=== PATIENT | male | born 1965 | race Hispanic/Latino ===

== ENCOUNTER 2023-02-04 21:40 | Inpatient (IN) | payer SELFPAY ==
--- OUTSIDE RECORDS SUMMARY | 2023-02-04 21:49 | XMS REPORT | Continuity of Care Document ---
:1965 Author Organization [facility] t Address [address] [place] [address] [place] [address] Care Team Providers Name Role Phone [phone] Attending Clinician Unavailable ADEN_Oxana Attending Clinician Unavailable Nilo COLLINS, Sudha Attending Clinician SUDHA DALEY Attending Clinician Unavailable Magnolia ROLLE, Tammy Attending Clinician Unavailable Jaden PEDRO, Abhay Loyola Attending Clinician [phone] Myla Rosas MD, Jose Pathak Attending Clinician [phone] Elton PEDRO, Polo Johnson Attending Clinician [phone] Luis Bright MD, [place] Asif Attending Clinici an Larry PEDRO, Nitesh Attending Clinician Neto PEDRO, Flaca Mijares Attending Clinician Edie Ortiz MD Attending Clinician Little Schulz MD Attending Clinician Nirali Ray MD Attending Clinician [id number] Admitting Clinician Unavailable GEORGE Admitting Clinician Unavailable NIRALI RAY Admitting Clinician Unavailable Payers Payer Name Policy Type Policy Number Effective Date Expiration Date S ource Problems Condition Condition Condition Status Onset Resolution Last Treating Co mments Source Name Details Category Date Date Treatment Clinician Date Type 2 Type [address] [facility] diabetes diabetes nce 3-18 [facility] mellitus, mellitus, 00:00: Medi karishma without without 00 Center long-term long-term current current use of use of insulin insulin Essential Essential Disease Recurre [facility] hypertensi hypertensi nce 3-18 Renetta kes on on 00:00: Medical 00 Center Diastolic Diastolic Problem Active [facility] Heart 3-11 [facility] failure Failure 00:00: Clinic stage A Stage a 00 Diabetes Diabetes Problem Active [facility] mellitus Mellitus 2-09 [facility] 00:00: Clinic 00 Essential Essential Problem Active [facility] hypertensi Hypertensi 2-09 Eleonora se on on 00:00: Clinic 00 Class 3 Class [address] [facility] severe severe nce 2-05 [facility] obesity obesity 00:00: Medical due to due to 00 Center excess excess calories calories with with serious serious comorbidit comorbidit y and body y and body mass index mass index (BMI) of (BMI) of 40.0 to 40.0 to 44.9 in 44.9 in adult adult Pneumonia Pneumonia Problem Active [facility] caused by Caused by 204 [facility] SARS-CoV-2 SARS-CoV-2 00:00: Cl inic 00 Acute Acute Disease Resolve 2020-06-14 2020-06-[address] [facility] [address] respirator respirator d 2-05 00:00:00 12:41:48 [facility] y distress y distress 00:00: Me dical syndrome syndrome 00 Center (ARDS) due (ARDS) due to severe to severe acute acute respirator respirator y syndrome y syndrome coronaviru coronaviru s 2 s 2 (SARS-CoV- (SARS-CoV- 2) 2) Acute Acute Disease Resolve 2020-06-14 2020-06-[address] [facility] hypoxemic hypoxemic d 2-05 00:00:00 12:41:49 [facility] respirator respirator 00:00: Me dical y failure y failure 00 Cent er due to due to COVID-19 COVID-19 JARRETT (acute JARRETT (acute Disease Resolve 2020-06-14 2020-06-[address] [facility] kidney kidney d 2-05 00:00:00 12:41:52 [facility] injury) injury) 00:00: Medical 00 [place] Respirator Respirator Disease Resolve 2020-06-14 2020-06-[address] [facility] y failure y failure d 2-04 00:00:00 12:41:45 [facility] Center Allergies, Adverse Reactions, Alerts Allergy Allergy Status Severity Reaction(s) Onset Inactive Treating Comm ents Source Name Type Date Date Clinician NO KNOWN Allergy Active [facility] Social History Social Habit Start Date Stop Date Quantity Comments Source History of tobacco Passive smoker [facility] use [facility] Tobacco use and 2020-05-08 2020-05-08 Never used [facility] exposure 00:00:00 00:00:00 [facility] Sex Ass[birth year] At [birth year] [facility] 00:00:00 00:00:00 [facility] Smoking Status Start Date Stop Date Source Never smoked tobacco [facility] Medications Ordered Filled Start Stop Current Ordering Indication Dosage Frequency Signature Comments Components Source Medication Medication Date Date Medication? Clinician (SIG) Name Name insulin Yes 6U Inject [address] [facility] regular 3-18 Units [facility] (HumuLIN 12:13: subcutaneo Med ical R,NovoLIN 42 usly 3 Center R) 100 (three) unit/mL times injection daily before meals Use as directed . insulin NPH Yes 10U [id number] Inject [address] [facility] [address] (HumuLIN N) 3-18 [id number] Units L ukes 100 unit/mL 12:13: 3D subcutaneo Medical injection 42 usly 3 Center (three) times daily Use as directed . insulin Yes 6U Inject [address] [facility] regular 3-18 Units [facility] (HumuLIN 12:13: subcutaneo Med ical R,NovoLIN 42 usly 3 Center R) 100 (three) unit/mL times injection daily before meals Use as directed . insulin NPH Yes 10U [id number] Inject [address] (HumuLIN N) 3-18 [id number] Units L ukes 100 unit/mL 12:13: 3D subcutaneo Medical injection 42 usly 3 Center (three) times daily Use as directed . insulin Yes 6U Inject [address] [facility] regular 3-18 Units [facility] (HumuLIN 12:13: subcutaneo Med ical R,NovoLIN 42 usly 3 Center R) 100 (three) unit/mL times injection daily before meals Use as directed . insulin NPH Yes 10U [id number] Inject [address] [address] (HumuLIN N) 18 [id number] Units L ukes 100 unit/mL 12:13: 3D subcutaneo Medical injection 42 usly 3 Center (three) times daily Use as directed . amLODIPine 2021- No 5mg QD Take [address] [facility] (NORVASC) 5 06-05-09 tablet (5 Renetta kes MG tablet 00:00: 23:59 mg total) Me dical 00 :00 by mouth Center daily. amLODIPine 2021- No 5mg QD Take [address] [facility] (NORVASC) 5 06-05-09 tablet (5 Renetta kes MG tablet 00:00: 23:59 mg total) Me dical 00 :00 by mouth Center daily. furosemide 2020- No 40mg QD Take [address] [facility] (LASIX) 40 06-05-08 tablet (40 Renetta kes MG tablet 00:00: 23:59 mg total) Me dical 00 :00 by mouth Center daily for 30 days. furosemide 2020- No 40mg QD Take [address] [facility] (LASIX) 40 06-05- tablet (40 Renetta kes MG tablet 00:00: 23:59 mg total) Me dical 00 :00 by mouth Center daily for 30 days. predniSONE Yes 30mg for [address] (DELTASONE) 3-08 days and Luke s 10 MG 00:00: then 20mg Medical tablet 00 for 7 days Center and then 10mg for 7 days and then stop in total 19 days total. miscellaneo Yes Glucometer [facility] medical 06-04 #1Glucomet Jesus es supply Misc 00:00: er test Med ical 00 strip, Center chect QAC and QHS #100Lancet s #100Insuli n syringes 1ml each #100. predniSONE Yes 30mg for [address] (DELTASONE) 3-08 days and Luke s 10 MG 00:00: then 20mg Medical tablet 00 for 7 days Center and then 10mg for 7 days and then stop in total 19 days total. miscellaneo Yes Glucometer [facility] 3- #1Glucomet Jesus es supply Misc 00:00: er test Med ical 00 strip, Center chect QAC and QHS #100Lancet s #100Insuli n syringes 1ml each #100. predniSONE Yes 30mg for [address] (DELTASONE) 3-08 days and Luke s 10 MG 00:00: then 20mg Medical tablet 00 for 7 days Center and then 10mg for 7 days and then stop in total 19 days total. miscellaneo Yes Glucometer [facility] 06-04 #1Glucomet Jesus es supply Misc 00:00: er test Med ical 00 strip, Center chect QAC and QHS #100Lancet s #100Insuli n syringes 1ml each #100. apixaban 2020- No 5mg Q.5D Take [address] [facility] (ELIQUIS) 5 06-04 tablet (5 Renetta kes mg Tab 00:00: 23:59 mg total) Medic al tablet 00 :00 by mouth 2 Center (two) times daily for 30 days. apixaban 2020- No 5mg Q.5D Take [address] [facility] (ELIQUIS) 5 06-04 tablet (5 Renetta kes mg Tab 00:00: 23:59 mg total) Medic al tablet 00 :00 by mouth 2 Center (two) times daily for 30 days. insulin NPH 2020- No Use as [facility] (HumuLIN N) 06-04 directed, Renetta kes 100 unit/mL 00:00: 00:00 10 units M edical injection 00 :00 twice Center daily. insulin 2020- No [address] [facility] regular 06-04 with each [facility] (HumuLIN 00:00: 00:00 meal. Do Medi karishma R,NovoLIN 00 :00 not take Center R) 100 if unit/mL pre-meal injection blood sugar below 100 or not taking that meal. insulin NPH 2020- No Use as [facility] (HumuLIN N) 06-04 directed, Renetta kes 100 unit/mL 00:00: 00:00 10 units M edical injection 00 :00 twice Center daily. insulin 2020- No [address] [facility] regular 3-08 18 with each [facility] (HumuLIN 00:00: 00:00 meal. Do Medi karishma R,NovoLIN 00 :00 not take Center R) 100 if unit/mL pre-meal injection blood sugar below 100 or not taking that meal. amlodipine amlodipine No .5 Q1D amlodipine [facility] 10 mg 10 mg 10 mg Jed tablet Take tablet Take tablet Clinic 0.5 tablets 0.5 tablets Take 0.5 every day every day tablets by oral by oral every day route. route. by oral route. Eliquis 5 Eliquis 5 No 1 BID Eliquis 5 [facility] mg tablet mg tablet mg tablet Jed Take 1 Take 1 Take 1 Clinic tablet tablet tablet twice a day twice a day twice a by oral by oral day by route. route. oral route. furosemide furosemide No 1 Q1D furosemide [facility] 40 mg 40 mg 40 mg Jed tablet Take tablet Take tablet Clinic 1 tablet 1 tablet Take 1 every day every day tablet by oral by oral every day route. route. by oral route. Humulin N Humulin N No 15unit( BID Humulin N Carter NPH U-100 NPH U-100 s) NPH U-100 [facility] Insulin Insulin Insulin Clinic (isophane (isophane (isophane susp) 100 susp) 100 susp) 100 unit/mL unit/mL unit/mL subcutaneou subcutaneou subcutaneo s Inject 15 s Inject 15 us Inject units twice units twice 15 units a day by a day by twice a subcutaneou subcutaneou day by s route s route subcutaneo before before us route meals. meals. before meals. Humulin R Humulin R No 6unit(s BID Humulin R [facility] Regular Regular ) Regular Jed U-100 U-100 U-100 [facility] Insulin 100 Insulin 100 Insulin unit/mL unit/mL 100 injection injection unit/mL solution solution injection Take 6 Take 6 solution units twice units twice Take 6 a day by a day by units injection injection twice a route route day by before before injection meals. meals. route before meals. prednisone prednisone No 1 Q1D prednisone [facility] 10 mg 10 mg 10 mg Jed tablet Take tablet Take tablet Clinic 1 tablet 1 tablet Take 1 every day every day tablet by oral by oral every day route. route. by oral route. Vital Signs Vital Name Observation Time Observation Value Comments Source Body Weight 2020-06-22 00:00:00 215 [lb_av] [facility] HEIGHT 2020-06-14 12:00:00 162.6 cm WEIGHT 2020-06-14 12:00:00 97.523 kg HEIGHT 2020-06-14 12:00:00 162.6 cm WEIGHT 2020-06-14 12:00:00 97.523 kg WEIGHT 2020-06-07 06:00:00 97.523 kg WEIGHT 2020-06-04 06:00:00 97.523 kg WEIGHT 2020-06-03 06:58:00 97.569 kg WEIGHT 2020-06-02 05:40:00 97.07 kg WEIGHT 2020-06-01 06:00:00 97.16 kg WEIGHT 2020-05-31 06:00:00 94.303 kg WEIGHT 2020-05-30 06:00:00 96.072 kg HEIGHT 2020-05-29 12:42:00 162.6 cm WEIGHT 2020-05-29 12:42:00 97.16 kg WEIGHT 2020-05-28 06:00:00 105.1 kg WEIGHT 2020-05-26 06:00:00 104.6 kg WEIGHT 2020-05-24 06:29:00 102.4 kg WEIGHT 2020-05-23 04:00:00 101.5 kg WEIGHT 2020-05-22 05:00:00 99.7 kg WEIGHT 2020-05-21 00:00:00 99.9 kg WEIGHT 2020-05-20 06:00:00 102.7 kg WEIGHT 2020-05-19 06:00:00 101.651 kg WEIGHT 2020-05-17 06:00:00 100.789 kg WEIGHT 2020-05-16 05:48:00 103.874 kg WEIGHT 2020-05-14 03:00:00 99.8 kg WEIGHT 2020-05-13 06:00:00 100.1 kg WEIGHT 2020-05-12 06:00:00 107.049 kg WEIGHT 2020-05-11 06:00:00 108.6 kg WEIGHT 2020-05-10 05:43:00 107.9 kg WEIGHT 2020-05-09 06:00:00 108.2 kg WEIGHT 2020-05-08 06:00:00 107.956 kg WEIGHT 2020-05-05 04:00:00 108.9 kg HEIGHT 2020-05-04 00:00:00 162.6 cm WEIGHT 2020-05-04 00:00:00 108.001 kg HEIGHT 2020-05-03 19:11:00 177.8 cm WEIGHT 2020-05-03 19:11:00 99.791 kg Body Weight 2020-06-07 00:00:00 215 [lb_av] [facility] WEIGHT 2020-06-07 06:00:00 97.523 kg WEIGHT 2020-06-04 06:00:00 97.523 kg WEIGHT 2020-06-03 06:58:00 97.569 kg WEIGHT 2020-06-02 05:40:00 97.07 kg WEIGHT 2020-06-01 06:00:00 97.16 kg WEIGHT 2020-05-31 06:00:00 94.303 kg WEIGHT 2020-05-30 06:00:00 96.072 kg HEIGHT 2020-05-29 12:42:00 162.6 cm WEIGHT 2020-05-29 12:42:00 97.16 kg WEIGHT 2020-05-28 06:00:00 105.1 kg WEIGHT 2020-05-26 06:00:00 104.6 kg WEIGHT 2020-05-24 06:29:00 102.4 kg WEIGHT 2020-05-23 04:00:00 101.5 kg WEIGHT 2020-05-22 05:00:00 99.7 kg WEIGHT 2020-05-21 00:00:00 99.9 kg WEIGHT 2020-05-20 06:00:00 102.7 kg WEIGHT 2020-05-19 06:00:00 101.651 kg WEIGHT 2020-05-17 06:00:00 100.789 kg WEIGHT 2020-05-16 05:48:00 103.874 kg WEIGHT 2020-05-14 03:00:00 99.8 kg WEIGHT 2020-05-13 06:00:00 100.1 kg WEIGHT 2020-05-12 06:00:00 107.049 kg WEIGHT 2020-05-11 06:00:00 108.6 kg WEIGHT 2020-05-10 05:43:00 107.9 kg WEIGHT 2020-05-09 06:00:00 108.2 kg WEIGHT 2020-05-08 06:00:00 107.956 kg WEIGHT 2020-05-05 04:00:00 108.9 kg HEIGHT 2020-05-04 00:00:00 162.6 cm WEIGHT 2020-05-04 00:00:00 108.001 kg HEIGHT 2020-05-03 19:11:00 177.8 cm WEIGHT 2020-05-03 19:11:00 99.791 kg Body height 2020-06-14 12:00:00 162.6 cm [facility] Body weight 2020-06-14 12:00:00 97.523 kg [facility] BMI 2020-06-14 12:00:00 36.90 kg/m2 [facility] Oxygen saturation in 2020-06-14 12:00:00 98 /min on 2L Oxygen [facility] Arterial blood by Medical Ce nter Pulse oximetry Systolic blood 2020-06-08 15:06:00 111 mm[Hg] [facility] Diastolic blood 2020-06-08 15:06:00 66 mm[Hg] [facility] Heart rate 2020-06-08 15:06:00 110 /min [facility] Body temperature 2020-06-08 15:06:00 36.22 Cleo [facility] Respiratory rate 2020-06-08 15:06:00 18 /min [facility] Procedures Procedure Date / Time Performing Clinician Source Performed POCT-GLUCOSE METER 2020-06-08 07:26:00 Little Schulz [facility] POCT-GLUCOSE METER 2020-06-07 21:49:00 Zeus Littlemikhail Eng [facility] POCT-GLUCOSE METER 2020-06-07 17:23:00 Zeus Little Albertina [facility] POCT-GLUCOSE METER 2020-06-07 12:19:00 Zeus Littlemikhail Eng [facility] POCT-GLUCOSE METER 2020-06-07 08:25:00 Little Schulz [facility] POCT-GLUCOSE METER 2020-06-06 23:12:00 Little Schulz [facility] POCT-GLUCOSE METER 2020-06-06 17:19:00 Meera Schulzberann Eng [facility] POCT-GLUCOSE METER 2020-06-06 12:08:00 Meera Schulzberann Eng [facility] POCT-GLUCOSE METER 2020-06-06 07:34:00 Zeus Little Ann [facility] POCT-GLUCOSE METER 2020-06-05 20:05:00 Angel [facility] POCT-GLUCOSE METER 2020-06-05 16:48:00 Angel [facility] POCT-GLUCOSE METER 2020-06-05 11:38:00 Angel, [facility] POCT-GLUCOSE METER 2020-06-05 08:07:00 Angel [facility] POCT-GLUCOSE METER 2020-06-04 20:17:00 Angel, [facility] POCT-GLUCOSE METER 2020-06-04 18:02:00 Angel, [facility] POCT-GLUCOSE METER 2020-06-04 12:12:00 Angel, [facility] POCT-GLUCOSE METER 2020-06-04 07:47:00 Angel, [facility] CBC W/PLT COUNT & AUTO 2020-06-04 04:36:[address] [facility] CBC W/PLT COUNT & AUTO 2020-06-04 04:36:[address] [facility] BASIC METABOLIC PANEL (7) 2020-06-04 04:31:00 Hamida Zelaya [facility] MAGNESIUM 2020-06-04 04:31:00 Hamida Zelaya [facility] D-DIMER 2020-06-04 04:30:00 Amanda Donald [facility] PT/APTT 2020-06-04 04:30:00 [facility] 2020-06-03 22:14[facility] 2020-06-03 17:20:00 [facility] POCT-GLUCOSE METER 2020-06-03 12:11:[facility] 2020-06-03 08:02:[facility] W[facility]T [facility] & AUTO 2020-06-03 05:42:00 Nathalie [facility] PT/APTT 2020-06-03 05:42:00 Nathalie [facility] BASIC METABOLIC PANEL (7) 2020-06-03 05:42:00 Hamida Zelaya [facility] MAGNESIUM 2020-06-03 05:42:00 Hamida Zelaya [facility] CBC W/PLT COUNT & AUTO 2020-06-03 05:42:00 Hamida Zelaya [facility] POCT-GLUCOSE METER 2020-06-02 21:54:00 [facility] 2020-06-02 17:46:00 [facility] POCT-GLUCOSE METER 2020-06-02 11:45:00 [facility] POCT-GLUCOSE METER 2020-06-02 07:51:00 [facility] D-DIMER 2020-06-02 06:35:00 Amanda Donald [facility] CBC W/PLT COUNT & AUTO 2020-06-02 06:35:00 Hamida Zelaya [facility] PT/APTT 2020-06-02 06:35:00 Nathalie [facility] BASIC METABOLIC PANEL (7) 2020-06-02 06:35:00 Hamida Zelaya yris [facility] MAGNESIUM 2020-06-02 06:35:00 Hamida Zelaya [facility] CBC W/PLT COUNT & AUTO 2020-06-02 06:35:00 Hamida Zelaya [facility] CT CHEST WITHOUT IV CONTRAST 2020-06-01 22:40:00 [facility] POCT-GLUCOSE METER 2020-06-01 20:47:00 [facility] POCT-GLUCOSE METER 2020-06-01 17:12:00 [facility] DLCO (SINGLE BREATH 2020-06-01 13:44:00 [facility] LUNG VOLUMES 2020-06-01 13:44:00 [facility] MIP/MEP 2020-06-01 13:44:00 [facility] SPIROMETRY 2020-06-01 13:44:00 [facility] POCT-GLUCOSE METER 2020-06-01 12:15:[facility]/ [facility]OPPLER 2020-06-01 12:05:32 [facility] (CW/PW/COLOR) [facility] POCT-GLUCOSE METER 2020-06-01 07:15:00 Angel [facility] CBC W/PLT COUNT & AUTO 2020-06-01 06:10:00 Nathalie [facility] PT/APTT 2020-06-01 06:10:00 Nathalie [facility] BASIC METABOLIC PANEL (7) 2020-06-01 06:10:00 Hamida Zelaya yris [facility] MAGNESIUM 2020-06-01 06:10:00 Nathalie [facility] CBC W/PLT COUNT & AUTO 2020-06-01 06:10:00 Hamida Zelaya [facility] POCT-GLUCOSE METER 2020-05-31 21:26:00 [facility] PO[facility]SE METER 2020-05-31 16:59:00 [facility] POCT-GLUCOSE METER 2020-05-31 11:42:00 [facility] POCT-GLUCOSE METER 2020-05-31 07:34:00 [facility] D-DIMER 2020-05-31 04:20:00 Amanda Donald [facility] CBC W/PLT COUNT & AUTO 2020-05-31 04:20:00 Nathalie [facility] PT/APTT 2020-05-31 04:20:00 Nathalie [facility] BASIC METABOLIC PANEL (7) 2020-05-31 04:20:00 Hamida Zelaya [facility] MAGNESIUM 2020-05-31 04:20:00 Nathalie [facility] CBC W/PLT COUNT & AUTO 2020-05-31 04:20:00 Hamida Zelaya [facility] POCT-GLUCOSE METER 2020-05-30 21:34:00 Neto [facility] POCT-GLUCOSE METER 2020-05-30 18:06:00 [facility] 2020-05-30 12:19:00 Neto [facility] POCT-GLUCOSE METER 2020-05-30 07:25:00 Neto [facility] CBC W/PLT COUNT & AUTO 2020-05-30 04:59:00 Nathalie [facility] PT/APTT 2020-05-30 04:59:00 Nathalie [facility] BASIC METABOLIC PANEL (7) 2020-05-30 04:59:00 Hamida Zelaya ick [facility] MAGNESIUM 2020-05-30 04:59:00 Core Drill Operator, [facility] CBC W/PLT COUNT & AUTO 2020-05-30 04:59:00 Core Drill Operator, [facility] POCT-GLUCOSE METER 2020-05-29 22:26:00 Flaca Duque [facility] POCT-GLUCOSE METER 2020-05-29 21:50:00 Duque [facility] POCT-GLUCOSE METER 2020-05-29 17:22:00 Neto [facility] POCT-GLUCOSE METER 2020-05-29 11:11:00 [facility] POCT-GLUCOSE METER 2020-05-29 08:44:00 [facility] CBC W/PLT COUNT & AUTO 2020-05-29 04:11:00 Nathalie [facility] PT/APTT 2020-05-29 04:11:00 Core Drill Operator, [facility] BASIC METABOLIC PANEL (7) 2020-05-29 04:11:00 Hamida Zelaya yris [facility] MAGNESIUM 2020-05-29 04:11:00 Nathalie [facility] CBC W/PLT COUNT & AUTO 2020-05-29 04:11:00 Nathalie [facility] D-DIMER 2020-05-28 23:09:00 Amanda Donald [facility] POCT-GLUCOSE METER 2020-05-28 20:13:00 [facility] POCT-GLUCOSE METER 2020-05-28 16:44:00 [facility] POCT-GLUCOSE METER 2020-05-28 11:29:00 [facility] POCT-GLUCOSE METER 2020-05-28 08:00:00 [facility] CBC W/PLT COUNT & AUTO 2020-05-28 03:43:00 Hamida Zelaya [facility] PT/APTT 2020-05-28 03:43:00 Nathalie [facility] BASIC METABOLIC PANEL (7) 2020-05-28 03:43:00 Hamida Zelaya [facility] MAGNESIUM 2020-05-28 03:43:00 Nathalie [facility] CBC W/PLT COUNT & AUTO 2020-05-28 03:43:00 Nathalie [facility] POCT-GLUCOSE METER 2020-05-27 20:23[facility] 2020-05-27 16:20:00 [facility] POCT-GLUCOSE METER 2020-05-27 12:26:00 [facility] POCT-GLU[facility]SE METER 2020-05-27 07:57:00 [facility] D-DIMER 2020-05-27 04:01:00 Amanda Donald [facility] CBC W/PLT COUNT & AUTO 2020-05-27 04:01:00 Nathalie [facility] PT/APTT 2020-05-27 04:01:00 Hamida Zelaya [facility] BASIC METABOLIC PANEL (7) 2020-05-27 04:01:00 Hamida Zelaya [facility] MAGNESIUM 2020-05-27 04:01:00 Hamida Zelaya [facility] CBC W/PLT COUNT & AUTO 2020-05-27 04:01:00 Nathalie [facility] POCT-GLUCOSE METER 2020-05-26 20:19:00 [facility] POCT-[facility]SE METER 2020-05-26 15:24:00 [facility] POCT-GLUCOSE METER 2020-05-26 11:42:00 [facility] POCT-GLUCOSE METER 2020-05-26 08:12:00 [facility] CBC W/PLT COUNT & AUTO 2020-05-26 04:12:00 Hamida Zelaya [facility] PT/APTT 2020-05-26 04:12:00 Hamida Zelaya [facility] FERRITIN 2020-05-26 04:12:00 Derek Padron [facility] C-REACTIVE PROTEIN 2020-05-26 04:12:00 Derek Padron [facility] BASIC METABOLIC PANEL (7) 2020-05-26 04:12:00 Hamida Zelaya [facility] MAGNESIUM 2020-05-26 04:12:00 Hamida Zelaya [facility] CBC W/PLT COUNT & AUTO 2020-05-26 04:12:00 Hamida Zelaya [facility] POCT-GLUCOSE METER 2020-05-25 20:01:00 [facility] POCT-GLUCOSE METER 2020-05-25 17:53:00 [facility] POCT-GLUCOSE METER 2020-05-25 11:47:00 [facility] POCT-GLUCOSE METER 2020-05-25 08:51:00 [facility] D-DIMER 2020-05-25 04:02:00 Amanda Donald [facility] CBC W/PLT COUNT & AUTO 2020-05-25 04:02:00 Nathalie [facility] PT/APTT 2020-05-25 04:02:00 Nathalie [facility] BASIC METABOLIC PANEL (7) 2020-05-25 04:02:00 Hamida Zelaya [facility] MAGNESIUM 2020-05-25 04:02:00 Hamida Zelaya [facility] CBC W/PLT COUNT & AUTO 2020-05-25 04:02:00 Hamida Zelaya [facility] POCT-GLUCOSE METER 2020-05-24 20:27:00 [facility] POCT-GLUCOSE METER 2020-05-24 16:15:00 [facility] XR CHEST 1 VIEW PORTABLE / 2020-05-24 11:26:00 Ciccarellarnel [facility] POCT-GLUCOSE METER 2020-05-24 11:13:00 [facility] POCT-GLUCOSE METER 2020-05-24 07:49:00 [facility] CBC W/PLT COUNT & AUTO 2020-05-24 04:01:00 Hamida Zelaya [facility] PT/APTT 2020-05-24 04:01:00 Nathalie [facility] BASIC METABOLIC PANEL (7) 2020-05-24 04:01:00 Hamida Zelaya [facility] MAGNESIUM 2020-05-24 04:01:00 Nathalie [facility] CBC W/PLT COUNT & AUTO 2020-05-24 04:01:00 Hamida Zelaya [facility] POCT-GLUCOSE METER 2020-05-23 20:49:00 [facility] POCT-GLUCOSE METER 2020-05-23 16:07:00 [facility] POCT-GLUCOSE METER 2020-05-23 11:33:00 [facility] BASIC METABOLIC PANEL (7) 2020-05-23 04:42:00 Hamida Zelaya yris [facility] MAGNESIUM 2020-05-23 04:42:00 Hamida Zelaya [facility] D-DIMER 2020-05-23 01:59:00 Amanda Donald [facility] CBC W/PLT COUNT & AUTO 2020-05-23 01:59:00 Hamida Zelaya [facility] PT/APTT 2020-05-23 01:59:00 Hamida Zelaya [facility] CBC W/PLT COUNT & AUTO 2020-05-23 01:59:00 Hamida Zelaya [facility] POCT-GLUCOSE METER 2020-05-22 20:14:00 [facility] POCT-GLUCOSE METER 2020-05-22 16:44:00 [facility] HEPARIN ASSAY - LOW 2020-05-22 13:29:00 Radha Elizondo [facility] MOLECULAR WEIGHT [facility] POCT-GLUCOSE METER 2020-05-22 11:51:00 [facility] POCT-GLUCOSE METER 2020-05-22 07:58:00 [facility] POCT-GLUCOSE METER 2020-05-22 07:39:00 [facility] CBC W/PLT COUNT & AUTO 2020-05-22 03:24:00 Hamida Zelaya [facility] PT/APTT 2020-05-22 03:24:00 Hamida Zelaya [facility] BASIC METABOLIC PANEL (7) 2020-05-22 03:24:00 Hamida Zelaya [facility] MAGNESIUM 2020-05-22 03:24:00 Nathalie [facility] CBC W/PLT COUNT & AUTO 2020-05-22 03:24:00 Hamida Zelaya [facility] POCT-GLUCOSE METER 2020-05-21 20:06:00 [facility] POCT-GLUCOSE METER 2020-05-21 17:34:00 [facility] POCT-GLUCOSE METER 2020-05-21 12:16:00 [facility] POCT-GLUCOSE METER 2020-05-21 09:22:00 [facility] POCT-GLUCOSE METER 2020-05-21 08:01:00 [facility] D-DIMER 2020-05-21 03:45:00 Amanda Donald Ray [facility] CBC W/PLT COUNT & AUTO 2020-05-21 03:45:00 Hamida Zelaya [facility] PT/APTT 2020-05-21 03:45:00 Nathalie [facility] BASIC METABOLIC PANEL (7) 2020-05-21 03:45:00 Hamida Zelaya [facility] MAGNESIUM 2020-05-21 03:45:00 Hamida Zelaya [facility] CBC W/PLT COUNT & AUTO 2020-05-21 03:45:00 Hamida Zelaya [facility] XR CHEST 1 VIEW PORTABLE / 2020-05-21 00:29:[address] [facility] POCT-GLUCOSE METER 2020-05-20 21:47:00 [facility] POCT-GLUCOSE METER 2020-05-20 16:36:00 [facility] HEPARIN ASSAY - LOW 2020-05-20 12:12:00 Radha Elizondo [facility] MOLECULAR WEIGHT [facility] POCT-GLUCOSE METER 2020-05-20 11:20:00 [facility] POCT-GLUCOSE METER 2020-05-20 08:11:00 [facility] BLOOD GAS, ARTERIAL 2020-05-20 03:45:00 Dragan Abdi [facility] CBC W/PLT COUNT & AUTO 2020-05-20 03:34:00 [facility]ABOLIC 2020-05-20 03:34:[address] [address] [facility] [facility] MAGNESIUM 2020-05-20 03:34:00 Nathalie [facility] PHOSPHORUS 2020-05-20 03:34:00 [facility] PT/APTT 2020-05-20 [facility] & AUTO 2020-05-20 [facility]:34[facility] 2020-05-19 21:15:00 [facility] POCT-GLUCOSE METER 2020-05-19 18:20:00 [facility] BASIC METABOLIC PANEL (7) 2020-05-19 12:27:00 Radha Elizondo [facility] POCT-GLUCOSE METER 2020-05-19 12:18:00 [facility] POCT-GLUCOSE METER 2020-05-19 09:06:00 [facility] BLOOD GAS, ARTERIAL 2020-05-19 05:09:00 Dragan Abdi [facility] CBC W/PLT COUNT & AUTO 2020-05-19 04:41:00 Nathalie [facility] COMPREHENSIVE METABOLIC 2020-05-19 04:41:00 Hamida Zelaya [facility] MAGNESIUM 2020-05-19 04:41:00 Nath[facility]ie [facility] PHOSPHORUS 2020-05-19 04:41:00 [facility] PT/APTT 2020-05-19 04:41:[facility] CBC W/PLT COUNT & AUTO 2020-05-19 04:41:00 Nathalie [facility] FERRITIN 2020-05-18 23:47:00 Amanda Donald [facility] D-DIMER 2020-05-18 23:47:00 Amanda Donald [facility] POCT-GLUCOSE METER 2020-05-18 21:05:00 [facility] BASIC METABOLIC PANEL (7) 2020-05-18 20:40:00 Radha Elizondo [facility] LACTATE DEHYDROGENASE (LDH) 2020-05-18 20:40:00 Amanda Donald [facility] VENOUS DOPPLER LEGS 2020-05-18 19:20:00 Rosemary Guthrie [facility] POCT-GLUCOSE METER 2020-05-18 16:52:00 [facility] HEPARIN ASSAY - LOW 2020-05-18 14:29:00 Mitchell Andres I [facility] MOLECULAR WEIGHT [facility] POCT-GLUCOSE METER 2020-05-18 12:11:00 [facility] POCT-GLUCOSE METER 2020-05-18 07:50:00 [facility] PROCALCITONIN 2020-05-18 03:37:00 Rosemary Guthrie [facility] CBC W/PLT COUNT & AUTO 2020-05-18 03:37:00 Hamida Zelaya [facility] COMPREHENSIVE METABOLIC 2020-05-18 03:37:[address] [facility] MAGNESIUM 2020-05-18 03:37:00 Hamida Zelaya [facility] PHOSPHORUS 2020-05-18 03:37:00 [facility] PT/APTT 2020-05-18 03:37:00 Nath[facility]ie [facility] CBC W/PLT COUNT & AUTO 2020-05-18 03:37:00 Hamida Zelaya [facility] BLOOD GAS, ARTERIAL 2020-05-18 03:26:00 Dragan Abdi [facility] SPUTUM CULTURE + GRAM STAIN 2020-05-17 21:50:00 Dmitry Mitchell núñez [facility] POCT-GLUCOSE METER 2020-05-17 19:58:00 [facility] BLOOD CULTURE 2020-05-17 19:21:00 Mitchell Andres [facility] POCT-GLUCOSE METER 2020-05-17 17:35:00 [facility] POCT-GLUCOSE METER 2020-05-17 12:09:00 [facility] XR CHEST 1 VIEW PORTABLE / 2020-05-17 09:00:00 Samanthad[address]ielleCamilocristhian [place] yahaira [facility] POCT-GLUCOSE METER 2020-05-17 08:03:00 [facility] BLOOD GAS, ARTERIAL 2020-05-17 03:03:00 Dragan Abdi [facility] LACTATE DEHYDROGENASE (LDH) 2020-05-17 02:50:00 Amanda Donald [facility] FERRITIN 2020-05-17 02:50:00 Amanda Donald [facility] D-DIMER 2020-05-17 02:50:00 Amanda Donald [facility] CBC W/PLT COUNT & AUTO 2020-05-17 02:50:[address] [facility] COMPREHENSIVE METABOLIC 2020-05-17 02:50:[address] [facility] MAGNESIUM 2020-05-17 02:50:00 Hamida Zelaya [facility] PHOSPHORUS 2020-05-17 02:50:00 [facility] PT/APTT 2020-05-17 02:50:00 Hamida Zelaya [facility] CBC W/PLT COUNT & AUTO 2020-05-17 02:50:[address] [facility] (CELLAVISION MANUAL DIFF) 2020-05-17 02:50:00 Hamida Zelaya [facility] POCT-GLUCOSE METER 2020-05-16 20:34:00 [facility] TROPONIN I 2020-05-16 16:59:00 [facility] POTASSIUM 2020-05-16 16:59:00 [facility] POCT-GLUCOSE METER 2020-05-16 16:39:00 [facility] LIMITED 2D ECHOCARDIOGRAM 2020-05-16 16:35:05 [facility] POCT-GLUCOSE METER 2020-05-16 11:44:00 [facility] TROPONIN I 2020-05-16 09:31:00 Af [facility] POTASSIUM 2020-05-16 09:31:[facility] 2020-05-16 07:52:00 [facility] ECG 12-LEAD 2020-05-16 07:51:26 Unknown, [facility] ECG 12-LEAD 2020-05-16 07:51:26 Unknown, [facility] ECG 12-LEAD 2020-05-16 07:51:06 Unknown, [facility] ECG 12-LEAD 2020-05-16 07:51:06 Unknown, [facility] CBC W/PLT COUNT & AUTO 2020-05-16 05:46:[address] [facility] COMPREHENSIVE METABOLIC 2020-05-16 05:46:[address] [facility] MAGNESIUM 2020-05-16 05:46:00 Hamida Zelaya [facility] PHOSPHORUS 2020-05-16 05:46:00 Core Drill Operator, [facility] CBC W/PLT COUNT & AUTO 2020-05-16 05:46:00 Nathalie [facility] PT/APTT 2020-05-16 05:33:00 [facility] BLOOD GAS, ARTERIAL 2020-05-16 05:33:00 Dragan Abdi [facility] POCT-GLUCOSE METER 2020-05-15 21:04:00 [facility] POCT-GLUCOSE METER 2020-05-15 16:22:00 [facility] POCT-GLUCOSE METER 2020-05-15 11:19:00 [facility] POCT-GLUCOSE METER 2020-05-15 08:10:00 Luis Bright [facility] CBC W/PLT COUNT & AUTO 2020-05-15 03:00:00 Hamida Zelaya [facility] COMPREHENSIVE METABOLIC 2020-05-15 03:00:00 Hamida Zelaya [facility] MAGNESIUM 2020-05-15 03:00:00 Hamida Zelaya [facility] PHOSPHORUS 2020-05-15 03:00:00 [facility] PT/APTT 2020-05-15 03:00:00 Hamida Zelaya [facility] BLOOD GAS, ARTERIAL 2020-05-15 03:00:00 Hamida Zelaya [facility] CBC W/PLT COUNT & AUTO 2020-05-15 03:00:00 Nathalie [facility] BLOOD GAS, ARTERIAL 2020-05-14 20:50:00 Hamida Zelaya [facility] POCT-GLUCOSE METER 2020-05-14 20:35:00 Luis Bright [facility] PROCALCITONIN 2020-05-14 20:31:00 Hamida Zelaya [facility] D-DIMER 2020-05-14 20:31:00 Amanda Donald [facility] POCT-GLUCOSE METER 2020-05-14 17:05:00 Jeimyjeri Bright [facility] POCT-GLUCOSE METER 2020-05-14 15:02:00 Jeimyjeri Bright, [facility] POCT-GLUCOSE METER 2020-05-14 10:44:[address] [facility], [facility] XR CHEST 1 VIEW PORTABLE / 2020-05-14 08:59:[address] [facility] LACTATE DEHYDROGENASE (LDH) 2020-05-14 08:31:00 Amanda Donald [facility] FERRITIN 2020-05-14 08:31:00 Amanda Donald [facility] POCT-GLUCOSE METER 2020-05-14 07:55:00 Adanbestjeri Bright [facility] POCT-GLUCOSE METER 2020-05-14 07:38:00 Luis Bright [facility] CBC W/PLT COUNT & AUTO 2020-05-14 04:14:[address] [facility] COMPREHENSIVE METABOLIC 2020-05-14 04:14:[address] [facility] MAGNESIUM 2020-05-14 04:14:00 Hamida Zelaya [facility] PHOSPHORUS 2020-05-14 04:14:00 Hamida Zelaya [facility] PT/APTT 2020-05-14 04:14:00 Hamida Zelaya [facility] BLOOD GAS, ARTERIAL 2020-05-14 04:14:00 Hamida Zelaya [facility] CBC W/PLT COUNT & AUTO 2020-05-14 04:14:[address] [facility] HEPARIN ASSAY - LOW 2020-05-14 00:15:00 Hamida Zelaya [facility] POCT-GLUCOSE METER 2020-05-13 19:59:00 Adanbestjeri Bright [facility] nter BLOOD GAS, ARTERIAL 2020-05-13 16:46:00 Hamida Zelaya [facility] POCT-GLUCOSE METER 2020-05-13 16:31:00 Adanbestjeri Bright [facility] nter POCT-GLUCOSE METER 2020-05-13 11:01:00 Adanbestjeri Bright [facility] nter POTASSIUM-STAT LAB 2020-05-13 09:06:00 Amanda Donald [facility] POCT-GLUCOSE METER 2020-05-13 07:34:00 Adanbestjeri Bright [facility] nter BLOOD GAS, ARTERIAL 2020-05-13 03:59:00 Hamida Zelaya [facility] CBC W/PLT COUNT & AUTO 2020-05-13 03:55:[address] [facility] COMPREHENSIVE METABOLIC 2020-05-13 03:55:[address] [facility] MAGNESIUM 2020-05-13 03:55:00 Hamida Zelaya [facility] PHOSPHORUS 2020-05-13 03:55:00 Hamida Zelaya [facility] PT/APTT 2020-05-13 03:55:00 [facility] CBC W/PLT COUNT & AUTO 2020-05-13 03:55:00 [facility] LACTATE DEHYDROGENASE (LDH) 2020-05-12 23:38:00 Amanda Donald [facility] FERRITIN 2020-05-12 23:38:00 Aamnda Donald [facility] D-DIMER 2020-05-12 23:38:00 Amanda Donald [facility] POCT-GLUCOSE METER 2020-05-12 19:50:00 Luis Bright [facility] ntdeandre BASIC METABOLIC PANEL (7) 2020-05-12 17:24:00 Hamida Zelaya [facility] MAGNESIUM 2020-05-12 17:24:00 Hamida Zelaya [facility] BLOOD GAS, ARTERIAL 2020-05-12 17:23:00 Hamida Zelaya [facility] POCT-GLUCOSE METER 2020-05-12 17:23:00 Luis Bright [facility] Ce ntdeandre HEPARIN ASSAY - LOW 2020-05-12 12:42:00 Hamida Zelaya [facility] POCT-GLUCOSE METER 2020-05-12 11:42:00 Luis Bright [facility] Ce ntdeandre POCT-GLUCOSE METER 2020-05-12 08:38:00 Luis Bright [facility] Ce ntdeandre CBC W/PLT COUNT & AUTO 2020-05-12 03:28:[address] [facility] COMPREHENSIVE METABOLIC 2020-05-12 03:28:[address] [facility] MAGNESIUM 2020-05-12 03:28:00 Hamida Zelaya [facility] PHOSPHORUS 2020-05-12 03:28:00 Hamida Zelaya [facility] PT/APTT 2020-05-12 03:28:00 Hamida Zelaya [facility] BLOOD GAS, VENOUS 2020-05-12 03:28:00 Amanda Donald [facility] CBC W/PLT COUNT & AUTO 2020-05-12 03:28:00 [facility] POCT-GLUCOSE METER 2020-05-11 20:05:00 Luis Bright [facility] BLOOD GAS, VENOUS 2020-05-11 17:40:00 Amanda Donald [facility] POCT-GLUCOSE METER 2020-05-11 17:34:00 Luis Bright [facility] POCT-GLUCOSE METER 2020-05-11 11:19:00 Lius Bright [facility] XR CHEST 1 VIEW PORTABLE / 2020-05-11 08:51:00 Rocio Grubbs [facility] POCT-GLUCOSE METER 2020-05-11 08:28:00 Luis Bright [facility] CBC W/PLT COUNT & AUTO 2020-05-11 04:17:00 [facility] COMPREHENSIVE METABOLIC 2020-05-11 04:17:[address] [facility] MAGNESIUM 2020-05-11 04:17:00 [facility] PHOSPHORUS 2020-05-11 04:17:00 [facility] PT/APTT 2020-05-11 04:17:00 [facility] BLOOD GAS, VENOUS 2020-05-11 04:17:00 Amanda Donald [facility] CBC W/PLT COUNT & AUTO 2020-05-11 04:17:00 Hamida Zelaya [facility] LACTATE DEHYDROGENASE (LDH) 2020-05-10 23:13:00 Amanda Donald [facility] FERRITIN 2020-05-10 23:13:00 Amanda Donald [facility] D-DIMER 2020-05-10 23:13:00 Amanda Donald [facility] POCT-GLUCOSE METER 2020-05-10 20:31:00 Luis Bright [facility] nter BLOOD GAS, VENOUS 2020-05-10 17:50:00 Amanda Donald [facility] POCT-GLUCOSE METER 2020-05-10 17:41:00 Luis Bright [facility] FERRITIN 2020-05-10 14:33:00 Amanda Donald [facility] POCT-GLUCOSE METER 2020-05-10 10:58:[facility] 2020-05-10 07:43:00 [facility] POCT-GLUCOSE METER 2020-05-10 05:05:[address] [facility] CBC W/PLT COUNT & AUTO 2020-05-10 04:41:[address] [facility] COMPREHENSIVE METABOLIC 2020-05-10 04:41:[address] [facility] MAGNESIUM 2020-05-10 04:41:00 Hamida Zelaya [facility] PHOSPHORUS 2020-05-10 04:41:00 Hamida Zelaya [facility] PT/APTT 2020-05-10 04:41:00 Hamida Zelaya [facility] BLOOD GAS, ARTERIAL 2020-05-10 04:41:00 Hamida Zelaya I [facility] D-DIMER 2020-05-10 04:41:00 Amanda Donald [facility] LACTATE DEHYDROGENASE (LDH) 2020-05-10 04:41:00 Amanda Donald [facility] CBC W/PLT COUNT & AUTO 2020-05-10 04:41:[address] [facility] POCT-GLUCOSE METER 2020-05-09 21:28:[address] [facility] B-TYPE NATRIURETIC FACTOR 2020-05-09 18:49:00 Amanda Donald [facility] (BNP) [facility] POCT-GLUCOSE METER 2020-05-09 17:02:[address] [facility] BLOOD GAS, ARTERIAL 2020-05-09 15:14:00 Hamida Zelaya [facility] XR CHEST 1 VIEW PORTABLE / 2020-05-09 14:42:[address] [facility] POCT-GLUCOSE METER 2020-05-09 11:28:00 [facility] POCT-GLUCOSE METER 2020-05-09 08:50:[address] [facility] CBC W/PLT COUNT & AUTO 2020-05-09 04:34:00 Hamida Zelaya [facility] COMPREHENSIVE METABOLIC 2020-05-09 04:34:[address] [facility] MAGNESIUM 2020-05-09 04:34:00 Hamida Zelaya [facility] PHOSPHORUS 2020-05-09 04:34:00 Hamida Zelaya [facility] PT/APTT 2020-05-09 04:34:00 Hamida Zelaya [facility] BLOOD GAS, ARTERIAL 2020-05-09 04:34:00 Hamida Zelaya [facility] CBC W/PLT COUNT & AUTO 2020-05-09 04:34:00 Nathalie [facility] POCT-GLUCOSE METER 2020-05-08 23:24:[address] [facility] POCT-GLUCOSE METER 2020-05-08 22:26:[address] [facility] POCT-GLUCOSE METER 2020-05-08 22:09:[address] [facility] POCT-GLUCOSE METER 2020-05-08 21:58:[address] [facility] BLOOD GAS, ARTERIAL 2020-05-08 17:11:00 Hamida Zelaya [facility] POCT-GLUCOSE METER 2020-05-08 16:02:[address] [facility] HEPARIN ASSAY - LOW 2020-05-08 12:56:00 Evert Gerard [facility] POCT-GLUCOSE METER 2020-05-08 11:35:00 [facility] POCT-GLUCOSE METER 2020-05-08 08:28:[address] [facility] BLOOD GAS, ARTERIAL 2020-05-08 04:00:00 Hamida Zelaya [facility] CBC W/PLT COUNT & AUTO 2020-05-08 03:57:00 Hamida Zelaya [facility] CBC W/PLT COUNT & AUTO 2020-05-08 03:57:00 Hamida Zelaya [facility] (CELLAVISION MANUAL DIFF) 2020-05-08 03:57:00 Hamida Zelayak [facility] COMPREHENSIVE METABOLIC 2020-05-08 03:56:[address] [facility] MAGNESIUM 2020-05-08 03:56:00 Hamida Zelaya [facility] PHOSPHORUS 2020-05-08 03:56:00 Hamida Zelaya [facility] PT/APTT 2020-05-08 03:56:00 Hamida Zelaya [facility] FERRITIN 2020-05-07 20:17:00 Nirali Ray [facility] LACTATE DEHYDROGENASE (LDH) 2020-05-07 20:17:00 Nirali Ray [facility] PROCALCITONIN 2020-05-07 20:17:00 Nirali Ray [facility] D-DIMER 2020-05-07 20:17:00 Hotpablo Nirali Falconest [facility] PROTHROMBIN TIME/INR 2020-05-07 20:17:00 Holli Nirali Falconjoy Reese [facility] POCT-GLUCOSE METER 2020-05-07 20:12:[address] [facility] BLOOD GAS, ARTERIAL 2020-05-07 18:26:00 Hamida Zelaya [facility] POCT-GLUCOSE METER 2020-05-07 16:26:[address] [facility] US RENAL COMPLETE 2020-05-07 13:55:00 [facility] SODI[facility] RANDOM URINE 2020-05-07 13:45:00 [facility]OM URINE 2020-05-07 [facility]:45:[facility] 2020-05-07 13:45:00 [facility] POT[facility]SIUM, RANDOM URINE 2020-05-07 [facility] 2020-05-07 13:45:[facility] PO[facility]SE METER 2020-05-07 11:45:[address] [facility] POCT-GLUCOSE METER 2020-05-07 10:08:[address] [facility] BLOOD GAS, ARTERIAL 2020-05-07 04:53:00 Hamida Zelaya [facility] APTT 2020-05-07 04:52:00 Hamida Zelaya [facility] CBC W/PLT COUNT & AUTO 2020-05-07 04:52:[address] [facility] COMPREHENSIVE METABOLIC 2020-05-07 04:52:[address] [facility] MAGNESIUM 2020-05-07 04:52:00 Hamida Zelaya [facility] PHOSPHORUS 2020-05-07 04:52:00 Hamida Zelaya [facility] PT/APTT 2020-05-07 04:52:00 Hamida Zelaya [facility] CBC W/PLT COUNT & AUTO 2020-05-07 04:52:00 Hamida Zelaya [facility] POCT-GLUCOSE METER 2020-05-06 21:03:00 [facility] BLOOD GAS, ARTERIAL 2020-05-06 16:47:00 Hamida Zelaya [facility] BASIC METABOLIC PANEL (7) 2020-05-06 16:47:00 Hamida Zelaya [facility] MAGNESIUM 2020-05-06 16:47:00 Hamida Zelaya [facility] POCT-GLUCOSE METER 2020-05-06 16:41:00 [facility] POCT-GLUCOSE METER 2020-05-06 11:16:00 [facility] THROMBOELASTOGRAPH (TEG) 2020-05-06 07:48:00 Hamida Zelayany helena [facility] APTT 2020-05-06 07:47:00 Hamida Zelaya [facility] POCT-GLUCOSE METER 2020-05-06 07:27:00 [facility] PHOSPHORUS 2020-05-06 03:31:00 Hamida Zelaya [facility] PT/APTT 2020-05-06 03:31:00 Hamida Zelaya [facility] BLOOD GAS, ARTERIAL 2020-05-06 03:31:00 Hamida Zelaya [facility] CBC W/PLT COUNT & AUTO 2020-05-06 03:31:00 Hamida Zelaya [facility] CBC W/PLT COUNT & AUTO 2020-05-06 03:31:[address] [facility] COMPREHENSIVE METABOLIC 2020-05-06 03:31:[address] [facility] MAGNESIUM 2020-05-06 03:31:00 Hamida Zelaya [facility] APTT 2020-05-05 22:48:00 Hamida Zelaya [facility] POCT-GLUCOSE METER 2020-05-05 22:44:00 [facility] FERRITIN 2020-05-05 21:09:00 Nirali Ray [facility] LACTATE DEHYDROGENASE (LDH) 2020-05-05 21:09:00 Nirali Ray [facility] PROCALCITONIN 2020-05-05 21:09:00 [facility] 2020-05-05 21:09:00 Nirali Ray [facility] PROTHROMBIN TIME/INR 2020-05-05 21:09:00 Nirali Ray [facility] POCT-GLUCOSE METER 2020-05-05 20:58:00 [facility] APTT 2020-05-05 16:19:00 [facility] BLOOD GAS, ARTERIAL 2020-05-05 16:19:00 Hamida [facility] BASIC METABOLIC PANEL (7) 2020-05-05 16:18:00 Hamida Zelayak [facility] MAGNESIUM 2020-05-05 16:18:00 Hamida Zelaya [facility] POCT-GLUCOSE METER 2020-05-05 16:14:00 [facility] APTT 2020-05-05 11:19:00 [place] [facility] POCT-GLUCOSE METER 2020-05-05 11:17:00 [facility] POCT-GLUCOSE METER 2020-05-05 08:40:00 [facility] 2D ECHO W/ DOPPLER 2020-05-05 07:59:16 David Gonzalez [facility] (CW/PW/COLOR) [facility] CBC W/PLT COUNT & AUTO 2020-05-05 04:14:[address] [facility] COMPREHENSIVE METABOLIC 2020-05-05 04:14:[address] [facility] HEMOGLOBIN A1C 2020-05-05 04:14:00 Hamida Zelaya [facility] MAGNESIUM 2020-05-05 04:14:00 Hamida Zelaya [facility] PHOSPHORUS 2020-05-05 04:14:00 Hamida Zelaya [facility] CBC W/PLT COUNT & AUTO 2020-05-05 04:14:00 Hamida Zelaya [facility] POCT-GLUCOSE METER 2020-05-04 22:06:00 [facility] BLOOD GAS, ARTERIAL 2020-05-04 18:24:00 Hamida Zelaya [facility] POCT-GLUCOSE METER 2020-05-04 18:12:00 [facility] SODIUM, RANDOM URINE 2020-05-04 12:29:00 David Gonzalez [facility] CREATININE, RANDOM URINE 2020-05-04 12:29:00 David Gonzalez ra [facility] PROTEIN, RANDOM URINE 2020-05-04 12:29:00 Davdi Gonzalez [facility] URINALYSIS W/ MICROSCOPIC 2020-05-04 12:29:00 David Gonzalez [facility] TSH/FREE T4 IF INDICATED 2020-05-04 12:27:00 [facility] POCT-GLUCOSE METER 2020-05-04 10:54:00 [facility] TROPONIN I 2020-05-04 09:34:00 Nirali Ray [facility] CBC W/PLT COUNT & AUTO 2020-05-04 04:43:[address] [facility] CBC W/PLT COUNT & AUTO 2020-05-04 04:43:00 Hotze, Nirali [facility] TROPONIN I 2020-05-04 01:16:00 [facility] 2020-05-03 23:38:00 Abhay Stanley [facility] CT CHEST FOR PULMONARY 2020-05-03 21:53:00 Abhay Stanley [facility] EMBOLUS [facility] SPUTUM CULTURE + GRAM STAIN 2020-05-03 21:30:00 Hotze[facility] FERRITIN 2020-05-03 21:18:00 Hotze, Nirali [facility] PROCALCITONIN 2020-05-03 21:18:00 Hotze, [facility] TROPONIN I 2020-05-03 21:18:00 Hotze, Nirali [facility] D-DIMER 2020-05-03 21:18:00 Hotze, Nirali [facility] THROMBOELASTOGRAPH (TEG) 2020-05-03 21:18:00 Hotze, Nirali [facility] PROTHROMBIN TIME/INR 2020-05-03 21:18:00 Hotze, Nirali Reese [facility] LACTIC ACID, VENOUS 2020-05-03 21:18:00 Hotze, Nirali Herron BRIJ[facility] C-REACTIVE PROTEIN 2020-05-03 21:18:00 Hotze, Nirali [facility] XR CHEST 1 VIEW PORTABLE / 2020-05-03 19:44:[address] [facility] BLOOD CULTURE 2020-05-03 19:43:00 Abhay Stanley [facility] LACTIC ACID, VENOUS 2020-05-03 19:43:00 Abhay Stanley [facility] BLOOD GAS, VENOUS 2020-05-03 19:43:00 Abhay Stanley [facility] ECG 12-LEAD 2020-05-03 19:33:22 Unknown, Hl7 Doctor [facility] ECG 12-LEAD 2020-05-03 19:33:22 Unknown, Hl7 Doctor [facility] SARS-COV2/INFLUENZA/RSV 2020-05-03 19:30:00 Abhay Stanley [facility] RT-PCR [facility] B-TYPE NATRIURETIC FACTOR 2020-05-03 19:30:00 [facility] D-DIMER 2020-05-03 19:30:00 Abhay Stanley [facility] PT/APTT 2020-05-03 19:30:00 Abhay Stanley [facility] CBC W/PLT COUNT & AUTO 2020-05-03 19:30:[address] [facility] COMPREHENSIVE METABOLIC 2020-05-03 19:30:[address] [facility] LACTATE DEHYDROGENASE (LDH) 2020-05-03 19:30:00 Nirali Ray [facility] FIBRINOGEN 2020-05-03 19:30:00 Nirali Ray [facility] CBC W/PLT COUNT & AUTO 2020-05-03 19:30:[address] [facility] REPORT OF PROCEDURE - 2020-05-03 00:00:00 Provider, Jeni [facility] ENDOSCOPY SCAN Scanning [facility] Plan of Care Planned Activity Planned Date Details Comments Source Future Scheduled 2022-11-28 Influenza Vaccine (#1) [facility] 00:00:00 [code = Influenza Vaccine [facility] (#1)] Future Scheduled 2022-03-[address] [facility] Test 00:00:00 (12+) [code = DEPRESSION Med ical Center SCREENING (12+)] Future Scheduled 2021-06-[address] [facility] Test 00:00:00 Counseling and Screening [facility] (12+) [code = Tobacco Cessation Counseling and Screening (12+)] Future Scheduled 2021-03-[address] [facility] Test 00:00:00 (12+) [code = DEPRESSION Med ical Center SCREENING (12+)] Future Scheduled 2021-03-[address] [facility] Test 00:00:00 (12+) [code = DEPRESSION Med [facility] SCREENING (12+)] Future Scheduled 2020-11-28 INFLUENZA VACCINE (#1) [facility] 00:00:00 [code = INFLUENZA VACCINE Me dical Center (#1)] Future Scheduled 2020-11-28 INFLUENZA VACCINE (#1) [facility] 00:00:00 [code = INFLUENZA VACCINE Me dical Center (#1)] Future Scheduled 2020-08-22 CMP, serum or plasma [facility] Test 00:00:00 [code = CMP, serum or plasma] Future Scheduled 2020-08-22 HbA1c (hemoglobin A1c), [facility] Test 00:00:00 blood [code = HbA1c (hemoglobin A1c), blood] Future Scheduled 2020-08-[address] [facility] 00:00:00 measurement (procedure) [facility] [code = [id number]] Future Scheduled 2020-08-[address] [facility] Test 00:00:00 measurement (procedure) [facility] [code = 70642955] Future Scheduled 2020-08-[address] [facility] Test 00:00:00 measurement (procedure) [facility] [code = 57744558] Future Scheduled 2016-01-20 SHINGLES VACCINES ([address] [facility] Test 00:00:00 2) [facility] Future Scheduled 2016-01-20 SHINGLES VACCINES ([address] [facility] Test 00:00:00 2) [code = SHINGLES [facility] [place] VACCINES (1 of 2)] Future Scheduled 2016-01-20 SHINGLES VACCINES ([address] [facility] Test 00:00:00 2) [code = SHINGLES [facility] VACCINES (1 of 2)] Future Scheduled 2001 Lipid panel (procedure) [facility] Test 00:00:00 [code = 21285849] Medical Ce nter Future Scheduled 2001 Lipid panel (procedure) [facility] Test 00:00:00 [code = 54011754] Medical Ce nter Future Scheduled 2001 Lipid panel (procedure) [facility] Test 00:00:00 [code = 98807161] Medical Ce nter Future Scheduled 1985 DTAP/TDAP/TD VACCINES ([address] [facility] Test 00:00:00 - Tdap) [code = Medical Cent er DTAP/TDAP/TD VACCINES (1 - Tdap)] Future Scheduled 1985 DTAP/TDAP/TD VACCINES ([address] [facility] Test 00:00:00 - Tdap) [code = Medical Cent er DTAP/TDAP/TD VACCINES (1 - Tdap)] Future Scheduled 1985 DTAP/TDAP/TD VACCINES ([address] [facility] Test 00:00:00 - Tdap) [code = Medical Cent er DTAP/TDAP/TD VACCINES (1 - Tdap)] Future Scheduled 1984-01-20 HEPATITIS C [facility]CRE[facility]ING [facility]:00:00 [code = HEPATITIS C Medical Center SCREENING] Future Scheduled 1984-01-20 HEPATITIS C [facility]ING [facility] 00:00:00 [code = HEPATITIS C Medical Center SCREENING] Future Scheduled 1984-01-20 HEPATITIS C [facility]CRE[facility]ING [facility] 00:00:00 [code = HEPATITIS C Medical Center SCREENING] Future Scheduled [address] [facility] 00:00:00 virus screening Medical Cent er (procedure) [code = 781109966] Future Scheduled 1978 COVID-19 VACCINE (1) [facility] 00:00:00 [code = COVID-19 VACCINE Med ical Center (1)] Future Scheduled 1978 COVID-19 VACCINE (1) [facility] Test 00:00:00 [code = COVID-19 VACCINE [facility] ical Center (1)] Future Scheduled 1976-01-20 DIABETIC EYE EXAM [code = [facility] Test 00:00:00 DIABETIC EYE EXAM] Medical C enter Future Scheduled 1976-01-20 Diabetic foot examination [facility] Test 00:00:00 (regime/therapy) [code = Med ical Center [id number]] Future Scheduled 1976-01-20 Urine screening for [facility] 00:00:00 protein (procedure) [code [facility] = 648221118] Future Scheduled 1976-01-20 DIABETIC EYE EXAM [code = [facility] Test 00:00:00 DIABETIC EYE EXAM] Medical C enter Future Scheduled 1976-01-20 Diabetic foot examination [facility] Test 00:00:00 (regime/therapy) [code = [facility] 268307068] Future Scheduled 1976-01-20 Urine screening for [facility] 00:00:00 protein (procedure) [code [facility] = 325787970] Future Scheduled 1976-01-20 DIABETIC EYE EXAM [code = [facility] Test 00:00:00 DIABETIC EYE EXAM] Medical C enter Future Scheduled 1976-01-20 Diabetic foot examination [facility] Test 00:00:00 (regime/therapy) [code = [facility] [id number]] Future Scheduled 1976-01-20 Urine screening for [facility] 00:00:00 protein (procedure) [code [facility] = 248326711] Future Scheduled 1972-01-20 Pneumococcal Vaccine: [facility] 00:00:00 0-64 Years (1 - PCV) Medical Center [code = Pneumococcal Vaccine: 0-64 Years (1 - PCV)] Future Scheduled 1972-01-20 PNEUMOCOCCAL VACCINE 0-[address] [facility] Test 00:00:00 YRS (1 of 2 - PPSV23) Medica l Center [code = PNEUMOCOCCAL VACCINE 0-64 YRS (1 of 2 - PPSV23)] Future Scheduled 1972-01-20 PNEUMOCOCCAL VACCINE 0-[address] [facility] Test 00:00:00 YRS (1 of 2 - PPSV23) Medica l Center [code = PNEUMOCOCCAL VACCINE 0-64 YRS (1 of 2 - PPSV23)] Future Scheduled 1966 COVID-19 VACCINE (#1[facility]:00:00 [code = COVID-19 VACCINE [facility] (#1)] Future Scheduled 1966 Screening for malignant [facility] Test 00:00:00 neoplasm of colon Medical Ce nter (procedure) [code = 344408759] Future Scheduled 1966 Screening for malignant [facility] Test 00:00:00 neoplasm of colon Medical Ce nter (procedure) [code = 346943728] Future Scheduled 1966 Screening for malignant [facility] Test 00:00:00 neoplasm of colon Medical Ce nter (procedure) [code = 563261541] Future Scheduled 1966 Screening for malignant [facility] Test 00:00:00 neoplasm of colon Medical Ce nter (procedure) [code = 206376072] Future Scheduled 1966 Sigmoidoscopy [code = [facility] Sigmoidoscopy] Medical Cente r Future Scheduled 1966 CT Colonography (combo) [facility] Test 00:00:00 [code = CT Colonography [facility] (combo)] Future Scheduled 1966 Screening for malignant [facility] Test 00:00:00 neoplasm of colon Medical Ce nter (procedure) [code = 709351152] Future Scheduled 1966 Screening for malignant [facility] Test 00:00:00 neoplasm of colon Medical Ce nter (procedure) [code = 565282956] Encounters Start End Encounter Admission Attending Care Care Encounter Source Date/Time Date/Time Type Type Clinicians Facility Department ID 2021-04-25 Outpatient 3 [id number] ENCWO REF [id number] [facility] 11:44:50 [id number] [facility] 2021-04-25 Outpatient 3 [id number] ENC REF [id number] [facility] 11:42:31 [id number] [facility] [place] 2021-04-25 Outpatient 3 [id number] ENCWO REF [id number] [facility] 11:40:14 [id number] [facility] 2021-04-25 Outpatient 3 [id number] ENC REF [id number] [facility] 11:40:13 [id number] [facility] [place] 2020-08-10 2020-08-10 Outpatient GRAIR_D SJOSE OSE [id number] [place] 11:33:00 11:33:00 0514 [facility] 2020-07-04 2020-07-04 Outpatient GRAIR_D SJOSE SJOSE [id number] [place] 03:30:00 03:30:00 0407 [facility] 2020-06-22 2020-06-22 Nayana Patel GRAIR_D SJOSE [place] - [facility] [id number] 1 [place] 00:00:00 00:00:00 MD Aden: [facility] [address] [facility] [address] [facility] [place] [address] , Ph. 2020-06-14 2020-06-14 Office Nilo [facility] [id number] 11:53:18 12:53:[address] [facility] 2020-06-14 2020-06-14 Outpatient TRUE LAROSE [facility] [id number] SLE 00:00:00 00:00:00 [facility] 2020-06-13 2020-06-13 Telephone Magn[place] [facility] [id number] 00:[facility]00 00:00:00 [facility] 2020-05-03 2020-06-08 Hospital ER Abhay Stanley [facility] [id number] 19:24:00 17:30:00 Encounter Myla Rosas, Jose Pathak [facility], [facility], Nitesh Duque, Flaca Ortiz, Edie Schulz, Nirali Meyer 2020-06-07 2020-06-07 Nayana Patel GRAIR_D SJOSE [facility] [id number] 1 Carter 00:00:00 00:00:00 MD Aden: [facility] [address] [facility] [address] [facility] [place] [address] , Ph. 2020-05-30 2020-05-30 Outpatient GRAIR_D SJOSE OSE [id number] [place] 04:10:00 04:10:00 0303 [facility] 2020-05-18 2020-05-18 Outpatient COH COH PDPFFSV IWO COH 00:00:00 00:00:00 [facility]-[id number] 2020-05-08 2020-05-08 Travel [facility] [id number] [facility] 00:[facility] 00:[facility]:00 [facility] 2020-05-03 2020-05-03 Emergency ER [facility] Emergency [id number] SLEH 18:58:00 18:58:00 2020-05-03 2020-05-03 Orders [facility] [id number] 00:00:00 00:00:00 Only [facility] 2020-05-03 2020-05-03 Travel [facility] [id number] [facility] St 00:00:00 00:00:00 [facility] Results Test Description Test Time Test Comments Results Result Comments Source POC-Glucose meter 2020-06-08 07:38:00 Test Item Value Reference Range Interpretation Comme nts POC-Glucose Meter (test code = 98 mg/dL 70-110 : TESTED AT [facility] [address] [facility] [address]) [facility], [facility] 30: Tax Processor/Techni kg ID = [id number] for Brittany, Jose Lab Interpretation (test code = Normal 78906-4) [facility] [id number] 07:38:00 Test Item Value Reference Range Interpretation Comments POC-Glucose Meter (test 98 mg/dL 70-110 : TE STED AT [facility] code = 1538) [address] [place] [address], [facility] 30: Tax Processor/Techni kg ID = [id number] for Brittany, Jose Lab Interpretation (test Normal code = 63275-1) [facility]SE [id number] 07:38:00 Test Item Value Reference Range Interpretation Comments POC-GLUCOSE METER 98 mg/dL 70-110 : TESTED A T [facility] 6720 (BEAKER) (test code = [facility], [facility]8) [address]: Tax Processor/Techni kg ID = [id number] for Hillary perry, Jose POCT-GLUCOSE [id number] 22:01:00 Test Item Value Reference Range Interpretation Comments POC-GLUCOSE METER 156 mg/dL 70-110 H : TESTED A T [facility] 67[address] (BEAKER) (test code = [facility], 1538) [address]: Tax Processor/Techni kg ID = [id number] for SABINA SHARP POCT-GLUCOSE [id number] 17:36:00 Test Item Value Reference Range Interpretation Comments POC-GLUCOSE METER 196 mg/dL 70-110 H : TESTED A T [facility] 6720 (BEAKER) (test code = [facility], 1538) [address]239: Tax Processor/Techni kg ID = [id number] for Chase ssie, Jose POCT-GLUCOSE [id number] 12:31:00 Test Item Value Reference Range Interpretation Comments POC-GLUCOSE METER 194 mg/dL 70-110 H : TESTED A T [facility] 6720 (BEAKER) (test code = [facility], 1538) [address]: Tax Processor/Techni kg ID = [id number] for Chase ssie, Jose POCT-GLUCOSE [id number] 08:38:00 Test Item Value Reference Range Interpretation Comments POC-GLUCOSE METER 111 mg/dL 70-110 H : TESTED A T [facility] 6720 (BEAKER) (test code = [facility], [facility]8) 41193: Tax Processor/Techni kg ID = [id number] for Chase ssie, Jose POCT-GLUCOSE [id number] 23:28:00 Test Item Value Reference Range Interpretation Comments POC-GLUCOSE METER 189 mg/dL 70-110 H : TESTED A T [facility] 6720 (BEAKER) (test code = [facility], [facility]8) 25211: Tax Processor/Techni kg ID = [id number] for SABINA SHARP POCT-GLUCOSE [id number] 17:41:00 Test Item Value Reference Range Interpretation Comments POC-GLUCOSE METER 195 mg/dL 70-110 H : TESTED A T [facility] 6720 (BEAKER) (test code = [facility], [facility]8) 41695: Tax Processor/Techni kg ID = [id number] for Chase ssie, Jose POCT-GLUCOSE [id number] 12:20:00 Test Item Value Reference Range Interpretation Comments POC-GLUCOSE METER 200 mg/dL 70-110 H : TESTED A T [facility] 6720 (BEAKER) (test code = [facility], 1538) 89894: Tax Processor/Techni kg ID = [id number] for Chase ssie, Jose POCT-GLUCOSE [id number] 07:50:00 Test Item Value Reference Range Interpretation Comments POC-GLUCOSE METER 113 mg/dL 70-110 H : TESTED A T [facility] 6720 (BEAKER) (test code = [facility], [facility]8) 20587: Tax Processor/Techni kg ID = [id number] for Jose Baker POCT-GLUCOSE [id number] 20:17:00 Test Item Value Reference Range Interpretation Comments POC-GLUCOSE METER 232 mg/dL 70-110 H : TESTED A T [facility] 6720 (BEAKER) (test code = [facility], [facility]8) 81887: Tax Processor/Techni kg ID = [id number] for ES QUIVEL, BRAYDON POCT-GLUCOSE [id number] 17:01:00 Test Item Value Reference Range Interpretation Comments POC-GLUCOSE METER 243 mg/dL 70-110 H : TESTED A T [facility] 6720 (BEAKER) (test code = [facility], [facility]8) 97107: Tax Processor/Techni kg ID = [id number] for Ng arturo, Ely POCT-GLUCOSE [id number] 11:51:00 Test Item Value Reference Range Interpretation Comments POC-GLUCOSE METER 199 mg/dL 70-110 H : TESTED A T [facility] 6720 (BEAKER) (test code = [facility], [facility]8) 90072: Tax Processor/Techni kg ID = [id number] for Ng arturo, Ely POCT-GLUCOSE [id number] 08:19:00 Test Item Value Reference Range Interpretation Comments POC-GLUCOSE METER 92 mg/dL 70-110 : TESTED A T [facility] 6720 (BEAKER) (test code = [facility], [facility]8) 40772: Tax Processor/Techni kg ID = [id number] for Nguy en, Ely POCT-GLUCOSE [id number] 20:29:00 Test Item Value Reference Range Interpretation Comments POC-GLUCOSE METER 206 mg/dL 70-110 H : TESTED A T [facility] 6720 (BEAKER) (test code = [facility], [facility]8) 46325: Tax Processor/Techni kg ID = [id number] for ES QUIVEL, BRAYDON POCT-GLUCOSE [id number] 18:14:00 Test Item Value Reference Range Interpretation Comments POC-GLUCOSE METER 244 mg/dL 70-110 H : TESTED A T [facility] 6720 (BEAKER) (test code = [facility], [facility]8) 91736: Tax Processor/Techni kg ID = [id number] for Cherry Rodarte POCT-GLUCOSE [id number] 12:24:00 Test Item Value Reference Range Interpretation Comments POC-GLUCOSE METER 174 mg/dL 70-110 H : TESTED A T [facility] 6720 (BEAKER) (test code = [facility], 1538) [address]301: Tax Processor/Techni kg ID = [id number] for MEGAN BRIDGES POCT-GLUCOSE [id number] 08:00:00 Test Item Value Reference Range Interpretation Comments POC-GLUCOSE METER 91 mg/dL 70-110 : TESTED A T [facility] 6720 (BEAKER) (test code = [facility], 1538) [address]: Tax Processor/Techni kg ID = [id number] for MEGAN LÓPEZ BASIC METABOLIC [id number] 05:22:00 Test Item Value Reference Range Interpretation Comments SODIUM (BEAKER) 141 meq/L 136-145 (test code = 381) POTASSIUM (BEAKER) 3.6 meq/L 3.5-5.1 (test code = 379) CHLORIDE (BEAKER) 101 meq/L 98-107 (test code = 382) CO2 (BEAKER) (test 32 meq/L 22-29 H code = 355) BLOOD UREA NITROGEN 20 mg/dL 7-21 (BEAKER) (test code = 354) CREATININE (BEAKER) 0.89 mg/dL 0.57-1.25 (test code = 358) GLUCOSE RANDOM 100 mg/dL 70-105 (BEAKER) (test code = 652) CALCIUM (BEAKER) 8.1 mg/dL 8.4-10.2 L (test code = 697) EGFR (BEAKER) (test 89 mL/min/1.73 ESTIMA SEEMA GFR IS code = 1092) sq m NOT ACCURATE CREATININE CLEARANCE IN PREDICTING GLOMERULAR FILTRATION RATE . ESTIMATED GFR I S NOT APPLICABLE FOR DIALYSIS PATIEN TS. Tax Processor ID - [id number] 05:22:00 Test Item Value Reference Range Interpretation Comments MAGNESIUM (BEAKER) (test code = 1.9 mg/dL 1.6-2.6 627) Tax Processor ID - [id number] 05:13:00 Test Item Value Reference Range Interpretation Comments D-DIMER QUANTITATIVE (BEAKER) < MG/L FEU <0.50 (test code = 671) Intended Use: The D-Dimer Assay can be used to aid in the diagnosis of Deep Vein Thrombosis (DVT) and Pulmonary Embolism Disease (PED).In patients with low pre- test probability, various studies concerning STA Liatest D-dimer test have reported that with a cutoff value of 0.50 MG/L FEU, the Negative Predictive Value (NPV) regarding the exclusion of thrombosis is within 95-100% range. PT/[id number] 05:07:00 Test Item Value Reference Range Interpretation Comments PROTIME (BEAKER) (test 14.6 seconds 11.9-14.2 H code = 759) INR (BEAKER) (test 1.17 See_Comment [Automat ed code = 370) message] The sy stem which generated this result transmitted reference range : <=5.90. The reference range was not used to interpret this result as normal/abnormal . PARTIAL THROMBOPLASTIN 33.5 seconds 22.5-36.0 TIME (BEAKER) (test code = 760) Effective 08/25/2018: PT Reference Range ChangeNew: 11.9-14.2 Previous: 11.7- 14.7RECOMMENDED COUMADIN/WARFARIN INR THERAPY RANGESSTANDARD DOSE: 2.0-3.0 Includes: PROPHYLAXIS for venous thrombosis, systemic embolization; TREATMENT for venous thrombosis and/or pulmonary embolus.HIGH RISK: Target INR is 2.5-3.5 for patients wiht mechanical heart valves.CBC W/PLT COUNT & AUTO [id number] 05:06:00 Test Item Value Reference Range Interpretation Comments WHITE BLOOD CELL COUNT (BEAKER) 7.6 K/ L 3.5-10.5 (test code = 775) RED BLOOD CELL COUNT (BEAKER) 3.46 M/ L 4.63-6.08 L (test code = 761) HEMOGLOBIN (BEAKER) (test code = 9.7 GM/DL 13.7-17.5 L 410) HEMATOCRIT (BEAKER) (test code = 31.1 % 40.1-51.0 L 411) MEAN CORPUSCULAR VOLUME (BEAKER) 89.9 fL 79.0-92.2 (test code = 753) MEAN CORPUSCULAR HEMOGLOBIN 28.0 pg 25.7-32.2 (BEAKER) (test code = 751) MEAN CORPUSCULAR HEMOGLOBIN CONC 31.2 GM/DL 32.3-36.5 L (BEAKER) (test code = 752) RED CELL DISTRIBUTION WIDTH 14.7 % 11.6-14.4 H (BEAKER) (test code = 412) PLATELET COUNT (BEAKER) (test 231 K/CU MM 150-450 code = 756) MEAN PLATELET VOLUME (BEAKER) 10.3 fL 9.4-12.4 (test code = 754) NUCLEATED RED BLOOD CELLS 0 /100 WBC 0-0 (BEAKER) (test code = 413) NEUTROPHILS RELATIVE PERCENT 61 % (BEAKER) (test code = 429) LYMPHOCYTES RELATIVE PERCENT 25 % (BEAKER) (test code = 430) MONOCYTES RELATIVE PERCENT 11 % (BEAKER) (test code = 431) EOSINOPHILS RELATIVE PERCENT 1 % (BEAKER) (test code = 432) BASOPHILS RELATIVE PERCENT 0 % (BEAKER) (test code = 437) NEUTROPHILS ABSOLUTE COUNT 4.64 K/ L 1.78-5.38 (BEAKER) (test code = 670) LYMPHOCYTES ABSOLUTE COUNT 1.92 K/ L 1.32-3.57 (BEAKER) (test code = 414) MONOCYTES ABSOLUTE COUNT (BEAKER) 0.83 K/ L 0.30-0.82 H (test code = 415) EOSINOPHILS ABSOLUTE COUNT 0.06 K/ L 0.04-0.54 (BEAKER) (test code = 416) BASOPHILS ABSOLUTE COUNT (BEAKER) 0.03 K/ L 0.01-0.08 (test code = 417) IMMATURE GRANULOCYTES-RELATIVE 2 % 0-1 H PERCENT (BEAKER) (test code = 2801) POCT-GLUCOSE [id number] 22:26:00 Test Item Value Reference Range Interpretation Comments POC-GLUCOSE METER 151 mg/dL 70-110 H : TESTED A T [facility] 6720 (BEAKER) (test code = [facility], 1538) [address]: Tax Processor/Techni kg ID = [id number] for KANG MAYORGA SABINA POCT-GLUCOSE [id number] 17:32:00 Test Item Value Reference Range Interpretation Comments POC-GLUCOSE METER 234 mg/dL 70-110 H : TESTED A T [facility] 6720 (BEAKER) (test code = [facility], 1538) [address]: Tax Processor/Techni kg ID = [id number] for MARGARITO PEREZ POCT-GLUCOSE [id number] 12:24:00 Test Item Value Reference Range Interpretation Comments POC-GLUCOSE METER 178 mg/dL 70-110 H : TESTED A T [facility] 6720 (BEAKER) (test code = [facility], 1538) 58153: Tax Processor/Techni kg ID = [id number] for Ng Ely morris POCT-GLUCOSE [id number] 08:14:00 Test Item Value Reference Range Interpretation Comments POC-GLUCOSE METER 101 mg/dL 70-110 : TESTED A T [facility] 6720 (BEAKER) (test code = [facility], 1538) 50438: Tax Processor/Techni kg ID = [id number] for MARGARITO PEREZ BASIC METABOLIC [id number] 06:43:00 Test Item Value Reference Range Interpretation Comments SODIUM (BEAKER) 140 meq/L 136-145 (test code = 381) POTASSIUM (BEAKER) 3.8 meq/L 3.5-5.1 (test code = 379) CHLORIDE (BEAKER) 101 meq/L 98-107 (test code = 382) CO2 (BEAKER) (test 32 meq/L 22-29 H code = 355) BLOOD UREA NITROGEN 21 mg/dL 7-21 (BEAKER) (test code = 354) CREATININE (BEAKER) 0.82 mg/dL 0.57-1.25 (test code = 358) GLUCOSE RANDOM 124 mg/dL 70-105 H (BEAKER) (test code = 652) CALCIUM (BEAKER) 8.1 mg/dL 8.4-10.2 L (test code = 697) EGFR (BEAKER) (test 98 mL/min/1.73 ESTIMA SEEMA GFR IS code = 1092) sq m NOT ACCURATE CREATININE CLEARANCE IN PREDICTING GLOMERULAR FILTRATION RATE . ESTIMATED GFR I S NOT APPLICABLE FOR DIALYSIS PATIEN TS. Tax Processor ID - [id number] 06:43:00 Test Item Value Reference Range Interpretation Comments MAGNESIUM (BEAKER) (test code = 2.0 mg/dL 1.6-2.6 627) Tax Processor ID - EDASIPT/[id number] 06:19:00 Test Item Value Reference Range Interpretation Comments PROTIME (BEAKER) (test 14.4 seconds 11.9-14.2 H code = 759) INR (BEAKER) (test 1.15 See_Comment [Automat ed code = 370) message] The sy stem which generated this result transmitted reference range : <=5.90. The reference range was not used to interpret this result as normal/abnormal . PARTIAL THROMBOPLASTIN 31.5 seconds 22.5-36.0 TIME (BEAKER) (test code = 760) Effective 08/25/2018: PT Reference Range ChangeNew: 11.9-14.2 Previous: 11.7- 14.7RECOMMENDED COUMADIN/WARFARIN INR THERAPY RANGESSTANDARD DOSE: 2.0-3.0 Includes: PROPHYLAXIS for venous thrombosis, systemic embolization; TREATMENT for venous thrombosis and/or pulmonary embolus.HIGH RISK: Target INR is 2.5-3.5 for patients wiht mechanical heart valves.CBC W/PLT COUNT & AUTO [id number] 06:18:00 Test Item Value Reference Range Interpretation Comments WHITE BLOOD CELL COUNT (BEAKER) 6.8 K/ L 3.5-10.5 (test code = 775) RED BLOOD CELL COUNT (BEAKER) 3.41 M/ L 4.63-6.08 L (test code = 761) HEMOGLOBIN (BEAKER) (test code = 9.6 GM/DL 13.7-17.5 L 410) HEMATOCRIT (BEAKER) (test code = 30.5 % 40.1-51.0 L 411) MEAN CORPUSCULAR VOLUME (BEAKER) 89.4 fL 79.0-92.2 (test code = 753) MEAN CORPUSCULAR HEMOGLOBIN 28.2 pg 25.7-32.2 (BEAKER) (test code = 751) MEAN CORPUSCULAR HEMOGLOBIN CONC 31.5 GM/DL 32.3-36.5 L (BEAKER) (test code = 752) RED CELL DISTRIBUTION WIDTH 14.6 % 11.6-14.4 H (BEAKER) (test code = 412) PLATELET COUNT (BEAKER) (test 241 K/CU MM 150-450 code = 756) MEAN PLATELET VOLUME (BEAKER) 10.4 fL 9.4-12.4 (test code = 754) NUCLEATED RED BLOOD CELLS 0 /100 WBC 0-0 (BEAKER) (test code = 413) NEUTROPHILS RELATIVE PERCENT 72 % (BEAKER) (test code = 429) LYMPHOCYTES RELATIVE PERCENT 16 % (BEAKER) (test code = 430) MONOCYTES RELATIVE PERCENT 9 % (BEAKER) (test code = 431) EOSINOPHILS RELATIVE PERCENT 1 % (BEAKER) (test code = 432) BASOPHILS RELATIVE PERCENT 0 % (BEAKER) (test code = 437) NEUTROPHILS ABSOLUTE COUNT 4.89 K/ L 1.78-5.38 (BEAKER) (test code = 670) LYMPHOCYTES ABSOLUTE COUNT 1.10 K/ L 1.32-3.57 L (BEAKER) (test code = 414) MONOCYTES ABSOLUTE COUNT (BEAKER) 0.64 K/ L 0.30-0.82 (test code = 415) EOSINOPHILS ABSOLUTE COUNT 0.05 K/ L 0.04-0.54 (BEAKER) (test code = 416) BASOPHILS ABSOLUTE COUNT (BEAKER) 0.01 K/ L 0.01-0.08 (test code = 417) IMMATURE GRANULOCYTES-RELATIVE 2 % 0-1 H PERCENT (BEAKER) (test code = 2801) CT, CHEST, WITHOUT [id number] 23:51:00COVID PNA eval for fibrotic changes Unlisted Reason for Exam - Click Yes and Enter Reason Below->No [facility] 1965 Sex: MFINAL REPORT CLINICAL INDICATION: Shortness of breath COMPARISON: 05/03/2020 Multiple axial images of the chest were performed without IV contrast. This exam was performed according to our departmental dose-optimization program, which includes automated exposure control, adjustment of the mA and/or kV according to patient size and/or use of the iterative reconstruction technique. FINDINGS: Lung parenchyma: There is extensive groundglass opacity throughout both lungs with scattered regions ofnew interstitial coarsening and new bronchiectasis in the lower lungs. There is a new septated cyst in the right middle lobe measuring 3.7 x 3.5 cm. Pleural effusion: None. Pneumothorax: None. Tracheobronchial tree: The central tracheobronchial tree is patent. Pulmonary vasculature: No significant findings. Cardiac contours and great vessels: No significant findings. Mediastinum: No significant findings. Lymph Nodes: No adenopathy in the mediastinum or siabell. Skeleton: No acute abnormality. Limited images of upper abdomen: No significant findings. IMPRESSION: Interval appearance of now confluent, subtle groundglass opacities throughout both lungs with new, diffuse interstitial coarsening, scatteredbronchiectasis and a septated cyst in the right midlung. These findings are nonspecific and may refle ct some combination of atelectasis, scarring/fibrosis, edema and pneumonitis. Signed: Raffy Sheehan MDRthe [facility] of [facility] [place] Verified Date/Time: 06/02/2020 23:51:02 POCT- GLUCOSE [id number] 22:06:00 Test Item Value Reference Range Interpretation Comments POC-GLUCOSE METER 191 mg/dL 70-110 H : TESTED A T [facility] (Veles Plus LLCAKER) (test code = [facility], 1538) [id number]: Tax Processor/Techni kg ID = [id number] for SABINA SHARP POCT-GLUCOSE [id number] 17:58:00 Test Item Value Reference Range Interpretation Comments POC-GLUCOSE METER 221 mg/dL 70-110 H : TESTED A T [facility]20 (BEAKER) (test code = [facility], 1538) [id number]: Tax Processor/Techni kg ID = [id number] for Cherry Rodarte POCT-GLUCOSE [id number] 11:56:00 Test Item Value Reference Range Interpretation Comments POC-GLUCOSE METER 151 mg/dL 70-110 H : TESTED A T [facility] 6720 (BEAKER) (test code = [facility] [place], 1538) [id number]: Tax Processor/Techni kg ID = [id number] for MEGAN BRIDGES POCT-GLUCOSE [id number] 08:03:00 Test Item Value Reference Range Interpretation Comments POC-GLUCOSE METER 97 mg/dL 70-110 : TESTED A T [facility] (BEAKER) (test code = [facility] Radha [facility], 1538) [id number]: Tax Processor/Techni kg ID = [id number] for MEGAN LÓPEZ BASIC METABOLIC [id number] 07:23:00 Test Item Value Reference Range Interpretation Comments SODIUM (BEAKER) 140 meq/L 136-145 (test code = 381) POTASSIUM (BEAKER) 3.7 meq/L 3.5-5.1 (test code = 379) CHLORIDE (BEAKER) 101 meq/L 98-107 (test code = 382) CO2 (BEAKER) (test 35 meq/L 22-29 H code = 355) BLOOD UREA NITROGEN 24 mg/dL 7-21 H (BEAKER) (test code = 354) CREATININE (BEAKER) 0.86 mg/dL 0.57-1.25 (test code = 358) GLUCOSE RANDOM 104 mg/dL 70-105 (BEAKER) (test code = 652) CALCIUM (BEAKER) 8.2 mg/dL 8.4-10.2 L (test code = 697) EGFR (BEAKER) (test 93 mL/min/1.73 ESTIMA SEEMA GFR IS code = 1092) sq m NOT ACCURATE CREATININE CLEARANCE IN PREDICTING GLOMERULAR FILTRATION RATE . ESTIMATED GFR I S NOT APPLICABLE FOR DIALYSIS PATIEN TS. Tax Processor ID - KIAN [id number] 07:23:00 Test Item Value Reference Range Interpretation Comments MAGNESIUM (BEAKER) (test code = 2.1 mg/dL 1.6-2.6 627) Tax Processor ID - KIAN [id number] 07:05:00 Test Item Value Reference Range Interpretation Comments D-DIMER QUANTITATIVE (BEAKER) 0.28 MG/L FEU <0.50 (test code = 671) Intended Use: The D-Dimer Assay can be used to aid in the diagnosis of Deep Vein Thrombosis (DVT) and Pulmonary Embolism Disease (PED).In patients with low pre- test probability, various studies concerning STA Liatest D-dimer test have reported that with a cutoff value of 0.50 MG/L FEU, the Negative Predictive Value (NPV) regarding the exclusion of thrombosis is within 95-100% range. PT/[id number] 07:03:00 Test Item Value Reference Range Interpretation Comments PROTIME (BEAKER) (test 14.7 seconds 11.9-14.2 H code = 759) INR (BEAKER) (test 1.18 See_Comment [Automat ed code = 370) message] The sy stem which generated this result transmitted reference range : <=5.90. The reference range was not used to interpret this result as normal/abnormal . PARTIAL THROMBOPLASTIN 32.3 seconds 22.5-36.0 TIME (BEAKER) (test code = 760) Effective 08/25/2018: PT Reference Range ChangeNew: 11.9-14.2 Previous: 11.7- 14.7RECOMMENDED COUMADIN/WARFARIN INR THERAPY RANGESSTANDARD DOSE: 2.0-3.0 Includes: PROPHYLAXIS for venous thrombosis, systemic embolization; TREATMENT for venous thrombosis and/or pulmonary embolus.HIGH RISK: Target INR is 2.5-3.5 for patients wiht mechanical heart valves.CBC W/PLT COUNT & AUTO [id number] 06:51:00 Test Item Value Reference Range Interpretation Comments WHITE BLOOD CELL COUNT (BEAKER) 7.2 K/ L 3.5-10.5 (test code = 775) RED BLOOD CELL COUNT (BEAKER) 3.60 M/ L 4.63-6.08 L (test code = 761) HEMOGLOBIN (BEAKER) (test code = 10.0 GM/DL 13.7-17.5 L 410) HEMATOCRIT (BEAKER) (test code = 32.3 % 40.1-51.0 L 411) MEAN CORPUSCULAR VOLUME (BEAKER) 89.7 fL 79.0-92.2 (test code = 753) MEAN CORPUSCULAR HEMOGLOBIN 27.8 pg 25.7-32.2 (BEAKER) (test code = 751) MEAN CORPUSCULAR HEMOGLOBIN CONC 31.0 GM/DL 32.3-36.5 L (BEAKER) (test code = 752) RED CELL DISTRIBUTION WIDTH 14.5 % 11.6-14.4 H (BEAKER) (test code = 412) PLATELET COUNT (BEAKER) (test 236 K/CU MM 150-450 code = 756) MEAN PLATELET VOLUME (BEAKER) 9.8 fL 9.4-12.4 (test code = 754) NUCLEATED RED BLOOD CELLS 0 /100 WBC 0-0 (BEAKER) (test code = 413) NEUTROPHILS RELATIVE PERCENT 68 % (BEAKER) (test code = 429) LYMPHOCYTES RELATIVE PERCENT 18 % (BEAKER) (test code = 430) MONOCYTES RELATIVE PERCENT 11 % (BEAKER) (test code = 431) EOSINOPHILS RELATIVE PERCENT 1 % (BEAKER) (test code = 432) BASOPHILS RELATIVE PERCENT 0 % (BEAKER) (test code = 437) NEUTROPHILS ABSOLUTE COUNT 4.85 K/ L 1.78-5.38 (BEAKER) (test code = 670) LYMPHOCYTES ABSOLUTE COUNT 1.26 K/ L 1.32-3.57 L (BEAKER) (test code = 414) MONOCYTES ABSOLUTE COUNT (BEAKER) 0.81 K/ L 0.30-0.82 (test code = 415) EOSINOPHILS ABSOLUTE COUNT 0.09 K/ L 0.04-0.54 (BEAKER) (test code = 416) BASOPHILS ABSOLUTE COUNT (BEAKER) 0.02 K/ L 0.01-0.08 (test code = 417) IMMATURE GRANULOCYTES-RELATIVE 2 % 0-1 H PERCENT (BEAKER) (test code = 2801) POCT-GLUCOSE [id number] 21:00:00 Test Item Value Reference Range Interpretation Comments POC-GLUCOSE METER 261 mg/dL 70-110 H : TESTED A T [facility] 6720 (BEAKER) (test code = [facility], 1538) 07852: Tax Processor/Techni kg ID = [id number] for SA EDDY JEFFERSON POCT-GLUCOSE [id number] 17:24:00 Test Item Value Reference Range Interpretation Comments POC-GLUCOSE METER 285 mg/dL 70-110 H : TESTED A T [facility] 6720 (BEAKER) (test code = [facility], 1538) [id number]: Tax Processor/Techni kg ID = [id number] for EUGENIO ANGELOMEGAN Lieberman 2D Echo W/Doppler(CW/PW/Color)2020-06-01 13:19:02Ejection [facility]ractionSLEH [facility]CW/PW/Color[facility]2020-06-01 13:19:02Ejection FractionSLEH ECHO [facility] [id number] 12:27:00 Test Item Value Reference Range Interpretation Comments POC-GLUCOSE METER 230 mg/dL 70-110 H : TESTED A T [facility] 6720 (BEAKER) (test code = [facility], 1538) 932[address]: Tax Processor/Techni kg ID = [id number] for MEGAN BRIDGES POCT-GLUCOSE [id number] 07:27:00 Test Item Value Reference Range Interpretation Comments POC-GLUCOSE METER 97 mg/dL 70-110 : TESTED A T [facility] 6720 (BEAKER) (test code = [facility], 1538) 8[address]: Tax Processor/Techni kg ID = [id number] for MEGAN LÓPEZ BASIC METABOLIC [id number] 07:21:00 Test Item Value Reference Range Interpretation Comments SODIUM (BEAKER) 140 meq/L 136-145 (test code = 381) POTASSIUM (BEAKER) 3.9 meq/L 3.5-5.1 (test code = 379) CHLORIDE (BEAKER) 99 meq/L 98-107 (test code = 382) CO2 (BEAKER) (test 34 meq/L 22-29 H code = 355) BLOOD UREA NITROGEN 27 mg/dL 7-21 H (BEAKER) (test code = 354) CREATININE (BEAKER) 0.95 mg/dL 0.57-1.25 (test code = 358) GLUCOSE RANDOM 109 mg/dL 70-105 H (BEAKER) (test code = 652) CALCIUM (BEAKER) 8.3 mg/dL 8.4-10.2 L (test code = 697) EGFR (BEAKER) (test 83 mL/min/1.73 ESTIMA SEEMA GFR IS code = 1092) sq m NOT ACCURATE CREATININE CLEARANCE IN PREDICTING GLOMERULAR FILTRATION RATE . ESTIMATED GFR I S NOT APPLICABLE FOR DIALYSIS PATIEN TS. Tax Processor ID - [id number] 07:21:00 Test Item Value Reference Range Interpretation Comments MAGNESIUM (BEAKER) (test code = 2.1 mg/dL 1.6-2.6 627) Tax Processor ID - [id number]/[id number] 06:42:00 Test Item Value Reference Range Interpretation Comments PROTIME (BEAKER) (test 14.2 seconds 11.9-14.2 code = 759) INR (BEAKER) (test 1.13 See_Comment [Automat ed code = 370) message] The sy stem which generated this result transmitted reference range : <=5.90. The reference range was not used to interpret this result as normal/abnormal . PARTIAL THROMBOPLASTIN 31.6 seconds 22.5-36.0 TIME (BEAKER) (test code = 760) Effective 08/25/2018: PT Reference Range ChangeNew: 11.9-14.2 Previous: 11.7- 14.7RECOMMENDED COUMADIN/WARFARIN INR THERAPY RANGESSTANDARD DOSE: 2.0-3.0 Includes: PROPHYLAXIS for venous thrombosis, systemic embolization; TREATMENT for venous thrombosis and/or pulmonary embolus.HIGH RISK: Target INR is 2.5-3.5 for patients wiht mechanical heart valves.CBC W/PLT COUNT & AUTO [id number] 06:33:00 Test Item Value Reference Range Interpretation Comments WHITE BLOOD CELL COUNT (BEAKER) 7.6 K/ L 3.5-10.5 (test code = 775) RED BLOOD CELL COUNT (BEAKER) 3.90 M/ L 4.63-6.08 L (test code = 761) HEMOGLOBIN (BEAKER) (test code = 10.9 GM/DL 13.7-17.5 L 410) HEMATOCRIT (BEAKER) (test code = 35.9 % 40.1-51.0 L 411) MEAN CORPUSCULAR VOLUME (BEAKER) 92.1 fL 79.0-92.2 (test code = 753) MEAN CORPUSCULAR HEMOGLOBIN 27.9 pg 25.7-32.2 (BEAKER) (test code = 751) MEAN CORPUSCULAR HEMOGLOBIN CONC 30.4 GM/DL 32.3-36.5 L (BEAKER) (test code = 752) RED CELL DISTRIBUTION WIDTH 14.5 % 11.6-14.4 H (BEAKER) (test code = 412) PLATELET COUNT (BEAKER) (test 252 K/CU MM 150-450 code = 756) MEAN PLATELET VOLUME (BEAKER) 9.8 fL 9.4-12.4 (test code = 754) NUCLEATED RED BLOOD CELLS 0 /100 WBC 0-0 (BEAKER) (test code = 413) NEUTROPHILS RELATIVE PERCENT 66 % (BEAKER) (test code = 429) LYMPHOCYTES RELATIVE PERCENT 20 % (BEAKER) (test code = 430) MONOCYTES RELATIVE PERCENT 11 % (BEAKER) (test code = 431) EOSINOPHILS RELATIVE PERCENT 2 % (BEAKER) (test code = 432) BASOPHILS RELATIVE PERCENT 0 % (BEAKER) (test code = 437) NEUTROPHILS ABSOLUTE COUNT 5.04 K/ L 1.78-5.38 (BEAKER) (test code = 670) LYMPHOCYTES ABSOLUTE COUNT 1.51 K/ L 1.32-3.57 (BEAKER) (test code = 414) MONOCYTES ABSOLUTE COUNT (BEAKER) 0.81 K/ L 0.30-0.82 (test code = 415) EOSINOPHILS ABSOLUTE COUNT 0.15 K/ L 0.04-0.54 (BEAKER) (test code = 416) BASOPHILS ABSOLUTE COUNT (BEAKER) 0.02 K/ L 0.01-0.08 (test code = 417) IMMATURE GRANULOCYTES-RELATIVE 1 % 0-1 PERCENT (BEAKER) (test code = 2801) POCT-GLUCOSE [id number] 21:56:00 Test Item Value Reference Range Interpretation Comments POC-GLUCOSE METER 219 mg/dL 70-110 H : TESTED A T [facility] (BEAKER) (test code = [place] aGrcia [facility], 1538) [address]25[address]: Tax Processor/Techni kg ID = [id number] for CA RBAJAL, ROJAS POCT-GLUCOSE [id number] 17:13:00 Test Item Value Reference Range Interpretation Comments POC-GLUCOSE METER 302 mg/dL 70-110 H : TESTED A T [facility] 6720 (BEAKER) (test code [facility], = 1538) 12321: Tax Processor/Techni kg ID = [id number] for LATFREIDA SAMSON POCT-GLUCOSE [id number] 11:55:00 Test Item Value Reference Range Interpretation Comments POC-GLUCOSE METER 225 mg/dL 70-110 H : TESTED A T [facility] 6720 (BEAKER) (test code [facility], = 1538) 78916: Tax Processor/Techni kg ID = [id number] for FREIDA AGUILA POCT-GLUCOSE [id number] 07:47:00 Test Item Value Reference Range Interpretation Comments POC-GLUCOSE METER 90 mg/dL 70-110 : TESTED A T [facility] (BEAKER) (test code = [place] Garcia [facility], 1538) 92826: Tax Processor/Techni kg ID = [id number] for LATFREIDA SAMSON [id number] 06:41:00 Test Item Value Reference Range Interpretation Comments MAGNESIUM (BEAKER) (test code = 2.2 mg/dL 1.6-2.6 627) Tax Processor ID - ADMINBASIC METABOLIC [id number] 06:40:00 Test Item Value Reference Range Interpretation Comments SODIUM (BEAKER) 140 meq/L 136-145 (test code = 381) POTASSIUM (BEAKER) 4.0 meq/L 3.5-5.1 (test code = 379) CHLORIDE (BEAKER) 99 meq/L 98-107 (test code = 382) CO2 (BEAKER) (test 33 meq/L 22-29 H code = 355) BLOOD UREA NITROGEN 30 mg/dL 7-21 H (BEAKER) (test code = 354) CREATININE (BEAKER) 1.04 mg/dL 0.57-1.25 (test code = 358) GLUCOSE RANDOM 116 mg/dL 70-105 H (BEAKER) (test code = 652) CALCIUM (BEAKER) 8.4 mg/dL 8.4-10.2 (test code = 697) EGFR (BEAKER) (test 74 mL/min/1.73 ESTIMA SEEMA GFR IS code = 1092) sq m NOT ACCURATE CREATININE CLEARANCE IN PREDICTING GLOMERULAR FILTRATION RATE . ESTIMATED GFR I S NOT APPLICABLE FOR DIALYSIS PATIEN TS. Tax Processor ID - [id number] 05:43:00 Test Item Value Reference Range Interpretation Comments D-DIMER QUANTITATIVE (BEAKER) 0.53 MG/L FEU <0.50 H (test code = 671) Intended Use: The D-Dimer Assay can be used to aid in the diagnosis of Deep Vein Thrombosis (DVT) and Pulmonary Embolism Disease (PED).In patients with low pre- test probability, various studies concerning STA Liatest D-dimer test have reported that with a cutoff value of 0.50 MG/L FEU, the Negative Predictive Value (NPV) regarding the exclusion of thrombosis is within 95-100% range. PT/[id number] 05:41:00 Test Item Value Reference Range Interpretation Comments PROTIME (BEAKER) (test 14.3 seconds 11.9-14.2 H code = 759) INR (BEAKER) (test 1.15 See_Comment [Automat ed code = 370) message] The sy stem which generated this result transmitted reference range : <=5.90. The reference range was not used to interpret this result as normal/abnormal . PARTIAL THROMBOPLASTIN 31.6 seconds 22.5-36.0 TIME (BEAKER) (test code = 760) Effective 08/25/2018: PT Reference Range ChangeNew: 11.9-14.2 Previous: 11.7- 14.7RECOMMENDED COUMADIN/WARFARIN INR THERAPY RANGESSTANDARD DOSE: 2.0-3.0 Includes: PROPHYLAXIS for venous thrombosis, systemic embolization; TREATMENT for venous thrombosis and/or pulmonary embolus.HIGH RISK: Target INR is 2.5-3.5 for patients wiht mechanical heart valves.CBC W/PLT COUNT & AUTO [id number] 05:33:00 Test Item Value Reference Range Interpretation Comments WHITE BLOOD CELL COUNT (BEAKER) 9.0 K/ L 3.5-10.5 (test code = 775) RED BLOOD CELL COUNT (BEAKER) 4.00 M/ L 4.63-6.08 L (test code = 761) HEMOGLOBIN (BEAKER) (test code = 11.0 GM/DL 13.7-17.5 L 410) HEMATOCRIT (BEAKER) (test code = 36.4 % 40.1-51.0 L 411) MEAN CORPUSCULAR VOLUME (BEAKER) 91.0 fL 79.0-92.2 (test code = 753) MEAN CORPUSCULAR HEMOGLOBIN 27.5 pg 25.7-32.2 (BEAKER) (test code = 751) MEAN CORPUSCULAR HEMOGLOBIN CONC 30.2 GM/DL 32.3-36.5 L (BEAKER) (test code = 752) RED CELL DISTRIBUTION WIDTH 14.6 % 11.6-14.4 H (BEAKER) (test code = 412) PLATELET COUNT (BEAKER) (test 277 K/CU MM 150-450 code = 756) MEAN PLATELET VOLUME (BEAKER) 10.2 fL 9.4-12.4 (test code = 754) NUCLEATED RED BLOOD CELLS 0 /100 WBC 0-0 (BEAKER) (test code = 413) NEUTROPHILS RELATIVE PERCENT 70 % (BEAKER) (test code = 429) LYMPHOCYTES RELATIVE PERCENT 16 % (BEAKER) (test code = 430) MONOCYTES RELATIVE PERCENT 10 % (BEAKER) (test code = 431) EOSINOPHILS RELATIVE PERCENT 2 % (BEAKER) (test code = 432) BASOPHILS RELATIVE PERCENT 0 % (BEAKER) (test code = 437) NEUTROPHILS ABSOLUTE COUNT 6.30 K/ L 1.78-5.38 H (BEAKER) (test code = 670) LYMPHOCYTES ABSOLUTE COUNT 1.45 K/ L 1.32-3.57 (BEAKER) (test code = 414) MONOCYTES ABSOLUTE COUNT (BEAKER) 0.93 K/ L 0.30-0.82 H (test code = 415) EOSINOPHILS ABSOLUTE COUNT 0.14 K/ L 0.04-0.54 (BEAKER) (test code = 416) BASOPHILS ABSOLUTE COUNT (BEAKER) 0.03 K/ L 0.01-0.08 (test code = 417) IMMATURE GRANULOCYTES-RELATIVE 2 % 0-1 H PERCENT (BEAKER) (test code = 2801) POCT-GLUCOSE [id number] 21:47:00 Test Item Value Reference Range Interpretation Comments POC-GLUCOSE METER 236 mg/dL 70-110 H : TESTED A T [facility] (BEAKER) (test code = [facility], 1538) 90372: Tax Processor/Techni kg ID = [id number] for CA RBAJAL, ROJAS POCT-GLUCOSE [id number] 18:18:00 Test Item Value Reference Range Interpretation Comments POC-GLUCOSE METER 258 mg/dL 70-110 H : TESTED A T [facility] 6720 (BEAKER) (test code [facility], = 1538) 76628: Tax Processor/Techni kg ID = [id number] for FREIDA AGUILA POCT-GLUCOSE [id number] 12:32:00 Test Item Value Reference Range Interpretation Comments POC-GLUCOSE METER 276 mg/dL 70-110 H : TESTED A T [facility] 6720 (BEAKER) (test code [facility], = 1538) 73497: Tax Processor/Techni kg ID = [id number] for FREIDA AGUILA POCT-GLUCOSE [id number] 07:38:00 Test Item Value Reference Range Interpretation Comments POC-GLUCOSE METER 112 mg/dL 70-110 H : TESTED A T [facility] 6720 (BEAKER) (test code [facility], = 1538) 02078: Tax Processor/Techni kg ID = [id number] for FREIDA AGUILA BASIC METABOLIC [id number] 06:03:00 Test Item Value Reference Range Interpretation Comments SODIUM (BEAKER) 140 meq/L 136-145 (test code = 381) POTASSIUM (BEAKER) 4.3 meq/L 3.5-5.1 (test code = 379) CHLORIDE (BEAKER) 98 meq/L 98-107 (test code = 382) CO2 (BEAKER) (test 34 meq/L 22-29 H code = 355) BLOOD UREA NITROGEN 33 mg/dL 7-21 H (BEAKER) (test code = 354) CREATININE (BEAKER) 1.16 mg/dL 0.57-1.25 (test code = 358) GLUCOSE RANDOM 139 mg/dL 70-105 H (BEAKER) (test code = 652) CALCIUM (BEAKER) 8.7 mg/dL 8.4-10.2 (test code = 697) EGFR (BEAKER) (test 66 mL/min/1.73 ESTIMA SEEMA GFR IS code = 1092) sq m NOT ACCURATE CREATININE CLEARANCE IN PREDICTING GLOMERULAR FILTRATION RATE . ESTIMATED GFR I S NOT APPLICABLE FOR DIALYSIS PATIEN TS. Tax Processor ID - KIAN [id number] 06:03:00 Test Item Value Reference Range Interpretation Comments MAGNESIUM (BEAKER) (test code = 2.2 mg/dL 1.6-2.6 627) Tax Processor ID - KIAN [id number] 05:56:00 Test Item Value Reference Range Interpretation Comments PROTIME (BEAKER) (test 14.3 seconds 11.9-14.2 H code = 759) INR (BEAKER) (test 1.15 See_Comment [Automat ed code = 370) message] The sy stem which generated this result transmitted reference range : <=5.90. The reference range was not used to interpret this result as normal/abnormal . PARTIAL THROMBOPLASTIN 30.5 seconds 22.5-36.0 TIME (BEAKER) (test code = 760) Effective 08/25/2018: PT Reference Range ChangeNew: 11.9-14.2 Previous: 11.7- 14.7RECOMMENDED COUMADIN/WARFARIN INR THERAPY RANGESSTANDARD DOSE: 2.0-3.0 Includes: PROPHYLAXIS for venous thrombosis, systemic embolization; TREATMENT for venous thrombosis and/or pulmonary embolus.HIGH RISK: Target INR is 2.5-3.5 for patients wiht mechanical heart valves.CBC W/PLT COUNT & AUTO [id number] 05:38:00 Test Item Value Reference Range Interpretation Comments WHITE BLOOD CELL COUNT (BEAKER) 9.9 K/ L 3.5-10.5 (test code = 775) RED BLOOD CELL COUNT (BEAKER) 4.21 M/ L 4.63-6.08 L (test code = 761) HEMOGLOBIN (BEAKER) (test code = 11.6 GM/DL 13.7-17.5 L 410) HEMATOCRIT (BEAKER) (test code = 38.7 % 40.1-51.0 L 411) MEAN CORPUSCULAR VOLUME (BEAKER) 91.9 fL 79.0-92.2 (test code = 753) MEAN CORPUSCULAR HEMOGLOBIN 27.6 pg 25.7-32.2 (BEAKER) (test code = 751) MEAN CORPUSCULAR HEMOGLOBIN CONC 30.0 GM/DL 32.3-36.5 L (BEAKER) (test code = 752) RED CELL DISTRIBUTION WIDTH 14.6 % 11.6-14.4 H (BEAKER) (test code = 412) PLATELET COUNT (BEAKER) (test 279 K/CU MM 150-450 code = 756) MEAN PLATELET VOLUME (BEAKER) 10.2 fL 9.4-12.4 (test code = 754) NUCLEATED RED BLOOD CELLS 0 /100 WBC 0-0 (BEAKER) (test code = 413) NEUTROPHILS RELATIVE PERCENT 66 % (BEAKER) (test code = 429) LYMPHOCYTES RELATIVE PERCENT 19 % (BEAKER) (test code = 430) MONOCYTES RELATIVE PERCENT 11 % (BEAKER) (test code = 431) EOSINOPHILS RELATIVE PERCENT 2 % (BEAKER) (test code = 432) BASOPHILS RELATIVE PERCENT 0 % (BEAKER) (test code = 437) NEUTROPHILS ABSOLUTE COUNT 6.51 K/ L 1.78-5.38 H (BEAKER) (test code = 670) LYMPHOCYTES ABSOLUTE COUNT 1.91 K/ L 1.32-3.57 (BEAKER) (test code = 414) MONOCYTES ABSOLUTE COUNT (BEAKER) 1.08 K/ L 0.30-0.82 H (test code = 415) EOSINOPHILS ABSOLUTE COUNT 0.15 K/ L 0.04-0.54 (BEAKER) (test code = 416) BASOPHILS ABSOLUTE COUNT (BEAKER) 0.04 K/ L 0.01-0.08 (test code = 417) IMMATURE GRANULOCYTES-RELATIVE 2 % 0-1 H PERCENT (BEAKER) (test code = 2801) POCT-GLUCOSE [id number] 22:38:00 Test Item Value Reference Range Interpretation Comments POC-GLUCOSE METER 180 mg/dL 70-110 H : TESTED A T [facility] 6720 (BEAKER) (test code = [facility], 1538) [address]: Tax Processor/Techni kg ID = [id number] for KANG TIERRA, SABINA POCT-GLUCOSE [id number] 22:03:00 Test Item Value Reference Range Interpretation Comments POC-GLUCOSE METER 57 mg/dL 70-110 L : TESTED A T [facility] 6720 (BEAKER) (test code = [facility], 1538) 95958: Tax Processor/Techni kg ID = [id number] for HORobbie THAKUR, SABINA POCT-GLUCOSE [id number] 17:34:00 Test Item Value Reference Range Interpretation Comments POC-GLUCOSE METER 206 mg/dL 70-110 H : TESTED A T [facility] 6720 (BEAKER) (test code = [facility], 1538) 72132: Tax Processor/Techni kg ID = [id number] for Jose Baker POCT-GLUCOSE [id number] 11:23:00 Test Item Value Reference Range Interpretation Comments POC-GLUCOSE METER 232 mg/dL 70-110 H : TESTED A T [facility] 6720 (BEAKER) (test code = [facility] [place], 1538) 801[address]: Tax Processor/Techni kg ID = [id number] for Zabrina Sarmiento POCT-GLUCOSE [id number] 08:56:00 Test Item Value Reference Range Interpretation Comments POC-GLUCOSE METER 177 mg/dL 70-110 H : TESTED A T [facility] 6720 (BEAKER) (test code = [facility] [place], 1538) 12607: Tax Processor/Techni kg ID = [id number] for Ra islas (contract), All memo BASIC METABOLIC [id number] 05:08:00 Test Item Value Reference Range Interpretation Comments SODIUM (BEAKER) 138 meq/L 136-145 (test code = 381) POTASSIUM (BEAKER) 4.6 meq/L 3.5-5.1 (test code = 379) CHLORIDE (BEAKER) 98 meq/L 98-107 (test code = 382) CO2 (BEAKER) (test 34 meq/L 22-29 H code = 355) BLOOD UREA NITROGEN 30 mg/dL 7-21 H (BEAKER) (test code = 354) CREATININE (BEAKER) 1.01 mg/dL 0.57-1.25 (test code = 358) GLUCOSE RANDOM 178 mg/dL 70-105 H (BEAKER) (test code = 652) CALCIUM (BEAKER) 8.7 mg/dL 8.4-10.2 (test code = 697) EGFR (BEAKER) (test 77 mL/min/1.73 ESTIMA SEEMA GFR IS code = 1092) sq m NOT ACCURATE CREATININE CLEARANCE IN PREDICTING GLOMERULAR FILTRATION RATE . ESTIMATED GFR I S NOT APPLICABLE FOR DIALYSIS PATIEN TS. Tax Processor ID - KIAN [id number] 05:08:00 Test Item Value Reference Range Interpretation Comments MAGNESIUM (BEAKER) (test code = 2.2 mg/dL 1.6-2.6 627) Tax Processor ID - KIAN [facility] W/PLT COUNT & AUTO [id number] 04:46:00 Test Item Value Reference Range Interpretation Comments WHITE BLOOD CELL COUNT (BEAKER) 8.4 K/ L 3.5-10.5 (test code = 775) RED BLOOD CELL COUNT (BEAKER) 3.96 M/ L 4.63-6.08 L (test code = 761) HEMOGLOBIN (BEAKER) (test code = 10.9 GM/DL 13.7-17.5 L 410) HEMATOCRIT (BEAKER) (test code = 35.5 % 40.1-51.0 L 411) MEAN CORPUSCULAR VOLUME (BEAKER) 89.6 fL 79.0-92.2 (test code = 753) MEAN CORPUSCULAR HEMOGLOBIN 27.5 pg 25.7-32.2 (BEAKER) (test code = 751) MEAN CORPUSCULAR HEMOGLOBIN CONC 30.7 GM/DL 32.3-36.5 L (BEAKER) (test code = 752) RED CELL DISTRIBUTION WIDTH 13.9 % 11.6-14.4 (BEAKER) (test code = 412) PLATELET COUNT (BEAKER) (test 273 K/CU MM 150-450 code = 756) MEAN PLATELET VOLUME (BEAKER) 9.9 fL 9.4-12.4 (test code = 754) NUCLEATED RED BLOOD CELLS 0 /100 WBC 0-0 (BEAKER) (test code = 413) NEUTROPHILS RELATIVE PERCENT 77 % (BEAKER) (test code = 429) LYMPHOCYTES RELATIVE PERCENT 11 % (BEAKER) (test code = 430) MONOCYTES RELATIVE PERCENT 7 % (BEAKER) (test code = 431) EOSINOPHILS RELATIVE PERCENT 0 % (BEAKER) (test code = 432) BASOPHILS RELATIVE PERCENT 1 % (BEAKER) (test code = 437) NEUTROPHILS ABSOLUTE COUNT 6.48 K/ L 1.78-5.38 H (BEAKER) (test code = 670) LYMPHOCYTES ABSOLUTE COUNT 0.95 K/ L 1.32-3.57 L (BEAKER) (test code = 414) MONOCYTES ABSOLUTE COUNT (BEAKER) 0.59 K/ L 0.30-0.82 (test code = 415) EOSINOPHILS ABSOLUTE COUNT 0.03 K/ L 0.04-0.54 L (BEAKER) (test code = 416) BASOPHILS ABSOLUTE COUNT (BEAKER) 0.04 K/ L 0.01-0.08 (test code = 417) IMMATURE GRANULOCYTES-RELATIVE 4 % 0-1 H PERCENT (BEAKER) (test code = 2801) [id number] 04:45:00 Test Item Value Reference Range Interpretation Comments PROTIME (BEAKER) (test 14.1 seconds 11.9-14.2 code = 759) INR (BEAKER) (test 1.12 See_Comment [Automat ed code = 370) message] The sy stem which generated this result transmitted reference range : <=5.90. The reference range was not used to interpret this result as normal/abnormal . PARTIAL THROMBOPLASTIN 31.6 seconds 22.5-36.0 TIME (BEAKER) (test code = 760) Effective 08/25/2018: PT Reference Range ChangeNew: 11.9-14.2 Previous: 11.7- 14.7RECOMMENDED COUMADIN/WARFARIN INR THERAPY RANGESSTANDARD DOSE: 2.0-3.0 Includes: PROPHYLAXIS for venous thrombosis, systemic embolization; TREATMENT for venous thrombosis and/or pulmonary embolus.HIGH RISK: Target INR is 2.5-3.5 for patients wiht mechanical heart valves.[id number] 23:28:00 Test Item Value Reference Range Interpretation Comments D-DIMER QUANTITATIVE (Veles Plus LLCAKER) 0.59 MG/L FEU <0.50 H (test code = 671) Intended Use: The D-Dimer Assay can be used to aid in the diagnosis of Deep Vein Thrombosis (DVT) and Pulmonary Embolism Disease (PED).In patients with low pre- test probability, various studies concerning STA Liatest D-dimer test have reported that with a cutoff value of 0.50 MG/L FEU, the Negative Predictive Value (NPV) regarding the exclusion of thrombosis is within 95-100% range.POCT- GLUCOSE [id number] 20:27:00 Test Item Value Reference Range Interpretation Comments POC-GLUCOSE METER 295 mg/dL 70-110 H : TESTED A T [facility] 6720 (BEAKER) (test code = [facility], 1538) 69597: Tax Processor/Techni kg ID = [id number] for Armando munoz (contract)Elie POCT-GLUCOSE [id number] 16:56:00 Test Item Value Reference Range Interpretation Comments POC-GLUCOSE METER 266 mg/dL 70-110 H : TESTED A T [facility] 6720 (BEAKER) (test code = [facility] Trust [employer], 1538) 69599: Tax Processor/Techni kg ID = [id number] for Zabrina Sarmiento POCT-GLUCOSE [id number] 11:41:00 Test Item Value Reference Range Interpretation Comments POC-GLUCOSE METER 245 mg/dL 70-110 H : TESTED A T [facility] 6720 (BEAKER) (test code = [facility], 1538) 68028: Tax Processor/Techni kg ID = [id number] for Zabrina Sarmiento POCT-GLUCOSE [id number] 08:12:00 Test Item Value Reference Range Interpretation Comments POC-GLUCOSE METER 215 mg/dL 70-110 H : TESTED A T [facility] 6720 (BEAKER) (test code = [facility], 1538) 83807: Tax Processor/Techni kg ID = [id number] for kevinghulam (contract), All memo CBC W/PLT COUNT & AUTO [id number] 04:41:00 Test Item Value Reference Range Interpretation Comments WHITE BLOOD CELL COUNT (BEAKER) 10.3 K/ L 3.5-10.5 (test code = 775) RED BLOOD CELL COUNT (BEAKER) 3.87 M/ L 4.63-6.08 L (test code = 761) HEMOGLOBIN (BEAKER) (test code = 10.8 GM/DL 13.7-17.5 L 410) HEMATOCRIT (BEAKER) (test code = 34.2 % 40.1-51.0 L 411) MEAN CORPUSCULAR VOLUME (BEAKER) 88.4 fL 79.0-92.2 (test code = 753) MEAN CORPUSCULAR HEMOGLOBIN 27.9 pg 25.7-32.2 (BEAKER) (test code = 751) MEAN CORPUSCULAR HEMOGLOBIN CONC 31.6 GM/DL 32.3-36.5 L (BEAKER) (test code = 752) RED CELL DISTRIBUTION WIDTH 13.9 % 11.6-14.4 (BEAKER) (test code = 412) PLATELET COUNT (BEAKER) (test 261 K/CU MM 150-450 code = 756) MEAN PLATELET VOLUME (BEAKER) 10.1 fL 9.4-12.4 (test code = 754) NUCLEATED RED BLOOD CELLS 0 /100 WBC 0-0 (BEAKER) (test code = 413) NEUTROPHILS RELATIVE PERCENT 80 % (BEAKER) (test code = 429) LYMPHOCYTES RELATIVE PERCENT 10 % (BEAKER) (test code = 430) MONOCYTES RELATIVE PERCENT 6 % (BEAKER) (test code = 431) EOSINOPHILS RELATIVE PERCENT 0 % (BEAKER) (test code = 432) BASOPHILS RELATIVE PERCENT 0 % (BEAKER) (test code = 437) NEUTROPHILS ABSOLUTE COUNT 8.27 K/ L 1.78-5.38 H (BEAKER) (test code = 670) LYMPHOCYTES ABSOLUTE COUNT 1.05 K/ L 1.32-3.57 L (BEAKER) (test code = 414) MONOCYTES ABSOLUTE COUNT (BEAKER) 0.65 K/ L 0.30-0.82 (test code = 415) EOSINOPHILS ABSOLUTE COUNT 0.02 K/ L 0.04-0.54 L (BEAKER) (test code = 416) BASOPHILS ABSOLUTE COUNT (BEAKER) 0.03 K/ L 0.01-0.08 (test code = 417) IMMATURE GRANULOCYTES-RELATIVE 3 % 0-1 H PERCENT (BEAKER) (test code = 2801) [id number] 04:26:00 Test Item Value Reference Range Interpretation Comments PROTIME (BEAKER) (test 13.9 seconds 11.9-14.2 code = 759) INR (BEAKER) (test 1.12 See_Comment [Automat ed code = 370) message] The sy stem which generated this result transmitted reference range : <=5.90. The reference range was not used to interpret this result as normal/abnormal . PARTIAL THROMBOPLASTIN 37.5 seconds 22.5-36.0 H TIME (BEAKER) (test code = 760) Effective 08/25/2018: PT Reference Range ChangeNew: 11.9-14.2 Previous: 11.7- 14.7RECOMMENDED COUMADIN/WARFARIN INR THERAPY RANGESSTANDARD DOSE: 2.0-3.0 Includes: PROPHYLAXIS for venous thrombosis, systemic embolization; TREATMENT for venous thrombosis and/or pulmonary embolus.HIGH RISK: Target INR is 2.5-3.5 for patients wiht mechanical heart valves.BASIC METABOLIC [id number] 04:16:00 Test Item Value Reference Range Interpretation Comments SODIUM (BEAKER) 139 meq/L 136-145 (test code = 381) POTASSIUM (BEAKER) 4.6 meq/L 3.5-5.1 (test code = 379) CHLORIDE (BEAKER) 98 meq/L 98-107 (test code = 382) CO2 (BEAKER) (test 31 meq/L 22-29 H code = 355) BLOOD UREA NITROGEN 26 mg/dL 7-21 H (BEAKER) (test code = 354) CREATININE (BEAKER) 1.14 mg/dL 0.57-1.25 (test code = 358) GLUCOSE RANDOM 266 mg/dL 70-105 H (BEAKER) (test code = 652) CALCIUM (BEAKER) 8.6 mg/dL 8.4-10.2 (test code = 697) EGFR (BEAKER) (test 67 mL/min/1.73 ESTIMA SEEMA GFR IS code = 1092) sq m NOT ACCURATE CREATININE CLEARANCE IN PREDICTING GLOMERULAR FILTRATION RATE . ESTIMATED GFR I S NOT APPLICABLE FOR DIALYSIS PATIEN TS. Tax Processor ID - KIAN [id number] 04:16:00 Test Item Value Reference Range Interpretation Comments MAGNESIUM (BEAKER) (test code = 2.1 mg/dL 1.6-2.6 627) Tax Processor ID - KIAN MPOCT-GLUCOSE [id number] 20:38:00 Test Item Value Reference Range Interpretation Comments POC-GLUCOSE METER 234 mg/dL 70-110 H : TESTED A T [facility] 6720 (BEAKER) (test code = [facility], 1538) 76099: Tax Processor/Techni kg ID = [id number] for Sharlene hawthorne (contract)Luis Alberto vicky POCT-GLUCOSE [id number] 16:49:00 Test Item Value Reference Range Interpretation Comments POC-GLUCOSE METER 230 mg/dL 70-110 H : TESTED A T [facility] 6720 (BEAKER) (test code = [facility], 1538) 78156: Tax Processor/Techni kg ID = [id number] for KIM IGNACIO POCT-GLUCOSE [id number] 12:38:00 Test Item Value Reference Range Interpretation Comments POC-GLUCOSE METER 257 mg/dL 70-110 H : TESTED A T [facility] 6720 (BEAKER) (test code = [facility], 1538) 07995: Tax Processor/Techni kg ID = [id number] for MILTON BARRY POCT-GLUCOSE [id number] 08:08:00 Test Item Value Reference Range Interpretation Comments POC-GLUCOSE METER 180 mg/dL 70-110 H : TESTED A T [facility] 6720 (BEAKER) (test code = [facility] [place], 1538) 62957: Tax Processor/Techni kg ID = [id number] for MILTON BARRY [id number] 04:29:00 Test Item Value Reference Range Interpretation Comments D-DIMER QUANTITATIVE (BEAKER) 0.86 MG/L FEU <0.50 H (test code = 671) Intended Use: The D-Dimer Assay can be used to aid in the diagnosis of Deep Vein Thrombosis (DVT) and Pulmonary Embolism Disease (PED).In patients with low pre- test probability, various studies concerning STA Liatest D-dimer test have reported that with a cutoff value of 0.50 MG/L FEU, the Negative Predictive Value (NPV) regarding the exclusion of thrombosis is within 95-100% range.CBC W/PLT COUNT & AUTO [id number] 04:27:00 Test Item Value Reference Range Interpretation Comments WHITE BLOOD CELL COUNT (BEAKER) 7.8 K/ L 3.5-10.5 (test code = 775) RED BLOOD CELL COUNT (BEAKER) 3.74 M/ L 4.63-6.08 L (test code = 761) HEMOGLOBIN (BEAKER) (test code = 10.4 GM/DL 13.7-17.5 L 410) HEMATOCRIT (BEAKER) (test code = 32.7 % 40.1-51.0 L 411) MEAN CORPUSCULAR VOLUME (BEAKER) 87.4 fL 79.0-92.2 (test code = 753) MEAN CORPUSCULAR HEMOGLOBIN 27.8 pg 25.7-32.2 (BEAKER) (test code = 751) MEAN CORPUSCULAR HEMOGLOBIN CONC 31.8 GM/DL 32.3-36.5 L (BEAKER) (test code = 752) RED CELL DISTRIBUTION WIDTH 13.5 % 11.6-14.4 (BEAKER) (test code = 412) PLATELET COUNT (BEAKER) (test 234 K/CU MM 150-450 code = 756) MEAN PLATELET VOLUME (BEAKER) 10.4 fL 9.4-12.4 (test code = 754) NUCLEATED RED BLOOD CELLS 0 /100 WBC 0-0 (BEAKER) (test code = 413) NEUTROPHILS RELATIVE PERCENT 82 % (BEAKER) (test code = 429) LYMPHOCYTES RELATIVE PERCENT 10 % (BEAKER) (test code = 430) MONOCYTES RELATIVE PERCENT 6 % (BEAKER) (test code = 431) EOSINOPHILS RELATIVE PERCENT 0 % (BEAKER) (test code = 432) BASOPHILS RELATIVE PERCENT 0 % (BEAKER) (test code = 437) NEUTROPHILS ABSOLUTE COUNT 6.40 K/ L 1.78-5.38 H (BEAKER) (test code = 670) LYMPHOCYTES ABSOLUTE COUNT 0.79 K/ L 1.32-3.57 L (BEAKER) (test code = 414) MONOCYTES ABSOLUTE COUNT (BEAKER) 0.43 K/ L 0.30-0.82 (test code = 415) EOSINOPHILS ABSOLUTE COUNT 0.02 K/ L 0.04-0.54 L (BEAKER) (test code = 416) BASOPHILS ABSOLUTE COUNT (BEAKER) 0.01 K/ L 0.01-0.08 (test code = 417) IMMATURE GRANULOCYTES-RELATIVE 2 % 0-1 H PERCENT (BEAKER) (test code = 2801) [id number] 04:27:00 Test Item Value Reference Range Interpretation Comments PROTIME (BEAKER) (test 13.1 seconds 11.9-14.2 code = 759) INR (BEAKER) (test 1.03 See_Comment [Automat ed code = 370) message] The sy stem which generated this result transmitted reference range : <=5.90. The reference range was not used to interpret this result as normal/abnormal . PARTIAL THROMBOPLASTIN 34.7 seconds 22.5-36.0 TIME (BEAKER) (test code = 760) Effective 08/25/2018: PT Reference Range ChangeNew: 11.9-14.2 Previous: 11.7- 14.7RECOMMENDED COUMADIN/WARFARIN INR THERAPY RANGESSTANDARD DOSE: 2.0-3.0 Includes: PROPHYLAXIS for venous thrombosis, systemic embolization; TREATMENT for venous thrombosis and/or pulmonary embolus.HIGH RISK: Target INR is 2.5-3.5 for patients wiht mechanical heart valves.[id number] 04:27:00 Test Item Value Reference Range Interpretation Comments MAGNESIUM (BEAKER) 2.0 mg/dL 1.6-2.6 Specimen slightly (test code = 627) hemolyzed Tax Processor ID - KIAN MBASIC METABOLIC [id number] 04:27:00 Test Item Value Reference Range Interpretation Comments SODIUM (BEAKER) 140 meq/L 136-145 (test code = 381) POTASSIUM (BEAKER) 4.8 meq/L 3.5-5.1 Specimen slightly (test code = 379) hemolyzed CHLORIDE (BEAKER) 99 meq/L 98-107 (test code = 382) CO2 (BEAKER) (test 34 meq/L 22-29 H code = 355) BLOOD UREA NITROGEN 21 mg/dL 7-21 (BEAKER) (test code = 354) CREATININE (BEAKER) 0.98 mg/dL 0.57-1.25 Specimen slightly (test code = 358) hemolyzed GLUCOSE RANDOM 238 mg/dL 70-105 H (BEAKER) (test code = 652) CALCIUM (BEAKER) 8.3 mg/dL 8.4-10.2 L (test code = 697) EGFR (BEAKER) (test 80 mL/min/1.73 ESTIMA SEEMA GFR IS code = 1092) sq m NOT ACCURATE CREATININE CLEARANCE IN PREDICTING GLOMERULAR FILTRATION RATE . ESTIMATED GFR I S NOT APPLICABLE FOR DIALYSIS PATIEN TS. Tax Processor ID - KIAN MPOCT-GLUCOSE [id number] 20:30:00 Test Item Value Reference Range Interpretation Comments POC-GLUCOSE METER 201 mg/dL 70-110 H : TESTED A T [facility] 6720 (BEAKER) (test code [facility], = 1538) 61505: Tax Processor/Techni kg ID = [id number] for Sussy chavez (contract)Sena POCT-GLUCOSE [id number] 15:41:00 Test Item Value Reference Range Interpretation Comments POC-GLUCOSE METER 254 mg/dL 70-110 H : TESTED A T [facility] 6720 (BEAKER) (test code = [facility], 1538) 02367: Tax Processor/Techni kg ID = [id number] for KIM IGNACIO POCT-GLUCOSE [id number] 11:59:00 Test Item Value Reference Range Interpretation Comments POC-GLUCOSE METER 279 mg/dL 70-110 H : TESTED A T [facility] 6720 (BEAKER) (test code = [facility] [place], 1538) 896[address]: Tax Processor/Techni kg ID = [id number] for KIM IGNACIO POCT-GLUCOSE [id number] 08:24:00 Test Item Value Reference Range Interpretation Comments POC-GLUCOSE METER 123 mg/dL 70-110 H : [facility] (test code = [facility], 1538) 25497: Tax Processor/Techni kg ID = [id number] for MILTON BARRY [id number] 05:22:00 Test Item Value Reference Range Interpretation Comments Ferritin (test code = 1556.54 ng/mL 5.00-275.00 H 2276-4) YUSEF (test code = YUSEF) Tax Processor ID - EDASI Lab Interpretation (test Abnormal code = 98523-3) [facility]00 Test Item Value Reference Range Interpretation Comments Ferritin (test code = 1556.54 ng/mL 5.00-275.00 H 2276-4) YUSEF (test code = YUSEF) Tax Processor ID - EDASI Lab Interpretation (test Abnormal code = 12494-1) [facility] 05:22:00 Test Item Value Reference Range Interpretation Comments FERRITIN (BEAKER) (test code = 1556.54 ng/mL 5.00-275.00 H 361) Tax Processor ID - EDASIC-Reactive [id number] 05:05:00 Test Item Value Reference Range Interpretation Comments CRP (test code = 676) 1.10 mg/dL 0.00-0.50 H YUSEF (test code = YUSEF) Tax Processor ID - EDASI Lab Interpretation (test Abnormal code = 95822-4) [facility] [id number] 05:05:00 Test Item Value Reference Range Interpretation Comments CRP (test code = 676) 1.10 mg/dL 0.00-0.50 H YUSEF (test code = YUSEF) Tax Processor ID - EDASI Lab Interpretation (test Abnormal code = 22319-4) [facility] 05:05:00 Test Item Value Reference Range Interpretation Comments MAGNESIUM (BEAKER) 2.2 mg/dL 1.6-2.6 Specimen slightly (test code = 627) hemolyzed Tax Processor ID - EDASIBASIC METABOLIC [id number] 05:05:00 Test Item Value Reference Range Interpretation Comments SODIUM (BEAKER) 139 meq/L 136-145 (test code = 381) POTASSIUM (BEAKER) 4.7 meq/L 3.5-5.1 Specimen slightly (test code = 379) hemolyzed CHLORIDE (BEAKER) 99 meq/L 98-107 (test code = 382) CO2 (BEAKER) (test 33 meq/L 22-29 H code = 355) BLOOD UREA NITROGEN 18 mg/dL 7-21 (BEAKER) (test code = 354) CREATININE (BEAKER) 0.85 mg/dL 0.57-1.25 Specimen slightly (test code = 358) hemolyzed GLUCOSE RANDOM 166 mg/dL 70-105 H (BEAKER) (test code = 652) CALCIUM (BEAKER) 8.1 mg/dL 8.4-10.2 L (test code = 697) EGFR (BEAKER) (test 94 mL/min/1.73 ESTIMA SEEMA GFR IS code = 1092) sq m NOT ACCURATE CREATININE CLEARANCE IN PREDICTING GLOMERULAR FILTRATION RATE . ESTIMATED GFR I S NOT APPLICABLE FOR DIALYSIS PATIEN TS. Tax Processor ID - EDASIC-REACTIVE [id number] 05:05:00 Test Item Value Reference Range Interpretation Comments C-REACTIVE PROTEIN (BEAKER) (test 1.10 mg/dL 0.00-0.50 H code = 676) Tax Processor ID - EDASIPT/[id number] 04:37:00 Test Item Value Reference Range Interpretation Comments PROTIME (BEAKER) (test 13.6 seconds 11.9-14.2 code = 759) INR (BEAKER) (test 1.07 See_Comment [Automat ed code = 370) message] The sy stem which generated this result transmitted reference range : <=5.90. The reference range was not used to interpret this result as normal/abnormal . PARTIAL THROMBOPLASTIN 34.9 seconds 22.5-36.0 TIME (BEAKER) (test code = 760) Effective 08/25/2018: PT Reference Range ChangeNew: 11.9-14.2 Previous: 11.7- 14.7RECOMMENDED COUMADIN/WARFARIN INR THERAPY RANGESSTANDARD DOSE: 2.0-3.0 Includes: PROPHYLAXIS for venous thrombosis, systemic embolization; TREATMENT for venous thrombosis and/or pulmonary embolus.HIGH RISK: Target INR is 2.5-3.5 for patients wiht mechanical heart valves.CBC W/PLT COUNT & AUTO [id number] 04:28:00 Test Item Value Reference Range Interpretation Comments WHITE BLOOD CELL COUNT (BEAKER) 7.9 K/ L 3.5-10.5 (test code = 775) RED BLOOD CELL COUNT (BEAKER) 3.50 M/ L 4.63-6.08 L (test code = 761) HEMOGLOBIN (BEAKER) (test code = 9.9 GM/DL 13.7-17.5 L 410) HEMATOCRIT (BEAKER) (test code = 31.6 % 40.1-51.0 L 411) MEAN CORPUSCULAR VOLUME (BEAKER) 90.3 fL 79.0-92.2 (test code = 753) MEAN CORPUSCULAR HEMOGLOBIN 28.3 pg 25.7-32.2 (BEAKER) (test code = 751) MEAN CORPUSCULAR HEMOGLOBIN CONC 31.3 GM/DL 32.3-36.5 L (BEAKER) (test code = 752) RED CELL DISTRIBUTION WIDTH 13.3 % 11.6-14.4 (BEAKER) (test code = 412) PLATELET COUNT (BEAKER) (test 189 K/CU MM 150-450 code = 756) MEAN PLATELET VOLUME (BEAKER) 10.4 fL 9.4-12.4 (test code = 754) NUCLEATED RED BLOOD CELLS 0 /100 WBC 0-0 (BEAKER) (test code = 413) NEUTROPHILS RELATIVE PERCENT 73 % (BEAKER) (test code = 429) LYMPHOCYTES RELATIVE PERCENT 14 % (BEAKER) (test code = 430) MONOCYTES RELATIVE PERCENT 10 % (BEAKER) (test code = 431) EOSINOPHILS RELATIVE PERCENT 2 % (BEAKER) (test code = 432) BASOPHILS RELATIVE PERCENT 0 % (BEAKER) (test code = 437) NEUTROPHILS ABSOLUTE COUNT 5.74 K/ L 1.78-5.38 H (BEAKER) (test code = 670) LYMPHOCYTES ABSOLUTE COUNT 1.07 K/ L 1.32-3.57 L (BEAKER) (test code = 414) MONOCYTES ABSOLUTE COUNT (BEAKER) 0.80 K/ L 0.30-0.82 (test code = 415) EOSINOPHILS ABSOLUTE COUNT 0.13 K/ L 0.04-0.54 (BEAKER) (test code = 416) BASOPHILS ABSOLUTE COUNT (BEAKER) 0.01 K/ L 0.01-0.08 (test code = 417) IMMATURE GRANULOCYTES-RELATIVE 1 % 0-1 PERCENT (BEAKER) (test code = 2801) POCT-GLUCOSE [id number] 20:14:00 Test Item Value Reference Range Interpretation Comments POC-GLUCOSE METER 316 mg/dL 70-110 H : TESTED A T [facility] 6720 (BEAKER) (test code = [facility], 1538) [id number]: Tax Processor/Techni kg ID = [id number] for Jerry Valdez POCT-GLUCOSE [id number] 18:05:00 Test Item Value Reference Range Interpretation Comments POC-GLUCOSE METER 289 mg/dL 70-110 H : TESTED A T [facility] 6720 (BEAKER) (test code = [facility], 1538) [id number]: Tax Processor/Techni kg ID = [id number] for Kh an (contract), Nos haba POCT-GLUCOSE [id number] 11:58:00 Test Item Value Reference Range Interpretation Comments POC-GLUCOSE METER 279 mg/dL 70-110 H : TESTED A T [facility] 6720 (BEAKER) (test code = [facility], 1538) [id number]: Tax Processor/Techni kg ID = [id number] for MILTON BARRY BLOOD [id number] 09:07:00 Test Item Value Reference Range Interpretation Comments CULTURE A From Anaerobic Bottle (BEAKER) (test Only [facility] bacterium code = 1095) acnes GRAM STAIN From anaerobic RESULT bottle only: (BEAKER) (test gram positive code = 1123) rods POCT-GLUCOSE [id number] 09:02:00 Test Item Value Reference Range Interpretation Comments POC-GLUCOSE METER 129 mg/dL 70-110 H : TESTED A T [facility] 6720 (BEAKER) (test code = [facility], 1538) [id number]: Tax Processor/Techni kg ID = [id number] for AL GERMAN PALMER [place] BASIC METABOLIC [id number] 04:49:00 Test Item Value Reference Range Interpretation Comments SODIUM (BEAKER) 141 meq/L 136-145 (test code = 381) POTASSIUM (BEAKER) 4.5 meq/L 3.5-5.1 (test code = 379) CHLORIDE (BEAKER) 98 meq/L 98-107 (test code = 382) CO2 (BEAKER) (test 36 meq/L 22-29 H code = 355) BLOOD UREA NITROGEN 16 mg/dL 7-21 (BEAKER) (test code = 354) CREATININE (BEAKER) 0.84 mg/dL 0.57-1.25 (test code = 358) GLUCOSE RANDOM 137 mg/dL 70-105 H (BEAKER) (test code = 652) CALCIUM (BEAKER) 8.2 mg/dL 8.4-10.2 L (test code = 697) EGFR (BEAKER) (test 95 mL/min/1.73 ESTIMA SEEMA GFR IS code = 1092) sq m NOT ACCURATE CREATININE CLEARANCE IN PREDICTING GLOMERULAR FILTRATION RATE . ESTIMATED GFR I S NOT APPLICABLE FOR DIALYSIS PATIEN TS. Tax Processor ID - [id number] 04:49:00 Test Item Value Reference Range Interpretation Comments MAGNESIUM (BEAKER) (test code = 2.2 mg/dL 1.6-2.6 627) Tax Processor ID - [id number] 04:29:00 Test Item Value Reference Range Interpretation Comments D-DIMER QUANTITATIVE (BEAKER) 1.76 MG/L FEU <0.50 H (test code = 671) Intended Use: The D-Dimer Assay can be used to aid in the diagnosis of Deep Vein Thrombosis (DVT) and Pulmonary Embolism Disease (PED).In patients with low pre- test probability, various studies concerning STA Liatest D-dimer test have reported that with a cutoff value of 0.50 MG/L FEU, the Negative Predictive Value (NPV) regarding the exclusion of thrombosis is within 95-100% range. PT/[id number] 04:27:00 Test Item Value Reference Range Interpretation Comments PROTIME (BEAKER) (test 13.8 seconds 11.9-14.2 code = 759) INR (BEAKER) (test 1.10 See_Comment [Automat ed code = 370) message] The sy stem which generated this result transmitted reference range : <=5.90. The reference range was not used to interpret this result as normal/abnormal . PARTIAL THROMBOPLASTIN 41.4 seconds 22.5-36.0 H TIME (BEAKER) (test code = 760) Effective 08/25/2018: PT Reference Range ChangeNew: 11.9-14.2 Previous: 11.7- 14.7RECOMMENDED COUMADIN/WARFARIN INR THERAPY RANGESSTANDARD DOSE: 2.0-3.0 Includes: PROPHYLAXIS for venous thrombosis, systemic embolization; TREATMENT for venous thrombosis and/or pulmonary embolus.HIGH RISK: Target INR is 2.5-3.5 for patients wiht mechanical heart valves.CBC W/PLT COUNT & AUTO [id number] 04:19:00 Test Item Value Reference Range Interpretation Comments WHITE BLOOD CELL COUNT (BEAKER) 7.4 K/ L 3.5-10.5 (test code = 775) RED BLOOD CELL COUNT (BEAKER) 3.70 M/ L 4.63-6.08 L (test code = 761) HEMOGLOBIN (BEAKER) (test code = 10.3 GM/DL 13.7-17.5 L 410) HEMATOCRIT (BEAKER) (test code = 34.5 % 40.1-51.0 L 411) MEAN CORPUSCULAR VOLUME (BEAKER) 93.2 fL 79.0-92.2 H (test code = 753) MEAN CORPUSCULAR HEMOGLOBIN 27.8 pg 25.7-32.2 (BEAKER) (test code = 751) MEAN CORPUSCULAR HEMOGLOBIN CONC 29.9 GM/DL 32.3-36.5 L (BEAKER) (test code = 752) RED CELL DISTRIBUTION WIDTH 13.2 % 11.6-14.4 (BEAKER) (test code = 412) PLATELET COUNT (BEAKER) (test 173 K/CU MM 150-450 code = 756) MEAN PLATELET VOLUME (BEAKER) 10.1 fL 9.4-12.4 (test code = 754) NUCLEATED RED BLOOD CELLS 0 /100 WBC 0-0 (BEAKER) (test code = 413) NEUTROPHILS RELATIVE PERCENT 71 % (BEAKER) (test code = 429) LYMPHOCYTES RELATIVE PERCENT 14 % (BEAKER) (test code = 430) MONOCYTES RELATIVE PERCENT 9 % (BEAKER) (test code = 431) EOSINOPHILS RELATIVE PERCENT 4 % (BEAKER) (test code = 432) BASOPHILS RELATIVE PERCENT 0 % (BEAKER) (test code = 437) NEUTROPHILS ABSOLUTE COUNT 5.29 K/ L 1.78-5.38 (BEAKER) (test code = 670) LYMPHOCYTES ABSOLUTE COUNT 1.06 K/ L 1.32-3.57 L (BEAKER) (test code = 414) MONOCYTES ABSOLUTE COUNT (BEAKER) 0.66 K/ L 0.30-0.82 (test code = 415) EOSINOPHILS ABSOLUTE COUNT 0.30 K/ L 0.04-0.54 (BEAKER) (test code = 416) BASOPHILS ABSOLUTE COUNT (BEAKER) 0.02 K/ L 0.01-0.08 (test code = 417) IMMATURE GRANULOCYTES-RELATIVE 1 % 0-1 PERCENT (BEAKER) (test code = 2801) POCT-GLUCOSE [id number] 20:39:00 Test Item Value Reference Range Interpretation Comments POC-GLUCOSE METER 221 mg/dL 70-110 H : TESTED A T [facility] 6720 (BEAKER) (test code [facility], = 1538) [id number]: Tax Processor/Techni kg ID = [id number] for Sussy chavez (contract), Sena ca POCT-GLUCOSE [id number] 16:26:00 Test Item Value Reference Range Interpretation Comments POC-GLUCOSE METER 248 mg/dL 70-110 H : TESTED A T [facility] 6720 (BEAKER) (test code = [facility], 1538) [address]: Tax Processor/Techni kg ID = [id number] for Zabrina Sarmiento RAD, CHEST, 1 VIEW, NON [id number] 11:46:00Reason for exam:->eval pulmonary congestionShould this be performed at the bedside?->Yes [facility] 1965 Sex: MFINAL REPORT INDICATION: eval pulmonary congestion COMPARISON: 05/21/2020 TECHNIQUE: Singlefrontal view of the chest. FINDINGS: Lungs and pleura: Diffuse bilateral interstitial thickening andairspace disease are unchanged No effusion.Heart and mediastinum: Normal heart size. Unremarkable mediastinal contours.Osseous structures: No acute abnormality.Other: None. Signed: Opal Jason Verified Date/Time: 05/24/2020 11:46:14 Reading Location: [facility] Radiology Reading Room POCT-GLUCOSE [id number] 11:24:00 Test Item Value Reference Range Interpretation Comments POC-GLUCOSE METER 203 mg/dL 70-110 H : TESTED A T [facility] 6720 (BEAKER) (test code = [facility], 1538) 47[address]: Tax Processor/Techni kg ID = [id number] for Ju male (contract), Aiden a POCT-GLUCOSE [id number] 08:01:00 Test Item Value Reference Range Interpretation Comments POC-GLUCOSE METER 136 mg/dL 70-110 H : TESTED A T [facility] 6720 (BEAKER) (test code = [facility], 1538) 90299: Tax Processor/Techni kg ID = [id number] for Ju male (contract), Aiden a BASIC METABOLIC [id number] 04:48:00 Test Item Value Reference Range Interpretation Comments SODIUM (BEAKER) 142 meq/L 136-145 (test code = 381) POTASSIUM (BEAKER) 4.3 meq/L 3.5-5.1 (test code = 379) CHLORIDE (BEAKER) 99 meq/L 98-107 (test code = 382) CO2 (BEAKER) (test 36 meq/L 22-29 H code = 355) BLOOD UREA NITROGEN 17 mg/dL 7-21 (BEAKER) (test code = 354) CREATININE (BEAKER) 0.87 mg/dL 0.57-1.25 (test code = 358) GLUCOSE RANDOM 124 mg/dL 70-105 H (BEAKER) (test code = 652) CALCIUM (BEAKER) 8.0 mg/dL 8.4-10.2 L (test code = 697) EGFR (BEAKER) (test 91 mL/min/1.73 ESTIMA SEEMA GFR IS code = 1092) sq m NOT ACCURATE CREATININE CLEARANCE IN PREDICTING GLOMERULAR FILTRATION RATE . ESTIMATED GFR I S NOT APPLICABLE FOR DIALYSIS PATIEN TS. Tax Processor ID - CHAI [id number] 04:48:00 Test Item Value Reference Range Interpretation Comments MAGNESIUM (BEAKER) (test code = 2.0 mg/dL 1.6-2.6 627) Tax Processor ID - CHAI [id number] 04:28:00 Test Item Value Reference Range Interpretation Comments PROTIME (BEAKER) (test 13.4 seconds 11.9-14.2 code = 759) INR (BEAKER) (test 1.05 See_Comment [Automat ed code = 370) message] The [employer] stem which generated this result transmitted reference range : <=5.90. The reference range was not used to interpret this result as normal/abnormal . PARTIAL THROMBOPLASTIN 38.8 seconds 22.5-36.0 H TIME (BEAKER) (test code = 760) Effective 08/25/2018: PT Reference Range ChangeNew: 11.9-14.2 Previous: 11.7- 14.7RECOMMENDED COUMADIN/WARFARIN INR THERAPY RANGESSTANDARD DOSE: 2.0-3.0 Includes: PROPHYLAXIS for venous thrombosis, systemic embolization; TREATMENT for venous thrombosis and/or pulmonary embolus.HIGH RISK: Target INR is 2.5-3.5 for patients wiht mechanical heart valves.CBC W/PLT COUNT & AUTO [id number] 04:18:00 Test Item Value Reference Range Interpretation Comments WHITE BLOOD CELL COUNT (BEAKER) 7.9 K/ L 3.5-10.5 (test code = 775) RED BLOOD CELL COUNT (BEAKER) 3.71 M/ L 4.63-6.08 L (test code = 761) HEMOGLOBIN (BEAKER) (test code = 10.1 GM/DL 13.7-17.5 L 410) HEMATOCRIT (BEAKER) (test code = 34.1 % 40.1-51.0 L 411) MEAN CORPUSCULAR VOLUME (BEAKER) 91.9 fL 79.0-92.2 (test code = 753) MEAN CORPUSCULAR HEMOGLOBIN 27.2 pg 25.7-32.2 (BEAKER) (test code = 751) MEAN CORPUSCULAR HEMOGLOBIN CONC 29.6 GM/DL 32.3-36.5 L (BEAKER) (test code = 752) RED CELL DISTRIBUTION WIDTH 13.4 % 11.6-14.4 (BEAKER) (test code = 412) PLATELET COUNT (BEAKER) (test 183 K/CU MM 150-450 code = 756) MEAN PLATELET VOLUME (BEAKER) 10.2 fL 9.4-12.4 (test code = 754) NUCLEATED RED BLOOD CELLS 0 /100 WBC 0-0 (BEAKER) (test code = 413) NEUTROPHILS RELATIVE PERCENT 72 % (BEAKER) (test code = 429) LYMPHOCYTES RELATIVE PERCENT 14 % (BEAKER) (test code = 430) MONOCYTES RELATIVE PERCENT 7 % (BEAKER) (test code = 431) EOSINOPHILS RELATIVE PERCENT 6 % (BEAKER) (test code = 432) BASOPHILS RELATIVE PERCENT 0 % (BEAKER) (test code = 437) NEUTROPHILS ABSOLUTE COUNT 5.73 K/ L 1.78-5.38 H (BEAKER) (test code = 670) LYMPHOCYTES ABSOLUTE COUNT 1.11 K/ L 1.32-3.57 L (BEAKER) (test code = 414) MONOCYTES ABSOLUTE COUNT (BEAKER) 0.55 K/ L 0.30-0.82 (test code = 415) EOSINOPHILS ABSOLUTE COUNT 0.46 K/ L 0.04-0.54 (BEAKER) (test code = 416) BASOPHILS ABSOLUTE COUNT (BEAKER) 0.01 K/ L 0.01-0.08 (test code = 417) IMMATURE GRANULOCYTES-RELATIVE 1 % 0-1 PERCENT (BEAKER) (test code = 2801) POCT-GLUCOSE [id number] 21:00:00 Test Item Value Reference Range Interpretation Comments POC-GLUCOSE METER 145 mg/dL 70-110 H : TESTED A T [facility] 6720 (BEAKER) (test code [facility], = 1538) 01956: Tax Processor/Techni gk ID = [id number] for Rodr iguez (contract), Sena ca POCT-GLUCOSE [id number] 16:19:00 Test Item Value Reference Range Interpretation Comments POC-GLUCOSE METER 125 mg/dL 70-110 H : TESTED A T [facility] 6720 (BEAKER) (test code = [facility] Radha [facility], 1538) 26024: Tax Processor/Techni kg ID = [id number] for Ju male (contract), Aiden a POCT-GLUCOSE [id number] 11:45:00 Test Item Value Reference Range Interpretation Comments POC-GLUCOSE METER 161 mg/dL 70-110 H : TESTED A T [facility] 6720 (BEAKER) (test code = [facility], 1538) 80334: Tax Processor/Techni kg ID = [id number] for Becki male (contract), Aiden a BASIC METABOLIC [id number] 05:38:00 Test Item Value Reference Range Interpretation Comments SODIUM (BEAKER) 143 meq/L 136-145 (test code = 381) POTASSIUM (BEAKER) 4.1 meq/L 3.5-5.1 (test code = 379) CHLORIDE (BEAKER) 102 meq/L 98-107 (test code = 382) CO2 (BEAKER) (test 36 meq/L 22-29 H code = 355) BLOOD UREA NITROGEN 20 mg/dL 7-21 (BEAKER) (test code = 354) CREATININE (BEAKER) 0.88 mg/dL 0.57-1.25 (test code = 358) GLUCOSE RANDOM 114 mg/dL 70-105 H (BEAKER) (test code = 652) CALCIUM (BEAKER) 8.0 mg/dL 8.4-10.2 L (test code = 697) EGFR (BEAKER) (test 90 mL/min/1.73 ESTIMA SEEMA GFR IS code = 1092) sq m NOT ACCURATE CREATININE CLEARANCE IN PREDICTING GLOMERULAR FILTRATION RATE . ESTIMATED GFR I S NOT APPLICABLE FOR DIALYSIS PATIEN TS. Tax Processor ID - CHAI [id number] 05:38:00 Test Item Value Reference Range Interpretation Comments MAGNESIUM (BEAKER) (test code = 1.9 mg/dL 1.6-2.6 627) Tax Processor ID - CHAI [id number] 02:32:00 Test Item Value Reference Range Interpretation Comments D-DIMER QUANTITATIVE (BEAKER) 2.56 MG/L FEU <0.50 H (test code = 671) Intended Use: The D-Dimer Assay can be used to aid in the diagnosis of Deep Vein Thrombosis (DVT) and Pulmonary Embolism Disease (PED).In patients with low pre- test probability, various studies concerning STA Liatest D-dimer test have reported that with a cutoff value of 0.50 MG/L FEU, the Negative Predictive Value (NPV) regarding the exclusion of thrombosis is within 95-100% range. PT/[id number] 02:30:00 Test Item Value Reference Range Interpretation Comments PROTIME (BEAKER) (test 13.6 seconds 11.9-14.2 code = 759) INR (BEAKER) (test 1.08 See_Comment [Automat ed code = 370) message] The [employer] stem which generated this result transmitted reference range : <=5.90. The reference range was not used to interpret this result as normal/abnormal . PARTIAL THROMBOPLASTIN 37.6 seconds 22.5-36.0 H TIME (BEAKER) (test code = 760) Effective 08/25/2018: PT Reference Range ChangeNew: 11.9-14.2 Previous: 11.7- 14.7RECOMMENDED COUMADIN/WARFARIN INR THERAPY RANGESSTANDARD DOSE: 2.0-3.0 Includes: PROPHYLAXIS for venous thrombosis, systemic embolization; TREATMENT for venous thrombosis and/or pulmonary embolus.HIGH RISK: Target INR is 2.5-3.5 for patients wiht mechanical heart valves.CBC W/PLT COUNT & AUTO [id number] 02:07:00 Test Item Value Reference Range Interpretation Comments WHITE BLOOD CELL COUNT (BEAKER) 9.1 K/ L 3.5-10.5 (test code = 775) RED BLOOD CELL COUNT (BEAKER) 3.99 M/ L 4.63-6.08 L (test code = 761) HEMOGLOBIN (BEAKER) (test code = 11.0 GM/DL 13.7-17.5 L 410) HEMATOCRIT (BEAKER) (test code = 36.6 % 40.1-51.0 L 411) MEAN CORPUSCULAR VOLUME (BEAKER) 91.7 fL 79.0-92.2 (test code = 753) MEAN CORPUSCULAR HEMOGLOBIN 27.6 pg 25.7-32.2 (BEAKER) (test code = 751) MEAN CORPUSCULAR HEMOGLOBIN CONC 30.1 GM/DL 32.3-36.5 L (BEAKER) (test code = 752) RED CELL DISTRIBUTION WIDTH 13.5 % 11.6-14.4 (BEAKER) (test code = 412) PLATELET COUNT (BEAKER) (test 188 K/CU MM 150-450 code = 756) MEAN PLATELET VOLUME (BEAKER) 10.4 fL 9.4-12.4 (test code = 754) NUCLEATED RED BLOOD CELLS 0 /100 WBC 0-0 (BEAKER) (test code = 413) NEUTROPHILS RELATIVE PERCENT 70 % (BEAKER) (test code = 429) LYMPHOCYTES RELATIVE PERCENT 15 % (BEAKER) (test code = 430) MONOCYTES RELATIVE PERCENT 7 % (BEAKER) (test code = 431) EOSINOPHILS RELATIVE PERCENT 7 % (BEAKER) (test code = 432) BASOPHILS RELATIVE PERCENT 0 % (BEAKER) (test code = 437) NEUTROPHILS ABSOLUTE COUNT 6.37 K/ L 1.78-5.38 H (BEAKER) (test code = 670) LYMPHOCYTES ABSOLUTE COUNT 1.39 K/ L 1.32-3.57 (BEAKER) (test code = 414) MONOCYTES ABSOLUTE COUNT (BEAKER) 0.61 K/ L 0.30-0.82 (test code = 415) EOSINOPHILS ABSOLUTE COUNT 0.61 K/ L 0.04-0.54 H (BEAKER) (test code = 416) BASOPHILS ABSOLUTE COUNT (BEAKER) 0.01 K/ L 0.01-0.08 (test code = 417) IMMATURE GRANULOCYTES-RELATIVE 1 % 0-1 PERCENT (BEAKER) (test code = 2801) Blood Culture - Routine (Left Venipuncture)2020-05-22 23:01:00 Test Item Value Reference Range Interpretation Comments Result (test code = No growth in 5 days 6463-4) [facility]2020-05-22 23:01:00 Test Item Value Reference Range Interpretation Comments Result (test code = No growth in 5 days 6463-4) [facility] [id number] 23:01:00 Test Item Value Reference Range Interpretation Comments CULTURE (BEAKER) (test No growth in 5 days code = 1095) POCT-GLUCOSE [id number] 20:25:00 Test Item Value Reference Range Interpretation Comments POC-GLUCOSE METER 258 mg/dL 70-110 H : TESTED A T [facility] 6720 (BEAKER) ([facility] = 1538) 94944: Tax Processor/Techni kg ID = [id number] for Sussy chavez (contract), Sena ca POCT-GLUCOSE [id number] 16:55:00 Test Item Value Reference Range Interpretation Comments POC-GLUCOSE METER 111 mg/dL 70-110 H : TESTED A T [facility] 6720 (BEAKER) (test code = CHIQUIS Garcia [facility], 1538) 96932: Tax Processor/Techni kg ID = [id number] for FABIANO MILTON XIAO Heparin Assay - Low Molecular [id number] 14:50:00 Test Item Value Reference Range Interpretation Comments Anti 10A-Lovenox (test 0.79 u/ml 0.60-2.00 code = 1605) YUSEF (test code = YUSEF) Anti-Factor 10-A Level (Heparin Assay for Low Molecular Weight Heparin)Monitoring Guidelines: Blood samples should be obtained 4 hours post subcutaneous injection (time of Peak level) Therapeutic Peak Levels: 0.6-1.0 units/mL twice daily enoxaparin 1.0-2.0 units/mL once daily enoxaparin Ref: CHEST 2012;[id number] ase collect 4 HOURS AFTER LOVENOX DOSE. Lab Interpretation (test Normal code = 46750-5) [facility] - Low Molecular [id number] 14:50:00 Test Item Value Reference Range Interpretation Comments Anti 10A-Lovenox (test 0.79 u/ml 0.60-2.00 code = 1605) YUSEF (test code = YUSEF) Anti-Factor 10-A Level (Heparin Assay for Low Molecular Weight Heparin)Monitoring Guidelines: Blood samples should be obtained 4 hours post subcutaneous injection (time of Peak level) Therapeutic Peak Levels: 0.6-1.0 units/mL twice daily enoxaparin 1.0-2.0 units/mL once daily enoxaparin Ref: CHEST 2012;[id number] ase collect 4 HOURS AFTER LOVENOX DOSE. Lab Interpretation (test Normal code = 30242-5) [facility] ASS[facility] - LOW MOLECULAR [id number] 14:50:00 Test Item Value Reference Range Interpretation Comments LOVENOX-ANTI 10A (BEAKER) (test 0.79 u/ml 0.60-2.00 code = 1605) Anti-Factor 10-A Level (Heparin Assay for Low Molecular Weight Heparin)Monitoring Guidelines: Blood samples should be obtained 4 hours post subcutaneous injection (time of Peak level) Therapeutic Peak Levels: 0.6-1.0 units/mL twice daily enoxaparin 1.0-2.0 units/mL once daily enoxaparinRef: CHEST 2012;[id number] collect 4 HOURS AFTER LOVENOX DOSE.POCT-GLUCOSE METER 2020-05-22 12:02:00 Test Item Value Reference Range Interpretation Comments POC-GLUCOSE METER 180 mg/dL 70-110 H : TESTED A T [facility] 6720 (BEAKER) (test code = [facility], 1538) 70457: Tax Processor/Techni kg ID = [id number] for AL GERMAN SPENCER MILTON POCT-GLUCOSE [id number] 08:10:00 Test Item Value Reference Range Interpretation Comments POC-GLUCOSE METER 61 mg/dL 70-110 L : TESTED A T [facility] 6720 (BEAKER) (test code = [facility], 1538) 35832: Tax Processor/Techni kg ID = [id number] for Delv a (contract), Mag srini POCT-GLUCOSE [id number] 07:50:00 Test Item Value Reference Range Interpretation Comments POC-GLUCOSE METER 54 mg/dL 70-110 L : TESTED A T [facility] 6720 (BEAKER) (test code = [facility], 1538) 72811: Tax Processor/Techni kg ID = [id number] for TRIFEDERICO MAYFIELD PALMER, [place] BASIC METABOLIC [id number] 03:52:00 Test Item Value Reference Range Interpretation Comments SODIUM (BEAKER) 144 meq/L 136-145 (test code = 381) POTASSIUM (BEAKER) 4.1 meq/L 3.5-5.1 (test code = 379) CHLORIDE (BEAKER) 103 meq/L 98-107 (test code = 382) CO2 (BEAKER) (test 34 meq/L 22-29 H code = 355) BLOOD UREA NITROGEN 24 mg/dL 7-21 H (BEAKER) (test code = 354) CREATININE (BEAKER) 0.86 mg/dL 0.57-1.25 (test code = 358) GLUCOSE RANDOM 76 mg/dL 70-105 (BEAKER) (test code = 652) CALCIUM (BEAKER) 8.0 mg/dL 8.4-10.2 L (test code = 697) EGFR (BEAKER) (test 93 mL/min/1.73 ESTIMA SEEMA GFR IS code = 1092) sq m NOT ACCURATE CREATININE CLEARANCE IN PREDICTING GLOMERULAR FILTRATION RATE . ESTIMATED GFR I S NOT APPLICABLE FOR DIALYSIS PATIEN TS. Tax Processor ID - KIAN [id number] 03:52:00 Test Item Value Reference Range Interpretation Comments MAGNESIUM (BEAKER) (test code = 2.1 mg/dL 1.6-2.6 627) Tax Processor ID - KIAN [id number] 03:45:00 Test Item Value Reference Range Interpretation Comments PROTIME (BEAKER) (test 13.9 seconds 11.9-14.2 code = 759) INR (BEAKER) (test 1.10 See_Comment [Automat ed code = 370) message] The sy stem which generated this result transmitted reference range : <=5.90. The reference range was not used to interpret this result as normal/abnormal . PARTIAL THROMBOPLASTIN 37.6 seconds 22.5-36.0 H TIME (BEAKER) (test code = 760) Effective 08/25/2018: PT Reference Range ChangeNew: 11.9-14.2 Previous: 11.7- 14.7RECOMMENDED COUMADIN/WARFARIN INR THERAPY RANGESSTANDARD DOSE: 2.0-3.0 Includes: PROPHYLAXIS for venous thrombosis, systemic embolization; TREATMENT for venous thrombosis and/or pulmonary embolus.HIGH RISK: Target INR is 2.5-3.5 for patients wiht mechanical heart valves.CBC W/PLT COUNT & AUTO [id number] 03:37:00 Test Item Value Reference Range Interpretation Comments WHITE BLOOD CELL COUNT (BEAKER) 10.1 K/ L 3.5-10.5 (test code = 775) RED BLOOD CELL COUNT (BEAKER) 4.00 M/ L 4.63-6.08 L (test code = 761) HEMOGLOBIN (BEAKER) (test code = 11.0 GM/DL 13.7-17.5 L 410) HEMATOCRIT (BEAKER) (test code = 36.0 % 40.1-51.0 L 411) MEAN CORPUSCULAR VOLUME (BEAKER) 90.0 fL 79.0-92.2 (test code = 753) MEAN CORPUSCULAR HEMOGLOBIN 27.5 pg 25.7-32.2 (BEAKER) (test code = 751) MEAN CORPUSCULAR HEMOGLOBIN CONC 30.6 GM/DL 32.3-36.5 L (BEAKER) (test code = 752) RED CELL DISTRIBUTION WIDTH 13.5 % 11.6-14.4 (BEAKER) (test code = 412) PLATELET COUNT (BEAKER) (test 186 K/CU MM 150-450 code = 756) MEAN PLATELET VOLUME (BEAKER) 10.0 fL 9.4-12.4 (test code = 754) NUCLEATED RED BLOOD CELLS 0 /100 WBC 0-0 (BEAKER) (test code = 413) NEUTROPHILS RELATIVE PERCENT 73 % (BEAKER) (test code = 429) LYMPHOCYTES RELATIVE PERCENT 14 % (BEAKER) (test code = 430) MONOCYTES RELATIVE PERCENT 7 % (BEAKER) (test code = 431) EOSINOPHILS RELATIVE PERCENT 5 % (BEAKER) (test code = 432) BASOPHILS RELATIVE PERCENT 0 % (BEAKER) (test code = 437) NEUTROPHILS ABSOLUTE COUNT 7.34 K/ L 1.78-5.38 H (BEAKER) (test code = 670) LYMPHOCYTES ABSOLUTE COUNT 1.42 K/ L 1.32-3.57 (BEAKER) (test code = 414) MONOCYTES ABSOLUTE COUNT (BEAKER) 0.74 K/ L 0.30-0.82 (test code = 415) EOSINOPHILS ABSOLUTE COUNT 0.49 K/ L 0.04-0.54 (BEAKER) (test code = 416) BASOPHILS ABSOLUTE COUNT (BEAKER) 0.01 K/ L 0.01-0.08 (test code = 417) IMMATURE GRANULOCYTES-RELATIVE 1 % 0-1 PERCENT (BEAKER) (test code = 2801) POCT-GLUCOSE [id number] 20:18:00 Test Item Value Reference Range Interpretation Comments POC-GLUCOSE METER 277 mg/dL 70-110 H : TESTED A T [facility] 6720 (BEAKER) (test code [facility], = 1538) 57489: Tax Processor/Techni kg ID = [id number] for Meg Mcbride (cont ract) POCT-GLUCOSE [id number] 17:46:00 Test Item Value Reference Range Interpretation Comments POC-GLUCOSE METER 256 mg/dL 70-110 H : TESTED A T [facility] 6720 (BEAKER) (test code = [facility], 1538) 43169: Tax Processor/Techni kg ID = [id number] for AL ONSO PALMER, [place] POCT-GLUCOSE [id number] 12:27:00 Test Item Value Reference Range Interpretation Comments POC-GLUCOSE METER 209 mg/dL 70-110 H : TESTED A T [facility] 6720 (BEAKER) (test code = [facility], 1538) 03506: Tax Processor/Techni kg ID = [id number] for AL ONSO PALMER, [place] POCT-GLUCOSE [id number] 09:33:00 Test Item Value Reference Range Interpretation Comments POC-GLUCOSE METER 140 mg/dL 70-110 H : TESTED A T [facility] 6720 (BEAKER) (test code = [facility], 1538) 76298: Tax Processor/Techni kg ID = [id number] for De lva (contract), Mag srini SPUTUM CULTURE + GRAM [id number] 08:14:00 Test Item Value Reference Interpretation Comments Range CULTURE (BEAKER) STAPHYLOCOCCUS A 1+ Staphy lococcus (test code = 1095) AUREUS aureus Clindamycin (test S code = 10) Erythromycin (test S code = 4) Linezolid (test code S = 40) Nitrofurantoin (test S code = 23) Oxacillin (test code S = 14) Rifampin (test code = S 43) Tetracycline (test S code = 2) Trimethoprim + S Sulfamethoxazole (test code = 47) Vancomycin (test code S = 13) GRAM STAIN RESULT 4+ White blood (BEAKER) (test code = cells seen 1123) GRAM STAIN RESULT 0-5 epithelial (BEAKER) (test code = cells 524130) GRAM STAIN RESULT 1+ gram negative (BEAKER) (test code = rods 247901) GRAM STAIN RESULT 2+ gram positive (BEAKER) (test code = cocci in pairs and 912318) clusters 3+ Normal respiratory saul presentPOCT-GLUCOSE [id number] 08:13:00 Test Item Value Reference Range Interpretation Comments POC-GLUCOSE METER 75 mg/dL 70-110 : TESTED A T [facility] 6720 (BEAKER) (test code = [place], 1538) [address]: Tax Processor/Techni kg ID = [id number] for MILTON DAWSON [id number] 05:01:00 Test Item Value Reference Range Interpretation Comments D-DIMER QUANTITATIVE (BEAKER) 2.12 MG/L FEU <0.50 H (test code = 671) Intended Use: The D-Dimer Assay can be used to aid in the diagnosis of Deep Vein Thrombosis (DVT) and Pulmonary Embolism Disease (PED).In patients with low pre- test probability, various studies concerning STA Liatest D-dimer test have reported that with a cutoff value of 0.50 MG/L FEU, the Negative Predictive Value (NPV) regarding the exclusion of thrombosis is within 95-100% range. [id number] 04:59:00 Test Item Value Reference Range Interpretation Comments PROTIME (BEAKER) (test 13.6 seconds 11.9-14.2 code = 759) INR (BEAKER) (test 1.08 See_Comment [Automat ed code = 370) message] The sy stem which generated this result transmitted reference range : <=5.90. The reference range was not used to interpret this result as normal/abnormal . PARTIAL THROMBOPLASTIN 38.5 seconds 22.5-36.0 H TIME (BEAKER) (test code = 760) Effective 08/25/2018: PT Reference Range ChangeNew: 11.9-14.2 Previous: 11.7- 14.7RECOMMENDED COUMADIN/WARFARIN INR THERAPY RANGESSTANDARD DOSE: 2.0-3.0 Includes: PROPHYLAXIS for venous thrombosis, systemic embolization; TREATMENT for venous thrombosis and/or pulmonary embolus.HIGH RISK: Target INR is 2.5-3.5 for patients wiht mechanical heart valves.BASIC METABOLIC [id number] 04:58:00 Test Item Value Reference Range Interpretation Comments SODIUM (BEAKER) 143 meq/L 136-145 (test code = 381) POTASSIUM (BEAKER) 4.2 meq/L 3.5-5.1 (test code = 379) CHLORIDE (BEAKER) 101 meq/L 98-107 (test code = 382) CO2 (BEAKER) (test 36 meq/L 22-29 H code = 355) BLOOD UREA NITROGEN 24 mg/dL 7-21 H (BEAKER) (test code = 354) CREATININE (BEAKER) 0.91 mg/dL 0.57-1.25 (test code = 358) GLUCOSE RANDOM 140 mg/dL 70-105 H (BEAKER) (test code = 652) CALCIUM (BEAKER) 8.2 mg/dL 8.4-10.2 L (test code = 697) EGFR (BEAKER) (test 87 mL/min/1.73 ESTIMA SEEMA GFR IS code = 1092) sq m NOT ACCURATE CREATININE CLEARANCE IN PREDICTING GLOMERULAR FILTRATION RATE . ESTIMATED GFR I S NOT APPLICABLE FOR DIALYSIS PATIEN TS. Tax Processor ID - [id number] 04:58:00 Test Item Value Reference Range Interpretation Comments MAGNESIUM (BEAKER) (test code = 2.2 mg/dL 1.6-2.6 627) Tax Processor ID - ADMINCBC W/PLT COUNT & AUTO [id number] 04:21:00 Test Item Value Reference Range Interpretation Comments WHITE BLOOD CELL COUNT (BEAKER) 9.4 K/ L 3.5-10.5 (test code = 775) RED BLOOD CELL COUNT (BEAKER) 4.12 M/ L 4.63-6.08 L (test code = 761) HEMOGLOBIN (BEAKER) (test code = 11.5 GM/DL 13.7-17.5 L 410) HEMATOCRIT (BEAKER) (test code = 37.3 % 40.1-51.0 L 411) MEAN CORPUSCULAR VOLUME (BEAKER) 90.5 fL 79.0-92.2 (test code = 753) MEAN CORPUSCULAR HEMOGLOBIN 27.9 pg 25.7-32.2 (BEAKER) (test code = 751) MEAN CORPUSCULAR HEMOGLOBIN CONC 30.8 GM/DL 32.3-36.5 L (BEAKER) (test code = 752) RED CELL DISTRIBUTION WIDTH 13.5 % 11.6-14.4 (BEAKER) (test code = 412) PLATELET COUNT (BEAKER) (test 201 K/CU MM 150-450 code = 756) MEAN PLATELET VOLUME (BEAKER) 10.7 fL 9.4-12.4 (test code = 754) NUCLEATED RED BLOOD CELLS 0 /100 WBC 0-0 (BEAKER) (test code = 413) NEUTROPHILS RELATIVE PERCENT 77 % (BEAKER) (test code = 429) LYMPHOCYTES RELATIVE PERCENT 11 % (BEAKER) (test code = 430) MONOCYTES RELATIVE PERCENT 8 % (BEAKER) (test code = 431) EOSINOPHILS RELATIVE PERCENT 4 % (BEAKER) (test code = 432) BASOPHILS RELATIVE PERCENT 0 % (BEAKER) (test code = 437) NEUTROPHILS ABSOLUTE COUNT 7.28 K/ L 1.78-5.38 H (BEAKER) (test code = 670) LYMPHOCYTES ABSOLUTE COUNT 0.99 K/ L 1.32-3.57 L (BEAKER) (test code = 414) MONOCYTES ABSOLUTE COUNT (BEAKER) 0.73 K/ L 0.30-0.82 (test code = 415) EOSINOPHILS ABSOLUTE COUNT 0.36 K/ L 0.04-0.54 (BEAKER) (test code = 416) BASOPHILS ABSOLUTE COUNT (BEAKER) 0.00 K/ L 0.01-0.08 L (test code = 417) IMMATURE GRANULOCYTES-RELATIVE 1 % 0-1 PERCENT (BEAKER) (test code = 2801) RAD, CHEST, 1 VIEW, NON [id number] 02:55:00Reason for exam:->f/u covid pnaShould this be performed at the bedside?->Yes [facility] 1965 Sex: MFINAL REPORT RAD, CHEST, 1 VIEW, NON DEPT INDICATION: f/u covid pna COMPARISON: 05/17/2020 FINDINGS: Portable frontal view of the chest. IMPRESSION: Support Lines: None Lungs and pleura: Unchanged extensive airspace opacities. Stable pleural contours. No pneumothorax.Heart and mediastinum: Stable contours. Additional findings: None. Signed: Chace Alvarez MDReport Verified Date/Time: 05/21/2020 02:55:48 POCT-GLUCOSE [id number] 22:02:00 Test Item Value Reference Range Interpretation Comments POC-GLUCOSE METER 366 mg/dL 70-110 H : TESTED A T [facility] 6720 ([employer]) (test code = [place], 1538) [address]: Tax Processor/Techni kg ID = [id number] for Cindy Murry POCT-GLUCOSE [id number] 21:01:00 Test Item Value Reference Range Interpretation Comments POC-GLUCOSE METER 301 mg/dL 70-110 H : TESTED A T [facility] ([employer]) (test code = [place], 1538) [address]: Tax Processor/Techni kg ID = [id number] for JOANN HOMERO GUARDADO HEPARIN ASSAY - LOW MOLECULAR [id number] 13:21:00 Test Item Value Reference Range Interpretation Comments LOVENOX-ANTI 10A (BEAKER) (test 1.13 u/ml 0.60-2.00 code = 1605) Anti-Factor 10-A Level (Heparin Assay for Low Molecular Weight Heparin)Monitoring Guidelines: Blood samples should be obtained 4 hours post subcutaneous injection (time of Peak level) Therapeutic Peak Levels: 0.6-1.0 units/mL twice daily enoxaparin 1.0-2.0 units/mL once daily enoxaparinRef: CHEST 2012;141:[id number]-[id number] collect 4 HOURS AFTER morning Lovenox dose.POCT-GLUCOSE [id number] 11:57:00 Test Item Value Reference Range Interpretation Comments POC-GLUCOSE METER 266 mg/dL 70-110 H : TESTED A T [facility] (BEAKER) (test code = CHIQUIS Garcia [place], 1538) [address]: Tax Processor/Techni kg ID = [id number] for HOMERO PERKINS POCT-GLUCOSE [id number] 08:34:00 Test Item Value Reference Range Interpretation Comments POC-GLUCOSE METER 73 mg/dL 70-110 : TESTED A T [facility] (BEAKER) (test code = CHIQUIS Garcia [facility], 1538) [address]: Tax Processor/Techni kg ID = [id number] for HOMERO BOLDEN Venous doppler legs [id number] 07:46:18Ejection FractionSLEH ECHO HEARTLAB [facility] bilateral 2020-05-20 07:46:18Ejection FractionSLEH ECHO HEARTLAB [facility]Blood [facility], [id number] 04:17:00 Test Item Value Reference Range Interpretation Comments pH, Arterial (test code 7.49 7.35-7.45 H = 2744-1) pCO2, Arterial (test 50 See_Comment H [Autom ated code = 2019-8) message] The system which generated this result transmitted reference range : 35 - 45 mm Hg. The reference range was not used to interpret this result as normal/abnormal . pO2, Arterial (test 173 See_Comment H [Automa seema code = 2703-7) message] The system which generated this result transmitted reference range : 80 - 90 mm Hg. The reference range was not used to interpret this result as normal/abnormal . O2 Sat, Arterial (test 99.3 % 96.0-97.0 H code = 2708-6) HCO3, Arterial (test 37 mmol/L 21-29 H code = 1960-4) Base Excess, Arterial 12.0 mmol/L -2.0-3.0 H (test code = 1925-7) Patient Temperature 36.8 (test code = 8310-5) FIO2 (test code = 1819) 50 Lab Interpretation Abnormal (test code = 78625-2) [facility], [id number] 04:17:00 Test Item Value Reference Range Interpretation Comments pH, Arterial (test code 7.49 7.35-7.45 H = 2744-1) pCO2, Arterial (test 50 See_Comment H [Autom ated code = 2019-8) message] The system which generated this result transmitted reference range : 35 - 45 mm Hg. The reference range was not used to interpret this result as normal/abnormal . pO2, Arterial (test 173 See_Comment H [Automa seema code = 2703-7) message] The system which generated this result transmitted reference range : 80 - 90 mm Hg. The reference range was not used to interpret this result as normal/abnormal . O2 Sat, Arterial (test 99.3 % 96.0-97.0 H code = 2708-6) HCO3, Arterial (test 37 mmol/L 21-29 H code = 1960-4) Base Excess, Arterial 12.0 mmol/L -2.0-3.0 H (test code = 1925-7) Patient Temperature 36.8 (test code = 8310-5) FIO2 (test code = 1819) 50 Lab Interpretation Abnormal (test code = 43480-2) [facility], [id number] 04:17:00 Test Item Value Reference Range Interpretation Comments PH ARTERIAL (BEAKER) (test code = 7.49 7.35-7.45 H 383) PCO2 ARTERIAL (BEAKER) (test code 50 mm Hg 35-45 H = 384) PO2 ARTERIAL (BEAKER) (test code 173 mm Hg 80-90 H = 385) O2 SATURATION ARTERIAL (BEAKER) 99.3 % 96.0-97.0 H (test code = 386) HCO3 ARTERIAL (BEAKER) (test code 37 mmol/L 21-29 H = 388) BASE EXCESS ARTERIAL (BEAKER) 12.0 mmol/L -2.0-3.0 H (test code = 387) PATIENT TEMPERATURE (BEAKER) 36.8 (test code = 1818) FIO2 (BEAKER) (test code = 1819) 50.0 Comprehensive metabolic [id number] 04:16:00 Test Item Value Reference Range Interpretation Comments Protein, Total (test 6.6 See_Comment [Autom ated code = 2885-2) message] The system which generated this result transmit seema reference range : 6.0 - 8.3 gm/dL . The reference range was not u sed to interpret th is result as normal/abnormal . Albumin (test code = 2.9 g/dL 3.5-5.0 L 98429-2) Alkaline Phosphatase 64 U/L 40-150 (test code = 6768-6) Total Bilirubin (test 0.5 mg/dL 0.2-1.2 code = 1974-2) Sodium (test code = 143 meq/L 223-078 7997-2) Potassium (test code 4.0 meq/L 3.5-5.1 = 2823-3) Chloride (test code = 97 meq/L 98-107 L 5-0) CO2 (test code = 38 meq/L 22-29 H 2027-9) BUN (test code = 30 mg/dL 7-21 H 3094-0) Creatinine (test code 0.92 mg/dL 0.57-1.25 = 2160-0) Glucose (test code = 84 mg/dL 70-105 2345-7) Calcium (test code = 8.6 mg/dL 8.4-10.2 50079-8) AST (test code = 32 U/L 5-34 1920-8) ALT (test code = 51 U/L 6-55 1742-6) EGFR (test code = 86 mL/min/1.73 [place] [address]-6) NOT ACCURATE CREATININE CLEARANCE IN PREDICTING GLOMERULAR FILTRATION RATE . ESTIMATED GFR I S NOT APPLICABLE FOR DIALYSIS PATIEN TS. YUSEF (test code = YUSEF) Tax Processor ID - EDASI Lab Interpretation Abnormal (test code = 89703-4) [facility]2021-[facility] 04:16:00 Test Item Value Reference Range Interpretation Comments Phosphorus (test code = 3.4 mg/dL 2.3-4.7 2777-1) YUSEF (test code = YUSEF) Tax Processor ID - EDASI Lab Interpretation (test Normal code = 60654-1) [facility] ValleyComprehensive metabolic [id number] 04:16:00 Test Item Value Reference Range Interpretation Comments Protein, Total (test 6.6 See_Comment [Autom ated code = 2885-2) message] The system which generated this result transmit seema reference range : 6.0 - 8.3 gm/dL . The reference range was not u sed to interpret th is result as normal/abnormal . Albumin (test code = 2.9 g/dL 3.5-5.0 L 44755-5) Alkaline Phosphatase 64 U/L 40-150 (test code = 6768-6) Total Bilirubin (test 0.5 mg/dL 0.2-1.2 code = 1974-2) Sodium (test code = 143 meq/L 178-060 1569-2) Potassium (test code 4.0 meq/L 3.5-5.1 = 2823-3) Chloride (test code = 97 meq/L 98-107 L 5-0) CO2 (test code = 38 meq/L 22-29 H 2027-9) BUN (test code = 30 mg/dL 7-21 H 3094-0) Creatinine (test code 0.92 mg/dL 0.57-1.25 = 2160-0) Glucose (test code = 84 mg/dL 70-105 2345-7) Calcium (test code = 8.6 mg/dL 8.4-10.2 11784-8) AST (test code = 32 U/L 5-34 1920-8) ALT (test code = 51 U/L 6-55 1742-6) EGFR (test code = 86 mL/min/1.73 [place] [address]-5) NOT ACCURATE CREATININE CLEARANCE IN PREDICTING GLOMERULAR FILTRATION RATE . ESTIMATED GFR I S NOT APPLICABLE FOR DIALYSIS PATIEN TS. YUSEF (test code = YUSEF) Tax Processor ID - EDASI Lab Interpretation Abnormal (test code = 14659-4) [facility] 04:16:00 Test Item Value Reference Range Interpretation Comments Phosphorus (test code = 3.4 mg/dL 2.3-4.7 2777-1) YUSEF (test code = YUSEF) Tax Processor ID - EDASI Lab Interpretation (test Normal code = 89521-4) [facility] ValleyCOMPREHENSIVE METABOLIC [id number] 04:16:00 Test Item Value Reference Range Interpretation Comments TOTAL PROTEIN 6.6 gm/dL 6.0-8.3 (BEAKER) (test code = 770) ALBUMIN (BEAKER) 2.9 g/dL 3.5-5.0 L (test code = 1145) ALKALINE PHOSPHATASE 64 U/L 40-150 (BEAKER) (test code = 346) BILIRUBIN TOTAL 0.5 mg/dL 0.2-1.2 (BEAKER) (test code = 377) SODIUM (BEAKER) (test 143 meq/L 136-145 code = 381) POTASSIUM (BEAKER) 4.0 meq/L 3.5-5.1 (test code = 379) CHLORIDE (BEAKER) 97 meq/L 98-107 L (test code = 382) CO2 (BEAKER) (test 38 meq/L 22-29 H code = 355) BLOOD UREA NITROGEN 30 mg/dL 7-21 H (BEAKER) (test code = 354) CREATININE (BEAKER) 0.92 mg/dL 0.57-1.25 (test code = 358) GLUCOSE RANDOM 84 mg/dL 70-105 (BEAKER) (test code = 652) CALCIUM (BEAKER) 8.6 mg/dL 8.4-10.2 (test code = 697) AST (SGOT) (BEAKER) 32 U/L 5-34 (test code = 353) ALT (SGPT) (BEAKER) 51 U/L 6-55 (test code = 347) EGFR (BEAKER) (test 86 mL/min/1.73 ESTIMA SEEMA GFR IS code = 1092) sq m NOT ACCURATE CREATININE CLEARANCE IN PREDICTING GLOMERULAR FILTRATION RATE . ESTIMATED GFR I S NOT APPLICABLE FOR DIALYSIS PATIEN TS. Tax Processor ID - [id number] 04:16:00 Test Item Value Reference Range Interpretation Comments MAGNESIUM (BEAKER) (test code = 2.2 mg/dL 1.6-2.6 627) Tax Processor ID - [id number] 04:16:00 Test Item Value Reference Range Interpretation Comments PHOSPHORUS (BEAKER) (test code = 3.4 mg/dL 2.3-4.7 604) Tax Processor ID - [id number]/[id number] 04:08:00 Test Item Value Reference Range Interpretation Comments PROTIME (BEAKER) (test 13.7 seconds 11.9-14.2 code = 759) INR (BEAKER) (test 1.08 See_Comment [Automat ed code = 370) message] The sy stem which generated this result transmitted reference range : <=5.90. The reference range was not used to interpret this result as normal/abnormal . PARTIAL THROMBOPLASTIN 34.8 seconds 22.5-36.0 TIME (BEAKER) (test code = 760) Effective 08/25/2018: PT Reference Range ChangeNew: 11.9-14.2 Previous: 11.7- 14.7RECOMMENDED COUMADIN/WARFARIN INR THERAPY RANGESSTANDARD DOSE: 2.0-3.0 Includes: PROPHYLAXIS for venous thrombosis, systemic embolization; TREATMENT for venous thrombosis and/or pulmonary embolus.HIGH RISK: Target INR is 2.5-3.5 for patients wiht mechanical heart valves.CBC W/PLT COUNT & AUTO [id number] 03:53:00 Test Item Value Reference Range Interpretation Comments WHITE BLOOD CELL COUNT (BEAKER) 13.9 K/ L 3.5-10.5 H (test code = 775) RED BLOOD CELL COUNT (BEAKER) 4.55 M/ L 4.63-6.08 L (test code = 761) HEMOGLOBIN (BEAKER) (test code = 12.6 GM/DL 13.7-17.5 L 410) HEMATOCRIT (BEAKER) (test code = 40.4 % 40.1-51.0 411) MEAN CORPUSCULAR VOLUME (BEAKER) 88.8 fL 79.0-92.2 (test code = 753) MEAN CORPUSCULAR HEMOGLOBIN 27.7 pg 25.7-32.2 (BEAKER) (test code = 751) MEAN CORPUSCULAR HEMOGLOBIN CONC 31.2 GM/DL 32.3-36.5 L (BEAKER) (test code = 752) RED CELL DISTRIBUTION WIDTH 13.5 % 11.6-14.4 (BEAKER) (test code = 412) PLATELET COUNT (BEAKER) (test 239 K/CU MM 150-450 code = 756) MEAN PLATELET VOLUME (BEAKER) 10.3 fL 9.4-12.4 (test code = 754) NUCLEATED RED BLOOD CELLS 0 /100 WBC 0-0 (BEAKER) (test code = 413) NEUTROPHILS RELATIVE PERCENT 82 % (BEAKER) (test code = 429) LYMPHOCYTES RELATIVE PERCENT 9 % (BEAKER) (test code = 430) MONOCYTES RELATIVE PERCENT 7 % (BEAKER) (test code = 431) EOSINOPHILS RELATIVE PERCENT 1 % (BEAKER) (test code = 432) BASOPHILS RELATIVE PERCENT 0 % (BEAKER) (test code = 437) NEUTROPHILS ABSOLUTE COUNT 11.44 K/ L 1.78-5.38 H (BEAKER) (test code = 670) LYMPHOCYTES ABSOLUTE COUNT 1.23 K/ L 1.32-3.57 L (BEAKER) (test code = 414) MONOCYTES ABSOLUTE COUNT (BEAKER) 0.98 K/ L 0.30-0.82 H (test code = 415) EOSINOPHILS ABSOLUTE COUNT 0.17 K/ L 0.04-0.54 (BEAKER) (test code = 416) BASOPHILS ABSOLUTE COUNT (BEAKER) 0.01 K/ L 0.01-0.08 (test code = 417) IMMATURE GRANULOCYTES-RELATIVE 1 % 0-1 PERCENT (BEAKER) (test code = 2801) POCT-GLUCOSE [id number] 21:28:00 Test Item Value Reference Range Interpretation Comments POC-GLUCOSE METER 255 mg/dL 70-110 H : Notified RN/MD: ([facility]) (test code = TESTED AT [place] [address] 1538) [facility], [address]: Tax Processor/Techni kg ID = [id number] for [place] MAURIZIOIAMS, CONSETTA POCT-GLUCOSE [id number] 18:32:00 Test Item Value Reference Range Interpretation Comments POC-GLUCOSE METER 242 mg/dL 70-110 H : TESTED A T [place] [address] ([facility]) (test code = [facility] Radha [facility], 1538) [address]: Tax Processor/Techni kg ID = [id number] for Ra islas (contract), All memo BASIC METABOLIC [id number] 13:10:00 Test Item Value Reference Range Interpretation Comments SODIUM (BEAKER) 137 meq/L 136-145 (test code = 381) POTASSIUM (BEAKER) 5.5 meq/L 3.5-5.1 H (test code = 379) CHLORIDE (BEAKER) 97 meq/L 98-107 L (test code = 382) CO2 (BEAKER) (test 34 meq/L 22-29 H code = 355) BLOOD UREA NITROGEN 33 mg/dL 7-21 H (BEAKER) (test code = 354) CREATININE (BEAKER) 1.01 mg/dL 0.57-1.25 (test code = 358) GLUCOSE RANDOM 307 mg/dL 70-105 H (BEAKER) (test code = 652) CALCIUM (BEAKER) 8.8 mg/dL 8.4-10.2 (test code = 697) EGFR (BEAKER) (test 77 mL/min/1.73 ESTIMA SEEMA GFR IS code = 1092) sq m NOT ACCURATE CREATININE CLEARANCE IN PREDICTING GLOMERULAR FILTRATION RATE . ESTIMATED GFR I S NOT APPLICABLE FOR DIALYSIS PATIEN TS. Tax Processor ID - AZPOCT-GLUCOSE [id number] 12:30:00 Test Item Value Reference Range Interpretation Comments POC-GLUCOSE METER 257 mg/dL 70-110 H : TESTED A T [facility] 67[facility] (BEAKER) (test code = [facility], 1538) [address]: Tax Processor/Techni kg ID = [id number] for Ra islas (contract), All memo POCT-GLUCOSE [id number] 11:42:00 Test Item Value Reference Range Interpretation Comments POC-GLUCOSE METER 225 mg/dL 70-110 H : TESTED A T [facility] (BEAKER) (test code = [facility], 1538) [address]: Tax Processor/Techni kg ID = [id number] for Ra islas (contract), All memo COMPREHENSIVE METABOLIC [id number] 05:50:00 Test Item Value Reference Range Interpretation Comments TOTAL PROTEIN 6.5 gm/dL 6.0-8.3 (BEAKER) (test code = 770) ALBUMIN (BEAKER) 2.7 g/dL 3.5-5.0 L (test code = 1145) ALKALINE PHOSPHATASE 65 U/L 40-150 (BEAKER) (test code = 346) BILIRUBIN TOTAL 0.3 mg/dL 0.2-1.2 (BEAKER) (test code = 377) SODIUM (BEAKER) (test 138 meq/L 136-145 code = 381) POTASSIUM (BEAKER) 5.7 meq/L 3.5-5.1 H (test code = 379) CHLORIDE (BEAKER) 100 meq/L 98-107 (test code = 382) CO2 (BEAKER) (test 32 meq/L 22-29 H code = 355) BLOOD UREA NITROGEN 31 mg/dL 7-21 H (BEAKER) (test code = 354) CREATININE (BEAKER) 0.96 mg/dL 0.57-1.25 (test code = 358) GLUCOSE RANDOM 257 mg/dL 70-105 H (BEAKER) (test code = 652) CALCIUM (BEAKER) 8.6 mg/dL 8.4-10.2 (test code = 697) AST (SGOT) (BEAKER) 18 U/L 5-34 (test code = 353) ALT (SGPT) (BEAKER) 42 U/L 6-55 (test code = 347) EGFR (BEAKER) (test 82 mL/min/1.73 ESTIMA SEEMA GFR IS code = 1092) sq m NOT ACCURATE CREATININE CLEARANCE IN PREDICTING GLOMERULAR FILTRATION RATE . ESTIMATED GFR I S NOT APPLICABLE FOR DIALYSIS PATIEN TS. Tax Processor ID - KIAN [id number] 05:50:00 Test Item Value Reference Range Interpretation Comments MAGNESIUM (BEAKER) (test code = 2.3 mg/dL 1.6-2.6 627) Tax Processor ID - KIAN [id number] 05:50:00 Test Item Value Reference Range Interpretation Comments PHOSPHORUS (BEAKER) (test code = 4.1 mg/dL 2.3-4.7 604) Tax Processor ID - KIAN [id number] 05:49:00 Test Item Value Reference Range Interpretation Comments PROTIME (BEAKER) (test 13.9 seconds 11.9-14.2 code = 759) INR (BEAKER) (test 1.11 See_Comment [Automat ed code = 370) message] The sy stem which generated this result transmitted reference range : <=5.90. The reference range was not used to interpret this result as normal/abnormal . PARTIAL THROMBOPLASTIN 38.1 seconds 22.5-36.0 H TIME (BEAKER) (test code = 760) Effective 08/25/2018: PT Reference Range ChangeNew: 11.9-14.2 Previous: 11.7- 14.7RECOMMENDED COUMADIN/WARFARIN INR THERAPY RANGESSTANDARD DOSE: 2.0-3.0 Includes: PROPHYLAXIS for venous thrombosis, systemic embolization; TREATMENT for venous thrombosis and/or pulmonary embolus.HIGH RISK: Target INR is 2.5-3.5 for patients wiht mechanical heart valves.CBC W/PLT COUNT & AUTO [id number] 05:46:00 Test Item Value Reference Range Interpretation Comments WHITE BLOOD CELL COUNT (BEAKER) 10.7 K/ L 3.5-10.5 H (test code = 775) RED BLOOD CELL COUNT (BEAKER) 4.29 M/ L 4.63-6.08 L (test code = 761) HEMOGLOBIN (BEAKER) (test code = 11.7 GM/DL 13.7-17.5 L 410) HEMATOCRIT (BEAKER) (test code = 39.3 % 40.1-51.0 L 411) MEAN CORPUSCULAR VOLUME (BEAKER) 91.6 fL 79.0-92.2 (test code = 753) MEAN CORPUSCULAR HEMOGLOBIN 27.3 pg 25.7-32.2 (BEAKER) (test code = 751) MEAN CORPUSCULAR HEMOGLOBIN CONC 29.8 GM/DL 32.3-36.5 L (BEAKER) (test code = 752) RED CELL DISTRIBUTION WIDTH 13.4 % 11.6-14.4 (BEAKER) (test code = 412) PLATELET COUNT (BEAKER) (test 243 K/CU MM 150-450 code = 756) MEAN PLATELET VOLUME (BEAKER) 10.7 fL 9.4-12.4 (test code = 754) NUCLEATED RED BLOOD CELLS 0 /100 WBC 0-0 (BEAKER) (test code = 413) NEUTROPHILS RELATIVE PERCENT 88 % (BEAKER) (test code = 429) LYMPHOCYTES RELATIVE PERCENT 5 % (BEAKER) (test code = 430) MONOCYTES RELATIVE PERCENT 6 % (BEAKER) (test code = 431) EOSINOPHILS RELATIVE PERCENT 0 % (BEAKER) (test code = 432) BASOPHILS RELATIVE PERCENT 0 % (BEAKER) (test code = 437) NEUTROPHILS ABSOLUTE COUNT 9.44 K/ L 1.78-5.38 H (BEAKER) (test code = 670) LYMPHOCYTES ABSOLUTE COUNT 0.50 K/ L 1.32-3.57 L (BEAKER) (test code = 414) MONOCYTES ABSOLUTE COUNT (BEAKER) 0.65 K/ L 0.30-0.82 (test code = 415) EOSINOPHILS ABSOLUTE COUNT 0.01 K/ L 0.04-0.54 L (BEAKER) (test code = 416) BASOPHILS ABSOLUTE COUNT (BEAKER) 0.01 K/ L 0.01-0.08 (test code = 417) IMMATURE GRANULOCYTES-RELATIVE 1 % 0-1 PERCENT (BEAKER) (test code = 2801) BLOOD GAS, [id number] 05:28:00 Test Item Value Reference Range Interpretation Comments PH ARTERIAL (BEAKER) (test code = 7.43 7.35-7.45 383) PCO2 ARTERIAL (BEAKER) (test code 53 mm Hg 35-45 H = 384) PO2 ARTERIAL (BEAKER) (test code = 218 mm Hg 80-90 H 385) O2 SATURATION ARTERIAL (BEAKER) 99.5 % 96.0-97.0 H (test code = 386) HCO3 ARTERIAL (BEAKER) (test code 34 mmol/L 21-29 H = 388) BASE EXCESS ARTERIAL (BEAKER) 8.0 mmol/L -2.0-3.0 H (test code = 387) PATIENT TEMPERATURE (BEAKER) (test 36.6 code = 1818) FIO2 (BEAKER) (test code = 1819) 75.0 [id number] 04:17:00 Test Item Value Reference Range Interpretation Comments FERRITIN (BEAKER) (test code = 3984.41 ng/mL 5.00-275.00 H 361) Tax Processor ID - KIAN MOperator ID - KIAN [id number] 00:09:00 Test Item Value Reference Range Interpretation Comments D-DIMER QUANTITATIVE (BEAKER) 1.70 MG/L FEU <0.50 H (test code = 671) Intended Use: The D-Dimer Assay can be used to aid in the diagnosis of Deep Vein Thrombosis (DVT) and Pulmonary Embolism Disease (PED).In patients with low pre- test probability, various studies concerning STA Liatest D-dimer test have reported that with a cutoff value of 0.50 MG/L FEU, the Negative Predictive Value (NPV) regarding the exclusion of thrombosis is within 95-100% range. Lactate dehydrogenase (LDH)2020-05-18 21:17:00 Test Item Value Reference Range Interpretation Comments LDH (test code = 2532-0) 411 U/L 125-220 H YUSEF (test code = YUSEF) Tax Processor ID - [place] Lab Interpretation (test Abnormal code = 76920-9) [facility]2020[facility] 21:17:00 Test Item Value Reference Range Interpretation Comments LDH (test code = 2532-0) 411 U/L 125-220 H YUSEF (test code = YUSEF) Tax Processor ID - [place] Lab Interpretation (test Abnormal code = 15983-0) [facility] [id number] 21:17:00 Test Item Value Reference Range Interpretation Comments POC-GLUCOSE METER 281 mg/dL 70-110 H : Notified RN/MD: (BEAKER) (test code = TESTED AT [facility] 6720 1538) [facility], [id number]: Tax Processor/Techni kg ID = [id number] for SRAVANI GREENBERG BASIC METABOLIC [id number] 21:17:00 Test Item Value Reference Range Interpretation Comments SODIUM (BEAKER) 136 meq/L 136-145 (test code = 381) POTASSIUM (BEAKER) 4.9 meq/L 3.5-5.1 (test code = 379) CHLORIDE (BEAKER) 98 meq/L 98-107 (test code = 382) CO2 (BEAKER) (test 32 meq/L 22-29 H code = 355) BLOOD UREA NITROGEN 30 mg/dL 7-21 H (BEAKER) (test code = 354) CREATININE (BEAKER) 1.14 mg/dL 0.57-1.25 (test code = 358) GLUCOSE RANDOM 317 mg/dL 70-105 H (BEAKER) (test code = 652) CALCIUM (BEAKER) 8.5 mg/dL 8.4-10.2 (test code = 697) EGFR (BEAKER) (test 67 mL/min/1.73 ESTIMA SEEMA GFR IS code = 1092) sq m NOT ACCURATE CREATININE CLEARANCE IN PREDICTING GLOMERULAR FILTRATION RATE . ESTIMATED GFR I S NOT APPLICABLE FOR DIALYSIS PATIEN TS. Tax Processor ID - AZLACTATE DEHYDROGENASE (LDH)2020-05-18 21:17:00 Test Item Value Reference Range Interpretation Comments LACTATE DEHYDROGENASE (BEAKER) (test 411 U/L 125-220 H code = 635) Tax Processor ID - AZPOCT-GLUCOSE [id number] 17:04:00 Test Item Value Reference Range Interpretation Comments POC-GLUCOSE METER 294 mg/dL 70-110 H : TESTED A T [facility] 6720 (BEAKER) (test code = CHIQUIS Garcia [facility], 1538) [id number]: Tax Processor/Techni kg ID = [id number] for Kh an (contract), Nos haba HEPARIN ASSAY - LOW MOLECULAR [id number] 15:16:00 Test Item Value Reference Range Interpretation Comments LOVENOX-ANTI 10A (BEAKER) (test 1.13 u/ml 0.60-2.00 code = 1605) Anti-Factor 10-A Level (Heparin Assay for Low Molecular Weight Heparin)Monitoring Guidelines: Blood samples should be obtained 4 hours post subcutaneous injection (time of Peak level) Therapeutic Peak Levels: 0.6-1.0 units/mL twice daily enoxaparin 1.0-2.0 units/mL once daily enoxaparinRef: CHEST 2012;141:[id number] draw 4 hours after the morning dose of Lovenox is given POCT-GLUCOSE [id number] 12:23:00 Test Item Value Reference Range Interpretation Comments POC-GLUCOSE METER 308 mg/dL 70-110 H : TESTED A T [facility] 6720 (BEAKER) (test code = [facility] [employer] [facility], 1538) [address]: Tax Processor/Techni kg ID = [id number] for ABISAI BARRYA POCT-GLUCOSE [id number] 09:01:00 Test Item Value Reference Range Interpretation Comments POC-GLUCOSE METER 276 mg/dL 70-110 H : TESTED A T [facility] 6720 (BEAKER) (test code = [employer] [facility], 1538) [address]: Tax Processor/Techni kg ID = [id number] for ABISAI ABRRYA [id number] 07:07:00 Test Item Value Reference Range Interpretation Comments Procalcitonin (test code = 0.18 ng/mL <0.05 H 47756-1) YUSEF (test code = YUSEF) SEPSIS RISK (ng/mL)Low: 0.05-0.50Intermedia te: 0.51-2.00High: >=2.01 Lab Interpretation (test Abnormal code = 63872-0) [facility] Val[id number] 07:07:00 Test Item Value Reference Range Interpretation Comments Procalcitonin (test code = 0.18 ng/mL <0.05 H 58705-6) YUSEF (test code = YUSEF) SEPSIS RISK (ng/mL)Low: 0.05-0.50Intermedia te: 0.51-2.00High: >=2.01 Lab Interpretation (test Abnormal code = 11248-1) [facility] V[id number] 07:07:00 Test Item Value Reference Range Interpretation Comments PROCALCITONIN (BEAKER) (test code 0.18 ng/mL <0.05 H = 3036) SEPSIS RISK (ng/mL)Low: 0.05-0.50Intermediate: 0.51-2.00High: >=2.01 COMPREHENSIVE METABOLIC [id number] 04:17:00 Test Item Value Reference Range Interpretation Comments TOTAL PROTEIN 6.6 gm/dL 6.0-8.3 (BEAKER) (test code = 770) ALBUMIN (BEAKER) 2.8 g/dL 3.5-5.0 L (test code = 1145) ALKALINE PHOSPHATASE 74 U/L 40-150 (BEAKER) (test code = 346) BILIRUBIN TOTAL 0.3 mg/dL 0.2-1.2 (BEAKER) (test code = 377) SODIUM (BEAKER) (test 138 meq/L 136-145 code = 381) POTASSIUM (BEAKER) 5.2 meq/L 3.5-5.1 H (test code = 379) CHLORIDE (BEAKER) 101 meq/L 98-107 (test code = 382) CO2 (BEAKER) (test 30 meq/L 22-29 H code = 355) BLOOD UREA NITROGEN 33 mg/dL 7-21 H (BEAKER) (test code = 354) CREATININE (BEAKER) 0.95 mg/dL 0.57-1.25 (test code = 358) GLUCOSE RANDOM 278 mg/dL 70-105 H (BEAKER) (test code = 652) CALCIUM (BEAKER) 8.6 mg/dL 8.4-10.2 (test code = 697) AST (SGOT) (BEAKER) 24 U/L 5-34 (test code = 353) ALT (SGPT) (BEAKER) 50 U/L 6-55 (test code = 347) EGFR (BEAKER) (test 83 mL/min/1.73 ESTIMA SEEMA GFR IS code = 1092) sq m NOT ACCURATE CREATININE CLEARANCE IN PREDICTING GLOMERULAR FILTRATION RATE . ESTIMATED GFR I S NOT APPLICABLE FOR DIALYSIS PATIEN TS. Tax Processor ID - [id number] 04:17:00 Test Item Value Reference Range Interpretation Comments MAGNESIUM (BEAKER) (test code = 2.3 mg/dL 1.6-2.6 627) Tax Processor ID - [id number] 04:17:00 Test Item Value Reference Range Interpretation Comments PHOSPHORUS (BEAKER) (test code = 3.2 mg/dL 2.3-4.7 604) Tax Processor ID - EDASIPT/[id number] 04:04:00 Test Item Value Reference Range Interpretation Comments PROTIME (BEAKER) (test 14.6 seconds 11.9-14.2 H code = 759) INR (BEAKER) (test 1.17 See_Comment [Automat ed code = 370) message] The sy stem which generated this result transmitted reference range : <=5.90. The reference range was not used to interpret this result as normal/abnormal . PARTIAL THROMBOPLASTIN 40.1 seconds 22.5-36.0 H TIME (BEAKER) (test code = 760) Effective 08/25/2018: PT Reference Range ChangeNew: 11.9-14.2 Previous: 11.7- 14.7RECOMMENDED COUMADIN/WARFARIN INR THERAPY RANGESSTANDARD DOSE: 2.0-3.0 Includes: PROPHYLAXIS for venous thrombosis, systemic embolization; TREATMENT for venous thrombosis and/or pulmonary embolus.HIGH RISK: Target INR is 2.5-3.5 for patients wiht mechanical heart valves.CBC W/PLT COUNT & AUTO [id number] 03:52:00 Test Item Value Reference Range Interpretation Comments WHITE BLOOD CELL COUNT (BEAKER) 13.7 K/ L 3.5-10.5 H (test code = 775) RED BLOOD CELL COUNT (BEAKER) 4.34 M/ L 4.63-6.08 L (test code = 761) HEMOGLOBIN (BEAKER) (test code = 11.9 GM/DL 13.7-17.5 L 410) HEMATOCRIT (BEAKER) (test code = 39.3 % 40.1-51.0 L 411) MEAN CORPUSCULAR VOLUME (BEAKER) 90.6 fL 79.0-92.2 (test code = 753) MEAN CORPUSCULAR HEMOGLOBIN 27.4 pg 25.7-32.2 (BEAKER) (test code = 751) MEAN CORPUSCULAR HEMOGLOBIN CONC 30.3 GM/DL 32.3-36.5 L (BEAKER) (test code = 752) RED CELL DISTRIBUTION WIDTH 13.5 % 11.6-14.4 (BEAKER) (test code = 412) PLATELET COUNT (BEAKER) (test 236 K/CU MM 150-450 code = 756) MEAN PLATELET VOLUME (BEAKER) 10.6 fL 9.4-12.4 (test code = 754) NUCLEATED RED BLOOD CELLS 0 /100 WBC 0-0 (BEAKER) (test code = 413) NEUTROPHILS RELATIVE PERCENT 90 % (BEAKER) (test code = 429) LYMPHOCYTES RELATIVE PERCENT 3 % (BEAKER) (test code = 430) MONOCYTES RELATIVE PERCENT 6 % (BEAKER) (test code = 431) EOSINOPHILS RELATIVE PERCENT 0 % (BEAKER) (test code = 432) BASOPHILS RELATIVE PERCENT 0 % (BEAKER) (test code = 437) NEUTROPHILS ABSOLUTE COUNT 12.29 K/ L 1.78-5.38 H (BEAKER) (test code = 670) LYMPHOCYTES ABSOLUTE COUNT 0.46 K/ L 1.32-3.57 L (BEAKER) (test code = 414) MONOCYTES ABSOLUTE COUNT (BEAKER) 0.82 K/ L 0.30-0.82 (test code = 415) EOSINOPHILS ABSOLUTE COUNT 0.01 K/ L 0.04-0.54 L (BEAKER) (test code = 416) BASOPHILS ABSOLUTE COUNT (BEAKER) 0.01 K/ L 0.01-0.08 (test code = 417) IMMATURE GRANULOCYTES-RELATIVE 1 % 0-1 PERCENT (BEAKER) (test code = 2801) BLOOD GAS, [id number] 03:35:00 Test Item Value Reference Range Interpretation Comments PH ARTERIAL (BEAKER) (test code = 7.42 7.35-7.45 383) PCO2 ARTERIAL (BEAKER) (test code 49 mm Hg 35-45 H = 384) PO2 ARTERIAL (BEAKER) (test code = 226 mm Hg 80-90 H 385) O2 SATURATION ARTERIAL (BEAKER) 99.5 % 96.0-97.0 H (test code = 386) HCO3 ARTERIAL (BEAKER) (test code 31 mmol/L 21-29 H = 388) BASE EXCESS ARTERIAL (BEAKER) 5.0 mmol/L -2.0-3.0 H (test code = 387) PATIENT TEMPERATURE ([facility]) (test 36.8 code = 1818) FIO2 ([facility]) (test code = 1819) 90.0 POCT-GLUCOSE [id number] 20:16:00 Test Item Value Reference Range Interpretation Comments POC-GLUCOSE METER 392 mg/dL 70-110 H : Notified RN/MD: (KYLE) (test code = TESTED AT [place] [address]) [facility], [address]: Tax Processor/Techni kg ID = [id number] for Sp alexander (contract), Elie cortez POCT-GLUCOSE [id number] 17:47:00 Test Item Value Reference Range Interpretation Comments POC-GLUCOSE METER 358 mg/dL 70-110 H : TESTED A T [facility] 6720 ([facility]) (test code = [facility], 1538) [address]: Tax Processor/Techni kg ID = [id number] for AL ONSO PALMER, MILTON POCT-GLUCOSE [id number] 12:21:00 Test Item Value Reference Range Interpretation Comments POC-GLUCOSE METER 317 mg/dL 70-110 H : Notified RN/MD: ([facility]) (test code = TESTED AT [place] [address]) [facility], [address]: Tax Processor/Techni kg ID = [id number] for AL ONSO PALMER, MILTON Limited 2D [id number] 11:45:48Ejection FractionSLEH ECHO [facility]LAB [facility] Mjhgtzzygwisco9287-76-81 11:45:48Ejection FractionSLEH ECHO HEARTLAB MKCKESSON [facility]CT-[facility]SE [id number] 09:16:00 Test Item Value Reference Range Interpretation Comments POC-GLUCOSE METER 162 mg/dL 70-110 H : TESTED A T [facility] 6720 ([facility]) (test code = [facility], 153) [address]: Tax Processor/Techni kg ID = [id number] for AL ONSO PALMER, MILTON RAD, CHEST, 1 VIEW, NON [id number] 09:09:00Reason for exam:->f/u interval progression of lung infiltratesShould this be performed at the bedside?->Yes [facility] : 1965 Sex: MFINAL REPORT RAD, CHEST, 1 VIEW, NON DEPT INDICATION: f/u interval progression of lung infiltrates COMPARISON: Prior day's exam FINDINGS: Portable frontal view of the chest. IMPRESSION: Support Lines: None Lungs and pleura: Diffuse bilateral interstitial thickening and airspace disease No pn eumothorax.Heart and mediastinum: Stable contours.Additional findings: None. Signed: Opal JasonMDRepgiles Verified Date/Time: 05/17/2020 09:09:36 Reading Location: [address] Transitional ReadingRoom Manual [id number] 07:17:00 Test Item Value Reference Range Interpretation Comments % Neutros (test code = 96 % 2816) % Monos (test code = 2 % 2818) % Bands (test code = 1 % 0-10 2826) % Atypical Lymphs (test 1 % 0-0 H code = 2829) # Neutros (test code = 21.70 K/ul 1.78-5.38 H 2830) # Monos (test code = 0.45 K/uL 0.30-0.82 2832) # Bands (test code = 0.23 K/uL 0.00-0.80 2840) # Atypical Lymphs (test 0.23 K/uL 0.00-0.00 H code = 2858) Total Counted (test code 100 = 1351) Platelet Morphology (test Normal code = 486) Smudge Cells (test code = Present 1371) Poikilocytes (test code = 1+ few 966) Jayshree Cells (test code = 2+ moderate 474) Platelet Conc (test code Adequate = 3438) YUSEF (test code = YUSEF) Tax Processor ID - Lizette SegalDixie comments: Slide comments: Lab Interpretation (test Abnormal code = 13499-9) [facility] [id number] 07:17:00 Test Item Value Reference Range Interpretation Comments % Neutros (test code = 96 % 2816) % Monos (test code = 2 % 2818) % Bands (test code = 1 % 0-10 2826) % Atypical Lymphs (test 1 % 0-0 H code = 2829) # Neutros (test code = 21.70 K/ul 1.78-5.38 H 2830) # Monos (test code = 0.45 K/uL 0.30-0.82 2832) # Bands (test code = 0.23 K/uL 0.00-0.80 2840) # Atypical Lymphs (test 0.23 K/uL 0.00-0.00 H code = 2858) Total Counted (test code 100 = 1351) Platelet Morphology (test Normal code = 486) Smudge Cells (test code = Present 1371) Poikilocytes (test code = 1+ few 966) Winter Cells (test code = 2+ moderate 474) Platelet Conc (test code Adequate = 3438) YUSEF (test code = YUSEF) Tax Processor ID - Lizette Willem comments: Slide comments: Lab Interpretation (test Abnormal code = 43411-4) [facility]PLT [facility] & AUTO [id number] 07:17:00 Test Item Value Reference Range Interpretation Comments WHITE BLOOD CELL COUNT (BEAKER) 22.6 K/ L 3.5-10.5 H (test code = 775) RED BLOOD CELL COUNT (BEAKER) 4.46 M/ L 4.63-6.08 L (test code = 761) HEMOGLOBIN (BEAKER) (test code = 12.3 GM/DL 13.7-17.5 L 410) HEMATOCRIT (BEAKER) (test code = 40.3 % 40.1-51.0 411) MEAN CORPUSCULAR VOLUME (BEAKER) 90.4 fL 79.0-92.2 (test code = 753) MEAN CORPUSCULAR HEMOGLOBIN 27.6 pg 25.7-32.2 (BEAKER) (test code = 751) MEAN CORPUSCULAR HEMOGLOBIN CONC 30.5 GM/DL 32.3-36.5 L (BEAKER) (test code = 752) RED CELL DISTRIBUTION WIDTH 13.7 % 11.6-14.4 (BEAKER) (test code = 412) PLATELET COUNT (BEAKER) (test 263 K/CU MM 150-450 code = 756) MEAN PLATELET VOLUME (BEAKER) 10.6 fL 9.4-12.4 (test code = 754) NUCLEATED RED BLOOD CELLS 0 /100 WBC 0-0 (BEAKER) (test code = 413) (CELLAVISION MANUAL DIFF)2020-05-17 07:17:00 Test Item Value Reference Range Interpretation Comments NEUTROPHILS - REL 96 % (CELLAVISION)(BEAKER) (test code = 2816) MONOCYTES - REL 2 % (CELLAVISION)(BEAKER) (test code = 2818) BANDS - REL (CELLAVISION)(BEAKER) 1 % 0-10 (test code = 2826) ATYPICAL LYMPHOCYTES - REL 1 % 0-0 H (CELLAVISION)(BEAKER) (test code = 2829) NEUTROPHILS - ABS 21.70 K/ul 1.78-5.38 H (CELLAVISION)(BEAKER) (test code = 2830) MONOCYTES - ABS 0.45 K/uL 0.30-0.82 (CELLAVISION)(BEAKER) (test code = 2832) BANDS - ABS (CELLAVISION)(BEAKER) 0.23 K/uL 0.00-0.80 (test code = 2840) ATYPICAL LYMPHOCYTES - ABS 0.23 K/uL 0.00-0.00 H (CELLAVISION)(BEAKER) (test code = 5158) TOTAL COUNTED (BEAKER) (test code 100 = 1351) PLT MORPHOLOGY (BEAKER) (test Normal code = 486) SMUDGE CELLS (BEAKER) (test code Present = 1371) POIKILOCYTES (BEAKER) (test code 1+ few = 966) JAYSHREE CELLS (BEAKER) (test code = 2+ moderate 474) PLATELET CONCENTRATION Adequate (CELLAVISION)(BEAKER) (test code = 3438) Tax Processor ID - Lizette SegalCelyradha comments: Slide comments:[id number] 04:27:00 Test Item Value Reference Range Interpretation Comments FERRITIN (BEAKER) (test code = 2754.28 ng/mL 5.00-275.00 H 361) Tax Processor ID - KIAN MOperator ID - KIAN [id number] 03:28:00 Test Item Value Reference Range Interpretation Comments D-DIMER QUANTITATIVE (BEAKER) 2.43 MG/L FEU <0.50 H (test code = 671) Intended Use: The D-Dimer Assay can be used to aid in the diagnosis of Deep Vein Thrombosis (DVT) and Pulmonary Embolism Disease (PED).In patients with low pre- test probability, various studies concerning STA Liatest D-dimer test have reported that with a cutoff value of 0.50 MG/L FEU, the Negative Predictive Value (NPV) regarding the exclusion of thrombosis is within 95-100% range. PT/[id number] 03:26:00 Test Item Value Reference Range Interpretation Comments PROTIME (BEAKER) (test 14.3 seconds 11.9-14.2 H code = 759) INR (BEAKER) (test 1.14 See_Comment [Automat ed code = 370) message] The sy stem which generated this result transmitted reference range : <=5.90. The reference range was not used to interpret this result as normal/abnormal . PARTIAL THROMBOPLASTIN 37.9 seconds 22.5-36.0 H TIME (BEAKER) (test code = 760) Effective 08/25/2018: PT Reference Range ChangeNew: 11.9-14.2 Previous: 11.7- 14.7RECOMMENDED COUMADIN/WARFARIN INR THERAPY RANGESSTANDARD DOSE: 2.0-3.0 Includes: PROPHYLAXIS for venous thrombosis, systemic embolization; TREATMENT for venous thrombosis and/or pulmonary embolus.HIGH RISK: Target INR is 2.5-3.5 for patients wiht mechanical heart valves.COMPREHENSIVE METABOLIC PANEL 2020-05-17 03:25:00 Test Item Value Reference Range Interpretation Comments TOTAL PROTEIN 6.7 gm/dL 6.0-8.3 (BEAKER) (test code = 770) ALBUMIN (BEAKER) 2.8 g/dL 3.5-5.0 L (test code = 1145) ALKALINE PHOSPHATASE 67 U/L 40-150 (BEAKER) (test code = 346) BILIRUBIN TOTAL 0.6 mg/dL 0.2-1.2 (BEAKER) (test code = 377) SODIUM (BEAKER) (test 140 meq/L 136-145 code = 381) POTASSIUM (BEAKER) 5.1 meq/L 3.5-5.1 (test code = 379) CHLORIDE (BEAKER) 105 meq/L 98-107 (test code = 382) CO2 (BEAKER) (test 27 meq/L 22-29 code = 355) BLOOD UREA NITROGEN 31 mg/dL 7-21 H (BEAKER) (test code = 354) CREATININE (BEAKER) 1.13 mg/dL 0.57-1.25 (test code = 358) GLUCOSE RANDOM 185 mg/dL 70-105 H (BEAKER) (test code = 652) CALCIUM (BEAKER) 8.5 mg/dL 8.4-10.2 (test code = 697) AST (SGOT) (BEAKER) 22 U/L 5-34 (test code = 353) ALT (SGPT) (BEAKER) 35 U/L 6-55 (test code = 347) EGFR (BEAKER) (test 68 mL/min/1.73 ESTIMA SEEMA GFR IS code = 1092) sq m NOT ACCURATE CREATININE CLEARANCE IN PREDICTING GLOMERULAR FILTRATION RATE . ESTIMATED GFR I S NOT APPLICABLE FOR DIALYSIS PATIEN TS. Tax Processor ID - KIAN [id number] 03:25:00 Test Item Value Reference Range Interpretation Comments MAGNESIUM (BEAKER) (test code = 2.4 mg/dL 1.6-2.6 627) Tax Processor ID - KIAN [id number] 03:25:00 Test Item Value Reference Range Interpretation Comments PHOSPHORUS (BEAKER) (test code = 4.7 mg/dL 2.3-4.7 604) Tax Processor ID - KIAN MLACTATE DEHYDROGENASE (LDH)2020-05-17 03:25:00 Test Item Value Reference Range Interpretation Comments LACTATE DEHYDROGENASE (BEAKER) (test 527 U/L 125-220 H code = 635) Tax Processor ID - KIAN MBLOOD GAS, [id number] 03:14:00 Test Item Value Reference Range Interpretation Comments PH ARTERIAL (BEAKER) (test code = 7.38 7.35-7.45 383) PCO2 ARTERIAL (BEAKER) (test code 48 mm Hg 35-45 H = 384) PO2 ARTERIAL (BEAKER) (test code = 216 mm Hg 80-90 H 385) O2 SATURATION ARTERIAL (BEAKER) 99.4 % 96.0-97.0 H (test code = 386) HCO3 ARTERIAL (BEAKER) (test code 28 mmol/L 21-29 = 388) BASE EXCESS ARTERIAL (BEAKER) 2.5 mmol/L -2.0-3.0 (test code = 387) PATIENT TEMPERATURE (BEAKER) (test 37.2 code = 1818) FIO2 (BEAKER) (test code = 1819) 100.0 POCT-GLUCOSE [id number] 20:57:00 Test Item Value Reference Range Interpretation Comments POC-GLUCOSE METER 215 mg/dL 70-110 H : TESTED A T [facility] 6720 (BEAKER) (test code = [facility] [place], 1538) [address]: Tax Processor/Techni kg ID = [id number] for Ro gel (contract), Luis Alberto ie Troponin [id number] 17:35:00 Test Item Value Reference Range Interpretation Comments Troponin I (test code = <0.01 0.00-0.03 39556-1) YUSEF (test code = YUSEF) Troponin I (TnI) levels must be interpreted in the context of the presenting symptoms and the clinical findings. Elevated TnI levels indicate myocardial damage, but are not specific for ischemic heart disease. Elevated TnI levels are seen in patients with other cardiac conditions (including myocarditis and congestive heart failure), and slight TnI elevations occur in patients with other conditions, including sepsis, renal failure, acidosis, acute neurological disease, and persistent tachyarrhythmia.Opera tor ID - BS Lab Interpretation (test Normal code = 13236-7) [facility] Valley[facility]rop[facility] [id number] 17:35:00 Test Item Value Reference Range Interpretation Comments Troponin I (test code = <0.01 0.00-0.03 95428-5) YUSEF (test code = YUSEF) Troponin I (TnI) levels must be interpreted in the context of the presenting symptoms and the clinical findings. Elevated TnI levels indicate myocardial damage, but are not specific for ischemic heart disease. Elevated TnI levels are seen in patients with other cardiac conditions (including myocarditis and congestive heart failure), and slight TnI elevations occur in patients with other conditions, including sepsis, renal failure, acidosis, acute neurological disease, and persistent tachyarrhythmia.Opera tor ID - BS Lab Interpretation (test Normal code = 77102-4) [facility] ValleyTROPONIN [id number] 17:35:00 Test Item Value Reference Range Interpretation Comments TROPONIN I (BEAKER) (test code = 397) < ng/mL 0.00-0.03 Troponin I (TnI) levels must be interpreted in the context of the presenting symptoms and the clinical findings. Elevated TnI levels indicate myocardial damage, but are not specific for ischemic heart disease. Elevated TnI levels are seen in patients with other cardiac conditions (including myocarditis and congestive heart failure), and slight TnI elevations occur in patients with other conditions, including sepsis, renal failure, acidosis, acute neurological disease, and persistent tachyarrhythmia.Tax Processor ID - [id number] 17:21:00 Test Item Value Reference Range Interpretation Comments Potassium (test code = 5.1 meq/L 3.5-5.1 Speci men 2823-3) slightly hemolyzed YUSEF (test code = YUSEF) Tax Processor ID - BS Lab Interpretation Normal (test code = 57871-6) [facility] Valley[facility]assium2021-02-17 17:21:00 Test Item Value Reference Range Interpretation Comments Potassium (test code = 5.1 meq/L 3.5-5.1 Speci men 2823-3) slightly hemolyzed YUSEF (test code = YUSEF) Tax Processor ID - BS Lab Interpretation Normal (test code = 83048-5) [facility] Valley[facility]OT[facility]SIUM2021-02-17 17:21:00 Test Item Value Reference Range Interpretation Comments POTASSIUM (BEAKER) 5.1 meq/L 3.5-5.1 Specimen slightly (test code = 379) hemolyzed Tax Processor ID - BSPOCT-GLUCOSE [id number] 17:15:00 Test Item Value Reference Range Interpretation Comments POC-GLUCOSE METER 335 mg/dL 70-110 H : TESTED A T [facility] 6720 (BEAKER) (test code = [facility] Garcia [facility], 1538) [address]: Tax Processor/Techni kg ID = [id number] for Sangeetha Vaughn (contra ct) POCT-GLUCOSE [id number] 12:02:00 Test Item Value Reference Range Interpretation Comments POC-GLUCOSE METER 208 mg/dL 70-110 H : Pt. refu sed rpt tst: (BEAKER) (test code = Notifi ed RN/MD: TESTED 153) AT [facility] [facility], [address]: Tax Processor/Techni kg ID = [id number] for Sangeetha Vaughn (contra ct) TROPONIN [id number] 10:09:00 Test Item Value Reference Range Interpretation Comments [facility]IN [facility] (test code = 397) < ng/mL 0.00-0.03 Troponin I (TnI) levels must be interpreted in the context of the presenting symptoms and the clinical findings. Elevated TnI levels indicate myocardial damage, but are not specific for ischemic heart disease. Elevated TnI levels are seen in patients with other cardiac conditions (including myocarditis and congestive heart failure), and slight TnI elevations occur in patients with other conditions, including sepsis, renal failure, acidosis, acute neurological disease, and persistent tachyarrhythmia.Tax Processor ID - [id number] 09:55:00 Test Item Value Reference Range Interpretation Comments POTASSIUM (BEAKER) (test code = 5.1 meq/L 3.5-5.1 379) Tax Processor ID - BSPOCT-GLUCOSE [id number] 08:11:00 Test Item Value Reference Range Interpretation Comments POC-GLUCOSE METER 195 mg/dL 70-110 H : TESTED A T [facility] 6720 (BEAKER) (test code = [facility]QU[facility] Garcia [facility], 1538) [address]: Tax Processor/Techni kg ID = [id number] for Ju male (contract), Aiden a COMPREHENSIVE METABOLIC [id number] 07:01:00 Test Item Value Reference Range Interpretation Comments TOTAL PROTEIN 6.6 gm/dL 6.0-8.3 (BEAKER) (test code = 770) ALBUMIN (BEAKER) 2.8 g/dL 3.5-5.0 L (test code = 1145) ALKALINE PHOSPHATASE 74 U/L 40-150 (BEAKER) (test code = 346) BILIRUBIN TOTAL 0.4 mg/dL 0.2-1.2 (BEAKER) (test code = 377) SODIUM (BEAKER) (test 137 meq/L 136-145 code = 381) POTASSIUM (BEAKER) 5.2 meq/L 3.5-5.1 H (test code = 379) CHLORIDE (BEAKER) 105 meq/L 98-107 (test code = 382) CO2 (BEAKER) (test 24 meq/L 22-29 code = 355) BLOOD UREA NITROGEN 37 mg/dL 7-21 H (BEAKER) (test code = 354) CREATININE (BEAKER) 1.09 mg/dL 0.57-1.25 (test code = 358) GLUCOSE RANDOM 238 mg/dL 70-105 H (BEAKER) (test code = 652) CALCIUM (BEAKER) 8.6 mg/dL 8.4-10.2 (test code = 697) AST (SGOT) (BEAKER) 26 U/L 5-34 (test code = 353) ALT (SGPT) (BEAKER) 33 U/L 6-55 (test code = 347) EGFR (BEAKER) (test 70 mL/min/1.73 ESTIMA SEEMA GFR IS code = 1092) sq m NOT ACCURATE CREATININE CLEARANCE IN PREDICTING GLOMERULAR FILTRATION RATE . ESTIMATED GFR I S NOT APPLICABLE FOR DIALYSIS PATIEN TS. Tax [employer]or ID Lakshmi JAMES [id number] 07:01:00 Test Item Value Reference Range Interpretation Comments MAGNESIUM (BEAKER) (test code = 2.3 mg/dL 1.6-2.6 627) Tax Processor ID Lakshmi JAMES [id number] 07:01:00 Test Item Value Reference Range Interpretation Comments PHOSPHORUS (BEAKER) (test code = 5.1 mg/dL 2.3-4.7 H 604) Tax Processor ID Lakshmi JAMES FCBC W/PLT COUNT & AUTO [id number] 06:09:00 Test Item Value Reference Range Interpretation Comments WHITE BLOOD CELL COUNT (BEAKER) 15.2 K/ L 3.5-10.5 H (test code = 775) RED BLOOD CELL COUNT (BEAKER) 4.57 M/ L 4.63-6.08 L (test code = 761) HEMOGLOBIN (BEAKER) (test code = 12.6 GM/DL 13.7-17.5 L 410) HEMATOCRIT (BEAKER) (test code = 39.6 % 40.1-51.0 L 411) MEAN CORPUSCULAR VOLUME (BEAKER) 86.7 fL 79.0-92.2 (test code = 753) MEAN CORPUSCULAR HEMOGLOBIN 27.6 pg 25.7-32.2 (BEAKER) (test code = 751) MEAN CORPUSCULAR HEMOGLOBIN CONC 31.8 GM/DL 32.3-36.5 L (BEAKER) (test code = 752) RED CELL DISTRIBUTION WIDTH 13.6 % 11.6-14.4 (BEAKER) (test code = 412) PLATELET COUNT (BEAKER) (test 265 K/CU MM 150-450 code = 756) MEAN PLATELET VOLUME (BEAKER) 10.7 fL 9.4-12.4 (test code = 754) NUCLEATED RED BLOOD CELLS 0 /100 WBC 0-0 (BEAKER) (test code = 413) NEUTROPHILS RELATIVE PERCENT 90 % (BEAKER) (test code = 429) LYMPHOCYTES RELATIVE PERCENT 4 % (BEAKER) (test code = 430) MONOCYTES RELATIVE PERCENT 5 % (BEAKER) (test code = 431) EOSINOPHILS RELATIVE PERCENT 0 % (BEAKER) (test code = 432) BASOPHILS RELATIVE PERCENT 0 % (BEAKER) (test code = 437) NEUTROPHILS ABSOLUTE COUNT 13.73 K/ L 1.78-5.38 H (BEAKER) (test code = 670) LYMPHOCYTES ABSOLUTE COUNT 0.59 K/ L 1.32-3.57 L (BEAKER) (test code = 414) MONOCYTES ABSOLUTE COUNT (BEAKER) 0.68 K/ L 0.30-0.82 (test code = 415) EOSINOPHILS ABSOLUTE COUNT 0.00 K/ L 0.04-0.54 L (BEAKER) (test code = 416) BASOPHILS ABSOLUTE COUNT (BEAKER) 0.02 K/ L 0.01-0.08 (test code = 417) IMMATURE GRANULOCYTES-RELATIVE 1 % 0-1 PERCENT (BEAKER) (test code = 2801) [id number] 06:09:00 Test Item Value Reference Range Interpretation Comments PROTIME (BEAKER) (test 13.7 seconds 11.9-14.2 code = 759) INR (BEAKER) (test 1.08 See_Comment [Automat ed code = 370) message] The sy stem which generated this result transmitted reference range : <=5.90. The reference range was not used to interpret this result as normal/abnormal . PARTIAL THROMBOPLASTIN 30.6 seconds 22.5-36.0 TIME (BEAKER) (test code = 760) Effective 08/25/2018: PT Reference Range ChangeNew: 11.9-14.2 Previous: 11.7- 14.7RECOMMENDED COUMADIN/WARFARIN INR THERAPY RANGESSTANDARD DOSE: 2.0-3.0 Includes: PROPHYLAXIS for venous thrombosis, systemic embolization; TREATMENT for venous thrombosis and/or pulmonary embolus.HIGH RISK: Target INR is 2.5-3.5 for patients wiht mechanical heart valves.BLOOD GAS, [id number] 05:53:00 Test Item Value Reference Range Interpretation Comments PH ARTERIAL (BEAKER) (test code = 7.41 7.35-7.45 383) PCO2 ARTERIAL (BEAKER) (test code 43 mm Hg 35-45 = 384) PO2 ARTERIAL (BEAKER) (test code = 205 mm Hg 80-90 H 385) O2 SATURATION ARTERIAL (BEAKER) 99.4 % 96.0-97.0 H (test code = 386) HCO3 ARTERIAL (BEAKER) (test code 27 mmol/L 21-29 = 388) BASE EXCESS ARTERIAL (BEAKER) 1.6 mmol/L -2.0-3.0 (test code = 387) PATIENT TEMPERATURE (BEAKER) (test 36.8 code = 1818) FIO2 (BEAKER) (test code = 1819) 100.0 POCT-GLUCOSE [id number] 21:24:00 Test Item Value Reference Range Interpretation Comments POC-GLUCOSE METER 247 mg/dL 70-110 H : Notified RN/MD: (BEAKER) (test code = TESTED AT [facility] 6720 1538) [facility]IS [facility], [id number]: Tax Processor/Techni kg ID = [id number] for Sharlene hawthorne (contract)Luis Alberto POCT-GLUCOSE [id number] 16:36:00 Test Item Value Reference Range Interpretation Comments POC-GLUCOSE METER 215 mg/dL 70-110 H : TESTED A T [facility] 6720 (BEAKER) (test code = CHIQUIS Garcia [facility], 1538) [address]: Tax Processor/Techni kg ID = [id number] for So tori, Giavanna POCT-GLUCOSE [id number] 11:33:00 Test Item Value Reference Range Interpretation Comments POC-GLUCOSE METER 190 mg/dL 70-110 H : TESTED A T [facility] 6720 (BEAKER) (test code = [facility], 1538) [address]: Tax Processor/Techni kg ID = [id number] for So tori, Giavanna POCT-GLUCOSE [id number] 08:56:00 Test Item Value Reference Range Interpretation Comments POC-GLUCOSE METER 79 mg/dL 70-110 : TESTED A T [facility] 6720 (BEAKER) (test code = [facility], 1538) [address]: Tax Processor/Techni kg ID = [id number] for Arthur casey (contract), Aiden a [id number] 03:49:00 Test Item Value Reference Range Interpretation Comments MAGNESIUM (BEAKER) 2.2 mg/dL 1.6-2.6 Specimen slightly (test code = 627) hemolyzed Tax Processor ID - KIAN [id number] 03:49:00 Test Item Value Reference Range Interpretation Comments PHOSPHORUS (BEAKER) 4.3 mg/dL 2.3-4.7 Specimen slightly (test code = 604) hemolyzed Tax Processor ID - KIAN MCOMPREHENSIVE METABOLIC [id number] 03:49:00 Test Item Value Reference Range Interpretation Comments TOTAL PROTEIN 6.5 gm/dL 6.0-8.3 Specimen sligh tly (BEAKER) (test code = hemoly zed 770) ALBUMIN (BEAKER) 2.6 g/dL 3.5-5.0 L Specimen sl ightly (test code = 1145) hemolyzed ALKALINE PHOSPHATASE 86 U/L 40-150 (BEAKER) (test code = 346) BILIRUBIN TOTAL 0.5 mg/dL 0.2-1.2 Specimen sli ghtly (BEAKER) (test code = hemoly zed 377) SODIUM (BEAKER) (test 137 meq/L 136-145 code = 381) POTASSIUM (BEAKER) 4.9 meq/L 3.5-5.1 Specimen slightly (test code = 379) hemolyzed CHLORIDE (BEAKER) 105 meq/L 98-107 (test code = 382) CO2 (BEAKER) (test 24 meq/L 22-29 code = 355) BLOOD UREA NITROGEN 30 mg/dL 7-21 H (BEAKER) (test code = 354) CREATININE (BEAKER) 0.99 mg/dL 0.57-1.25 Specimen slightly (test code = 358) hemolyzed GLUCOSE RANDOM 125 mg/dL 70-105 H (BEAKER) (test code = 652) CALCIUM (BEAKER) 8.3 mg/dL 8.4-10.2 L (test code = 697) AST (SGOT) (BEAKER) 45 U/L 5-34 H Specimen slightly (test code = 353) hemolyzed ALT (SGPT) (BEAKER) 38 U/L 6-55 Specimen slightly (test code = 347) hemolyzed EGFR (BEAKER) (test 79 mL/min/1.73 ESTIMA SEEMA GFR IS code = 1092) sq m NOT ACCURATE CREATININE CLEARANCE IN PREDICTING GLOMERULAR FILTRATION RATE . ESTIMATED GFR I S NOT APPLICABLE FOR DIALYSIS PATIEN TS. Tax Processor ID - KIAN [id number] 03:40:00 Test Item Value Reference Range Interpretation Comments PROTIME (BEAKER) (test 14.1 seconds 11.9-14.2 code = 759) INR (BEAKER) (test 1.13 See_Comment [Automat ed code = 370) message] The sy stem which generated this result transmitted reference range : <=5.90. The reference range was not used to interpret this result as normal/abnormal . PARTIAL THROMBOPLASTIN 28.8 seconds 22.5-36.0 TIME (BEAKER) (test code = 760) Effective 08/25/2018: PT Reference Range ChangeNew: 11.9-14.2 Previous: 11.7- 14.7RECOMMENDED COUMADIN/WARFARIN INR THERAPY RANGESSTANDARD DOSE: 2.0-3.0 Includes: PROPHYLAXIS for venous thrombosis, systemic embolization; TREATMENT for venous thrombosis and/or pulmonary embolus.HIGH RISK: Target INR is 2.5-3.5 for patients wiht mechanical heart valves.BLOOD GAS, [id number] 03:31:00 Test Item Value Reference Range Interpretation Comments PH ARTERIAL (BEAKER) (test code = 7.40 7.35-7.45 383) PCO2 ARTERIAL (BEAKER) (test code 43 mm Hg 35-45 = 384) PO2 ARTERIAL (BEAKER) (test code = 111 mm Hg 80-90 H 385) O2 SATURATION ARTERIAL (BEAKER) 98.0 % 96.0-97.0 H (test code = 386) HCO3 ARTERIAL (BEAKER) (test code 26 mmol/L 21-29 = 388) BASE EXCESS ARTERIAL (BEAKER) 1.2 mmol/L -2.0-3.0 (test code = 387) PATIENT TEMPERATURE (BEAKER) (test 37.2 code = 1818) FIO2 (BEAKER) (test code = 1819) 100.0 CBC W/PLT COUNT & AUTO [id number] 03:30:00 Test Item Value Reference Range Interpretation Comments WHITE BLOOD CELL COUNT (BEAKER) 15.0 K/ L 3.5-10.5 H (test code = 775) RED BLOOD CELL COUNT (BEAKER) 4.51 M/ L 4.63-6.08 L (test code = 761) HEMOGLOBIN (BEAKER) (test code = 12.6 GM/DL 13.7-17.5 L 410) HEMATOCRIT (BEAKER) (test code = 39.4 % 40.1-51.0 L 411) MEAN CORPUSCULAR VOLUME (BEAKER) 87.4 fL 79.0-92.2 (test code = 753) MEAN CORPUSCULAR HEMOGLOBIN 27.9 pg 25.7-32.2 (BEAKER) (test code = 751) MEAN CORPUSCULAR HEMOGLOBIN CONC 32.0 GM/DL 32.3-36.5 L (BEAKER) (test code = 752) RED CELL DISTRIBUTION WIDTH 13.7 % 11.6-14.4 (BEAKER) (test code = 412) PLATELET COUNT (BEAKER) (test 251 K/CU MM 150-450 code = 756) MEAN PLATELET VOLUME (BEAKER) 10.9 fL 9.4-12.4 (test code = 754) NUCLEATED RED BLOOD CELLS 0 /100 WBC 0-0 (BEAKER) (test code = 413) NEUTROPHILS RELATIVE PERCENT 89 % (BEAKER) (test code = 429) LYMPHOCYTES RELATIVE PERCENT 5 % (BEAKER) (test code = 430) MONOCYTES RELATIVE PERCENT 4 % (BEAKER) (test code = 431) EOSINOPHILS RELATIVE PERCENT 1 % (BEAKER) (test code = 432) BASOPHILS RELATIVE PERCENT 0 % (BEAKER) (test code = 437) NEUTROPHILS ABSOLUTE COUNT 13.32 K/ L 1.78-5.38 H (BEAKER) (test code = 670) LYMPHOCYTES ABSOLUTE COUNT 0.80 K/ L 1.32-3.57 L (BEAKER) (test code = 414) MONOCYTES ABSOLUTE COUNT (BEAKER) 0.54 K/ L 0.30-0.82 (test code = 415) EOSINOPHILS ABSOLUTE COUNT 0.11 K/ L 0.04-0.54 (BEAKER) (test code = 416) BASOPHILS ABSOLUTE COUNT (BEAKER) 0.02 K/ L 0.01-0.08 (test code = 417) IMMATURE GRANULOCYTES-RELATIVE 2 % 0-1 H PERCENT (BEAKER) (test code = 2801) [id number] 22:47:00 Test Item Value Reference Range Interpretation Comments FERRITIN (BEAKER) (test code = 2713.90 ng/mL 5.00-275.00 H 361) Tax Processor ID - KIAN MOperator ID - KIAN [id number] 22:03:00 Test Item Value Reference Range Interpretation Comments PROCALCITONIN (BEAKER) (test code 0.29 ng/mL <0.05 H = 3036) SEPSIS RISK (ng/mL)Low: 0.05-0.50Intermediate: 0.51-2.00High: >=2.01POCT- GLUCOSE [id number] 21:41:00 Test Item Value Reference Range Interpretation Comments POC-GLUCOSE METER 192 mg/dL 70-110 H : TESTED A T [facility] 6720 (BEAKER) (test code [facility], = 1538) [address]: Tax Processor/Techni kg ID = [id number] for LAWSON FLORES LACTATE DEHYDROGENASE (LDH)[id number] 21:31:00 Test Item Value Reference Range Interpretation Comments LACTATE DEHYDROGENASE 939 U/L 125-220 H Specim en slightly (BEAKER) (test code = hemoly zed 635) Tax Processor ID - MORA [id number] 21:09:00 Test Item Value Reference Range Interpretation Comments D-DIMER QUANTITATIVE (BEAKER) 4.84 MG/L FEU <0.50 H (test code = 671) Intended Use: The D-Dimer Assay can be used to aid in the diagnosis of Deep Vein Thrombosis (DVT) and Pulmonary Embolism Disease (PED).In patients with low pre- test probability, various studies concerning STA Liatest D-dimer test have reported that with a cutoff value of 0.50 MG/L FEU, the Negative Predictive Value (NPV) regarding the exclusion of thrombosis is within 95-100% range.BLOOD GAS, [id number] 21:01:00 Test Item Value Reference Range Interpretation Comments PH ARTERIAL (BEAKER) (test code = 7.46 7.35-7.45 H 383) PCO2 ARTERIAL (BEAKER) (test code 37 mm Hg 35-45 = 384) PO2 ARTERIAL (BEAKER) (test code = 173 mm Hg 80-90 H 385) O2 SATURATION ARTERIAL (BEAKER) 99.3 % 96.0-97.0 H (test code = 386) HCO3 ARTERIAL (BEAKER) (test code 25 mmol/L 21-29 = 388) BASE EXCESS ARTERIAL (BEAKER) 1.6 mmol/L -2.0-3.0 (test code = 387) PATIENT TEMPERATURE (BEAKER) (test 37.2 code = 1818) FIO2 (BEAKER) (test code = 1819) 100.0 POCT-GLUCOSE [id number] 17:49:00 Test Item Value Reference Range Interpretation Comments POC-GLUCOSE METER 172 mg/dL 70-110 H : TESTED A T [facility] 6720 (BEAKER) (test code [facility], = 1538) [address]: Tax Processor/Techni kg ID = [id number] for AMY VERDUZCO POCT-GLUCOSE [id number] 16:57:00 Test Item Value Reference Range Interpretation Comments POC-GLUCOSE METER 244 mg/dL 70-110 H : TESTED A T [facility] 6720 (BEAKER) (test code = [facility] [employer] [facility], 1538) [address]: Tax Processor/Techni kg ID = [id number] for ALLISON IJVinay, AURA POCT-GLUCOSE [id number] 11:35:00 Test Item Value Reference Range Interpretation Comments POC-GLUCOSE METER 68 mg/dL 70-110 L : TESTED A T [facility] 6720 (BEAKER) (test code = [facility], 1538) [address]: Tax Processor/Techni kg ID = [id number] for GALI VERDUGO RAD, CHEST, 1 VIEW, NON [id number] 09:12:00Reason for exam:->[facility] 1965 Sex: MFINAL REPORT CHEST ONE VIEW HISTORY: ARDS, Covid COMPARISON: 05/11/2020 FINDINGS: Single portable AP examination of the chest was performed. The diffuse bilateral pulmonary opacities are without appreciable change. No pleural effusions or pneumothorax. Cardiac shadow normal in size. Thoracic aorta mildly tortuous. Signed: Padmini Campos Verified Date/Time: 05/14/2020 09:12:55 POCT-GLUCOSE [id number] 08:54:00 Test Item Value Reference Range Interpretation Comments POC-GLUCOSE METER 78 mg/dL 70-110 : TESTED A T [facility] 6720 ([employer]) (test code = [facility], 1538) [address]: Tax Processor/Techni kg ID = [id number] for Cornelio nson, Florina POCT-GLUCOSE [id number] 08:53:00 Test Item Value Reference Range Interpretation Comments POC-GLUCOSE METER 54 mg/dL 70-110 L : TESTED A T [facility] 6720 ([employer]) (test code = [facility], 1538) [address]: Tax Processor/Techni kg ID = [id number] for Cornelio nson, Florina COMPREHENSIVE METABOLIC [id number] 04:54:00 Test Item Value Reference Range Interpretation Comments TOTAL PROTEIN 6.5 gm/dL 6.0-8.3 (BEAKER) (test code = 770) ALBUMIN (BEAKER) 2.7 g/dL 3.5-5.0 L (test code = 1145) ALKALINE PHOSPHATASE 99 U/L 40-150 (BEAKER) (test code = 346) BILIRUBIN TOTAL 0.5 mg/dL 0.2-1.2 (BEAKER) (test code = 377) SODIUM (BEAKER) (test 138 meq/L 136-145 code = 381) POTASSIUM (BEAKER) 4.6 meq/L 3.5-5.1 (test code = 379) CHLORIDE (BEAKER) 105 meq/L 98-107 (test code = 382) CO2 (BEAKER) (test 25 meq/L 22-29 code = 355) BLOOD UREA NITROGEN 25 mg/dL 7-21 H (BEAKER) (test code = 354) CREATININE (BEAKER) 0.95 mg/dL 0.57-1.25 (test code = 358) GLUCOSE RANDOM 73 mg/dL 70-105 (BEAKER) (test code = 652) CALCIUM (BEAKER) 8.0 mg/dL 8.4-10.2 L (test code = 697) AST (SGOT) (BEAKER) 43 U/L 5-34 H (test code = 353) ALT (SGPT) (BEAKER) 40 U/L 6-55 (test code = 347) EGFR (BEAKER) (test 83 mL/min/1.73 ESTIMA SEEMA GFR IS code = 1092) sq m NOT ACCURATE CREATININE CLEARANCE IN PREDICTING GLOMERULAR FILTRATION RATE . ESTIMATED GFR I S NOT APPLICABLE FOR DIALYSIS PATIEN TS. Tax Processor ID - KIAN [id number] 04:54:00 Test Item Value Reference Range Interpretation Comments MAGNESIUM (BEAKER) (test code = 2.2 mg/dL 1.6-2.6 627) Tax Processor ID - KIAN [id number] 04:54:00 Test Item Value Reference Range Interpretation Comments PHOSPHORUS (BEAKER) (test code = 2.9 mg/dL 2.3-4.7 604) Tax Processor ID - KIAN MPT/[id number] 04:51:00 Test Item Value Reference Range Interpretation Comments PROTIME (BEAKER) (test 14.6 seconds 11.9-14.2 H code = 759) INR (BEAKER) (test 1.17 See_Comment [Automat ed code = 370) message] The sy stem which generated this result transmitted reference range : <=5.90. The reference range was not used to interpret this result as normal/abnormal . PARTIAL THROMBOPLASTIN 30.6 seconds 22.5-36.0 TIME (BEAKER) (test code = 760) Effective 08/25/2018: PT Reference Range ChangeNew: 11.9-14.2 Previous: 11.7- 14.7RECOMMENDED COUMADIN/WARFARIN INR THERAPY RANGESSTANDARD DOSE: 2.0-3.0 Includes: PROPHYLAXIS for venous thrombosis, systemic embolization; TREATMENT for venous thrombosis and/or pulmonary embolus.HIGH RISK: Target INR is 2.5-3.5 for patients wiht mechanical heart valves.BLOOD GAS, [id number] 04:41:00 Test Item Value Reference Range Interpretation Comments PH ARTERIAL (BEAKER) (test code = 7.48 7.35-7.45 H 383) PCO2 ARTERIAL (BEAKER) (test code 37 mm Hg 35-45 = 384) PO2 ARTERIAL (BEAKER) (test code = 98 mm Hg 80-90 H 385) O2 SATURATION ARTERIAL (BEAKER) 97.9 % 96.0-97.0 H (test code = 386) HCO3 ARTERIAL (BEAKER) (test code 27 mmol/L 21-29 = 388) BASE EXCESS ARTERIAL (BEAKER) 3.5 mmol/L -2.0-3.0 H (test code = 387) PATIENT TEMPERATURE (BEAKER) (test 36.7 code = 1818) FIO2 (BEAKER) (test code = 1819) 100.0 CBC W/PLT COUNT & AUTO [id number] 04:40:00 Test Item Value Reference Range Interpretation Comments WHITE BLOOD CELL COUNT (BEAKER) 15.4 K/ L 3.5-10.5 H (test code = 775) RED BLOOD CELL COUNT (BEAKER) 4.84 M/ L 4.63-6.08 (test code = 761) HEMOGLOBIN (BEAKER) (test code = 13.4 GM/DL 13.7-17.5 L 410) HEMATOCRIT (BEAKER) (test code = 41.4 % 40.1-51.0 411) MEAN CORPUSCULAR VOLUME (BEAKER) 85.5 fL 79.0-92.2 (test code = 753) MEAN CORPUSCULAR HEMOGLOBIN 27.7 pg 25.7-32.2 (BEAKER) (test code = 751) MEAN CORPUSCULAR HEMOGLOBIN CONC 32.4 GM/DL 32.3-36.5 (BEAKER) (test code = 752) RED CELL DISTRIBUTION WIDTH 13.7 % 11.6-14.4 (BEAKER) (test code = 412) PLATELET COUNT (BEAKER) (test 266 K/CU MM 150-450 code = 756) MEAN PLATELET VOLUME (BEAKER) 10.7 fL 9.4-12.4 (test code = 754) NUCLEATED RED BLOOD CELLS 0 /100 WBC 0-0 (BEAKER) (test code = 413) NEUTROPHILS RELATIVE PERCENT 88 % (BEAKER) (test code = 429) LYMPHOCYTES RELATIVE PERCENT 6 % (BEAKER) (test code = 430) MONOCYTES RELATIVE PERCENT 3 % (BEAKER) (test code = 431) EOSINOPHILS RELATIVE PERCENT 2 % (BEAKER) (test code = 432) BASOPHILS RELATIVE PERCENT 0 % (BEAKER) (test code = 437) NEUTROPHILS ABSOLUTE COUNT 13.50 K/ L 1.78-5.38 H (BEAKER) (test code = 670) LYMPHOCYTES ABSOLUTE COUNT 0.87 K/ L 1.32-3.57 L (BEAKER) (test code = 414) MONOCYTES ABSOLUTE COUNT (BEAKER) 0.46 K/ L 0.30-0.82 (test code = 415) EOSINOPHILS ABSOLUTE COUNT 0.27 K/ L 0.04-0.54 (BEAKER) (test code = 416) BASOPHILS ABSOLUTE COUNT (BEAKER) 0.03 K/ L 0.01-0.08 (test code = 417) IMMATURE GRANULOCYTES-RELATIVE 2 % 0-1 H PERCENT (BEAKER) (test code = 2800) HEPARIN ASSAY - LOW MOLECULAR [id number] 01:00:00 Test Item Value Reference Range Interpretation Comments LOVENOX-ANTI 10A (BEAKER) (test 0.31 u/ml 0.60-2.00 L code = 1605) Anti-Factor 10-A Level (Heparin Assay for Low Molecular Weight Heparin)Monitoring Guidelines: Blood samples should be obtained 4 hours post subcutaneous injection (time of Peak level) Therapeutic Peak Levels: 0.6-1.0 units/mL twice daily enoxaparin 1.0-2.0 units/mL once daily enoxaparinRef: CHEST 2012;141:[id number] draw exactly 4 hours after lovenox dosePOCT-GLUCOSE [id number] 20:19:00 Test Item Value Reference Range Interpretation Comments POC-GLUCOSE METER 224 mg/dL 70-110 H : TESTED A T [facility] 6720 (BEAKER) (test code [facility], = 1538) [address]: Tax Processor/Techni kg ID = [id number] for LAWSON FLORES POCT-GLUCOSE [id number] 17:06:00 Test Item Value Reference Range Interpretation Comments POC-GLUCOSE METER 139 mg/dL 70-110 H : TESTED A T [facility] 6720 (BEAKER) (test code [facility], = 1538) [address]: Tax Processor/Techni kg ID = [id number] for AMY VERDUZCO BLOOD GAS, [id number] 17:04:00 Test Item Value Reference Range Interpretation Comments PH ARTERIAL (BEAKER) (test code = 7.44 7.35-7.45 383) PCO2 ARTERIAL (BEAKER) (test code 37 mm Hg 35-45 = 384) PO2 ARTERIAL (BEAKER) (test code = 116 mm Hg 80-90 H 385) O2 SATURATION ARTERIAL (BEAKER) 98.3 % 96.0-97.0 H (test code = 386) HCO3 ARTERIAL (BEAKER) (test code 25 mmol/L 21-29 = 388) BASE EXCESS ARTERIAL (BEAKER) 0.9 mmol/L -2.0-3.0 (test code = 387) PATIENT TEMPERATURE (BEAKER) (test 37.5 code = 1818) FIO2 (BEAKER) (test code = 1819) 60.0 POCT-GLUCOSE [id number] 11:14:00 Test Item Value Reference Range Interpretation Comments POC-GLUCOSE METER 176 mg/dL 70-110 H : TESTED A T [facility] 6720 (BEAKER) (test code [facility], = 1538) [address]: Tax Processor/Techni kg ID = [id number] for GONZALEZ L, DHARMISTHA Potassium-Stat [id number] 09:15:00 Test Item Value Reference Range Interpretation Comments Potassium (test code = 2823-3) 5.2 meq/L 3.6-5.5 Lab Interpretation (test code = Normal 48298-4) [facility] [id number] 09:15:00 Test Item Value Reference Range Interpretation Comments Potassium (test code = 2823-3) 5.2 meq/L 3.6-5.5 Lab Interpretation (test code = Normal 88481-1) [facility] [id number] 09:15:00 Test Item Value Reference Range Interpretation Comments POTASSIUM (BEAKER) (test code = 5.2 meq/L 3.6-5.5 379) [id number] 09:00:00 Test Item Value Reference Range Interpretation Comments FERRITIN (BEAKER) (test code = 2445.54 ng/mL 5.00-275.00 H 361) Tax Processor ID - EMERSONOperator ID - EMERSONPOCT-GLUCOSE [id number] 07:57:00 Test Item Value Reference Range Interpretation Comments POC-GLUCOSE METER 128 mg/dL 70-110 H : TESTED A T [facility] 6720 (BEAKER) (test code = [facility] [place], 1538) [address]: Tax Processor/Techni kg ID = [id number] for Cindy Murry COMPREHENSIVE METABOLIC [id number] 06:08:00 Test Item Value Reference Range Interpretation Comments TOTAL PROTEIN 6.5 gm/dL 6.0-8.3 (BEAKER) (test code = 770) ALBUMIN (BEAKER) 2.7 g/dL 3.5-5.0 L (test code = 1145) ALKALINE PHOSPHATASE 99 U/L 40-150 (BEAKER) (test code = 346) BILIRUBIN TOTAL 0.6 mg/dL 0.2-1.2 (BEAKER) (test code = 377) SODIUM (BEAKER) (test 137 meq/L 136-145 code = 381) POTASSIUM (BEAKER) 5.5 meq/L 3.5-5.1 H (test code = 379) CHLORIDE (BEAKER) 105 meq/L 98-107 (test code = 382) CO2 (BEAKER) (test 26 meq/L 22-29 code = 355) BLOOD UREA NITROGEN 23 mg/dL 7-21 H (BEAKER) (test code = 354) CREATININE (BEAKER) 1.08 mg/dL 0.57-1.25 (test code = 358) GLUCOSE RANDOM 93 mg/dL 70-105 (BEAKER) (test code = 652) CALCIUM (BEAKER) 8.1 mg/dL 8.4-10.2 L (test code = 697) AST (SGOT) (BEAKER) 72 U/L 5-34 H (test code = 353) ALT (SGPT) (BEAKER) 53 U/L 6-55 (test code = 347) EGFR (BEAKER) (test 71 mL/min/1.73 ESTIMA SEEMA GFR IS code = 1092) sq m NOT ACCURATE CREATININE CLEARANCE IN PREDICTING GLOMERULAR FILTRATION RATE . ESTIMATED GFR I S NOT APPLICABLE FOR DIALYSIS PATIEN TS. Tax Processor ID - CHAI [id number] 06:08:00 Test Item Value Reference Range Interpretation Comments MAGNESIUM (BEAKER) (test code = 2.3 mg/dL 1.6-2.6 627) Tax Processor ID - CHAI [id number] 06:08:00 Test Item Value Reference Range Interpretation Comments PHOSPHORUS (BEAKER) (test code = 3.6 mg/dL 2.3-4.7 604) Tax Processor ID - CHAI LPOCT-GLUCOSE [id number] 05:30:00 Test Item Value Reference Range Interpretation Comments POC-GLUCOSE METER 106 mg/dL 70-110 : TESTED A T [facility] 6720 (BEAKER) (test code = [facility] [place], 1538) [address]: Tax Processor/Techni kg ID = [id number] for KENISHA SARGENT BLOOD GAS, [id number] 04:59:00 Test Item Value Reference Range Interpretation Comments PH ARTERIAL (BEAKER) (test code = 7.45 7.35-7.45 383) PCO2 ARTERIAL (BEAKER) (test code 40 mm Hg 35-45 = 384) PO2 ARTERIAL (BEAKER) (test code = 115 mm Hg 80-90 H 385) O2 SATURATION ARTERIAL (BEAKER) 98.4 % 96.0-97.0 H (test code = 386) HCO3 ARTERIAL (BEAKER) (test code 27 mmol/L 21-29 = 388) BASE EXCESS ARTERIAL (BEAKER) 2.6 mmol/L -2.0-3.0 (test code = 387) PATIENT TEMPERATURE (BEAKER) (test 37.1 code = 1818) FIO2 (BEAKER) (test code = 1819) 100.0 CBC W/PLT COUNT & AUTO [id number] 04:54:00 Test Item Value Reference Range Interpretation Comments WHITE BLOOD CELL COUNT (BEAKER) 14.7 K/ L 3.5-10.5 H (test code = 775) RED BLOOD CELL COUNT (BEAKER) 4.67 M/ L 4.63-6.08 (test code = 761) HEMOGLOBIN (BEAKER) (test code = 12.9 GM/DL 13.7-17.5 L 410) HEMATOCRIT (BEAKER) (test code = 40.0 % 40.1-51.0 L 411) MEAN CORPUSCULAR VOLUME (BEAKER) 85.7 fL 79.0-92.2 (test code = 753) MEAN CORPUSCULAR HEMOGLOBIN 27.6 pg 25.7-32.2 (BEAKER) (test code = 751) MEAN CORPUSCULAR HEMOGLOBIN CONC 32.3 GM/DL 32.3-36.5 (BEAKER) (test code = 752) RED CELL DISTRIBUTION WIDTH 13.8 % 11.6-14.4 (BEAKER) (test code = 412) PLATELET COUNT (BEAKER) (test 273 K/CU MM 150-450 code = 756) MEAN PLATELET VOLUME (BEAKER) 10.4 fL 9.4-12.4 (test code = 754) NUCLEATED RED BLOOD CELLS 0 /100 WBC 0-0 (BEAKER) (test code = 413) NEUTROPHILS RELATIVE PERCENT 90 % (BEAKER) (test code = 429) LYMPHOCYTES RELATIVE PERCENT 4 % (BEAKER) (test code = 430) MONOCYTES RELATIVE PERCENT 3 % (BEAKER) (test code = 431) EOSINOPHILS RELATIVE PERCENT 0 % (BEAKER) (test code = 432) BASOPHILS RELATIVE PERCENT 0 % (BEAKER) (test code = 437) NEUTROPHILS ABSOLUTE COUNT 13.09 K/ L 1.78-5.38 H (BEAKER) (test code = 670) LYMPHOCYTES ABSOLUTE COUNT 0.52 K/ L 1.32-3.57 L (BEAKER) (test code = 414) MONOCYTES ABSOLUTE COUNT (BEAKER) 0.46 K/ L 0.30-0.82 (test code = 415) EOSINOPHILS ABSOLUTE COUNT 0.05 K/ L 0.04-0.54 (BEAKER) (test code = 416) BASOPHILS ABSOLUTE COUNT (BEAKER) 0.03 K/ L 0.01-0.08 (test code = 417) IMMATURE GRANULOCYTES-RELATIVE 3 % 0-1 H PERCENT (BEAKER) (test code = 2801) [id number] 04:39:00 Test Item Value Reference Range Interpretation Comments PROTIME (BEAKER) (test 14.8 seconds 11.9-14.2 H code = 759) INR (BEAKER) (test 1.19 See_Comment [Automat ed code = 370) message] The sy stem which generated this result transmitted reference range : <=5.90. The reference range was not used to interpret this result as normal/abnormal . PARTIAL THROMBOPLASTIN 31.3 seconds 22.5-36.0 TIME (BEAKER) (test code = 760) Effective 08/25/2018: PT Reference Range ChangeNew: 11.9-14.2 Previous: 11.7- 14.7RECOMMENDED COUMADIN/WARFARIN INR THERAPY RANGESSTANDARD DOSE: 2.0-3.0 Includes: PROPHYLAXIS for venous thrombosis, systemic embolization; TREATMENT for venous thrombosis and/or pulmonary embolus.HIGH RISK: Target INR is 2.5-3.5 for patients wiht mechanical heart valves.LACTATE DEHYDROGENASE (LDH)2020-05-13 01:14:00 Test Item Value Reference Range Interpretation Comments LACTATE DEHYDROGENASE (BEAKER) (test 1093 U/L 125-220 H code = 635) Tax Processor ID - PIAYA [id number] 00:13:00 Test Item Value Reference Range Interpretation Comments D-DIMER QUANTITATIVE (BEAKER) 7.79 MG/L FEU <0.50 H (test code = 671) Intended Use: The D-Dimer Assay can be used to aid in the diagnosis of Deep Vein Thrombosis (DVT) and Pulmonary Embolism Disease (PED).In patients with low pre- test probability, various studies concerning STA Liatest D-dimer test have reported that with a cutoff value of 0.50 MG/L FEU, the Negative Predictive Value (NPV) regarding the exclusion of thrombosis is within 95-100% range.POCT- GLUCOSE [id number] 20:09:00 Test Item Value Reference Range Interpretation Comments POC-GLUCOSE METER 79 mg/dL 70-110 : Notified RN/MD: TESTED (BEAKER) (test code = [facility] [address]) [place], [address]: Tax Processor/Techni kg ID = [id number] for Shaun celestin (contract), Luis Alberto ie [id number] 18:02:00 Test Item Value Reference Range Interpretation Comments MAGNESIUM (BEAKER) 2.1 mg/dL 1.6-2.6 Specimen slightly (test code = 627) hemolyzed Tax Processor ID - EDASIBASIC METABOLIC [id number] 18:02:00 Test Item Value Reference Range Interpretation Comments SODIUM (BEAKER) 138 meq/L 136-145 (test code = 381) POTASSIUM (BEAKER) 4.7 meq/L 3.5-5.1 Specimen slightly (test code = 379) hemolyzed CHLORIDE (BEAKER) 102 meq/L 98-107 (test code = 382) CO2 (BEAKER) (test 26 meq/L 22-29 code = 355) BLOOD UREA NITROGEN 26 mg/dL 7-21 H (BEAKER) (test code = 354) CREATININE (BEAKER) 0.83 mg/dL 0.57-1.25 Specimen slightly (test code = 358) hemolyzed GLUCOSE RANDOM 108 mg/dL 70-105 H (BEAKER) (test code = 652) CALCIUM (BEAKER) 8.1 mg/dL 8.4-10.2 L (test code = 697) EGFR (BEAKER) (test 97 mL/min/1.73 ESTIMA SEEMA GFR IS code = 1092) sq m NOT ACCURATE CREATININE CLEARANCE IN PREDICTING GLOMERULAR FILTRATION RATE . ESTIMATED GFR I S NOT APPLICABLE FOR DIALYSIS PATIEN TS. Tax Processor ID - EDASIBLOOD GAS, [id number] 17:42:00 Test Item Value Reference Range Interpretation Comments PH ARTERIAL (BEAKER) (test code = 7.47 7.35-7.45 H 383) PCO2 ARTERIAL (BEAKER) (test code 37 mm Hg 35-45 = 384) PO2 ARTERIAL (BEAKER) (test code = 80 mm Hg 80-90 385) O2 SATURATION ARTERIAL (BEAKER) 95.9 % 96.0-97.0 L (test code = 386) HCO3 ARTERIAL (BEAKER) (test code 26 mmol/L 21-29 = 388) BASE EXCESS ARTERIAL (BEAKER) 2.6 mmol/L -2.0-3.0 (test code = 387) PATIENT TEMPERATURE (BEAKER) (test 38.1 code = 1818) FIO2 (BEAKER) (test code = 1819) 100.0 HEPARIN ASSAY - LOW MOLECULAR [id number] 13:30:00 Test Item Value Reference Range Interpretation Comments LOVENOX-ANTI 10A (BEAKER) (test 0.74 u/ml 0.60-2.00 code = 1605) Anti-Factor 10-A Level (Heparin Assay for Low Molecular Weight Heparin)Monitoring Guidelines: Blood samples should be obtained 4 hours post subcutaneous injection (time of Peak level) Therapeutic Peak Levels: 0.6-1.0 units/mL twice daily enoxaparin 1.0-2.0 units/mL once daily enoxaparinRef: CHEST 2012;141:[id number] draw exactly 4 hours after lovenox administrationPOCT- GLUCOSE [id number] 12:12:00 Test Item Value Reference Range Interpretation Comments POC-GLUCOSE METER 197 mg/dL 70-110 H : TESTED A T [facility] 6720 (BEAKER) (test code = [facility], 1538) [address]: Tax Processor/Techni kg ID = [id number] for [facility] hooverria POCT-GLUCOSE [id number] 11:18:00 Test Item Value Reference Range Interpretation Comments POC-GLUCOSE METER 193 mg/dL 70-110 H : TESTED A T [facility] 6720 (BEAKER) (test code = [facility], 1538) [address]: Tax Processor/Techni kg ID = [id number] for St eptoe, Erin COMPREHENSIVE METABOLIC [id number] 04:28:00 Test Item Value Reference Range Interpretation Comments TOTAL PROTEIN 6.6 gm/dL 6.0-8.3 (BEAKER) (test code = 770) ALBUMIN (BEAKER) 2.7 g/dL 3.5-5.0 L (test code = 1145) ALKALINE PHOSPHATASE 110 U/L 40-150 (BEAKER) (test code = 346) BILIRUBIN TOTAL 0.4 mg/dL 0.2-1.2 (BEAKER) (test code = 377) SODIUM (BEAKER) (test 136 meq/L 136-145 code = 381) POTASSIUM (BEAKER) 5.3 meq/L 3.5-5.1 H (test code = 379) CHLORIDE (BEAKER) 103 meq/L 98-107 (test code = 382) CO2 (BEAKER) (test 25 meq/L 22-29 code = 355) BLOOD UREA NITROGEN 26 mg/dL 7-21 H (BEAKER) (test code = 354) CREATININE (BEAKER) 0.92 mg/dL 0.57-1.25 (test code = 358) GLUCOSE RANDOM 210 mg/dL 70-105 H (BEAKER) (test code = 652) CALCIUM (BEAKER) 8.1 mg/dL 8.4-10.2 L (test code = 697) AST (SGOT) (BEAKER) 51 U/L 5-34 H (test code = 353) ALT (SGPT) (BEAKER) 33 U/L 6-55 (test code = 347) EGFR (BEAKER) (test 86 mL/min/1.73 ESTIMA SEEMA GFR IS code = 1092) sq m NOT ACCURATE CREATININE CLEARANCE IN PREDICTING GLOMERULAR FILTRATION RATE . ESTIMATED GFR I S NOT APPLICABLE FOR DIALYSIS PATIEN TS. Tax Processor ID - [id number] 04:28:00 Test Item Value Reference Range Interpretation Comments MAGNESIUM (BEAKER) (test code = 2.2 mg/dL 1.6-2.6 627) Tax Processor ID - [id number] 04:28:00 Test Item Value Reference Range Interpretation Comments PHOSPHORUS (BEAKER) (test code = 3.3 mg/dL 2.3-4.7 604) Tax Processor ID - EDASIPT/[id number] 04:03:00 Test Item Value Reference Range Interpretation Comments PROTIME (BEAKER) (test 14.2 seconds 11.9-14.2 code = 759) INR (BEAKER) (test 1.14 See_Comment [Automat ed code = 370) message] The sy stem which generated this result transmitted reference range : <=5.90. The reference range was not used to interpret this result as normal/abnormal . PARTIAL THROMBOPLASTIN 28.6 seconds 22.5-36.0 TIME (BEAKER) (test code = 760) Effective 08/25/2018: PT Reference Range ChangeNew: 11.9-14.2 Previous: 11.7- 14.7RECOMMENDED COUMADIN/WARFARIN INR THERAPY RANGESSTANDARD DOSE: 2.0-3.0 Includes: PROPHYLAXIS for venous thrombosis, systemic embolization; TREATMENT for venous thrombosis and/or pulmonary embolus.HIGH RISK: Target INR is 2.5-3.5 for patients wiht mechanical heart valves.Blood gas, [id number] 03:49:00 Test Item Value Reference Range Interpretation Comments pH, Anthony (test code = 7.42 7.32-7.42 2746-6) pCO2, Anthony (test code = 45 See_Comment [Aut omated message] 385) The system [employer] generated this result transmit seema reference range : 41 - 51 mm Hg. The reference range was not used to interpret this result as normal/abnormal . pO2, Anthony (test code = 79 See_Comment H [Auto mated message] 9105-2) The system [employer] generated this result transmit seema reference range : 25 - 40 mm Hg. The reference range was not used to interpret this result as normal/abnormal . O2 Sat, Anthony (test code 95.8 % 40.0-70.0 H = 2711-0) HCO3, Anthony (test code = 28 mmol/L 21-29 03660-7) Base Excess, Anthony (test 3.0 mmol/L -2.0-3.0 code = 1927-3) Patient Temperature 37.0 (test code = 8310-5) FIO2 (test code = 1819) 100 Lab Interpretation Abnormal (test code = 37564-2) [facility] [id number] 03:49:00 Test Item Value Reference Range Interpretation Comments pH, Anthony (test code = 7.42 7.32-7.42 2746-6) pCO2, Anthony (test code = 45 See_Comment [Aut omated message] 845) The system [employer] generated this result transmit seema reference range : 41 - 51 mm Hg. The reference range was not used to interpret this result as normal/abnormal . pO2, Anthony (test code = 79 See_Comment H [Auto mated message] 8165-2) The system [employer] generated this result transmit seema reference range : 25 - 40 mm Hg. The reference range was not used to interpret this result as normal/abnormal . O2 Sat, Anthony (test code 95.8 % 40.0-70.0 H = 2711-0) HCO3, Anthony (test code = 28 mmol/L 21-29 95653-2) Base Excess, Anthony (test 3.0 mmol/L -2.0-3.0 code = 1927-3) Patient Temperature 37.0 (test code = 8310-5) FIO2 (test code = 1819) 100 Lab Interpretation Abnormal (test code = 50873-2) [facility], [id number] 03:49:00 Test Item Value Reference Range Interpretation Comments PH VENOUS (BEAKER) (test code = 7.42 7.32-7.42 701) PCO2 VENOUS (BEAKER) (test code = 45 mm Hg 41-51 755) PO2 VENOUS (BEAKER) (test code = 79 mm Hg 25-40 H 702) O2 SATURATION VENOUS (BEAKER) 95.8 % 40.0-70.0 H (test code = 703) HCO3 VENOUS (BEAKER) (test code = 28 mmol/L 21-29 705) BASE EXCESS VENOUS (BEAKER) (test 3.0 mmol/L -2.0-3.0 code = 704) PATIENT TEMPERATURE (BEAKER) (test 37.0 code = 1818) FIO2 (BEAKER) (test code = 1819) 100.0 CBC W/PLT COUNT & AUTO [id number] 03:47:00 Test Item Value Reference Range Interpretation Comments WHITE BLOOD CELL COUNT (BEAKER) 9.9 K/ L 3.5-10.5 (test code = 775) RED BLOOD CELL COUNT (BEAKER) 4.62 M/ L 4.63-6.08 L (test code = 761) HEMOGLOBIN (BEAKER) (test code = 12.8 GM/DL 13.7-17.5 L 410) HEMATOCRIT (BEAKER) (test code = 40.2 % 40.1-51.0 411) MEAN CORPUSCULAR VOLUME (BEAKER) 87.0 fL 79.0-92.2 (test code = 753) MEAN CORPUSCULAR HEMOGLOBIN 27.7 pg 25.7-32.2 (BEAKER) (test code = 751) MEAN CORPUSCULAR HEMOGLOBIN CONC 31.8 GM/DL 32.3-36.5 L (BEAKER) (test code = 752) RED CELL DISTRIBUTION WIDTH 13.5 % 11.6-14.4 (BEAKER) (test code = 412) PLATELET COUNT (BEAKER) (test 264 K/CU MM 150-450 code = 756) MEAN PLATELET VOLUME (BEAKER) 10.7 fL 9.4-12.4 (test code = 754) NUCLEATED RED BLOOD CELLS 0 /100 WBC 0-0 (BEAKER) (test code = 413) NEUTROPHILS RELATIVE PERCENT 90 % (BEAKER) (test code = 429) LYMPHOCYTES RELATIVE PERCENT 4 % (BEAKER) (test code = 430) MONOCYTES RELATIVE PERCENT 3 % (BEAKER) (test code = 431) EOSINOPHILS RELATIVE PERCENT 0 % (BEAKER) (test code = 432) BASOPHILS RELATIVE PERCENT 0 % (BEAKER) (test code = 437) NEUTROPHILS ABSOLUTE COUNT 8.89 K/ L 1.78-5.38 H (BEAKER) (test code = 670) LYMPHOCYTES ABSOLUTE COUNT 0.37 K/ L 1.32-3.57 L (BEAKER) (test code = 414) MONOCYTES ABSOLUTE COUNT (BEAKER) 0.33 K/ L 0.30-0.82 (test code = 415) EOSINOPHILS ABSOLUTE COUNT 0.04 K/ L 0.04-0.54 (BEAKER) (test code = 416) BASOPHILS ABSOLUTE COUNT (BEAKER) 0.02 K/ L 0.01-0.08 (test code = 417) IMMATURE GRANULOCYTES-RELATIVE 3 % 0-1 H PERCENT (BEAKER) (test code = 2801) POCT-GLUCOSE [id number] 20:23:00 Test Item Value Reference Range Interpretation Comments POC-GLUCOSE METER 268 mg/dL 70-110 H : Notified RN/MD: (KYLE) (test code = TESTED AT [facility] 9710 5859) [facility], [address]: Tax Processor/Techni kg ID = [id number] for Ro gel (contract), Luis Alberto ie BLOOD GAS, [id number] 17:53:00 Test Item Value Reference Range Interpretation Comments PH VENOUS (BEAKER) (test code = 7.39 7.32-7.42 701) PCO2 VENOUS (BEAKER) (test code = 50 mm Hg 41-51 755) PO2 VENOUS (BEAKER) (test code = 60 mm Hg 25-40 H 702) O2 SATURATION VENOUS (BEAKER) 90.3 % 40.0-70.0 H (test code = 703) HCO3 VENOUS (BEAKER) (test code = 30 mmol/L 21-29 H 705) BASE EXCESS VENOUS (BEAKER) (test 3.5 mmol/L -2.0-3.0 H code = 704) PATIENT TEMPERATURE (BEAKER) (test 37.0 code = 1818) FIO2 (BEAKER) (test code = 1819) 21.0 POCT-GLUCOSE [id number] 17:46:00 Test Item Value Reference Range Interpretation Comments POC-GLUCOSE METER 274 mg/dL 70-110 H : TESTED A T [facility] 6720 (BEAKER) (test code = [facility], 1538) [address]: Tax Processor/Techni kg ID = [id number] for SAMARA, ASTRID LER POCT-GLUCOSE [id number] 11:33:00 Test Item Value Reference Range Interpretation Comments POC-GLUCOSE METER 229 mg/dL 70-110 H : TESTED A T [facility] 6720 (BEAKER) (test code = [facility], 1538) [address]: Tax Processor/Techni kg ID = [id number] for SAMARA, ASTRID LER RAD, CHEST, 1 VIEW, NON [id number] 09:30:00Reason for exam:->shortness of breathShould this be performed at the bedside?->Yes [facility] 1965 Sex: MFINAL REPORT CLINICAL HISTORY: shortness of breath TECHNIQUE: 1 view of the chest. COMPARISON: 05/09/2020 IMPRESSION: Confluent bilateral pulmonary infiltrates are grossly unchanged. Subpulmonic pleural effusions cannot be excluded. The cardiomediastinal silhouette is magnified by technique. Signed: Lulu Starks MDReport Verified Date/Time: 05/11/2020 09:30:25 Reading Location: [facility] Radiology Reading Room POCT-GLUCOSE [id number] 08:43:00 Test Item Value Reference Range Interpretation Comments POC-GLUCOSE METER 223 mg/dL 70-110 H : Notified RN/MD: (BEAKER) (test code = TESTED AT [facility] 6720 1538) [facility], [address]: Tax Processor/Techni kg ID = [id number] for ALEC ESCOTO COMPREHENSIVE METABOLIC [id number] 05:31:00 Test Item Value Reference Range Interpretation Comments TOTAL PROTEIN 6.5 gm/dL 6.0-8.3 (BEAKER) (test code = 770) ALBUMIN (BEAKER) 2.6 g/dL 3.5-5.0 L (test code = 1145) ALKALINE PHOSPHATASE 98 U/L 40-150 (BEAKER) (test code = 346) BILIRUBIN TOTAL 0.5 mg/dL 0.2-1.2 (BEAKER) (test code = 377) SODIUM (BEAKER) (test 135 meq/L 136-145 L code = 381) POTASSIUM (BEAKER) 5.0 meq/L 3.5-5.1 (test code = 379) CHLORIDE (BEAKER) 102 meq/L 98-107 (test code = 382) CO2 (BEAKER) (test 28 meq/L 22-29 code = 355) BLOOD UREA NITROGEN 30 mg/dL 7-21 H (BEAKER) (test code = 354) CREATININE (BEAKER) 1.00 mg/dL 0.57-1.25 (test code = 358) GLUCOSE RANDOM 218 mg/dL 70-105 H (BEAKER) (test code = 652) CALCIUM (BEAKER) 7.9 mg/dL 8.4-10.2 L (test code = 697) AST (SGOT) (BEAKER) 47 U/L 5-34 H (test code = 353) ALT (SGPT) (BEAKER) 26 U/L 6-55 (test code = 347) EGFR (BEAKER) (test 78 mL/min/1.73 ESTIMA SEEMA GFR IS code = 1092) sq m NOT ACCURATE CREATININE CLEARANCE IN PREDICTING GLOMERULAR FILTRATION RATE . ESTIMATED GFR I S NOT APPLICABLE FOR DIALYSIS PATIEN TS. Tax Processor ID - [id number] 05:26:00 Test Item Value Reference Range Interpretation Comments MAGNESIUM (BEAKER) (test code = 2.4 mg/dL 1.6-2.6 627) Tax Processor ID - [id number] 05:26:00 Test Item Value Reference Range Interpretation Comments PHOSPHORUS (BEAKER) (test code = 3.7 mg/dL 2.3-4.7 604) Tax Processor ID - EDASIPT/[id number] 04:47:00 Test Item Value Reference Range Interpretation Comments PROTIME (BEAKER) (test 14.7 seconds 11.9-14.2 H code = 759) INR (BEAKER) (test 1.18 See_Comment [Automat ed code = 370) message] The sy stem which generated this result transmitted reference range : <=5.90. The reference range was not used to interpret this result as normal/abnormal . PARTIAL THROMBOPLASTIN 31.2 seconds 22.5-36.0 TIME (BEAKER) (test code = 760) Effective 08/25/2018: PT Reference Range ChangeNew: 11.9-14.2 Previous: 11.7- 14.7RECOMMENDED COUMADIN/WARFARIN INR THERAPY RANGESSTANDARD DOSE: 2.0-3.0 Includes: PROPHYLAXIS for venous thrombosis, systemic embolization; TREATMENT for venous thrombosis and/or pulmonary embolus.HIGH RISK: Target INR is 2.5-3.5 for patients wiht mechanical heart valves.CBC W/PLT COUNT & AUTO [id number] 04:37:00 Test Item Value Reference Range Interpretation Comments WHITE BLOOD CELL COUNT (BEAKER) 7.3 K/ L 3.5-10.5 (test code = 775) RED BLOOD CELL COUNT (BEAKER) 4.36 M/ L 4.63-6.08 L (test code = 761) HEMOGLOBIN (BEAKER) (test code = 12.0 GM/DL 13.7-17.5 L 410) HEMATOCRIT (BEAKER) (test code = 37.9 % 40.1-51.0 L 411) MEAN CORPUSCULAR VOLUME (BEAKER) 86.9 fL 79.0-92.2 (test code = 753) MEAN CORPUSCULAR HEMOGLOBIN 27.5 pg 25.7-32.2 (BEAKER) (test code = 751) MEAN CORPUSCULAR HEMOGLOBIN CONC 31.7 GM/DL 32.3-36.5 L (BEAKER) (test code = 752) RED CELL DISTRIBUTION WIDTH 13.5 % 11.6-14.4 (BEAKER) (test code = 412) PLATELET COUNT (BEAKER) (test 244 K/CU MM 150-450 code = 756) MEAN PLATELET VOLUME (BEAKER) 10.4 fL 9.4-12.4 (test code = 754) NUCLEATED RED BLOOD CELLS 0 /100 WBC 0-0 (BEAKER) (test code = 413) NEUTROPHILS RELATIVE PERCENT 89 % (BEAKER) (test code = 429) LYMPHOCYTES RELATIVE PERCENT 5 % (BEAKER) (test code = 430) MONOCYTES RELATIVE PERCENT 3 % (BEAKER) (test code = 431) EOSINOPHILS RELATIVE PERCENT 0 % (BEAKER) (test code = 432) BASOPHILS RELATIVE PERCENT 0 % (BEAKER) (test code = 437) NEUTROPHILS ABSOLUTE COUNT 6.45 K/ L 1.78-5.38 H (BEAKER) (test code = 670) LYMPHOCYTES ABSOLUTE COUNT 0.37 K/ L 1.32-3.57 L (BEAKER) (test code = 414) MONOCYTES ABSOLUTE COUNT (BEAKER) 0.22 K/ L 0.30-0.82 L (test code = 415) EOSINOPHILS ABSOLUTE COUNT 0.01 K/ L 0.04-0.54 L (BEAKER) (test code = 416) BASOPHILS ABSOLUTE COUNT (BEAKER) 0.01 K/ L 0.01-0.08 (test code = 417) IMMATURE GRANULOCYTES-RELATIVE 3 % 0-1 H PERCENT (BEAKER) (test code = 2801) BLOOD GAS, [id number] 04:36:00 Test Item Value Reference Range Interpretation Comments PH VENOUS (BEAKER) (test code = 7.43 7.32-7.42 H 701) PCO2 VENOUS (BEAKER) (test code = 48 mm Hg 41-51 755) PO2 VENOUS (BEAKER) (test code = 73 mm Hg 25-40 H 702) O2 SATURATION VENOUS (BEAKER) 94.8 % 40.0-70.0 H (test code = 703) HCO3 VENOUS (BEAKER) (test code = 31 mmol/L 21-29 H 705) BASE EXCESS VENOUS (BEAKER) (test 5.3 mmol/L -2.0-3.0 H code = 704) PATIENT TEMPERATURE (BEAKER) (test 37.0 code = 1818) FIO2 (BEAKER) (test code = 1819) 21.0 [id number] 03:53:00 Test Item Value Reference Range Interpretation Comments FERRITIN (BEAKER) (test code = 2379.24 ng/mL 5.00-275.00 H 361) Tax Processor ID - EDASIOperator ID - EDASILACTATE DEHYDROGENASE (LDH)2020-05-10 23:54:00 Test Item Value Reference Range Interpretation Comments LACTATE DEHYDROGENASE (BEAKER) (test 1229 U/L 125-220 H code = 635) Tax Processor ID - PIAYA [id number] 23:53:00 Test Item Value Reference Range Interpretation Comments D-DIMER QUANTITATIVE (BEAKER) 3.63 MG/L FEU <0.50 H (test code = 671) Intended Use: The D-Dimer Assay can be used to aid in the diagnosis of Deep Vein Thrombosis (DVT) and Pulmonary Embolism Disease (PED).In patients with low pre- test probability, various studies concerning STA Liatest D-dimer test have reported that with a cutoff value of 0.50 MG/L FEU, the Negative Predictive Value (NPV) regarding the exclusion of thrombosis is within 95-100% range.POCT- GLUCOSE [id number] 21:02:00 Test Item Value Reference Range Interpretation Comments POC-GLUCOSE METER 299 mg/dL 70-110 H : TESTED A T [facility] 6720 (BEAKER) (test code = [facility] [place], 1538) [address]: Tax Processor/Techni kg ID = [id number] for Ro gel (contract), Luis Alberto ie BLOOD GAS, [id number] 18:29:00 Test Item Value Reference Range Interpretation Comments PH VENOUS (BEAKER) (test code = 7.43 7.32-7.42 H 701) PCO2 VENOUS (BEAKER) (test code = 44 mm Hg 41-51 755) PO2 VENOUS (BEAKER) (test code = 95 mm Hg 25-40 H 702) O2 SATURATION VENOUS (BEAKER) 97.4 % 40.0-70.0 H (test code = 703) HCO3 VENOUS (BEAKER) (test code = 29 mmol/L 21-29 705) BASE EXCESS VENOUS (BEAKER) (test 3.6 mmol/L -2.0-3.0 H code = 704) PATIENT TEMPERATURE (BEAKER) (test 37.0 code = 1818) FIO2 (BEAKER) (test code = 1819) 21.0 POCT-GLUCOSE [id number] 17:57:00 Test Item Value Reference Range Interpretation Comments POC-GLUCOSE METER 272 mg/dL 70-110 H : TESTED A T [facility] 6720 (BEAKER) (test code = [facility], 1538) [address]: Tax Processor/Techni kg ID = [id number] for ASTRID PASCUAL [id number] 16:17:00 Test Item Value Reference Range Interpretation Comments FERRITIN (BEAKER) (test code = 2316.00 ng/mL 5.00-275.00 H 361) Tax Processor ID - BSOperator ID - BSPOCT-GLUCOSE [id number] 11:10:00 Test Item Value Reference Range Interpretation Comments POC-GLUCOSE METER 239 mg/dL 70-110 H : TESTED A T [facility] 6720 (BEAKER) (test code = [facility], 1538) [address]: Tax Processor/Techni kg ID = [id number] for LE IJA, AURA POCT-GLUCOSE [id number] 07:56:00 Test Item Value Reference Range Interpretation Comments POC-GLUCOSE METER 137 mg/dL 70-110 H : TESTED A T [facility] 6720 (BEAKER) (test code = [facility], 1538) [address]: Tax Processor/Techni kg ID = [id number] for LE IJA, AURA [id number] 07:54:00 Test Item Value Reference Range Interpretation Comments D-DIMER QUANTITATIVE (BEAKER) 4.22 MG/L FEU <0.50 H (test code = 671) Intended Use: The D-Dimer Assay can be used to aid in the diagnosis of Deep Vein Thrombosis (DVT) and Pulmonary Embolism Disease (PED).In patients with low pre- test probability, various studies concerning STA Liatest D-dimer test have reported that with a cutoff value of 0.50 MG/L FEU, the Negative Predictive Value (NPV) regarding the exclusion of thrombosis is within 95-100% range. LACTATE DEHYDROGENASE (LDH)2020-05-10 07:45:00 Test Item Value Reference Range Interpretation Comments LACTATE DEHYDROGENASE (BEAKER) (test 1439 U/L 125-220 H code = 635) Tax Processor ID - [place] FCBC W/PLT COUNT & AUTO [id number] 05:52:00 Test Item Value Reference Range Interpretation Comments WHITE BLOOD CELL COUNT (BEAKER) 7.5 K/ L 3.5-10.5 (test code = 775) RED BLOOD CELL COUNT (BEAKER) 4.61 M/ L 4.63-6.08 L (test code = 761) HEMOGLOBIN (BEAKER) (test code = 12.7 GM/DL 13.7-17.5 L 410) HEMATOCRIT (BEAKER) (test code = 39.2 % 40.1-51.0 L 411) MEAN CORPUSCULAR VOLUME (BEAKER) 85.0 fL 79.0-92.2 (test code = 753) MEAN CORPUSCULAR HEMOGLOBIN 27.5 pg 25.7-32.2 (BEAKER) (test code = 751) MEAN CORPUSCULAR HEMOGLOBIN CONC 32.4 GM/DL 32.3-36.5 (BEAKER) (test code = 752) RED CELL DISTRIBUTION WIDTH 13.7 % 11.6-14.4 (BEAKER) (test code = 412) PLATELET COUNT (BEAKER) (test 248 K/CU MM 150-450 code = 756) MEAN PLATELET VOLUME (BEAKER) 11.1 fL 9.4-12.4 (test code = 754) NUCLEATED RED BLOOD CELLS 0 /100 WBC 0-0 (BEAKER) (test code = 413) NEUTROPHILS RELATIVE PERCENT 88 % (BEAKER) (test code = 429) LYMPHOCYTES RELATIVE PERCENT 6 % (BEAKER) (test code = 430) MONOCYTES RELATIVE PERCENT 2 % (BEAKER) (test code = 431) EOSINOPHILS RELATIVE PERCENT 0 % (BEAKER) (test code = 432) BASOPHILS RELATIVE PERCENT 0 % (BEAKER) (test code = 437) NEUTROPHILS ABSOLUTE COUNT 6.59 K/ L 1.78-5.38 H (BEAKER) (test code = 670) LYMPHOCYTES ABSOLUTE COUNT 0.42 K/ L 1.32-3.57 L (BEAKER) (test code = 414) MONOCYTES ABSOLUTE COUNT (BEAKER) 0.18 K/ L 0.30-0.82 L (test code = 415) EOSINOPHILS ABSOLUTE COUNT 0.02 K/ L 0.04-0.54 L (BEAKER) (test code = 416) BASOPHILS ABSOLUTE COUNT (BEAKER) 0.01 K/ L 0.01-0.08 (test code = 417) IMMATURE GRANULOCYTES-RELATIVE 4 % 0-1 H PERCENT (BEAKER) (test code = 2801) [id number] 05:40:00 Test Item Value Reference Range Interpretation Comments PROTIME (BEAKER) (test 15.4 seconds 11.9-14.2 H code = 759) INR (BEAKER) (test 1.25 See_Comment [Automat ed code = 370) message] The sy stem which generated this result transmitted reference range : <=5.90. The reference range was not used to interpret this result as normal/abnormal . PARTIAL THROMBOPLASTIN 33.9 seconds 22.5-36.0 TIME (BEAKER) (test code = 760) Effective 08/25/2018: PT Reference Range ChangeNew: 11.9-14.2 Previous: 11.7- 14.7RECOMMENDED COUMADIN/WARFARIN INR THERAPY RANGESSTANDARD DOSE: 2.0-3.0 Includes: PROPHYLAXIS for venous thrombosis, systemic embolization; TREATMENT for venous thrombosis and/or pulmonary embolus.HIGH RISK: Target INR is 2.5-3.5 for patients wiht mechanical heart valves.COMPREHENSIVE METABOLIC PANEL 2020-05-10 05:36:00 Test Item Value Reference Range Interpretation Comments TOTAL PROTEIN 6.6 gm/dL 6.0-8.3 (BEAKER) (test code = 770) ALBUMIN (BEAKER) 2.8 g/dL 3.5-5.0 L (test code = 1145) ALKALINE PHOSPHATASE 89 U/L 40-150 (BEAKER) (test code = 346) BILIRUBIN TOTAL 0.6 mg/dL 0.2-1.2 (BEAKER) (test code = 377) SODIUM (BEAKER) (test 137 meq/L 136-145 code = 381) POTASSIUM (BEAKER) 4.8 meq/L 3.5-5.1 (test code = 379) CHLORIDE (BEAKER) 101 meq/L 98-107 (test code = 382) CO2 (BEAKER) (test 29 meq/L 22-29 code = 355) BLOOD UREA NITROGEN 26 mg/dL 7-21 H (BEAKER) (test code = 354) CREATININE (BEAKER) 1.09 mg/dL 0.57-1.25 (test code = 358) GLUCOSE RANDOM 122 mg/dL 70-105 H (BEAKER) (test code = 652) CALCIUM (BEAKER) 8.0 mg/dL 8.4-10.2 L (test code = 697) AST (SGOT) (BEAKER) 65 U/L 5-34 H (test code = 353) ALT (SGPT) (BEAKER) 30 U/L 6-55 (test code = 347) EGFR (BEAKER) (test 70 mL/min/1.73 ESTIMA SEEMA GFR IS code = 1092) sq m NOT ACCURATE CREATININE CLEARANCE IN PREDICTING GLOMERULAR FILTRATION RATE . ESTIMATED GFR I S NOT APPLICABLE FOR DIALYSIS PATIEN TS. Tax Processor ID - [id number] 05:36:00 Test Item Value Reference Range Interpretation Comments MAGNESIUM (BEAKER) (test code = 2.4 mg/dL 1.6-2.6 627) Tax Processor ID - [id number] 05:36:00 Test Item Value Reference Range Interpretation Comments PHOSPHORUS (BEAKER) (test code = 3.2 mg/dL 2.3-4.7 604) Tax Processor ID - [id number] GAS, [id number] 05:24:00 Test Item Value Reference Range Interpretation Comments PH ARTERIAL (BEAKER) (test code = 7.46 7.35-7.45 H 383) PCO2 ARTERIAL (BEAKER) (test code 42 mm Hg 35-45 = 384) PO2 ARTERIAL (BEAKER) (test code = 101 mm Hg 80-90 H 385) O2 SATURATION ARTERIAL (BEAKER) 97.8 % 96.0-97.0 H (test code = 386) HCO3 ARTERIAL (BEAKER) (test code 29 mmol/L 21-29 = 388) BASE EXCESS ARTERIAL (BEAKER) 4.8 mmol/L -2.0-3.0 H (test code = 387) PATIENT TEMPERATURE (BEAKER) (test 37.1 code = 1818) FIO2 (BEAKER) (test code = 1819) 100.0 POCT-GLUCOSE [id number] 05:16:00 Test Item Value Reference Range Interpretation Comments POC-GLUCOSE METER 120 mg/dL 70-110 H : TESTED A T [facility] 6720 (BEAKER) (test code = [facility], 1538) [address]: Tax Processor/Techni kg ID = [id number] for Jerry Valdez POCT-GLUCOSE [id number] 21:59:00 Test Item Value Reference Range Interpretation Comments POC-GLUCOSE METER 155 mg/dL 70-110 H : TESTED A T [facility] 6720 (BEAKER) (test code = [facility], 1538) [address]: Tax Processor/Techni kg ID = [id number] for BRAULIO GUADALUPE B-type Natriuretic Factor (BNP)2020-05-09 19:52:00 Test Item Value Reference Range Interpretation Comments BNP (test code = 09712-2) 38 pg/mL 0-100 YUSEF (test code = YUSEF) Tax Processor ID - BS Lab Interpretation (test Normal code = 04533-3) [facility]2020-05-09 19:52:00 Test Item Value Reference Range Interpretation Comments BNP (test code = 64265-8) 38 pg/mL 0-100 YUSEF (test code = YUSEF) Tax Processor ID - BS Lab Interpretation (test Normal code = 36758-6) [facility] NAT[facility] FACTOR (BNP)2020-05-09 19:52:00 Test Item Value Reference Range Interpretation Comments B-TYPE NATRIURETIC PEPTIDE (BEAKER) 38 pg/mL 0-100 (test code = 700) Tax Processor ID - BSPOCT-GLUCOSE [id number] 17:15:00 Test Item Value Reference Range Interpretation Comments POC-GLUCOSE METER 218 mg/dL 70-110 H : TESTED Vinay Dowling [facility] 6720 (BEAKER) (test code = [facility] [place], 1538) [address]: Tax Processor/Techni kg ID = [id number] for ASTRID PASCUAL LER RAD, CHEST, 1 VIEW, NON [id number] 15:32:00Reason for exam:->respiratory insufficiencyShould this be performed at the bedside?->Yes [facility] 1965 Sex: MFINAL REPORT CLINICAL HISTORY: respiratory insufficiency TECHNIQUE: 1 view of the chest. COMPARISON: 05/03/2020 IMPRESSION: There are diffusely increased bilateral pulmonary infiltrates, nearlyconfluent throughout both lungs. Pleural effusions cannot be excluded. The cardiomediastinal silhouette is magnified by technique. Signed: Lulu Starks MDReport Verified Date/Time: 05/09/2020 15:32:43Reading Location: [facility] Radiology Reading Room BLOOD GAS, [id number] 15:25:00 Test Item Value Reference Range Interpretation Comments PH ARTERIAL (BEAKER) (test code = 7.49 7.35-7.45 H 383) PCO2 ARTERIAL (BEAKER) (test code 37 mm Hg 35-45 = 384) PO2 ARTERIAL (BEAKER) (test code = 160 mm Hg 80-90 H 385) O2 SATURATION ARTERIAL (BEAKER) 99.2 % 96.0-97.0 H (test code = 386) HCO3 ARTERIAL (BEAKER) (test code 28 mmol/L 21-29 = 388) BASE EXCESS ARTERIAL (BEAKER) 4.4 mmol/L -2.0-3.0 H (test code = 387) PATIENT TEMPERATURE (BEAKER) (test 37.5 code = 1818) FIO2 (BEAKER) (test code = 1819) 100.0 POCT-GLUCOSE [id number] 11:50:00 Test Item Value Reference Range Interpretation Comments POC-GLUCOSE METER 253 mg/dL 70-110 H : Notified RN/MD: ([facility]) (test code = TESTED AT [facility] 6720 1538) [facility] [id number]: Tax Processor/Techni kg ID = [id number] for ALEC ESCOTO POCT-GLUCOSE [id number] 09:49:00 Test Item Value Reference Range Interpretation Comments POC-GLUCOSE METER 106 mg/dL 70-110 : TESTED A T [facility] 6720 ([facility]) (test code = [facility], 1538) [address]: Tax Processor/Techni kg ID = [id number] for ASTRID PASCUAL COMPREHENSIVE METABOLIC [id number] 05:21:00 Test Item Value Reference Range Interpretation Comments TOTAL PROTEIN 6.4 gm/dL 6.0-8.3 (BEAKER) (test code = 770) ALBUMIN (BEAKER) 2.8 g/dL 3.5-5.0 L (test code = 1145) ALKALINE PHOSPHATASE 91 U/L 40-150 (BEAKER) (test code = 346) BILIRUBIN TOTAL 0.5 mg/dL 0.2-1.2 (BEAKER) (test code = 377) SODIUM (BEAKER) (test 139 meq/L 136-145 code = 381) POTASSIUM (BEAKER) 4.5 meq/L 3.5-5.1 (test code = 379) CHLORIDE (BEAKER) 102 meq/L 98-107 (test code = 382) CO2 (BEAKER) (test 29 meq/L 22-29 code = 355) BLOOD UREA NITROGEN 31 mg/dL 7-21 H (BEAKER) (test code = 354) CREATININE (BEAKER) 1.25 mg/dL 0.57-1.25 (test code = 358) GLUCOSE RANDOM 77 mg/dL 70-105 (BEAKER) (test code = 652) CALCIUM (BEAKER) 8.0 mg/dL 8.4-10.2 L (test code = 697) AST (SGOT) (BEAKER) 110 U/L 5-34 H (test code = 353) ALT (SGPT) (BEAKER) 34 U/L 6-55 (test code = 347) EGFR (BEAKER) (test 60 mL/min/1.73 ESTIMA SEEMA GFR IS code = 1092) sq m NOT ACCURATE CREATININE CLEARANCE IN PREDICTING GLOMERULAR FILTRATION RATE . ESTIMATED GFR I S NOT APPLICABLE FOR DIALYSIS PATIEN TS. Tax Processor ID - [id number] 05:21:00 Test Item Value Reference Range Interpretation Comments MAGNESIUM (BEAKER) (test code = 2.2 mg/dL 1.6-2.6 627) Tax Processor ID - [id number] 05:21:00 Test Item Value Reference Range Interpretation Comments PHOSPHORUS (BEAKER) (test code = 3.4 mg/dL 2.3-4.7 604) Tax Processor ID - EDASICBC W/PLT COUNT & AUTO [id number] 05:07:00 Test Item Value Reference Range Interpretation Comments WHITE BLOOD CELL COUNT (BEAKER) 10.8 K/ L 3.5-10.5 H (test code = 775) RED BLOOD CELL COUNT (BEAKER) 4.48 M/ L 4.63-6.08 L (test code = 761) HEMOGLOBIN (BEAKER) (test code = 12.3 GM/DL 13.7-17.5 L 410) HEMATOCRIT (BEAKER) (test code = 38.3 % 40.1-51.0 L 411) MEAN CORPUSCULAR VOLUME (BEAKER) 85.5 fL 79.0-92.2 (test code = 753) MEAN CORPUSCULAR HEMOGLOBIN 27.5 pg 25.7-32.2 (BEAKER) (test code = 751) MEAN CORPUSCULAR HEMOGLOBIN CONC 32.1 GM/DL 32.3-36.5 L (BEAKER) (test code = 752) RED CELL DISTRIBUTION WIDTH 13.6 % 11.6-14.4 (BEAKER) (test code = 412) PLATELET COUNT (BEAKER) (test 260 K/CU MM 150-450 code = 756) MEAN PLATELET VOLUME (BEAKER) 10.7 fL 9.4-12.4 (test code = 754) NUCLEATED RED BLOOD CELLS 0 /100 WBC 0-0 (BEAKER) (test code = 413) NEUTROPHILS RELATIVE PERCENT 85 % (BEAKER) (test code = 429) LYMPHOCYTES RELATIVE PERCENT 6 % (BEAKER) (test code = 430) MONOCYTES RELATIVE PERCENT 7 % (BEAKER) (test code = 431) EOSINOPHILS RELATIVE PERCENT 0 % (BEAKER) (test code = 432) BASOPHILS RELATIVE PERCENT 0 % (BEAKER) (test code = 437) NEUTROPHILS ABSOLUTE COUNT 9.17 K/ L 1.78-5.38 H (BEAKER) (test code = 670) LYMPHOCYTES ABSOLUTE COUNT 0.60 K/ L 1.32-3.57 L (BEAKER) (test code = 414) MONOCYTES ABSOLUTE COUNT (BEAKER) 0.76 K/ L 0.30-0.82 (test code = 415) EOSINOPHILS ABSOLUTE COUNT 0.00 K/ L 0.04-0.54 L (BEAKER) (test code = 416) BASOPHILS ABSOLUTE COUNT (BEAKER) 0.03 K/ L 0.01-0.08 (test code = 417) IMMATURE GRANULOCYTES-RELATIVE 3 % 0-1 H PERCENT (BEAKER) (test code = 2801) BLOOD GAS, [id number] 05:01:00 Test Item Value Reference Range Interpretation Comments PH ARTERIAL (BEAKER) (test code = 7.47 7.35-7.45 H 383) PCO2 ARTERIAL (BEAKER) (test code 40 mm Hg 35-45 = 384) PO2 ARTERIAL (BEAKER) (test code = 66 mm Hg 80-90 L 385) O2 SATURATION ARTERIAL (BEAKER) 93.8 % 96.0-97.0 L (test code = 386) HCO3 ARTERIAL (BEAKER) (test code 29 mmol/L 21-29 = 388) BASE EXCESS ARTERIAL (BEAKER) 5.0 mmol/L -2.0-3.0 H (test code = 387) PATIENT TEMPERATURE (BEAKER) (test 37.5 code = 1818) FIO2 (BEAKER) (test code = 1819) 100.0 PT/[id number] 04:55:00 Test Item Value Reference Range Interpretation Comments PROTIME (BEAKER) (test 15.0 seconds 11.9-14.2 H code = 759) INR (BEAKER) (test 1.21 See_Comment [Automat ed code = 370) message] The sy stem which generated this result transmitted reference range : <=5.90. The reference range was not used to interpret this result as normal/abnormal . PARTIAL THROMBOPLASTIN 29.2 seconds 22.5-36.0 TIME (BEAKER) (test code = 760) Effective 08/25/2018: PT Reference Range ChangeNew: 11.9-14.2 Previous: 11.7- 14.7RECOMMENDED COUMADIN/WARFARIN INR THERAPY RANGESSTANDARD DOSE: 2.0-3.0 Includes: PROPHYLAXIS for venous thrombosis, systemic embolization; TREATMENT for venous thrombosis and/or pulmonary embolus.HIGH RISK: Target INR is 2.5-3.5 for patients wiht mechanical heart valves.BLOOD [id number] 03:00:00 Test Item Value Reference Range Interpretation Comments CULTURE (BEAKER) (test No growth in 5 days code = 1095) BLOOD [id number] 02:00:00 Test Item Value Reference Range Interpretation Comments CULTURE (BEAKER) (test No growth in 5 days code = 1095) POCT-GLUCOSE [id number] 00:10:00 Test Item Value Reference Range Interpretation Comments POC-GLUCOSE METER 141 mg/dL 70-110 H : TESTED A T [facility] 6720 (BEAKER) (test code = [facility], 153) [address]: Tax Processor/Techni kg ID = [id number] for ALINE ROBERTS POCT-GLUCOSE [id number] 22:40:00 Test Item Value Reference Range Interpretation Comments POC-GLUCOSE METER 98 mg/dL 70-110 : TESTED A T [facility] 6720 (BEAKER) (test code = [facility], 153) [address]: Tax Processor/Techni kg ID = [id number] for RICHARD RENZO BLACKISHA POCT-GLUCOSE [id number] 22:37:00 Test Item Value Reference Range Interpretation Comments POC-GLUCOSE METER 68 mg/dL 70-110 L : TESTED A T [facility] 6720 (BEAKER) (test code = [facility], 153) [address]: Tax Processor/Techni kg ID = [id number] for ALINE ALVARES POCT-GLUCOSE [id number] 22:36:00 Test Item Value Reference Range Interpretation Comments POC-GLUCOSE METER 65 mg/dL 70-110 L : TESTED A T [facility] 6720 (BEAKER) (test code = [facility], 1538) [address]: Tax Processor/Techni kg ID = [id number] for ALINE ALVARES BLOOD [id number] 21:01:00 Test Item Value Reference Range Interpretation Comments CULTURE (BEAKER) (test No growth in 5 days code = 1095) BLOOD [id number] 21:01:00 Test Item Value Reference Range Interpretation Comments CULTURE (BEAKER) (test No growth in 5 days code = 1095) BLOOD GAS, [id number] 17:21:00 Test Item Value Reference Range Interpretation Comments PH ARTERIAL (BEAKER) (test code = 7.48 7.35-7.45 H 383) PCO2 ARTERIAL (BEAKER) (test code 41 mm Hg 35-45 = 384) PO2 ARTERIAL (BEAKER) (test code = 85 mm Hg 80-90 385) O2 SATURATION ARTERIAL (BEAKER) 96.8 % 96.0-97.0 (test code = 386) HCO3 ARTERIAL (BEAKER) (test code 30 mmol/L 21-29 H = 388) BASE EXCESS ARTERIAL (BEAKER) 6.1 mmol/L -2.0-3.0 H (test code = 387) PATIENT TEMPERATURE (BEAKER) (test 37.5 code = 1818) FIO2 (BEAKER) (test code = 1819) 100.0 POCT-GLUCOSE [id number] 16:14:00 Test Item Value Reference Range Interpretation Comments POC-GLUCOSE METER 144 mg/dL 70-110 H : TESTED A T [facility] 6720 (BEAKER) (test code = [facility], 1538) [address]: Tax Processor/Techni kg ID = [id number] for Erin Harris HEPARIN ASSAY - LOW MOLECULAR [id number] 13:42:00 Test Item Value Reference Range Interpretation Comments LOVENOX-ANTI 10A (BEAKER) (test 0.46 u/ml 0.60-2.00 L code = 1605) Anti-Factor 10-A Level (Heparin Assay for Low Molecular Weight Heparin)Monitoring Guidelines: Blood samples should be obtained 4 hours post subcutaneous injection (time of Peak level) Therapeutic Peak Levels: 0.6-1.0 units/mL twice daily enoxaparin 1.0-2.0 units/mL once daily enoxaparinRef: CHEST 2012;141:d03q-m03wSicueb draw 4 hours after morning dose of enoxaparin, thank you!POCT-GLUCOSE [id number] 11:48:00 Test Item Value Reference Range Interpretation Comments POC-GLUCOSE METER 312 mg/dL 70-110 H : Notified RN/MD: (KYLE) (test code = TESTED AT [facility] 6720 1538) [facility], [address]: Tax Processor/Techni kg ID = [id number] for Erin Harris Prothrombin time/[id number] 20:40:00 Test Item Value Reference Interpretation Comments Range Protime (test code = 14.2 See_Comment [Autom ated 4972-2) message] The system which generated this result transmitted reference range : 11.9 - 14.2 seconds. The reference range was not used to interpret this result as normal/abnormal . INR (test code = 1.13 See_Comment [Automated 9411-6) message] The system which generated this result transmitted reference range : <=5.90. The reference range was not used to interpret this result as normal/abnormal . YUSEF (test code = Effective 08/25/2018: YUSEF) PT Reference Range ChangeNew: 11.9-14.2 Previous: 11.7-14.7 RECOMMENDED COUMADIN/WARFARIN INR THERAPY RANGESSTANDARD DOSE: 2.0-3.0 Includes: PROPHYLAXIS for venous thrombosis, systemic embolization; TREATMENT for venous thrombosis and/or pulmonary embolus.HIGH RISK: Target INR is 2.5-3.5 for patients wiht mechanical heart valves. Lab Interpretation Normal (test code = 69054-4) [facility] ValleyOsmolality, [id number] 15:35:00 Test Item Value Reference Range Interpretation Comments Osmolality, Ur (test code 364 See_Comment [ Automated message] = 8177-5) The system ic h generated this result transmitted ref erence range: 50-1,200 mOsm/kg mOsm/kg . The reference range was not used to int erpret this result as normal/abnormal . Lab Interpretation (test Normal code = 21795-8) [facility] ValleyU/S, RENAL, [id number] 15:29:00Reason for exam:->Urinary retention/JARRETT [facility] : 1965 Sex: MFINAL REPORT U/S, RENAL, COMPLETE CLINICAL HISTORY: Urinary retention/ JARRETT COMPARISON: None. TECHNIQUE: Real time grayscale and color Doppler imaging of the kidneys and urinary bladder was performed. Pre- and postvoid images of the bladder were also obtained. FINDINGS: Right kidney:Length = 10.6 cmCortical thickness: NormalEchogenicity: NormalCollecting system: No hydronephrosisOther findings: A 9 mm cortical calcification anteriorly or a subcentimeter cyst with a small amount of layering milk of calcium Left kidney:Length = 11.5 cmCortical thickness: NormalEchogenicity: NormalCollecting system: No hydronephrosisOther findings: None Urinary bladder: The bladder volume was 198 mL, the patient had recently emptied their bladder before the scan and was unable to void any further. Main renal artery and main renal vein are grossly patent bilaterally. IMPRESSION: 1. No hydronephrosis. 2. Small postvoid residual bladder volume of 198 mL. 3. A 9 mm cortical calcification anteriorly or a subcentimeter cyst with a small amount of layering milk of calcium on the right Signed: David Stauffer MDReport Verified Date/Time: 05/07/2020 15:29:20 Calcium, random [id number] 14:14:00 Test Item Value Reference Range Interpretation Comments Calcium, Ur (test 5.7 mg/dL code = 25616-1) YUSEF (test code = Reference Range: No YUSEF) NormalsOperator ID - [facility] CenterChloride, random [id number] 14:14:00 Test Item Value Reference Range Interpretation Comments ChlorideUr (test 96 meq/L code = 84817-7) YUSEF (test code = Reference Range: No YUSEF) NormalsOperator ID - [facility] CenterPotassium, random [id number] 14:14:00 Test Item Value Reference Range Interpretation Comments Potassium Urine 16.8 meq/L (test code = 2828-2) YUSEF (test code = Reference Range: No YUSEF) NormalsOperator [facility]odium[facility] random [id number] 14:14:00 Test Item Value Reference Range Interpretation Comments Sodium Urine (test 84 meq/L code = 2955-3) YUSEF (test code = Reference Range: No YUSEF) NormalsOperator [facility] HospitalCOMPREHENSIVE METABOLIC [id number] 06:06:00 Test Item Value Reference Range Interpretation Comments TOTAL PROTEIN 6.7 gm/dL 6.0-8.3 (BEAKER) (test code = 770) ALBUMIN (BEAKER) 3.1 g/dL 3.5-5.0 L (test code = 1145) ALKALINE PHOSPHATASE 80 U/L 40-150 (BEAKER) (test code = 346) BILIRUBIN TOTAL 0.5 mg/dL 0.2-1.2 (BEAKER) (test code = 377) SODIUM (BEAKER) (test 139 meq/L 136-145 code = 381) POTASSIUM (BEAKER) 4.2 meq/L 3.5-5.1 (test code = 379) CHLORIDE (BEAKER) 101 meq/L 98-107 (test code = 382) CO2 (BEAKER) (test 26 meq/L 22-29 code = 355) BLOOD UREA NITROGEN 36 mg/dL 7-21 H (BEAKER) (test code = 354) CREATININE (BEAKER) 1.23 mg/dL 0.57-1.25 (test code = 358) GLUCOSE RANDOM 151 mg/dL 70-105 H (BEAKER) (test code = 652) CALCIUM (BEAKER) 8.3 mg/dL 8.4-10.2 L (test code = 697) AST (SGOT) (BEAKER) 70 U/L 5-34 H (test code = 353) ALT (SGPT) (BEAKER) 38 U/L 6-55 (test code = 347) EGFR (BEAKER) (test 61 mL/min/1.73 ESTIMA SEEMA GFR IS code = 1092) sq m NOT ACCURATE CREATININE CLEARANCE IN PREDICTING GLOMERULAR FILTRATION RATE . ESTIMATED GFR I S NOT APPLICABLE FOR DIALYSIS PATIEN TS. Tax Processor ID - KIAN [id number] 06:06:00 Test Item Value Reference Range Interpretation Comments MAGNESIUM (BEAKER) (test code = 2.2 mg/dL 1.6-2.6 627) Tax Processor ID - KIAN [id number] 06:06:00 Test Item Value Reference Range Interpretation Comments PHOSPHORUS (BEAKER) (test code = 3.6 mg/dL 2.3-4.7 604) Tax Processor ID - KIAN MCBC W/PLT COUNT & AUTO [id number] 05:54:00 Test Item Value Reference Range Interpretation Comments WHITE BLOOD CELL COUNT (BEAKER) 12.0 K/ L 3.5-10.5 H (test code = 775) RED BLOOD CELL COUNT (BEAKER) 4.59 M/ L 4.63-6.08 L (test code = 761) HEMOGLOBIN (BEAKER) (test code = 12.6 GM/DL 13.7-17.5 L 410) HEMATOCRIT (BEAKER) (test code = 39.4 % 40.1-51.0 L 411) MEAN CORPUSCULAR VOLUME (BEAKER) 85.8 fL 79.0-92.2 (test code = 753) MEAN CORPUSCULAR HEMOGLOBIN 27.5 pg 25.7-32.2 (BEAKER) (test code = 751) MEAN CORPUSCULAR HEMOGLOBIN CONC 32.0 GM/DL 32.3-36.5 L (BEAKER) (test code = 752) RED CELL DISTRIBUTION WIDTH 13.8 % 11.6-14.4 (BEAKER) (test code = 412) PLATELET COUNT (BEAKER) (test 263 K/CU MM 150-450 code = 756) MEAN PLATELET VOLUME (BEAKER) 11.2 fL 9.4-12.4 (test code = 754) NUCLEATED RED BLOOD CELLS 0 /100 WBC 0-0 (BEAKER) (test code = 413) NEUTROPHILS RELATIVE PERCENT 89 % (BEAKER) (test code = 429) LYMPHOCYTES RELATIVE PERCENT 5 % (BEAKER) (test code = 430) MONOCYTES RELATIVE PERCENT 4 % (BEAKER) (test code = 431) EOSINOPHILS RELATIVE PERCENT 0 % (BEAKER) (test code = 432) BASOPHILS RELATIVE PERCENT 0 % (BEAKER) (test code = 437) NEUTROPHILS ABSOLUTE COUNT 10.70 K/ L 1.78-5.38 H (BEAKER) (test code = 670) LYMPHOCYTES ABSOLUTE COUNT 0.65 K/ L 1.32-3.57 L (BEAKER) (test code = 414) MONOCYTES ABSOLUTE COUNT (BEAKER) 0.48 K/ L 0.30-0.82 (test code = 415) EOSINOPHILS ABSOLUTE COUNT 0.00 K/ L 0.04-0.54 L (BEAKER) (test code = 416) BASOPHILS ABSOLUTE COUNT (BEAKER) 0.02 K/ L 0.01-0.08 (test code = 417) IMMATURE GRANULOCYTES-RELATIVE 1 % 0-1 PERCENT (BEAKER) (test code = 2801) [id number] 05:32:00 Test Item Value Reference Range Interpretation Comments PTT (test code = 37.1 See_Comment H [Automated message] 79140-1) The system [employer] generated this result transmitted ref erence range: 22.5 - 3 6.0 seconds. The reference range was not used to int erpret this result as normal/abnormal . Lab Interpretation (test Abnormal code = 23246-3) [facility] [id number] 05:32:00 Test Item Value Reference Range Interpretation Comments PARTIAL THROMBOPLASTIN TIME 37.1 seconds 22.5-36.0 H (BEAKER) (test code = 760) [id number] 05:32:00 Test Item Value Reference Range Interpretation Comments PROTIME (BEAKER) (test code = 15.4 seconds 11.9-14.2 H 759) INR (BEAKER) (test code = 370) 1.25 <=5.90 PARTIAL THROMBOPLASTIN TIME 37.1 seconds 22.5-36.0 H (BEAKER) (test code = 760) Effective 08/25/2018: PT Reference Range ChangeNew: 11.9-14.2 Previous: 11.7- 14.7RECOMMENDED COUMADIN/WARFARIN INR THERAPY RANGESSTANDARD DOSE: 2.0-3.0 Includes: PROPHYLAXIS for venous thrombosis, systemic embolization; TREATMENT for venous thrombosis and/or pulmonary embolus.HIGH RISK: Target INR is 2.5-3.5 for patients wiht mechanical heart valves.BLOOD GAS, [id number] 05:21:00 Test Item Value Reference Range Interpretation Comments PH ARTERIAL (BEAKER) (test code = 7.46 7.35-7.45 H 383) PCO2 ARTERIAL (BEAKER) (test code 44 mm Hg 35-45 = 384) PO2 ARTERIAL (BEAKER) (test code = 130 mm Hg 80-90 H 385) O2 SATURATION ARTERIAL (BEAKER) 98.7 % 96.0-97.0 H (test code = 386) HCO3 ARTERIAL (BEAKER) (test code 30 mmol/L 21-29 H = 388) BASE EXCESS ARTERIAL (BEAKER) 5.4 mmol/L -2.0-3.0 H (test code = 387) PATIENT TEMPERATURE (BEAKER) (test 37.2 code = 1818) FIO2 (BEAKER) (test code = 1819) 100.0 POCT-GLUCOSE [id number] 21:15:00 Test Item Value Reference Range Interpretation Comments POC-GLUCOSE METER 267 mg/dL 70-110 H : TESTED A T [facility] 6720 (BEAKER) (test code = [facility] [place] [place], 1538) [address]: Tax Processor/Techni kg ID = [id number] for Ambrosio aguero (contract)Truman [id number] 17:33:00 Test Item Value Reference Range Interpretation Comments MAGNESIUM (BEAKER) 2.1 mg/dL 1.6-2.6 Specimen moderately (test code = 627) hemolyzed Tax Processor ID - EDASIBASIC METABOLIC [id number] 17:33:00 Test Item Value Reference Range Interpretation Comments SODIUM (BEAKER) 138 meq/L 136-145 (test code = 381) POTASSIUM (BEAKER) 4.5 meq/L 3.5-5.1 Specimen moderately (test code = 379) hemolyzed CHLORIDE (BEAKER) 101 meq/L 98-107 (test code = 382) CO2 (BEAKER) (test 28 meq/L 22-29 code = 355) BLOOD UREA NITROGEN 37 mg/dL 7-21 H (BEAKER) (test code = 354) CREATININE (BEAKER) 1.32 mg/dL 0.57-1.25 H Specimen moderately (test code = 358) hemolyzed GLUCOSE RANDOM 299 mg/dL 70-105 H (BEAKER) (test code = 652) CALCIUM (BEAKER) 8.2 mg/dL 8.4-10.2 L (test code = 697) EGFR (BEAKER) (test 57 mL/min/1.73 ESTIMA SEEMA GFR IS code = 1092) sq m NOT ACCURATE CREATININE CLEARANCE IN PREDICTING GLOMERULAR FILTRATION RATE . ESTIMATED GFR I S NOT APPLICABLE FOR DIALYSIS PATIEN TS. Tax Processor ID - EDASIBLOOD GAS, [id number] 17:00:00 Test Item Value Reference Range Interpretation Comments PH ARTERIAL (BEAKER) (test code = 7.47 7.35-7.45 H 383) PCO2 ARTERIAL (BEAKER) (test code 38 mm Hg 35-45 = 384) PO2 ARTERIAL (BEAKER) (test code = 91 mm Hg 80-90 H 385) O2 SATURATION ARTERIAL (BEAKER) 97.2 % 96.0-97.0 H (test code = 386) HCO3 ARTERIAL (BEAKER) (test code 27 mmol/L 21-29 = 388) BASE EXCESS ARTERIAL (BEAKER) 3.4 mmol/L -2.0-3.0 H (test code = 387) PATIENT TEMPERATURE (BEAKER) (test 37.7 code = 1818) FIO2 (BEAKER) (test code = 1819) 100.0 POCT-GLUCOSE [id number] 16:52:00 Test Item Value Reference Range Interpretation Comments POC-GLUCOSE METER 291 mg/dL 70-110 H : Notified RN/MD: (BEAKER) (test code = TESTED AT [facility] 6739 3466) [facility], [id number]: Tax Processor/Techni kg ID = [id number] for Tavo an (contract), Nos haba 2D Echo W/Doppler(CW/PW/Color)2020-05-06 15:32:51Ejection FractionSLEH ECHO HEARTLAB MKCKESSON [facility] [id number] 12:26:00 Test Item Value Reference Range Interpretation Comments POC-GLUCOSE METER 348 mg/dL 70-110 H : TESTED A T [facility] 6720 ([place]) (test code = [place], 1538) [id number]: Tax Processor/Techni kg ID = [id number] for Kang bradyg Latesa Thromboelastograph (TEG)2020-05-06 10:52:00 Test Item Value Reference Range Interpretation Comments TEG Activated Clotting 6.8 See_Comment [Aut omated message] Time (test code = The system which 34589-5) generated this result transmitted ref erence range: 4.0 - 7. 0 minutes. The reference range was not used to int erpret this result as normal/abnormal . TEG Fibrinogen Activity 66.2 See_Comment [Au tomated message] (test code = 12078-7) The sy stem which generated this result transmitted ref erence range: 61.0 - 7 3.0 degrees. The reference range was not used to int erpret this result as normal/abnormal . TEG Platelet Aggregation 73.0 See_Comment H [A utomated message] (test code = 21171-0) The sy stem which generated this result transmitted ref erence range: 55.0 - 6 5.0 MM. The referen ce range was not u sed to interpret this result as normal/abnor mal. TEG Fibrinolysis (test 0.4 % 0.0-5.0 code = 36235-0) TEG-H Activated Clotting 5.4 See_Comment [A utomated message] Time (test code = 1411) The system which generated this result transmitted ref erence range: 4.0 - 7. 0 minutes. The reference range was not used to int erpret this result as normal/abnormal . TEG-H Fibrinogen 75.0 See_Comment H [Automated message] Activity (test code = The sy stem which 1412) generated this result transmitted ref erence range: 61.0 - 7 3.0 degrees. The reference range was not used to int erpret this result as normal/abnormal . TEG-H Platelet 76.6 See_Comment H [Automated m essage] Aggregation (test code = The system which 1413) generated this result transmitted ref erence range: 55.0 - 6 5.0 MM. The referen ce range was not u sed to interpret this result as normal/abnor mal. TEG-H Fibrinolysis (test 0.0 % 0.0-5.0 code = 1414) Lab Interpretation (test Abnormal code = 39963-8) [facility]2020-[facility]-06 10:52:00 Test Item Value Reference Range Interpretation Comments TEG ACTIVATED CLOTTING TIME 6.8 minutes 4.0-7.0 (BEAKER) (test code = 1407) TEG FIBRINOGEN ACTIVITY (BEAKER) 66.2 degrees 61.0-73.0 (test code = 1408) TEG PLT. AGGREGATION (BEAKER) 73.0 MM 55.0-65.0 H (test code = 1409) TEG FIBRINOLYSIS (BEAKER) (test 0.4 % 0.0-5.0 code = 1410) TGH ACTIVATED CLOTTING TIME 5.4 minutes 4.0-7.0 (BEAKER) (test code = 1411) TGH FIBRINOGEN ACTIVITY (BEAKER) 75.0 degrees 61.0-73.0 H (test code = 1412) TGH PLT. AGGREGATION (BEAKER) 76.6 MM 55.0-65.0 H (test code = 1413) TGH FIBRINOLYSIS (BEAKER) (test 0.0 % 0.0-5.0 code = 1414) SPUTUM CULTURE + GRAM [id number] 08:23:00 Test Item Value Reference Range Interpretation Comments CULTURE (BEAKER) 3+ Normal respiratory (test code = 1095) saul present GRAM STAIN RESULT <1+ White blood cells (BEAKER) (test code = seen 1123) GRAM STAIN RESULT 5-10 epithelial cells (BEAKER) (test code = 603080) GRAM STAIN RESULT 1+ gram negative rods (BEAKER) (test code = 038119) GRAM STAIN RESULT 2+ gram positive cocci (BEAKER) (test code = in chains, pairs and 757404) clusters [id number] 08:01:00 Test Item Value Reference Range Interpretation Comments PARTIAL THROMBOPLASTIN TIME 43.5 seconds 22.5-36.0 H (BEAKER) (test code = 760) POCT-GLUCOSE [id number] 07:38:00 Test Item Value Reference Range Interpretation Comments POC-GLUCOSE METER 320 mg/dL 70-110 H : [facility] (BEAKER) (test code = [place], 1538) [address]: Tax Processor/Techni kg ID = [id number] for Jorge Bean COMPREHENSIVE METABOLIC [id number] 04:31:00 Test Item Value Reference Range Interpretation Comments TOTAL PROTEIN 6.9 gm/dL 6.0-8.3 (BEAKER) (test code = 770) ALBUMIN (BEAKER) 3.2 g/dL 3.5-5.0 L (test code = 1145) ALKALINE PHOSPHATASE 66 U/L 40-150 (BEAKER) (test code = 346) BILIRUBIN TOTAL 0.4 mg/dL 0.2-1.2 (BEAKER) (test code = 377) SODIUM (BEAKER) (test 136 meq/L 136-145 code = 381) POTASSIUM (BEAKER) 4.3 meq/L 3.5-5.1 (test code = 379) CHLORIDE (BEAKER) 101 meq/L 98-107 (test code = 382) CO2 (BEAKER) (test 24 meq/L 22-29 code = 355) BLOOD UREA NITROGEN 39 mg/dL 7-21 H (BEAKER) (test code = 354) CREATININE (BEAKER) 1.41 mg/dL 0.57-1.25 H (test code = 358) GLUCOSE RANDOM 351 mg/dL 70-105 H (BEAKER) (test code = 652) CALCIUM (BEAKER) 8.5 mg/dL 8.4-10.2 (test code = 697) AST (SGOT) (BEAKER) 69 U/L 5-34 H (test code = 353) ALT (SGPT) (BEAKER) 42 U/L 6-55 (test code = 347) EGFR (BEAKER) (test 52 mL/min/1.73 ESTIMA SEEMA GFR IS code = 1092) sq m NOT ACCURATE CREATININE CLEARANCE IN PREDICTING GLOMERULAR FILTRATION RATE . ESTIMATED GFR I S NOT APPLICABLE FOR DIALYSIS PATIEN TS. Tax Processor ID - [id number] 04:31:00 Test Item Value Reference Range Interpretation Comments MAGNESIUM (BEAKER) (test code = 2.4 mg/dL 1.6-2.6 627) Tax Processor ID - [id number] 04:31:00 Test Item Value Reference Range Interpretation Comments PHOSPHORUS (BEAKER) (test code = 2.6 mg/dL 2.3-4.7 604) Tax Processor ID - DBPT/[id number] 04:18:00 Test Item Value Reference Range Interpretation Comments PROTIME (BEAKER) (test code = 13.7 seconds 11.9-14.2 759) INR (BEAKER) (test code = 370) 1.08 <=5.90 PARTIAL THROMBOPLASTIN TIME 50.2 seconds 22.5-36.0 H (BEAKER) (test code = 760) Effective 08/25/2018: PT Reference Range ChangeNew: 11.9-14.2 Previous: 11.7- 14.7RECOMMENDED COUMADIN/WARFARIN INR THERAPY RANGESSTANDARD DOSE: 2.0-3.0 Includes: PROPHYLAXIS for venous thrombosis, systemic embolization; TREATMENT for venous thrombosis and/or pulmonary embolus.HIGH RISK: Target INR is 2.5-3.5 for patients wiht mechanical heart valves.CBC W/PLT COUNT & AUTO [id number] 04:08:00 Test Item Value Reference Range Interpretation Comments WHITE BLOOD CELL COUNT (BEAKER) 14.9 K/ L 3.5-10.5 H (test code = 775) RED BLOOD CELL COUNT (BEAKER) 4.69 M/ L 4.63-6.08 (test code = 761) HEMOGLOBIN (BEAKER) (test code = 12.9 GM/DL 13.7-17.5 L 410) HEMATOCRIT (BEAKER) (test code = 39.9 % 40.1-51.0 L 411) MEAN CORPUSCULAR VOLUME (BEAKER) 85.1 fL 79.0-92.2 (test code = 753) MEAN CORPUSCULAR HEMOGLOBIN 27.5 pg 25.7-32.2 (BEAKER) (test code = 751) MEAN CORPUSCULAR HEMOGLOBIN CONC 32.3 GM/DL 32.3-36.5 (BEAKER) (test code = 752) RED CELL DISTRIBUTION WIDTH 13.7 % 11.6-14.4 (BEAKER) (test code = 412) PLATELET COUNT (BEAKER) (test 237 K/CU MM 150-450 code = 756) MEAN PLATELET VOLUME (BEAKER) 10.7 fL 9.4-12.4 (test code = 754) NUCLEATED RED BLOOD CELLS 0 /100 WBC 0-0 (BEAKER) (test code = 413) NEUTROPHILS RELATIVE PERCENT 88 % (BEAKER) (test code = 429) LYMPHOCYTES RELATIVE PERCENT 5 % (BEAKER) (test code = 430) MONOCYTES RELATIVE PERCENT 5 % (BEAKER) (test code = 431) EOSINOPHILS RELATIVE PERCENT 0 % (BEAKER) (test code = 432) BASOPHILS RELATIVE PERCENT 0 % (BEAKER) (test code = 437) NEUTROPHILS ABSOLUTE COUNT 13.15 K/ L 1.78-5.38 H (BEAKER) (test code = 670) LYMPHOCYTES ABSOLUTE COUNT 0.80 K/ L 1.32-3.57 L (BEAKER) (test code = 414) MONOCYTES ABSOLUTE COUNT (BEAKER) 0.78 K/ L 0.30-0.82 (test code = 415) EOSINOPHILS ABSOLUTE COUNT 0.00 K/ L 0.04-0.54 L (BEAKER) (test code = 416) BASOPHILS ABSOLUTE COUNT (BEAKER) 0.01 K/ L 0.01-0.08 (test code = 417) IMMATURE GRANULOCYTES-RELATIVE 1 % 0-1 PERCENT (BEAKER) (test code = 2801) BLOOD GAS, [id number] 04:00:00 Test Item Value Reference Range Interpretation Comments PH ARTERIAL (BEAKER) (test code = 7.44 7.35-7.45 383) PCO2 ARTERIAL (BEAKER) (test code 41 mm Hg 35-45 = 384) PO2 ARTERIAL (BEAKER) (test code = 126 mm Hg 80-90 H 385) O2 SATURATION ARTERIAL (BEAKER) 98.6 % 96.0-97.0 H (test code = 386) HCO3 ARTERIAL (BEAKER) (test code 27 mmol/L 21-29 = 388) BASE EXCESS ARTERIAL (BEAKER) 2.8 mmol/L -2.0-3.0 (test code = 387) PATIENT TEMPERATURE (BEAKER) (test 36.5 code = 1818) FIO2 (BEAKER) (test code = 1819) 100.0 [id number] 23:23:00 Test Item Value Reference Range Interpretation Comments PARTIAL THROMBOPLASTIN TIME 39.4 seconds 22.5-36.0 H (Veles Plus LLCAKER) (test code = 760) POCT-GLUCOSE [id number] 22:55:00 Test Item Value Reference Range Interpretation Comments POC-GLUCOSE METER 387 mg/dL 70-110 H : TESTED A T [facility] 6720 ([employer]) (test code = [place], 1538) [address]: Tax Processor/Techni kg ID = [id number] for Fe anthony (contract), Tao hael [id number] 22:45:00 Test Item Value Reference Range Interpretation Comments FERRITIN ([employer]) (test code = 2684.13 ng/mL 5.00-275.00 H 361) Tax Processor ID - DBOperator ID - [id number] 22:22:00 Test Item Value Reference Range Interpretation Comments PROCALCITONIN ([employer]) (test code 0.87 ng/mL <0.05 H = 3036) SEPSIS RISK (ng/mL)Low: 0.05-0.50Intermediate: 0.51-2.00High: >=2.01LACTATE DEHYDROGENASE (LDH)2020-05-05 21:55:00 Test Item Value Reference Range Interpretation Comments LACTATE DEHYDROGENASE 991 U/L 125-220 H Specim en slightly ([employer]) (test code = hemoly zed 635) Tax Processor ID - [id number] 21:38:00 Test Item Value Reference Range Interpretation Comments D-DIMER QUANTITATIVE ([employer]) 0.66 MG/L FEU <0.50 H (test code = 671) Intended Use: The D-Dimer Assay can be used to aid in the diagnosis of Deep Vein Thrombosis (DVT) and Pulmonary Embolism Disease (PED).In patients with low pre- test probability, various studies concerning STA Liatest D-dimer test have reported that with a cutoff value of 0.50 MG/L FEU, the Negative Predictive Value (NPV) regarding the exclusion of thrombosis is within 95-100% range. PROTHROMBIN TIME/[id number] 21:35:00 Test Item Value Reference Range Interpretation Comments PROTIME (BEAKER) (test code = 13.6 seconds 11.9-14.2 759) INR (BEAKER) (test code = 370) 1.07 <=5.90 Effective 08/25/2018: PT Reference Range ChangeNew: 11.9-14.2 Previous: 11.7- 14.7RECOMMENDED COUMADIN/WARFARIN INR THERAPY RANGESSTANDARD DOSE: 2.0-3.0 Includes: PROPHYLAXIS for venous thrombosis, systemic embolization; TREATMENT for venous thrombosis and/or pulmonary embolus.HIGH RISK: Target INR is 2.5-3.5 for patients wiht mechanical heart valves.POCT-GLUCOSE [id number] 21:32:00 Test Item Value Reference Range Interpretation Comments POC-GLUCOSE METER 344 mg/dL 70-110 H : TESTED A T [facility] 6720 (BEAKER) (test code = [place], 1538) [address]: Tax Processor/Techni kg ID = [id number] for Nidia spangler (contract), [facility] BASIC METABOLIC [id number] 16:51:00 Test Item Value Reference Range Interpretation Comments SODIUM (BEAKER) 138 meq/L 136-145 (test code = 381) POTASSIUM (BEAKER) 3.9 meq/L 3.5-5.1 (test code = 379) CHLORIDE (BEAKER) 103 meq/L 98-107 (test code = 382) CO2 (BEAKER) (test 27 meq/L 22-29 code = 355) BLOOD UREA NITROGEN 36 mg/dL 7-21 H (BEAKER) (test code = 354) CREATININE (BEAKER) 1.41 mg/dL 0.57-1.25 H (test code = 358) GLUCOSE RANDOM 345 mg/dL 70-105 H (BEAKER) (test code = 652) CALCIUM (BEAKER) 8.3 mg/dL 8.4-10.2 L (test code = 697) EGFR (BEAKER) (test 52 mL/min/1.73 ESTIMA SEEMA GFR IS code = 1092) sq m NOT ACCURATE CREATININE CLEARANCE IN PREDICTING GLOMERULAR FILTRATION RATE . ESTIMATED GFR I S NOT APPLICABLE FOR DIALYSIS PATIEN TS. Tax Processor ID - [id number] 16:51:00 Test Item Value Reference Range Interpretation Comments MAGNESIUM (BEAKER) (test code = 2.4 mg/dL 1.6-2.6 627) Tax Processor ID - [id number] 16:45:00 Test Item Value Reference Range Interpretation Comments PARTIAL THROMBOPLASTIN TIME 39.0 seconds 22.5-36.0 H (BEAKER) (test code = 760) BLOOD GAS, [id number] 16:33:00 Test Item Value Reference Range Interpretation Comments PH ARTERIAL (BEAKER) (test code = 7.43 7.35-7.45 383) PCO2 ARTERIAL (BEAKER) (test code 40 mm Hg 35-45 = 384) PO2 ARTERIAL (BEAKER) (test code = 126 mm Hg 80-90 H 385) O2 SATURATION ARTERIAL (BEAKER) 98.5 % 96.0-97.0 H (test code = 386) HCO3 ARTERIAL (BEAKER) (test code 26 mmol/L 21-29 = 388) BASE EXCESS ARTERIAL (BEAKER) 1.4 mmol/L -2.0-3.0 (test code = 387) PATIENT TEMPERATURE (BEAKER) (test 37.5 code = 1818) FIO2 (BEAKER) (test code = 1819) 100.0 POCT-GLUCOSE [id number] 16:26:00 Test Item Value Reference Range Interpretation Comments POC-GLUCOSE METER 357 mg/dL 70-110 H : TESTED A T [facility] 6720 (BEAKER) (test code = [facility], 1538) [address]: Tax Processor/Techni kg ID = [id number] for Jorge Bean [id number] 11:49:00 Test Item Value Reference Range Interpretation Comments PARTIAL THROMBOPLASTIN TIME 30.3 seconds 22.5-36.0 (BEAKER) (test code = 760) POCT-GLUCOSE [id number] 11:30:00 Test Item Value Reference Range Interpretation Comments POC-GLUCOSE METER 369 mg/dL 70-110 H : TESTED A T [facility] 6720 (BEAKER) (test code = [facility], 1538) [address]: Tax Processor/Techni kg ID = [id number] for Jorge Bean POCT-GLUCOSE [id number] 08:52:00 Test Item Value Reference Range Interpretation Comments POC-GLUCOSE METER 317 mg/dL 70-110 H : TESTED A T [facility] 6720 (BEAKER) (test code = [facility], 1538) [address]: Tax Processor/Techni kg ID = [id number] for Tavo an (contract), Nos haba Hemoglobin [id number] 08:48:00 Test Item Value Reference Range Interpretation Comments Hemoglobin A1C (test code = 4548-4) 9.1 % 4.3-6.1 H Lab Interpretation (test code = Abnormal 62829-3) [facility] [id number] 08:48:00 Test Item Value Reference Range Interpretation Comments HEMOGLOBIN A1C (BEAKER) (test code = 9.1 % 4.3-6.1 H 368) [id number] 06:36:00 Test Item Value Reference Range Interpretation Comments MAGNESIUM (BEAKER) 2.5 mg/dL 1.6-2.6 Specimen moderately (test code = 627) hemolyzed Tax Processor ID - [id number] 06:36:00 Test Item Value Reference Range Interpretation Comments PHOSPHORUS (BEAKER) 3.7 mg/dL 2.3-4.7 Specimen moderately (test code = 604) hemolyzed Tax Processor ID - SMCOMPREHENSIVE METABOLIC [id number] 05:15:00 Test Item Value Reference Range Interpretation Comments TOTAL PROTEIN 7.8 gm/dL 6.0-8.3 Specimen sligh tly (BEAKER) (test code = hemoly zed 770) ALBUMIN (BEAKER) 3.5 g/dL 3.5-5.0 Specimen sl ightly (test code = 1145) hemolyzed ALKALINE PHOSPHATASE 55 U/L 40-150 (BEAKER) (test code = 346) BILIRUBIN TOTAL 0.5 mg/dL 0.2-1.2 Specimen sli ghtly (BEAKER) (test code = hemoly zed 377) SODIUM (BEAKER) (test 140 meq/L 136-145 code = 381) POTASSIUM (BEAKER) 4.0 meq/L 3.5-5.1 Specimen slightly (test code = 379) hemolyzed CHLORIDE (BEAKER) 101 meq/L 98-107 (test code = 382) CO2 (BEAKER) (test 25 meq/L 22-29 code = 355) BLOOD UREA NITROGEN 33 mg/dL 7-21 H (BEAKER) (test code = 354) CREATININE (BEAKER) 1.64 mg/dL 0.57-1.25 H Specimen slightly (test code = 358) hemolyzed GLUCOSE RANDOM 329 mg/dL 70-105 H (BEAKER) (test code = 652) CALCIUM (BEAKER) 8.7 mg/dL 8.4-10.2 (test code = 697) AST (SGOT) (BEAKER) 85 U/L 5-34 H Specimen slightly (test code = 353) hemolyzed ALT (SGPT) (BEAKER) 46 U/L 6-55 Specimen slightly (test code = 347) hemolyzed EGFR (BEAKER) (test 44 mL/min/1.73 ESTIMA SEEMA GFR IS code = 1092) sq m NOT ACCURATE CREATININE CLEARANCE IN PREDICTING GLOMERULAR FILTRATION RATE . ESTIMATED GFR I S NOT APPLICABLE FOR DIALYSIS PATIEN TS. Tax Processor ID - KIAN MCBC W/PLT COUNT & AUTO [id number] 05:09:00 Test Item Value Reference Range Interpretation Comments WHITE BLOOD CELL COUNT (BEAKER) 9.0 K/ L 3.5-10.5 (test code = 775) RED BLOOD CELL COUNT (BEAKER) 5.08 M/ L 4.63-6.08 (test code = 761) HEMOGLOBIN (BEAKER) (test code = 14.0 GM/DL 13.7-17.5 410) HEMATOCRIT (BEAKER) (test code = 44.4 % 40.1-51.0 411) MEAN CORPUSCULAR VOLUME (BEAKER) 87.4 fL 79.0-92.2 (test code = 753) MEAN CORPUSCULAR HEMOGLOBIN 27.6 pg 25.7-32.2 (BEAKER) (test code = 751) MEAN CORPUSCULAR HEMOGLOBIN CONC 31.5 GM/DL 32.3-36.5 L (BEAKER) (test code = 752) RED CELL DISTRIBUTION WIDTH 13.8 % 11.6-14.4 (BEAKER) (test code = 412) PLATELET COUNT (BEAKER) (test 230 K/CU MM 150-450 code = 756) MEAN PLATELET VOLUME (BEAKER) 11.8 fL 9.4-12.4 (test code = 754) NUCLEATED RED BLOOD CELLS 0 /100 WBC 0-0 (BEAKER) (test code = 413) NEUTROPHILS RELATIVE PERCENT 83 % (BEAKER) (test code = 429) LYMPHOCYTES RELATIVE PERCENT 11 % (BEAKER) (test code = 430) MONOCYTES RELATIVE PERCENT 6 % (BEAKER) (test code = 431) EOSINOPHILS RELATIVE PERCENT 0 % (BEAKER) (test code = 432) BASOPHILS RELATIVE PERCENT 0 % (BEAKER) (test code = 437) NEUTROPHILS ABSOLUTE COUNT 7.45 K/ L 1.78-5.38 H (BEAKER) (test code = 670) LYMPHOCYTES ABSOLUTE COUNT 1.01 K/ L 1.32-3.57 L (BEAKER) (test code = 414) MONOCYTES ABSOLUTE COUNT (BEAKER) 0.49 K/ L 0.30-0.82 (test code = 415) EOSINOPHILS ABSOLUTE COUNT 0.00 K/ L 0.04-0.54 L (BEAKER) (test code = 416) BASOPHILS ABSOLUTE COUNT (BEAKER) 0.01 K/ L 0.01-0.08 (test code = 417) IMMATURE GRANULOCYTES-RELATIVE 0 % 0-1 PERCENT (BEAKER) (test code = 2801) POCT-GLUCOSE [id number] 22:18:00 Test Item Value Reference Range Interpretation Comments POC-GLUCOSE METER 269 mg/dL 70-110 H : TESTED A T [facility] 6720 (BEAKER) (test code = [facility], 1538) [address]: Tax Processor/Techni kg ID = [id number] for DARRICK DUNN POCT-GLUCOSE [id number] 18:35:00 Test Item Value Reference Range Interpretation Comments POC-GLUCOSE METER 270 mg/dL 70-110 H : TESTED A T [facility] 6720 (BEAKER) (test code = [facility], 153) [address]: Tax Processor/Techni kg ID = [id number] for ASTRID PASCUAL [facility] BLOOD GAS, [id number] 18:32:00 Test Item Value Reference Range Interpretation Comments PH ARTERIAL (BEAKER) (test code = 7.47 7.35-7.45 H 383) PCO2 ARTERIAL (BEAKER) (test code 35 mm Hg 35-45 = 384) PO2 ARTERIAL (BEAKER) (test code = 173 mm Hg 80-90 H 385) O2 SATURATION ARTERIAL (BEAKER) 99.3 % 96.0-97.0 H (test code = 386) HCO3 ARTERIAL (BEAKER) (test code 25 mmol/L 21-29 = 388) BASE EXCESS ARTERIAL (BEAKER) 1.8 mmol/L -2.0-3.0 (test code = 387) PATIENT TEMPERATURE (BEAKER) (test 37.0 code = 1818) FIO2 (BEAKER) (test code = 1819) 100.0 Urinalysis w/[id number] 13:40:00 Test Item Value Reference Range Interpretation Comments Color, UA (test code Light Yellow = 5778-6) Clarity, UA (test Clear code = 5767-9) Specific Cowen, UA 1.016 1.001-1.035 (test code = 5811-5) pH, UA (test code = 5.5 5.0-8.0 5803-2) Protein, UA (test 30 mg/dL Negative A code = 67133-9) Glucose, UA (test 500 mg/dL Negative A code = 365) Ketones, UA (test Trace Negative A code = 2514-8) Bilirubin, UA (test Negative Negative code = 93371-3) Blood, UA (test code Moderate Negative A = 26419-8) Nitrite, UA (test Negative Negative code = 5802-4) Leukocytes, UA (test Negative Negative code = 5799-2) Urobilinogen, UA 0.2 mg/dL 0.2-1.0 (test code = 13196-2) RBC, UA (test code = 6 See_Comment [Autom ated 49697-5) message] The system which generated this result transmit seema reference range : /HPF. The reference range was not used to interpret this result as normal/abnormal . WBC, UA (test code = 1 See_Comment [Autom ated 5821-4) message] The system which generated this result transmit seema reference range : /HPF. The reference range was not used to interpret this result as normal/abnormal . Bacteria, UA (test Rare code = 07564-8) Mucus (test code = Rare 8247-9) Specimen Source (test code = 2795) YUSEF (test code = YUSEF) Tax Processor ID - [auto]Tax Processor ID - tech Lab Interpretation Abnormal (test code = 80527-0) [facility]/ [id number] 13:40:00 Test Item Value Reference Range Interpretation Comments COLOR (BEAKER) (test code = 470) Light Yellow CLARITY (BEAKER) (test code = Clear 469) SPECIFIC GRAVITY UA (BEAKER) 1.016 1.001-1.035 (test code = 468) PH UA (BEAKER) (test code = 467) 5.5 5.0-8.0 PROTEIN UA (BEAKER) (test code = 30 mg/dL Negative A 464) GLUCOSE UA (BEAKER) (test code = 500 mg/dL Negative A 365) KETONES UA (BEAKER) (test code = Trace Negative A 371) BILIRUBIN UA (BEAKER) (test code Negative Negative = 462) BLOOD UA (BEAKER) (test code = Moderate Negative A 461) NITRITE UA (BEAKER) (test code = Negative Negative 465) LEUKOCYTE ESTERASE UA (BEAKER) Negative Negative (test code = 466) UROBILINOGEN UA (BEAKER) (test 0.2 mg/dL 0.2-1.0 code = 463) RBC UA (BEAKER) (test code = 6 /HPF 519) WBC UA (BEAKER) (test code = 1 /HPF 520) BACTERIA (BEAKER) (test code = Rare 517) MUCUS (BEAKER) (test code = Rare 1574) SOURCE(BEAKER) (test code = 0225) Tax Processor ID - [auto]Tax Processor ID - techTSH/Free T4 If [id number] 13:33:00 Test Item Value Reference Range Interpretation Comments TSH (test code = 0.956 See_Comment [Automated 26383-9) message] The system which generated this result transmit seema reference range : 0.350 - 4.940 uIU/mL. The reference range was not used to interpret this result as normal/abnormal . YUSEF (test code = YUSEF) Tax Processor ID - AAHAMID Lab Interpretation Normal (test code = 27714-1) [facility] Valley[facility]SH/FREE T4 IF [id number] 13:33:00 Test Item Value Reference Range Interpretation Comments THYROID STIMULATING HORMONE 0.956 uIU/mL 0.350-4.940 (BEAKER) (test code = 772) Tax Processor ID - AAHAMIDCreatinine, random [id number] 13:17:00 Test Item Value Reference Range Interpretation Comments Creatinine, Ur 64.4 mg/dL (test code = 2161-8) YUSEF (test code = Reference Range: No YUSEF) NormalsOperator ID - AAHAMID [facility] ValleyProtein, random [id number] 13:17:00 Test Item Value Reference Range Interpretation Comments Protein, Urine (test code 41 mg/dL 0-14 H = 2888-6) YUESF (test code = YUSEF) Tax Processor ID - AAHAMID Lab Interpretation (test Abnormal code = 15196-7) [facility] ValleyCREATININE, RANDOM [id number] 13:17:00 Test Item Value Reference Range Interpretation Comments CREATININE URINE (BEAKER) (test 64.4 mg/dL code = 375) Reference Range: No NormalsOperator ID - AAHAMIDPROTEIN, RANDOM [id number] 13:17:00 Test Item Value Reference Range Interpretation Comments PROTEIN, URINE (BEAKER) (test code = 41 mg/dL 0-14 H 1569) Tax Processor ID - AAHAMIDSODIUM, RANDOM [id number] 13:17:00 Test Item Value Reference Range Interpretation Comments SODIUM URINE (BEAKER) (test code = 61 meq/L 243) Reference Range: No NormalsOperator ID - AAHAMIDPOCT-GLUCOSE [id number] 11:08:00 Test Item Value Reference Range Interpretation Comments POC-GLUCOSE METER 283 mg/dL 70-110 H : Notified RN/MD: (JOANNLAVON) (test code = TESTED AT [facility] 6720 1538) [facility], [address]: Tax Processor/Techni kg ID = [id number] for Erin Harris TROPONIN [id number] 10:10:00 Test Item Value Reference Range Interpretation Comments TROPONIN I (BEAKER) (test code = 0.03 ng/mL 0.00-0.03 397) Troponin I (TnI) levels must be interpreted in the context of the presenting symptoms and the clinical findings. Elevated TnI levels indicate myocardial damage, but are not specific for ischemic heart disease. Elevated TnI levels are seen in patients with other cardiac conditions (including myocarditis and congestive heart failure), and slight TnI elevations occur in patients with other conditions, including sepsis, renal failure, acidosis, acute neurological disease, and persistent tachyarrhythmia.Tax Processor ID - AAHAMIDCBC W/PLT COUNT & AUTO [id number] 07:35:00 Test Item Value Reference Range Interpretation Comments WHITE BLOOD CELL COUNT (BEAKER) 5.4 K/ L 3.5-10.5 (test code = 775) RED BLOOD CELL COUNT (BEAKER) 4.88 M/ L 4.63-6.08 (test code = 761) HEMOGLOBIN (BEAKER) (test code = 13.4 GM/DL 13.7-17.5 L 410) HEMATOCRIT (BEAKER) (test code = 42.2 % 40.1-51.0 411) MEAN CORPUSCULAR VOLUME (BEAKER) 86.5 fL 79.0-92.2 (test code = 753) MEAN CORPUSCULAR HEMOGLOBIN 27.5 pg 25.7-32.2 (BEAKER) (test code = 751) MEAN CORPUSCULAR HEMOGLOBIN CONC 31.8 GM/DL 32.3-36.5 L (BEAKER) (test code = 752) RED CELL DISTRIBUTION WIDTH 13.8 % 11.6-14.4 (BEAKER) (test code = 412) PLATELET COUNT (BEAKER) (test 170 K/CU MM 150-450 code = 756) MEAN PLATELET VOLUME (BEAKER) 11.4 fL 9.4-12.4 (test code = 754) NUCLEATED RED BLOOD CELLS 0 /100 WBC 0-0 (BEAKER) (test code = 413) NEUTROPHILS RELATIVE PERCENT 81 % (BEAKER) (test code = 429) LYMPHOCYTES RELATIVE PERCENT 12 % (BEAKER) (test code = 430) MONOCYTES RELATIVE PERCENT 7 % (BEAKER) (test code = 431) EOSINOPHILS RELATIVE PERCENT 0 % (BEAKER) (test code = 432) BASOPHILS RELATIVE PERCENT 0 % (BEAKER) (test code = 437) NEUTROPHILS ABSOLUTE COUNT 4.36 K/ L 1.78-5.38 (BEAKER) (test code = 670) LYMPHOCYTES ABSOLUTE COUNT 0.63 K/ L 1.32-3.57 L (BEAKER) (test code = 414) MONOCYTES ABSOLUTE COUNT (BEAKER) 0.36 K/ L 0.30-0.82 (test code = 415) EOSINOPHILS ABSOLUTE COUNT 0.00 K/ L 0.04-0.54 L (BEAKER) (test code = 416) BASOPHILS ABSOLUTE COUNT (BEAKER) 0.01 K/ L 0.01-0.08 (test code = 417) IMMATURE GRANULOCYTES-RELATIVE 1 % 0-1 PERCENT (BEAKER) (test code = 2801) TROPONIN [id number] 02:15:00 Test Item Value Reference Range Interpretation Comments TROPONIN I (BEAKER) (test code = 0.05 ng/mL 0.00-0.03 H 397) Troponin I (TnI) levels must be interpreted in the context of the presenting symptoms and the clinical findings. Elevated TnI levels indicate myocardial damage, but are not specific for ischemic heart disease. Elevated TnI levels are seen in patients with other cardiac conditions (including myocarditis and congestive heart failure), and slight TnI elevations occur in patients with other conditions, including sepsis, renal failure, acidosis, acute neurological disease, and persistent tachyarrhythmia.Tax Processor ID - CHAI [id number] 23:04:00 Test Item Value Reference Range Interpretation Comments FERRITIN (BEAKER) (test code = 2497.89 ng/mL 5.00-275.00 H 361) Tax Processor ID - KIAN MOperator ID - KIAN MTHROMBOELASTOGRAPH (TEG)2020-05-03 22:22:00 Test Item Value Reference Range Interpretation Comments TEG ACTIVATED CLOTTING TIME 4.2 minutes 4.0-7.0 (BEAKER) (test code = 1407) TEG FIBRINOGEN ACTIVITY (BEAKER) 71.7 degrees 61.0-73.0 (test code = 1408) TEG PLT. AGGREGATION (BEAKER) 72.2 MM 55.0-65.0 H (test code = 1409) TEG FIBRINOLYSIS (BEAKER) (test 0.7 % 0.0-5.0 code = 1410) TGH ACTIVATED CLOTTING TIME 4.4 minutes 4.0-7.0 (BEAKER) (test code = 1411) TGH FIBRINOGEN ACTIVITY (BEAKER) 72.8 degrees 61.0-73.0 (test code = 1412) TGH PLT. AGGREGATION (BEAKER) 72.7 MM 55.0-65.0 H (test code = 1413) TGH FIBRINOLYSIS (BEAKER) (test 0.6 % 0.0-5.0 code = 1414) [id number] 22:14:00 Test Item Value Reference Range Interpretation Comments PROCALCITONIN (BEAKER) (test code 0.69 ng/mL <0.05 H = 3036) SEPSIS RISK (ng/mL)Low: 0.05-0.50Intermediate: 0.51-2.00High: >=2.01SARS- CoV2/Influenza/RSV RT-PCR (Symptomatic ONLY)2020-05-03 22:09:00 Test Item Value Reference Range Interpretation Comments SARS-COV2/RT-PCR (test Positive Negative AA code = 38486-8) Influenza A RT-PCR Negative Negative (test code = 33959-4) Influenza B RT-PCR Negative Negative (test code = 46953-3) RSV by RT-PCR (test Negative Negative Performa nce of the code = 93748-5) Xpert Xpress SARS-CoV-2/Flu/ RSV test has only been established in nasopharyngeal swab specimens. Use of the Xpert Xpress SARS-CoV-2/Flu/ RSV test with other spec imen types has not b een assessed and performance characteristics are unknown. As wit h any molecular test, mutations withi n the targeted geneti c regions identif ied by the Xpert Xpres s SARS-CoV-2/Flu/ RSV test could affect pr stephon and/or probe bi nding resulting in fa ilure to detect the pres ence of virus or the vi ramon being detected less predictably.Neg ative results do not preclude SARS-CoV-2, Inf luenza A/B, or RSV inf ection and should not be used as the sole bas is for treatment or ot her patient managem ent decisions. Resu lts from the Xpert Xpres s SARS-CoV-2/Flu/ RSV test should be corre lated with the clinic al history, epidemiological data, and other data available to e clinician evalu ating the patient. In valid test results ma y occur from improper s pecimen collection; darrick lure to follow the margarito mmended sample collecti on, handling, and s torage procedures; karla hnical error. False ne gative results may occ ur if virus is presen t at levels below e analytical limi t of detection (LOD: 131 copies/mL). Vir al nucleic acid ma y persist in vivo , independent of virus viability. Dete ction of analyte target( s) does not imply that the corresponding v irus(es) are infectious or are the causative a gents for clinical sy mptoms. Recent patient exposure to FluMist or other live attenuated influenza vacci hector may cause inaccurat e positive result s.This test has been authorized by [employer] under an EUA for use by authorized laboratories. T his test is only authori zed for the duration of the declaration shellei t circumstances e xist justifying the authorization o f emergency use o f in vitro diagnosti c tests for detection a nd/or diagnosis of CO VID-19 under Section 5 64(b)(1) of the Federal Food, Drug and Cosmet ic Act, 21 U.S.C. 360bbb-3(b)(1), unless the authorizati on is terminated or r evoked sooner. Fact Sh eet for Healthcare Prov iders: https://www.[employer] /Documents/Xper t%20Xpre ss%93ZXJG-HbH-9 -Flu-RSV /302-4501%20Rev .%20B%20 HCP%20Fact%20Sh eet.pdf Fact Sheet for Healthcare Rachell ents: https://www.[employer] /Documents/Xper t%20Xpre ss%70FEFY-VlA-5 -Flu-RSV /302-4501%20Rev .%20B%20 Patient%20Fact% 20Sheet. pdf Lab Interpretation Abnormal (test code = 25993-6) [facility] [id number] 22:09:00 Test Item Value Reference Range Interpretation Comments SARS-COV2/RT-PCR Positive Negative AA (test code = 2487795) INFLUENZA A RT-PCR Negative Negative (test code = 3475540) INFLUENZA B RT-PCR Negative Negative (test code = 6088864) RSV RT-PCR (test Negative Negative Performance of the Xpert code = 1016492) Xpress SARS- CoV-2/Flu/RSV test has only b een established in nasopharyngeal swab specimens. Use of the Xpert Xpress SARS-CoV-2/Flu/ RSV test with other spec imen types has not been as sessed and performance characteristics are unknown. As wit h any molecular test, mutations within the targ eted genetic regions identified by dipika anna Xpert Xpress SARS-CoV -2/Flu/RSV test could affe ct primer and/or probe bi nding resulting in fa ilure to detect the pres ence of virus or the vi ramon being detected less predictably.Neg ative results do not preclude SARS-CoV-2, Inf luenza A/B, or RSV inf ection and should not be u sed as the sole basis for treatment or other patien t management deci sions. Results from e Xpert Xpress SARS-CoV -2/Flu/RSV test should be correlated with the clinic al history, epidem iological data, and other data available to e clinician evalu ating the patient. Invali d test results may occ ur from improper specim en collection; darrick lure to follow the margarito mmended sample collecti on, handling, and s torage procedures; karla hnical error. False ne gative results may occ ur if virus is presen t at levels below e analytical limi t of detection (LOD: 131 copies/mL). Vir al nucleic acid may persis t in vivo, independent of virus viability. Dete ction of analyte target( s) does not imply that the corresponding v irus(es) are infectious or are the causative agent s for clinical sympto ms. Recent patient exposur e to FluMist or othe r live attenuated infl uenza vaccines may ca use inaccurate posi tive results.This te st has been authorized by FDA under an EUA fo r use by authorized labo ratories. This test is on ly authorized for the duration of the declaration shellie t circumstances e xist justifying the authorization o f emergency use o f in vitro diagnostic test s for detection and/o r diagnosis of CO VID-19 under Section 5 64(b)(1) of the Federal Food, Drug and Cosmetic Ac t, 21 U.S.C. 360bbb-3 (b)(1), unless the auth orization is terminated o r revoked sooner.Fact She et for Healthcare Prov iders: https://www.[employer].com/D ocuments/Xpert% 20Xpress%2 1UPON-XzB-8-Flu -RSV/302-4 508%20Rev.%20B% 20HCP%20Fa ct%20Sheet.pdfF act Sheet for Healthcare Patients: https://www.[employer].com/D ocuments/Xpert% 20Xpress%2 2WOZZ-JeR-5-Flu -RSV/302-4 507%20Rev.%20B% 20Patient% 20Fact%20Sheet. pdf CT, CHEST WITH IV CONTRAST- PE TEST [id number] 22:05:00Unlisted Reason for Exam - Click Yes and Enter Reason Below->No [facility] : 1965 Sex: MFINAL REPORT CT Chest PE Protocol dated 05/03/2020 Clinical information: Shortness of breathTechnique: This exam was performed according to our departmental dose-optimization program, which includes automated exposure control, adjustment of the mA and/or kV according to patient size and/or use of interactive reconstruction technique. Precontrast axial images were obtained at pulmonary trunk level for the purpose of monitoring subsequent IV contrast. Postcontrast axial images of the chest were obtained from above the arch level to the lower chest at maximum enhancement of pulmonary artery. Delayed axial images of the entire chest were obtained subsequently. Coronal and sagittal reformations of the pulmonary arteries were performed. Comment: Heart is normal in size. Greater vessels are unremarkable. No filling detect is noted in the pulmonary trunk or pulmonary arteries. No adenopathy is noted in the mediastinum or perihilar region. Trachea and mainstem bronchi are patent. Multifocal grou ndglass pulmonary parenchyma disease is seen in both lungs suggestive of atypical pneumonia, including Covid 19 pneumonia. No pleural effusion or pleural base mass is seen. Impression:1. No pulmonary thromboembolism.2. Bilateral groundglass pulmonary parenchyma disease in both lungs suspicious for Covid 19 pneumonia. Signed: Mike Southort Verified Date/Time: 05/03/2020 22:05:26 Reading Location: [facility] B1 C013T Transitional Reading Room TROPONIN [id number] 21:50:00 Test Item Value Reference Range Interpretation Comments TROPONIN I (BEAKER) (test code = 0.05 ng/mL 0.00-0.03 H 397) Troponin I (TnI) levels must be interpreted in the context of the presenting symptoms and the clinical findings. Elevated TnI levels indicate myocardial damage, but are not specific for ischemic heart disease. Elevated TnI levels are seen in patients with other cardiac conditions (including myocarditis and congestive heart failure), and slight TnI elevations occur in patients with other conditions, including sepsis, renal failure, acidosis, acute neurological disease, and persistent tachyarrhythmia.Tax Processor ID - DBC-REACTIVE PROTEIN 2020-05-03 21:41:00 Test Item Value Reference Range Interpretation Comments C-REACTIVE PROTEIN (BEAKER) (test 9.92 mg/dL 0.00-0.50 H code = 676) Tax Processor ID - DBLactic acid, [id number] 21:39:00 Test Item Value Reference Range Interpretation Comments Lactate, Venous (test code = 1.41 mmol/L 0.50-2.20 2872) YUSEF (test code = YUSEF) Tax Processor ID - DB Lab Interpretation (test Normal code = 93316-7) [facility], [id number] 21:39:00 Test Item Value Reference Range Interpretation Comments LACTATE BLOOD VENOUS (2) (BEAKER) 1.41 mmol/L 0.50-2.20 (test code = 2872) Tax Processor ID - [id number] 21:34:00 Test Item Value Reference Range Interpretation Comments D-DIMER QUANTITATIVE (BEAKER) 0.79 MG/L FEU <0.50 H (test code = 671) Intended Use: The D-Dimer Assay can be used to aid in the diagnosis of Deep Vein Thrombosis (DVT) and Pulmonary Embolism Disease (PED).In patients with low pre- test probability, various studies concerning STA Liatest D-dimer test have reported that with a cutoff value of 0.50 MG/L FEU, the Negative Predictive Value (NPV) regarding the exclusion of thrombosis is within 95-100% range. PROTHROMBIN [id number] 21:31:00 Test Item Value Reference Range Interpretation Comments PROTIME (BEAKER) (test code = 14.5 seconds 11.9-14.2 H 759) INR (BEAKER) (test code = 370) 1.16 <=5.90 Effective 08/25/2018: PT Reference Range ChangeNew: 11.9-14.2 Previous: 11.7- 14.7RECOMMENDED COUMADIN/WARFARIN INR THERAPY RANGESSTANDARD DOSE: 2.0-3.0 Includes: PROPHYLAXIS for venous thrombosis, systemic embolization; TREATMENT for venous thrombosis and/or pulmonary embolus.HIGH RISK: Target INR is 2.5-3.5 for patients wiht mechanical heart valves.[id number] 21:05:00 Test Item Value Reference Range Interpretation Comments Fibrinogen (test code = 3255-7) 603 mg/dl 225-434 H Lab Interpretation (test code = Abnormal 10082-3) [facility]IB[facility]IN[facility]2021-02-04 21:05:00 Test Item Value Reference Range Interpretation Comments FIBRINOGEN LEVEL (BEAKER) (test 603 mg/dl 225-434 H code = 658) LACTATE DEHYDROGENASE (LDH)2020-05-03 21:05:00 Test Item Value Reference Range Interpretation Comments LACTATE DEHYDROGENASE 896 U/L 125-220 H Specim en slightly (BEAKER) (test code = hemoly zed 635) Tax Processor ID - DBLACTIC ACID, [id number] 20:15:00 Test Item Value Reference Range Interpretation Comments LACTATE BLOOD VENOUS 1.83 mmol/L 0.50-2.20 Specime n moderately (2) (BEAKER) (test hemolyzed code = 2872) Tax Processor ID - KIAN MRAD, CHEST, 1 VIEW, NON [id number] 20:14:00Reason for exam:->SHORTNESS OF BREATHShould this be performed at the bedside?->Yes [facility] 1965 Sex: MFINAL REPORT AP view of the chest dated 05/03/2020 CLINICAL INFORMATION: SHORTNESS OF BREATHComment: Heart is normal in size. Pulmonary vasculature is unremarkable. Multifocal interstitial pulmonary disease is seen in both lungs suspicious for pneumonia. No pleural effusion or pneumothorax isseen. IMPRESSION: Presence of interstitial pulmonary disease suspicious for multifocal pneumonia. Signed: Mike South Verified Date/Time: 05/03/2020 20:14:27 Reading Location: [address] Transitional Reading Room BLOOD GAS, [id number] 20:07:00 Test Item Value Reference Range Interpretation Comments PH VENOUS (BEAKER) (test code = 7.50 7.32-7.42 H 701) PCO2 VENOUS (BEAKER) (test code = 32 mm Hg 41-51 L 755) PO2 VENOUS (BEAKER) (test code = 50 mm Hg 25-40 H 702) O2 SATURATION VENOUS (BEAKER) 89.1 % 40.0-70.0 H (test code = 703) HCO3 VENOUS (BEAKER) (test code = 24 mmol/L 21-29 705) BASE EXCESS VENOUS (BEAKER) (test 1.9 mmol/L -2.0-3.0 code = 704) PATIENT TEMPERATURE (BEAKER) (test 37.0 code = 1818) FIO2 (BEAKER) (test code = 1819) 80.0 [id number] 20:03:00 Test Item Value Reference Range Interpretation Comments D-DIMER QUANTITATIVE (BEAKER) 0.97 MG/L FEU <0.50 H (test code = 671) Intended Use: The D-Dimer Assay can be used to aid in the diagnosis of Deep Vein Thrombosis (DVT) and Pulmonary Embolism Disease (PED).In patients with low pre- test probability, various studies concerning STA Liatest D-dimer test have reported that with a cutoff value of 0.50 MG/L FEU, the Negative Predictive Value (NPV) regarding the exclusion of thrombosis is within 95-100% range. [id number] 20:00:00 Test Item Value Reference Range Interpretation Comments PROTIME (BEAKER) (test code = 13.9 seconds 11.9-14.2 759) INR (BEAKER) (test code = 370) 1.10 <=5.90 PARTIAL THROMBOPLASTIN TIME 30.3 seconds 22.5-36.0 (BEAKER) (test code = 760) Effective 08/25/2018: PT Reference Range ChangeNew: 11.9-14.2 Previous: 11.7- 14.7RECOMMENDED COUMADIN/WARFARIN INR THERAPY RANGESSTANDARD DOSE: 2.0-3.0 Includes: PROPHYLAXIS for venous thrombosis, systemic embolization; TREATMENT for venous thrombosis and/or pulmonary embolus.HIGH RISK: Target INR is 2.5-3.5 for patients wiht mechanical heart valves.B-TYPE NATRIURETIC FACTOR (BNP) 2020-05-03 19:58:00 Test Item Value Reference Range Interpretation Comments B-TYPE NATRIURETIC PEPTIDE (BEAKER) 17 pg/mL 0-100 (test code = 700) Tax Processor ID - DBCOMPREHENSIVE METABOLIC [id number] 19:57:00 Test Item Value Reference Range Interpretation Comments TOTAL PROTEIN 7.9 gm/dL 6.0-8.3 (BEAKER) (test code = 770) ALBUMIN (BEAKER) 3.8 g/dL 3.5-5.0 (test code = 1145) ALKALINE PHOSPHATASE 55 U/L 40-150 (BEAKER) (test code = 346) BILIRUBIN TOTAL 0.7 mg/dL 0.2-1.2 (BEAKER) (test code = 377) SODIUM (BEAKER) (test 136 meq/L 136-145 code = 381) POTASSIUM (BEAKER) 3.7 meq/L 3.5-5.1 (test code = 379) CHLORIDE (BEAKER) 101 meq/L 98-107 (test code = 382) CO2 (BEAKER) (test 22 meq/L 22-29 code = 355) BLOOD UREA NITROGEN 20 mg/dL 7-21 (BEAKER) (test code = 354) CREATININE (BEAKER) 1.68 mg/dL 0.57-1.25 H (test code = 358) GLUCOSE RANDOM 231 mg/dL 70-105 H (BEAKER) (test code = 652) CALCIUM (BEAKER) 8.3 mg/dL 8.4-10.2 L (test code = 697) AST (SGOT) (BEAKER) 90 U/L 5-34 H (test code = 353) ALT (SGPT) (BEAKER) 39 U/L 6-55 (test code = 347) EGFR (BEAKER) (test INSUFFIC IENT CLINICAL code = 1092) DATA TO CALCULA TE ESTIMATED GFR. Tax Processor ID - DBCBC W/PLT COUNT & AUTO [id number] 19:40:00 Test Item Value Reference Range Interpretation Comments WHITE BLOOD CELL COUNT (BEAKER) 5.4 K/ L 3.5-10.5 (test code = 775) RED BLOOD CELL COUNT (BEAKER) 5.35 M/ L 4.63-6.08 (test code = 761) HEMOGLOBIN (BEAKER) (test code = 14.5 GM/DL 13.7-17.5 410) HEMATOCRIT (BEAKER) (test code = 45.7 % 40.1-51.0 411) MEAN CORPUSCULAR VOLUME (BEAKER) 85.4 fL 79.0-92.2 (test code = 753) MEAN CORPUSCULAR HEMOGLOBIN 27.1 pg 25.7-32.2 (BEAKER) (test code = 751) MEAN CORPUSCULAR HEMOGLOBIN CONC 31.7 GM/DL 32.3-36.5 L (BEAKER) (test code = 752) RED CELL DISTRIBUTION WIDTH 13.6 % 11.6-14.4 (BEAKER) (test code = 412) PLATELET COUNT (BEAKER) (test 162 K/CU MM 150-450 code = 756) MEAN PLATELET VOLUME (BEAKER) 10.0 fL 9.4-12.4 (test code = 754) NUCLEATED RED BLOOD CELLS 0 /100 WBC 0-0 (BEAKER) (test code = 413) NEUTROPHILS RELATIVE PERCENT 76 % (BEAKER) (test code = 429) LYMPHOCYTES RELATIVE PERCENT 14 % (BEAKER) (test code = 430) MONOCYTES RELATIVE PERCENT 10 % (BEAKER) (test code = 431) EOSINOPHILS RELATIVE PERCENT 0 % (BEAKER) (test code = 432) BASOPHILS RELATIVE PERCENT 0 % (BEAKER) (test code = 437) NEUTROPHILS ABSOLUTE COUNT 4.04 K/ L 1.78-5.38 (BEAKER) (test code = 670) LYMPHOCYTES ABSOLUTE COUNT 0.75 K/ L 1.32-3.57 L (BEAKER) (test code = 414) MONOCYTES ABSOLUTE COUNT (BEAKER) 0.54 K/ L 0.30-0.82 (test code = 415) EOSINOPHILS ABSOLUTE COUNT 0.00 K/ L 0.04-0.54 L (BEAKER) (test code = 416) BASOPHILS ABSOLUTE COUNT (BEAKER) 0.00 K/ L 0.01-0.08 L (test code = 417) IMMATURE GRANULOCYTES-RELATIVE 0 % 0-1 PERCENT (BEAKER) (test code = 7931)
--- NOTE | 2023-02-04 22:05 | RAD REPORT ---
EXAM DESCRIPTION: RAD - Chest Single View - 02/04/2023 9:56 pm CLINICAL HISTORY: DYSPNEA Chest pain. COMPARISON: <Comparisons> FINDINGS: Portable technique limits examination quality. Moderate bilateral pulmonary opacities are present, greater on the right. This most likely represents pneumonia or pulmonary edema. The heart is mildly enlarged in size. No displaced fractures.
[2023-02-04 22:16] LABS: Absolute Lymphocytes (CBC) 1.2 K/uL (0.7-4.9); RBC Red Blood Cell Count 4.69 M/uL (4.33-5.43)
[2023-02-04 22:23] LABS: Hematocrit 38.9 % (39.6-49.0); Lymphocytes % 13.4 % (15.3-44.8); MCV 82.9 fL (80-100); Platelets 201 thou/uL (152-406)
--- NOTE | 2023-02-04 22:25 | EDPHYS ---
Physician Documentation [facility] Name: Tres Rosas Age: 58 yrs Sex: Male : 1965 Arrival Date: 02/04/2023 Time: 21:40 Bed 16 Private MD: ED Physician Hakeem Metz HPI: 02/04 22:17 This 58 yrs old Male presents to ER via EMS with complaints of cp, sob , fever ronal and cough. 22:17 The patient has shortness of breath at rest, with light activity. Onset: The ronal symptoms/episode began/occurred 3 day(s) ago. Duration: The symptoms are continuous, and are steadily getting worse. The patient's shortness of breath is aggravated by exertion, supine position. The patient or guardian reports cough, that is intermittent, difficulty breathing. Modifying factors: The symptoms are alleviated by elevating head, remaining still, the symptoms are aggravated by activity, lying flat. htn no neds , fever and chills x 3 days. Associated signs and symptoms: The patient has no apparent associated signs or symptoms. Severity of symptoms: At their worst the symptoms were mild moderate in the emergency department the symptoms are unchanged. Severity of symptoms: At their worst the symptoms were mild, moderate, in the emergency department the symptoms are unchanged. Historical: - Allergies: 21:57 No Known Allergies; jb4 - Home Meds: 21:57 None [Active]; jb4 - PMHx: 21:57 None; jb4 - PSHx: 21:57 Back Surgery (Slipped Disk); jb4 - Immunization history:: Adult Immunizations up to date, Client reports having NOT received the Covid vaccine. Flu vaccine is not up to date. It has been more than one year since last vaccine. - Social history:: Smoking status: Patient denies any tobacco usage or history of. Patient uses caffeine, Patient/guardian denies using alcohol, street drugs, IV drugs. - Family history:: not pertinent. ROS: 22:17 Constitutional: Negative for fever, chills, and weight loss, Eyes: Negative for injury, ronal pain, redness, and discharge, ENT: Negative for injury, pain, and discharge, Neck: Negative for injury, pain, and swelling, Abdomen/GI: Negative for abdominal pain, nausea, vomiting, diarrhea, and constipation, Back: Negative for injury and pain, : Negative for injury, bleeding, discharge, and swelling, MS/Extremity: Negative for injury and deformity, Skin: Negative for injury, rash, and discoloration, Neuro: Negative for headache, weakness, numbness, tingling, and seizure, Psych: Negative for depression, anxiety, suicide ideation, homicidal ideation, and hallucinations, Allergy/Immunology: Negative for hives, rash, and allergies, Endocrine: Negative for neck swelling, polydipsia, polyuria, polyphagia, and marked weight changes, 22:17 Cardiovascular: Positive for chest pain, of the chest, 22:17 Respiratory: Positive for cough, shortness of breath, at rest. 22:17 MS/extremity: Negative for decreased range of motion, pain, swelling, Exam: 22:17 Constitutional: This is a well developed, well nourished patient who is awake, alert, ronal and in no acute distress. Head/Face: Normocephalic, atraumatic. Eyes: Pupils equal round and reactive to light, extra-ocular motions intact. Lids and lashes normal. Conjunctiva and sclera are non-icteric and not injected. Cornea within normal limits. Periorbital areas with no swelling, redness, or edema. ENT: Nares patent. No nasal discharge, no septal abnormalities noted. Tympanic membranes are normal and external auditory canals are clear. Oropharynx with no redness, swelling, or masses, exudates, or evidence of obstruction, uvula midline. Mucous membranes moist. Neck: Trachea midline, no thyromegaly or masses palpated, and no cervical lymphadenopathy. Supple, full range of motion without nuchal rigidity, or vertebral point tenderness. No Meningismus. Chest/axilla: Normal chest wall appearance and motion. Nontender with no deformity. No lesions are appreciated. Cardiovascular: Regular rate and rhythm with a normal S1 and S2. No gallops, murmurs, or rubs. Normal PMI, no JVD. No pulse deficits. Respiratory: Lungs have equal breath sounds bilaterally, clear to auscultation and percussion. No rales, rhonchi or wheezes noted. No increased work of breathing, no retractions or nasal flaring. Abdomen/GI: Soft, non-tender, with normal bowel sounds. No distension or tympany. No guarding or rebound. No evidence of tenderness throughout. Back: No spinal tenderness. No costovertebral tenderness. Full range of motion. Male : Normal genitalia with no discharge or lesions. Skin: Warm, dry with normal turgor. Normal color with no rashes, no lesions, and no evidence of cellulitis. MS/ Extremity: Pulses equal, no cyanosis. Neurovascular intact. Full, normal range of motion. Neuro: Awake and alert, GCS 15, oriented to person, place, time, and situation. Cranial nerves II-XII grossly intact. Motor strength 5/5 in all extremities. Sensory grossly intact. Cerebellar exam normal. Normal gait. Psych: Awake, alert, with orientation to person, place and time. Behavior, mood, and affect are within normal limits. 22:17 Musculoskeletal/extremity: DVT Exam: No signs of deep vein thrombosis. no pain, no swelling, no tenderness, negative Homans' sign noted on exam, no appreciated bluish discoloration, no erythema, no increased warmth, 22:24 ECG was reviewed by the Attending Physician. [facility] Vital Signs: 21:51 BP 194 / 123; Pulse 102; Resp 20; Temp 99.1; Pulse Ox 96% on R/A; Weight 99.79 kg; jb4 Height 5 ft. 3 in. ; Pain 0/10; 21:51 Body Mass Index 38.97 (99.79 kg, 160.02 cm) [facility] 21:51 Pain Scale: Adult jb4 MDM: 21:44 Patient medically screened. [facility] 22:21 Differential diagnosis: asthma, Bronchitis CHF exacerbation, Chronic Obstructive ronal Pulmonary Disease obstructed airway, tracheal injury, bronchitis, flu, URI, viral Infection, bacterial infection, pneumonia Myocardial Infarction pulmonary edema, Pulmonary Embolism reactive airway disease, Sepsis Unstable Angina. Antibiotic administration: Rocephin and Zithromax given. Differential Diagnosis altered mental status, sepsis, flu, Obstructed Airway Bronchitis Influenza Upper Respiratory Infection Sinusitis Pharyngitis Otitis Media. Immunization status: Influenza vaccine: within last 5 years. Data reviewed: vital signs, nurses notes, lab test result(s), EKG, radiologic studies, plain films. Consideration of Admission/Observation Patient was admitted/placed on observation. Escalation of care including admission/observation considered. I considered the following discharge prescriptions or medication management in the emergency department Medications were administered in the Emergency Department. See MAR. Independent interpretation of the following test(s) in the Emergency Department EKG: See my EKG interpretation above. Test considered but Not performed: Ultrasound no 2 d echo. 02/04 21:44 Order name: Basic Metabolic Panel; Complete Time: 23:17 [facility] 02/04 21:44 Order name: CBC with Diff [facility] 02/04 21:44 Order name: LFT's; Complete Time: 23:17 [facility] 02/04 21:44 Order name: Magnesium; Complete Time: 23:17 [facility] 02/04 21:44 Order name: NT PRO-BNP; Complete Time: 23:17 [facility] 02/04 21:44 Order name: PT-INR; Complete Time: 23:17 [facility] 02/04 21:44 Order name: Troponin HS; Complete Time: 23:17 [facility] 02/04 21:44 Order name: Lipase; Complete Time: 23:17 [facility] 02/04 21:44 Order name: Urinalysis w/ reflexes; Complete Time: 23:17 [facility] 02/04 22:15 Order name: Blood Culture Adult (2) [facility] 02/04 22:15 Order name: Lactate w/ 2H reflex if indic.; Complete Time: 00:44 [facility] 02/04 22:15 Order name: COVID-19/FLU A+B/RSV; Complete Time: 00:44 [facility] 02/04 22:30 Order name: Manual Differential EDMS 02/04 22:34 Order name: CBC with Automated Diff EDMS 02/04 22:34 Order name: CBC with Automated Diff EDMS 02/04 22:34 Order name: Comprehensive Metabolic Panel EDMS 02/04 22:34 Order name: Comprehensive Metabolic Panel EDMS 02/04 21:44 Order name: XRAY Chest (1 view); Complete Time: 22:13 [facility] 02/04 23:28 Order name: CT Chest Wo Con [facility] 02/05 13:27 Order name: CT EDMS 02/04 21:44 Order name: EKG; Complete Time: 21:46 [facility] 02/04 21:44 Order name: Cardiac monitoring; Complete Time: 22:36 [facility] 02/04 21:44 Order name: EKG - Nurse/Tech; Complete Time: 22:36 [facility] 02/04 21:44 Order name: IV Saline Lock; Complete Time: 22:00 [facility] 02/04 21:44 Order name: Labs collected and sent; Complete Time: 22:00 [facility] 02/04 21:44 Order name: O2 Per Protocol; Complete Time: 22:00 ronal 02/04 21:44 Order name: O2 Sat Monitoring; Complete Time: 22:00 ronal EC:24 Rate is 94 beats/min. Rhythm is regular. QRS [place] is Normal. LA interval is normal. QRS ronal interval is normal. QT interval is prolonged at 495 msec. No Q waves. T waves are Normal. No ST changes noted. Clinical impression: NSR w/ Non-specific ST/T Changes and No evidence of ischemia. Interpreted by me. Reviewed by me. Administered Medications: :18 Drug: Ipratropium Inhalation Aerosol 0.5 mg Inhalation once Route: Inhalation; [facility] 02/05 01:20 Follow up: Response: No adverse reaction [facility] 02/04 23:18 Drug: Lisinopril PO 20 mg PO once Route: PO; [facility] 02/05 01:20 Follow up: Response: No adverse reaction [facility] 02/04 23:18 Drug: Norvasc PO 10 mg PO once Route: PO; [facility] 02/05 01:20 Follow up: Response: No adverse reaction [facility] 02/04 23:19 Drug: Furosemide IVP 20 mg IVP once; give over 2 minutes Route: IVP; Site: [address]; 02/05 01:19 Follow up: Response: No adverse reaction [facility] 02/04 23:19 Drug: Rocephin IV 1 grams IV at per protocol once; Given slow IV push per pharmacy jw7 instructions Route: IV; Rate: per protocol; Site: [facility]; 02/05 01:19 Follow up: Response: No adverse reaction; IV Status: Completed infusion; IV Intake: jw7 100ml 02/04 23:19 Drug: Zithromax IVPB 500 mg IVPB once over 1 hrs; mix in 250 mL NS Route: IVPB; Infused jw7 Over: 1 hrs; Site: left [facility]; 02/05 01:19 Follow up: Response: No adverse reaction; IV Status: Completed infusion; IV Intake: jw7 250ml 02/04 23:19 Drug: Levalbuterol Inhalation 1.25 mg Inhalation once Route: Inhalation; [facility] 02/05 01:19 Follow up: Response: No adverse reaction [facility] 00:16 Drug: Potassium PO Effervescent Tablet 50 mEq PO once; dissolve in 4 ounces of water or jw7 juice Route: PO; 01:20 Follow up: Response: No adverse reaction jw7 02:11 Drug: levofloxacin IVPB 500 mg 100 ml IVPB once over 60 mins Volume: 100 ml; Route: jw7 IVPB; Infused Over: 60 mins; Site: [facility]; 02:11 Drug: Potassium PO Effervescent Tablet 25 mEq PO once; dissolve in 4 ounces of water or jw7 juice Route: PO; Disposition Summary: 02/04/23 22:24 Hospitalization Ordered Notes: Hospitalization Status: Inpatient Admission ronal Provider: Millre Whitehead cha Condition: Fair ronal Problem: new ronal Symptoms: have improved ronal Bed/Room Type: Standard ronal Location: Telemetry/MedSurg (Inpatient)(02/05/23 16:54) iw Room Assignment: 223(02/05/23 16:54) iw Diagnosis - Dyspnea ronal - Pneumonia due to other specified bacteria ronal - Essential (primary) hypertension ronal - Cardiomegaly ronal - Combined systolic (congestive) and diastolic (congestive) heart failure ronal - Hypokalemia ronal - Unspecified kidney failure - insufficency ronal Forms: - Medication Reconciliation Form ronal - SBAR form ronal - Leadership Thank You Letter ronal Signatures: Dispatcher [employer] Hakeem Perez MD MD cha Williams, Irene, Jo Graham RN, RN RN cg Bryson, James, RN RN jb4 Waits, Jodi, RN RN jw7 Corrections: (The following items were deleted from the chart) 02/04 21:58 21:57 Home Meds: None; donell marley 22:43 22:24 Telemetry/MedSurg (Inpatient) ronal cg 22:43 22:24 ronal cg 02/05 16:54 02/04 22:43 [facility] ER HOLD cg iw 02/05 16:54 02/04 22:43 ERHOLD- cg iw
--- NOTE | 2023-02-04 22:25 | ER ---
Nurse's Notes [facility] Name: Tres Rosas Age: 58 yrs Sex: Male : 1965 Arrival Date: 02/04/2023 Time: 21:40 Bed 16 Private MD: Diagnosis: Dyspnea;Pneumonia due to other specified bacteria;Essential (primary) hypertension;Cardiomegaly;Combined systolic (congestive) and diastolic (congestive) heart failure;Hypokalemia;Unspecified kidney failure-insufficency Presentation: 02/04 21:51 Chief complaint: Patient states: SOB and cough X 1 week, coughing up phlegm for the jb4 last 4 days, and headache. pt reports taking 3 Advil at 2000, before EMS arrival. Coronavirus screen: Vaccine status: Patient reports being unvaccinated. Client denies travel out of the [place] in the last 14 days. cough unrelated to allergies, fever, headache, shortness of breath. Ebola Screen: No symptoms or risks identified at this time. Initial Sepsis Screen: Does the patient meet any 2 criteria? No. Patient's initial sepsis screen is negative. Does the patient have a suspected source of infection? No. Patient's initial sepsis screen is negative. Risk Assessment: Do you want to hurt yourself or someone else? Patient reports no desire to harm self or others. Onset of symptoms was January 28, 2023. 21:51 Acuity: KARLEE 2 jb4 21:51 Method Of Arrival: EMS: [facility] jb4 Triage Assessment: 21:57 General: Appears in no apparent distress. uncomfortable, Behavior is calm, cooperative. jb4 Pain: Denies pain. EENT: No deficits noted. No signs and/or symptoms were reported regarding the EENT system. Neuro: Varela Agitation-Sedation Scale (RASS): 0 - Alert and Calm Level of Consciousness is awake, alert, obeys commands, Oriented to person, place, time, situation. Cardiovascular: Reports shortness of breath, Denies chest pain, Capillary refill < 3 seconds Clubbing of nail beds is absent JVD is absent Patient's skin is warm and dry. Respiratory: Reports shortness of breath on exertion cough that is productive, Airway is patent Trachea midline Respiratory effort is even, unlabored, Respiratory pattern is regular, symmetrical, Onset: The symptoms/episode began/occurred X 1 week . GI: No deficits noted. No signs and/or symptoms were reported involving the gastrointestinal system. : No deficits noted. No signs and/or symptoms were reported regarding the genitourinary system. Derm: No deficits noted. No signs and/or symptoms reported regarding the dermatologic system. Musculoskeletal: No deficits noted. No signs and/or symptoms reported regarding the musculoskeletal system. Historical: - Allergies: 21:57 No Known Allergies; jb4 - Home Meds: 21:57 None [Active]; jb4 - PMHx: 21:57 None; jb4 - PSHx: 21:57 Back Surgery (Slipped Disk); jb4 - Immunization history:: Adult Immunizations up to date, Client reports having NOT received the Covid vaccine. Flu vaccine is not up to date. It has been more than one year since last vaccine. - Social history:: Smoking status: Patient denies any tobacco usage or history of. Patient uses caffeine, Patient/guardian denies using alcohol, street drugs, IV drugs. - Family history:: not pertinent. Screenin:50 [facility] ED Fall Risk Assessment (Adult) History of falling in the last 3 months, jb4 including since admission No falls in past 3 months (0 pts) Score/Fall Risk Level 0 - 2 = Low Risk Oriented to surroundings, Maintained a safe environment. Abuse screen: Denies threats or abuse. Denies injuries from another. Nutritional screening: No deficits noted. Tuberculosis screening: No symptoms or risk factors identified. Assessment: 22:00 General: see triage assessment. [facility] 02/05 17:20 Reassessment: Failed attempt to call report to 2nd floor, company secretary states only 2 eh3 nurses on floor and must speak with house fellow before receiving report on any more patients. 17:36 Reassessment: Lesly on 2nd floor states per house fellow Jed, report on this pt eh3 will be received after shift change. Vital Signs: 02/04 21:51 BP 194 / 123; Pulse 102; Resp 20; Temp 99.1; Pulse Ox 96% on R/A; Weight 99.79 kg; jb4 Height 5 ft. 3 in. ; Pain 0/10; 21:51 Body Mass Index 38.97 (99.79 kg, 160.02 cm) [facility] 21:51 Pain Scale: Adult jb4 ED Course: 21:43 Patient arrived in ED. rv1 21:44 Hakeem Metz MD is Attending Physician. ronal 21:50 Misael Dewey RN is Primary Nurse. jb4 21:50 Patient has correct armband on for positive identification. Bed in low position. Call jb4 light in reach. Side rails up X 1. 21:50 Maintain EMS IV. Dressing intact. Good blood return noted. Site clean \T\ dry. Gauge \T\ isiah 4 site: 18g L AC. 21:56 Triage completed. jb4 21:57 Arm band placed on. jb4 21:58 XRAY Chest (1 view) In Process Unspecified. EDMS 22:22 Urinalysis w/ reflexes Sent. jb4 22:23 Miller Whitehead MD is Hospitalizing Provider. [facility] 02/05 02:02 No provider procedures requiring assistance completed. Patient admitted, IV remains in jw7 place. 02:03 Provided Education on: need for admit. jw Administered Medications: 02/04 23:18 Drug: Ipratropium Inhalation Aerosol 0.5 mg Inhalation once Route: Inhalation; [facility] 02/05 01:20 Follow up: Response: No adverse reaction [facility] 02/04 23:18 Drug: Lisinopril PO 20 mg PO once Route: PO; 7 02/05 01:20 Follow up: Response: No adverse reaction [facility] 02/04 23:18 Drug: Norvasc PO 10 mg PO once Route: PO; [facility] 02/05 01:20 Follow up: Response: No adverse reaction [facility] 02/04 23:19 Drug: Furosemide IVP 20 mg IVP once; give over 2 minutes Route: IVP; Site: left [address]; 02/05 01:19 Follow up: Response: No adverse reaction [facility] 02/04 23:19 Drug: Rocephin IV 1 grams IV at per protocol once; Given slow IV push per pharmacy jw7 instructions Route: IV; Rate: per protocol; [facility]; 02/[facility] 01:19 Follow up: Response: No adverse reaction; IV Status: Completed infusion; IV Intake: jw7 100ml 02/04 23:19 Drug: Zithromax IVPB 500 mg IVPB once over 1 hrs; mix in 250 mL NS Route: IVPB; Infused jw7 Over: 1 hrs; [facility]; 11/09 01:19 Follow up: Response: No adverse reaction; IV Status: Completed infusion; IV Intake: jw7 250ml 02/04 23:19 Drug: Levalbuterol Inhalation 1.25 mg Inhalation once Route: Inhalation; jw7 02/05 01:19 Follow up: Response: No adverse reaction jw7 00:16 Drug: Potassium PO Effervescent Tablet 50 mEq PO once; dissolve in 4 ounces of water or jw7 juice Route: PO; 01:20 Follow up: Response: No adverse reaction jw7 02:11 Drug: levofloxacin IVPB 500 mg 100 ml IVPB once over 60 mins Volume: 100 ml; Route: jw7 IVPB; Infused Over: 60 mins; Site: [facility]; 02:11 Drug: Potassium PO Effervescent Tablet 25 mEq PO once; dissolve in 4 ounces of water or jw7 juice Route: PO; Medication: 02:03 VIS not applicable for this client. jw7 Intake: 01:19 IV: 100ml; Total: 100ml. jw7 01:19 IV: 250ml; Total: 350ml. jw7 Outcome: 02/04 22:24 Decision to Hospitalize by Provider. ronal 02/05 02:02 Admitted to ER Hold. Please see [facility] for further documentation. jw7 Condition: stable Instructed on the need for admit, Demonstrated understanding of instructions, 20:06 Patient left the ED. eh3 Signatures: Dispatcher [employer] EDPR Hakeem Metz MD MD cha Bryson, James RN RN jb4 Thelma Beltran RN RN jwMariza Griffin RN RN 3 Tamara Henry [facility] Corrections: (The following items were deleted from the chart) 02/04 21:58 21:57 Home Meds: None; jb4 jb4
[2023-02-04] MEDS ORDERED: ACETAMINOPHEN 500 MG TAB PO PRN (22:30)
[2023-02-04] MEDS ORDERED: ALBUTEROL 2.5 MG/3 ML NEB SOL NEB PRN (22:30)
[2023-02-04] MEDS ORDERED: MORPHINE 2 MG/ML SYR IV PRN (22:30)
[2023-02-04] MEDS ORDERED: ONDANSETRON 4 MG/2 ML VIAL IV PRN (22:30)
--- NOTE | 2023-02-04 22:33 | P.HP ---
Certification for Inpatient Patient admitted to: Inpatient With expected LOS: >2 Midnights Patient will require the following post-hospital care: None Practitioner: I am a practitioner with admitting privileges, knowledge of patient current condition, hospital course, and medical plan of care. Services: Services provided to patient in accordance with Admission requirements found in Title 42 Section 412.3 of the Code of Federal Regulations Patient History Date of Service: 02/05/23 Reason for admission: sob., PNA,CHF History of Present Illness: 58 yrs old Male with no significant past medical history presents to ER with complaints of fever, cough, shortness of breath and chest pain which has been going on for the last few days. Patient states that he had a friend who was sick and he contracted from him. Started insidiously. Fever is intermittent associated with chills. Cough is productive with mucoid expectoration. Denies any hemoptysis. Patient also complains of shortness of breath with light activities and even at rest. Chest pain is diffuse, all over the chest,, worse with coughing spells. Associated with nausea but no vomiting. Denies any diarrhea.. He had a hard time sleeping lying down as it worsens his symptoms of shortness of breath and cough. Patient was assessed in the ER and had a work-up which was negative for influenza and COVID along with RSV but x-ray was suggestive of pneumonia/CHF. Patient has been admitted for further management Allergies No Known Allergies Allergy (Unverified 02/05/23 01:00) Home medications list reviewed: Yes Home Medications: NK [No Home Meds] 02/05/23 - Past Medical/Surgical History Past Medical History: Reviewed- Non-Contributory Past Surgical History: Reviewed- Non-Contributory - Family History Family History: Reviewed- Non-Contributory - Social History Smoking Status: Never smoker Review of Systems 10-point ROS is otherwise unremarkable General: Fever, Chills, Weakness, Malaise Eyes: Unremarkable ENT: Nose Congestion, Unremarkable Respiratory: Cough, Shortness of Breath, SOB with Excertion, Pleuritic Pain, Sputum Cardiovascular: Chest Pain, Orthopnea Gastrointestinal: Nausea, No Distention Musculoskeletal: Unremarkable Integumentary: Unremarkable Neurological: Unremarkable Lymphatics: Unremarkable Physical Examination - Vital Signs Temperature: 98.6 F Blood Pressure: 142/76 Pulse: 78 Respirations: 18 Pulse Ox (%): 98 - Physical Exam General: Alert, In no apparent distress, Oriented x3 HEENT: Atraumatic, Normocephalic Neck: Supple, JVD distended Respiratory: Diminished, Crackles/rales, Expiratory wheezes Cardiovascular: Regular rate/rhythm, Normal S1 S2, No murmurs, Edema Capillary refill: <2 Seconds Gastrointestinal: Soft and benign, W/out hepatosplenomegaly, No guarding Musculoskeletal: No clubbing, No swelling Integumentary: No rashes, No breakdown Neurological: Normal strength at 5/5 x4 extr, Cranial nerves 3-12 intact, Normal reflexes 2+ Lymphatics: No axilla or inguinal lymphadenopathy - Studies Laboratory Data (last 24 hrs) 02/04/23 21:53 WBC 9.20 Hgb 13.0 L Hct 38.9 L Plt Count 201 Imagings Data: Reason for Exam: DYSPNEA Report Status: Signed EXAM DESCRIPTION: RAD - Chest Single View - 02/04/2023 9:56 pm CLINICAL HISTORY: DYSPNEA Chest pain. COMPARISON: <Comparisons> FINDINGS: Portable technique limits examination quality. Moderate bilateral pulmonary opacities are present, greater on the right. This most likely represents pneumonia or pulmonary edema. The heart is mildly enlarged in size. No displaced fractures. Assessment and Plan - Problems (Diagnosis) (1) Pneumonia Current Visit: Yes Status: Acute Plan: Multifocal pneumonia worse on the right Started on IV antibiotics We will obtain blood cultures We will change antibiotic as per sensitivity We will get a sputum culture Bronchodilators (2) CHF (congestive heart failure) Current Visit: Yes Status: Acute Plan: No previous history of CHF Elevated BNP found We will get an echocardiogram Diuresis mild Start on Coreg We will get cardiac enzymes trended Chest pain To rule out ACS Cardiac enzymes trended Aspirin and statin We will get cardiology consult if cardiac enzymes are higher (3) Hypokalemia Current Visit: Yes Status: Acute Plan: Will replace Monitor under telemetry (4) Acute kidney injury Current Visit: Yes Status: Acute Plan: Renal parameters monitored Electrolytes monitor and replace accordingly Discharge Plan: Home Plan to discharge in: 48 Hours - Advance Directives Does patient have a Living Will: No Does patient have a Durable POA for Healthcare: No - Code Status/Comfort Care Code Status: Full Code Physician Review: Patient Assessed, Agree with Above Assessment and Plan Time Spent Managing Pts Care (In Minutes): 47
[2023-02-04 22:42] LABS: Protime INR 1.29
[2023-02-04 22:43] LABS: Albumin 3.3 g/dL (3.4-5.0); Bilirubin Direct 0.2 mg/dL (0-0.2); Bilirubin Indirect, Calculated 0.4 mg/dL (0.2-0.8); Bilirubin Total 0.6 mg/dL (0.2-1.0); Protein, Total 7.9 g/dL (6.4-8.2); Troponin High Sensitivity 53.2 pg/mL (<58.9)
[2023-02-04 22:55] LABS: Specific Gravity 1.009 (1.005-1.030); Urine Bacteria <20 /HPF (<20); Urine Bilirubin NEGATIVE (Negative); Urine Blood 1+ (Negative); Urine Clarity Clear (Clear); Urine Color Colorless (Yellow); Urine Glucose NEGATIVE (Negative); Urine Protein 1+ (Negative); Urine RBC None Seen /HPF (None Seen); Urine Urobilinogen Normal (Normal); Urine pH 6.5 (5.0-7.0)
[2023-02-04] MEDS ORDERED: lisinopriL 20 MG TAB ONE (22:57)
[2023-02-04] MEDS ORDERED: FUROSEMIDE 20 MG/ 2ML VIAL ONE (22:57)
[2023-02-04] MEDS ORDERED: CEFTRIAXONE 1000 MG/VIAL ONE (22:58)
[2023-02-04] MEDS ORDERED: AMLODIPINE 10 MG TAB ONE (22:58)
[2023-02-04] MEDS ORDERED: NA CHLORIDE 0.9% 100 ML ONE (22:59)
[2023-02-04] MEDS ORDERED: NA CHLORIDE 0.9% 250 ML ONE (22:59)
[2023-02-04] MEDS ORDERED: AZITHROMYCIN 500 MG INJ IVPB ONE (22:59)
[2023-02-04] MEDS ORDERED: IPRATROPIUM BROM 0.5MG/2.5ML ONE (22:59)
[2023-02-04] MEDS ORDERED: LEVALBUTEROL 1.25 MG/3 ML NEB ONE (23:05)
[2023-02-04] MEDS ORDERED: POTASSIUM 25 MEQ EFFERV TAB ONE (23:38)
[2023-02-05 00:27] LABS: SARS-COV-2 RT PCR NEGATIVE (NEGATIVE)
[2023-02-05 01:00] LABS: Blood Morphology Comment NOT SEEN (NOT SEEN); Platelet Estimate ADEQ
[2023-02-05 01:02] VITALS: BMI 38.9
[2023-02-05] MEDS ORDERED: POTASSIUM 25 MEQ EFFERV TAB ONE (02:12)
[2023-02-05] MEDS ORDERED: Levofloxacin500mg IV 500 MG/100 ML BAG IV ONE (02:12)
[2023-02-05] MEDS ORDERED: IPRATROPIUM BROM 0.5MG/2.5ML NEB PRN ×2 (03:41→12:00)
[2023-02-05] MEDS ORDERED: POTASSIUM CL SA 10 MEQ TAB PO ONE (03:43)
[2023-02-05 04:44] LABS: Absolute Lymphocytes (CBC) 1.1 K/uL (0.7-4.9); Hematocrit 40.7 % (39.6-49.0); Lymphocytes % 11.3 % (15.3-44.8); MCV 82.7 fL (80-100); MPV 9.1 fL (7.6-11.3); Platelets 215 thou/uL (152-406); RBC Red Blood Cell Count 4.93 M/uL (4.33-5.43)
[2023-02-05 05:07] LABS: Albumin 3.3 g/dL (3.4-5.0); Bilirubin Total 0.7 mg/dL (0.2-1.0); Potassium 3.4 mEq/L (3.5-5.1); Protein, Total 8.3 g/dL (6.4-8.2)
[2023-02-05] MEDS ORDERED: INFLUENZA VACCINE (for 6+ mo) 0.5 ML DOSE IMVAC ONE (08:00)
--- NOTE | 2023-02-05 08:35 | P.PN ---
Date of Service: 02/05/23 Subjective: Feeling better today Breathing a little more comfortably on room air Hasn't seen a doctor since hospitalized in [facility] ~2020 afebrile ROS: 10 point ROS as noted above, otherwise negative Physical Exam: GEN: Alert, oriented, NAD HEENT: Normal conjunctiva, sclera anicteric CV: Regular rate and rhythm, 1+ BLE edema up to the knee bilaterally Pulm: Nonlabored respirations on room air at rest, diminished at bases b/l, b/l crackles/rales, +expiratory wheezes ABD: Soft, nontender, nondistended Neuro: Normal speech, normal affect vitals reviewed Problem List: Bilateral Pneumonia ?Acute CHF, new onset Chest pain JARRETT Hypokalemia Hypertension h/o Sleep Apnea Bilateral Pneumonia CXR (02/04): Moderate bilateral pulmonary opacities, R > L; pneumonia vs pulm edema CT chest (02/04): extensive b/l infiltrates likely inflammatory etiology. mildly spiculated ill-defined confluent component lateral right middle lobe. Mediastinal adenopathy consider f/u CT in ~3 months to confirm resolution and exclude neoplastic process. Pulm consulted Blood cx (02/04): Pending Continue empiric azithromycin / rocephin (02/04-) PRN nebs ?Acute CHF, new onset Chest pain trend troponins, monitor on tele diffuse chest pain worsened with coughing BNP: 709 continue IV lasix BID echo ordered JARRETT Hypokalemia Cr 1.48 -> 1.58 (02/05) continue IV lasix BID Continue to monitor renal function Monitor and replete electrolytes PRN Hypertension continue hyzaar, amlodipine no prior home antihypertensives h/o Sleep Apnea Patient reports h/o sleep apnea; never got CPAP for home Code: Full Dispo: Home
[2023-02-05] MEDS ORDERED: FUROSEMIDE 20 MG/ 2ML VIAL IV ONE (08:36)
[2023-02-05] MEDS: FUROSEMIDE 20 MG/ 2ML VIAL IV SCH ×2 (09:00→17:00)
[2023-02-05] MEDS ORDERED: AZITHROMYCIN IV 500 MG in NA CHLORIDE 0.9% 250 ML IVPB SCH (09:00)
[2023-02-05] MEDS ORDERED: CEFTRIAXONE 1,000 MG in NA CHLORIDE 0.9% 50 ML IVPB SCH (09:00)
[2023-02-05] MEDS ORDERED: LOSARTAN/HCTZ 50-12.5 PO SCH (09:00)
[2023-02-05] MEDS ORDERED: hydroCHLOROthiazide 25 MG TAB ONE (09:16)
[2023-02-05] MEDS ORDERED: LOSARTAN POTASSIUM 50 MG TABLET ONE (09:16)
[2023-02-05] MEDS ORDERED: AZITHROMYCIN 500 MG INJ IVPB ONE (09:17)
[2023-02-05] MEDS ORDERED: NA CHLORIDE 0.9% 50 ML ONE (09:17)
[2023-02-05] MEDS ORDERED: CEFTRIAXONE 1000 MG/VIAL ONE (09:17)
[2023-02-05] MEDS ORDERED: NA CHLORIDE 0.9% 250 ML ONE (09:17)
[2023-02-05] MEDS ORDERED: ALBUTEROL 2.5 MG/3 ML NEB SOL NEB PRN (12:00)
[2023-02-05] MEDS ORDERED: AMLODIPINE 5 MG TAB PO SCH (12:31)
--- NOTE | 2023-02-05 13:07 | P.CNS ---
Chief Complaint: sob., PNA,CHF Allergies No Known Allergies Allergy (Unverified 02/05/23 01:00) Home Medications: NK [No Home Meds] 02/05/23 - Past Medical/Surgical History -: Back Surgery (Slipped Disk) - Social History Caffeine use: Yes Place of Residence: Home Physical Examination Temp Pulse Resp BP Pulse Ox 97.7 F 89 12 172/104 H 96 02/05/23 08:00 02/05/23 09:00 02/05/23 08:00 02/05/23 09:00 02/05/23 08:00 Laboratory Data (last 24 hrs) 02/04/23 02/04/23 02/04/23 21:53 21:53 21:53 WBC 9.20 Hgb 13.0 L Hct 38.9 L Plt Count 201 PT 14.2 H INR 1.29 Sodium 139 Potassium 3.0 L BUN 17 Creatinine 1.48 H Glucose 131 H Magnesium 2.0 Total Bilirubin 0.6 AST 46 H ALT 45 Alkaline Phosphatase 79 Lipase 36
--- NOTE | 2023-02-05 13:26 | RAD REPORT ---
EXAM DESCRIPTION: CT - Thorax Wo Con - 02/05/2023 6:51 am CLINICAL HISTORY: 58 years Male Congestion;Dyspnea COMPARISON: None TECHNIQUE: Images were obtained in the axial, sagittal, and coronal planes. No intravenous contrast was administered. This exam was performed according to our departmental dose-optimization program which includes use of Automated Exposure Control, adjustment of the mA and/or kV according to patient size and/or use of i terative reconstruction technique. FINDINGS: No dilatation aortic root. No pericardial or pleural effusions bilaterally. Mediastinal ad enopathy. 2.3 cm right paratracheal lymph node. Diffuse interstitial nodularity with " tree in bud" appearance lungs bilaterally. The findings are mo st consistent with inflammatory process. Additional confluent mildly spiculated airspace attenuation lateral right middle lobe. This finding is best identified on axial series 201 image 26. No pneumotho rax. Decreased attenuation involving the liver consistent with fatty change. Moderately distended air fill ed small bowel loops. No acute osseous abnormality. IMPRESSION: Extensive bilateral infiltrates likely inflammatory etiology. Mildly spiculated ill-defi micah confluent component lateral right middle lobe. This finding may be inflammatory in nature however 3 month follow-up CT scan of the chest would be needed to confirm resolution and exclude underlying neoplastic process. Mediastinal adenopathy. 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 The interpreting r adiologist is fully responsible for the content of the report.
[2023-02-05] MEDS ORDERED: AMLODIPINE 5 MG TAB ONE (14:05)
[2023-02-05] MEDS ORDERED: FUROSEMIDE 20 MG/ 2ML VIAL ONE (16:57)
[2023-02-05] MEDS: HYDRALAZINE HCL 20 MG/ML VIAL IV PRN (18:51)
[2023-02-05] MEDS ORDERED: HYDRALAZINE HCL 20 MG/ML VIAL ONE (19:07)
[2023-02-05] MEDS ORDERED: ACETAMINOPHEN 160 MG/5 ML UCUP ONE (19:08)
--- NOTE | 2023-02-05 23:34 | P.PN ---
Subjective Date of Service: 02/05/23 Chief Complaint: sob., PNA,CHF Subjective: Other (called to 2nd for rx for something for cough, noted BP documented at 2030 of 194/123. On assessment pt is calm, Ox3. No distress. reassessed VS and they are significantly improved. harsh dry cough. Breath soun ds clear upper with bilateral basilar crackles. Encouraged pt's RN to give dose of morphine) <Bibiana Gomes - Last Filed: 02/05/23 23:30> Date of Service: 02/06/23 Patient admitted with shortness of breath his improved somewhat denies any fever chills or cough <Todd Mitchell - Last Filed: 02/06/23 08:20> Review of Systems General: Weakness Respiratory: Shortness of Breath <Todd Mitchell - Last Filed: 02/06/23 08:20> Physical Examination - Vital Signs Temperature: 99.1 F Blood Pressure: 194/123 Pulse: 102 Respirations: 18 Pulse Ox (%): 96 <Bibiana Gomes - Last Filed: 02/05/23 23:30> - Physical Exam General: Alert, Oriented x3 Respiratory: Clear to auscultation bilaterally Cardiovascular: No edema, Normal pulses <Todd Mitchell - Last Filed: 02/06/23 08:20> Assessment And Plan Physician Review: Patient Assessed, Agree with Above Assessment and Plan <Bibiana Gomes - Last Filed: 02/05/23 23:30> - Current Problems (Diagnosis) (1) CHF (congestive heart failure) Current Visit: Yes Status: Acute Plan: Patient is 58 years of age admitted with shortness of breath his hypertension and renal failure echocardiogram is pending has chronic renal failure blood pressure is still elevated Qualifiers: Heart failure chronicity: unspecified <Todd Mitchell - Last Filed: 02/06/23 08:20>
[2023-02-06 02:42] LABS: Hematocrit 41.2 % (39.6-49.0); MCV 83.5 fL (80-100); MPV 8.8 fL (7.6-11.3); Platelets 231 thou/uL (152-406); RBC Red Blood Cell Count 4.93 M/uL (4.33-5.43)
[2023-02-06 03:03] LABS: Magnesium 2.1 mg/dL (1.6-2.4); Potassium 3.1 mEq/L (3.5-5.1)
[2023-02-06] MEDS: HYDRALAZINE HCL 20 MG/ML VIAL IV PRN (03:29)
[2023-02-06] MEDS ORDERED: POTASSIUM 25 MEQ EFFERV TAB PO ONE (03:42)
--- NOTE | 2023-02-06 08:23 | P.PN ---
Subjective Date of Service: 02/06/23 Chief Complaint: sob., PNA,CHF Patient admitted with shortness of breath his improved somewhat denies any fever chills or cough CT scan shows bilateral pulmonary infiltrate Review of Systems 10-point ROS is otherwise unremarkable Respiratory: Shortness of Breath Physical Examination - Vital Signs Temperature: 97.2 F Blood Pressure: 155/95 Pulse: 87 Respirations: 18 Pulse Ox (%): 96 - Physical Exam General: Alert, In no apparent distress, Oriented x3 Respiratory: Clear to auscultation bilaterally Cardiovascular: No edema, Normal pulses Assessment And Plan - Current Problems (Diagnosis) (1) CHF (congestive heart failure) Current Visit: Yes Status: Acute Plan: Patient is 58 years of age admitted with shortness of breath his hypertension and renal failure echocardiogram is pending has chronic renal failure blood pressure is still elevated/increase amlodipine to 10 mg a day he has no evidence of sepsis he is to p.o. antibiotic Augmentin and Zithromax changed to p.o. Lasix DC losartan for the possible renal function is slightly worse Qualifiers: Heart failure chronicity: unspecified Physician Review: Patient Assessed, Agree with Above Assessment and Plan
[2023-02-06] MEDS: AMLODIPINE 10 MG TAB PO SCH (08:41)
[2023-02-06] MEDS: AMOX/K CLAV 875 MG TAB PO SCH ×2 (08:41→22:15)
[2023-02-06] MEDS: FUROSEMIDE 40 MG TABLET PO SCH (08:41)
--- NOTE | 2023-02-06 09:38 | P.PN ---
Date of Service: 02/06/23 Subjective: Feeling better today Intermittent cough continues; comes and goes no acute events overnight; doesn't feel anything is worse swelling in legs continues to slowly improve +headache afebrile ROS: 10 point ROS as noted above, otherwise negative Physical Exam: GEN: Alert, oriented, NAD HEENT: Normal conjunctiva, sclera anicteric CV: Regular rate and rhythm, trace to 1+ BLE edema up to the knee bilaterally Pulm: Nonlabored respirations on room air at rest, diminished at bases b/l, b/l crackles/rales, +expiratory wheezes ABD: Soft, nontender, nondistended Neuro: Normal speech, normal affect vitals reviewed Problem List: Bilateral Pneumonia ?Acute CHF, new onset Chest pain JARRETT Hypokalemia Hypertension h/o Sleep Apnea Bilateral Pneumonia CXR (02/04): Moderate bilateral pulmonary opacities, R > L; pneumonia vs pulm edema CT chest (02/04): extensive b/l infiltrates likely inflammatory etiology. mildly spiculated ill-defined confluent component lateral right middle lobe. Mediastinal adenopathy consider f/u CT in ~3 months to confirm resolution and exclude neoplastic process. Pulm consulted Blood cx (02/04): NGTD Continue augmentin (02/06-); deescalated from IV azithromycin / rocephin (02/04- 02/05) PRN nebs ?Acute CHF, new onset Chest pain troponins negative, monitor on tele diffuse chest pain worsened with coughing BNP: 709 continue PO lasix daily; switched from IV lasix BID 02/06 echo (02/05): pending JARRETT Hypokalemia Cr 1.58 -> 1.67 (02/06) continue PO lasix daily; switched from IV lasix BID 02/06 Continue to monitor renal function Monitor and replete electrolytes PRN Nephrology consulted Hypertension continue amlodipine; increased to 10mg 02/06 hyzaar dc'd 02/05 no prior home antihypertensives h/o Sleep Apnea Patient reports h/o sleep apnea; never got CPAP for home Code: Full Dispo: Home Pending further improvement, echo results
[2023-02-06] MEDS ORDERED: ACETAMINOPHEN 160 MG/5 ML UCUP PO PRN (09:41)
--- NOTE | 2023-02-06 14:21 | P.CNS ---
Date of Consult: 02/06/23 Reason for Consult: Renal failure Requesting Physician: Miller Whitehead Chief Complaint: sob., PNA,CHF History of Present Illness: 58M w/ PMHx of covid infxn in 2020 who p/w fever, cough, shortness of breath and chest pain, admitted for pneumonia. He is receiving abx. Referred to Nephrology for renal failure. SCr 1.5 on adm, increased to 1.7 today. Baseline SCr 0.9 in May 2020. Urinalysis showed mild proteinuria but no hematuria and no pyuria. BNP is elevated. Allergies No Known Allergies Allergy (Unverified 02/05/23 01:00) Home Medications: NK [No Home Meds] 02/05/23 - Past Medical/Surgical History -: Back Surgery (Slipped Disk) - Social History Caffeine use: Yes Place of Residence: Home Physical Examination Temp Pulse Resp BP Pulse Ox 97.2 F 81 18 155/96 H 96 02/06/23 08:25 02/06/23 11:54 02/06/23 08:25 02/06/23 11:54 02/06/23 08:25 Conclusions/Impression: # JARRETT likely 2/2 prerenal state +/- ATN from prolonged prerenal SCr 1.5 on adm, increased to 1.7 today Baseline SCr 0.9 in May 2020 Urinalysis showed mild proteinuria but no hematuria and no pyuria BNP elevated F/u CPK, urine chem, UPCR, renal US, iPTH Ivins po fluid intake # Pneumonia Hx of covid infxn in 2020 Hx of sleep apnea F/u TTE Abx per other services # Hypokalemia KCl repletion prn # Chest pain Trop neg Per other services # Htn Cont current med regimen
[2023-02-06] MEDS ORDERED: HYDROCODONE/APAP 5/325 MG TAB PO ONE (23:08)
[2023-02-06] MEDS ORDERED: PROMETHAZINE 25 MG TABLET PO ONE (23:08)
[2023-02-07 03:15] LABS: Hematocrit 43.5 % (39.6-49.0); MCV 82.9 fL (80-100); MPV 8.3 fL (7.6-11.3); Platelets 270 thou/uL (152-406); RBC Red Blood Cell Count 5.24 M/uL (4.33-5.43)
[2023-02-07 03:40] LABS: Magnesium 2.6 mg/dL (1.6-2.4); Potassium 3.4 mEq/L (3.5-5.1)
[2023-02-07] MEDS: KCL 20 MEQ/100 mL IVPB 20 MEQ/100 ML BAG IV SCH ×2 (07:00→09:50)
--- NOTE | 2023-02-07 09:23 | P.PN ---
Date of Service: 02/07/23 Subjective: Feeling a little better; able to sleep overnight breathing slightly more comfortable on room air at rest cough continues; coughing up more phlegm today Swelling in legs continues to improve afebrile ROS: 10 point ROS as noted above, otherwise negative Physical Exam: GEN: Alert, oriented, NAD HEENT: Normal conjunctiva, sclera anicteric CV: Regular rate and rhythm, trace to 1+ BLE edema up to the knee bilaterally Pulm: Nonlabored respirations on room air at rest, diminished at bases b/l, ABD: Soft, nontender, nondistended Neuro: Normal speech, normal affect vitals reviewed Problem List: Bilateral Pneumonia ?Acute CHF, new onset Chest pain JARRETT Hypokalemia Hypertension h/o Sleep Apnea Bilateral Pneumonia CXR (02/04): Moderate bilateral pulmonary opacities, R > L; pneumonia vs pulm edema CT chest (02/04): extensive b/l infiltrates likely inflammatory etiology. mildly spiculated ill-defined confluent component lateral right middle lobe. Mediastinal adenopathy consider f/u CT in ~3 months to confirm resolution and exclude neoplastic process. Pulm consulted Blood cx (02/04): NGTD Continue augmentin (02/06-); deescalated from IV azithromycin / rocephin (02/04- 02/05) PRN nebs repeat CXR ordered (02/07) f/u opacities, r/o worsening ?Acute CHF, new onset Chest pain troponins negative, monitor on tele diffuse chest pain worsened with coughing BNP: 709 continue PO lasix daily; switched from IV lasix BID 02/06 echo (02/05): pending JARRETT Hypokalemia Cr 1.67 -> 1.57 (02/07) continue PO lasix daily; switched from IV lasix BID 02/06 Continue to monitor renal function Monitor and replete electrolytes PRN Nephrology consulted Hypertension continue amlodipine; increased to 10mg 02/06 hyzaar dc'd 02/05 no prior home antihypertensives h/o Sleep Apnea Patient reports h/o sleep apnea; never got CPAP for home Code: Full Dispo: Home, ~1-2 days Pending further improvement, echo results
[2023-02-07] MEDS: FUROSEMIDE 40 MG TABLET PO SCH (09:50)
[2023-02-07] MEDS: AMLODIPINE 10 MG TAB PO SCH (09:51)
[2023-02-07] MEDS: AMOX/K CLAV 875 MG TAB PO SCH ×2 (09:51→22:02)
--- NOTE | 2023-02-07 11:24 | RAD REPORT ---
EXAM DESCRIPTION: RADChest Single View02/07/2023 11:08 am CLINICAL HISTORY: f/u pneumonia / pulm edema COMPARISON: Chest Single View dated 02/04/2023; Thorax Wo Con dated 02/04/2023 TECHNIQUE: Portable AP view of the chest. FINDINGS: Bilateral interstitial/reticular opacities, partially improved since the prior radiographs . No pneumothorax or effusion. The cardiomediastinal contours are unremarkable. IMPRESSION: Improving central interstitial/reticular opacities. Pneumonitis or other infectious/infl ammatory etiologies are favored.
[2023-02-07 13:24] LABS: Potassium 3.7 mEq/L (3.5-5.1)
--- NOTE | 2023-02-07 14:18 | EKG ---
Test Date: 2023-02-04 Test Time: 23:22:39 Health Data Analyst: SULMA MEASUREMENT RESULTS: Intervals: Rate: 94 AL: 194 QRSD: 118 QT: 396 QTc: 495 Dumont: P: 64 AL: 194 QRS: 21 T: 87 INTERPRETIVE STATEMENTS: Normal sinus rhythm Prolonged QT Abnormal ECG No previous ECG available for comparison Electronically Signed On 02-07-23 14:09:36 MACHINE DESIGNER by Prasanth Carlson
[2023-02-07] MEDS: BENZONATATE 100 MG CAP PO PRN (22:02)
--- NOTE | 2023-02-08 00:45 | PN ---
Date of Progress Note: 02/07/2023 Chief Complaint: Acute kidney injury. History: The patient has nonoliguric urine output. Baseline creatinine level was 0.9 in May 2020. Urinalysis showed mild proteinuria, but no hematuria and no pyuria. The patient on presentation to the hospital had lab work done, which showed elevated BNP and the patient is undergoing workup to check hematuria, obstructive uropathy, and to rule out rhabdomyolysis. Review of Systems: Denies chest pain, palpitations. Physical Examination: Lungs: Clear to auscultation bilaterally. Heart: S1, S2. Abdomen: Soft. Extremities: Slight edema. Impression And Plan: 1. Acute kidney injury secondary to prerenal state, acute tubular necrosis from prolonged prerenal azotemia. Serum creatinine level has not improved significantly. Continue to monitor urine output and hydration with IV fluids as needed. 2. Urinalysis showed mild proteinuria, which may go along with benign nephrosclerosis. 3. BNP elevated, monitor fluid balance. Avoid nephrotoxic medication because of acute kidney injury. 4. Acute kidney injury likely secondary to prerenal state secondary to volume depletion. us will be evaluated and workup is pending to check CPK level to rule out rhabdomyolysis. Urine electrolytes, chemistries were ordered as well as urine proteinuria and renal ultrasound. 5. History of COVID pneumonia back in 2020. The patient has history of sleep apnea, antibiotic per primary team will be adjusted according to culture results. 6. The patient will need TTE. 7. Hypokalemia. Potassium repletion as needed. Monitor renal panel and magnesium level. Chest pain. Troponin is negative for further workup. Recommendation per primary team. 8. Hypertension. Continue current medication. EB/MODL Voice ID: [id number] Report ID: [id number] DIAMOND
[2023-02-08 03:27] LABS: Hematocrit 42.6 % (39.6-49.0); MPV 8.4 fL (7.6-11.3); Platelets 260 thou/uL (152-406); RBC Red Blood Cell Count 5.14 M/uL (4.33-5.43)
[2023-02-08 03:48] LABS: Bilirubin Total 0.3 mg/dL (0.2-1.0); Magnesium 2.7 mg/dL (1.6-2.4); Potassium 3.3 mEq/L (3.5-5.1); Protein, Total 7.7 g/dL (6.4-8.2)
[2023-02-08] MEDS: FUROSEMIDE 40 MG TABLET PO SCH (08:04)
[2023-02-08] MEDS: AMOX/K CLAV 875 MG TAB PO SCH ×2 (08:04→21:14)
[2023-02-08] MEDS: SPIRONOLACTONE 25 MG TABLET PO SCH (08:05)
[2023-02-08] MEDS: AMLODIPINE 10 MG TAB PO SCH (08:05)
[2023-02-08] MEDS ORDERED: POTASSIUM CL SA 10 MEQ TAB PO ONE (09:00)
[2023-02-08] MEDS: BENZONATATE 100 MG CAP PO PRN ×2 (09:47→21:15)
--- NOTE | 2023-02-08 10:12 | P.PN ---
Date of Service: 02/08/23 Subjective: no acute events overnight Breathing a little more comfortably on room air at rest; +SOB with exertion Swelling in legs continues to slowly improve cough ~same as yesterday afebrile ROS: 10 point ROS as noted above, otherwise negative Physical Exam: GEN: Alert, oriented, NAD HEENT: Normal conjunctiva, sclera anicteric CV: Regular rate and rhythm, trace to 1+ BLE edema up to the knee bilaterally Pulm: Nonlabored respirations on room air at rest, diminished at bases b/l ABD: Soft, nontender, nondistended Neuro: Normal speech, normal affect vitals reviewed Problem List: Bilateral Pneumonia Acute CHF, diastolic; new onset Chest pain JARRETT vs CKD Hypokalemia Hypertension h/o Sleep Apnea Bilateral Pneumonia CXR (02/04): Moderate bilateral pulmonary opacities, R > L; pneumonia vs pulm edema CT chest (02/04): extensive b/l infiltrates likely inflammatory etiology. mildly spiculated ill-defined confluent component lateral right middle lobe. Mediastinal adenopathy consider f/u CT in ~3 months to confirm resolution and exclude neoplastic process. repeat CXR (02/07): Improving interstitial/reticular opacities. Pneumonitis/infectious/inflammatory etiologies are favored Pulm consulted Blood cx (02/04): NGTD Continue augmentin (02/06-); deescalated from IV azithromycin / rocephin (02/04-02/05) afebrile PRN nebs, Mariana Umanzor Acute CHF, diastolic; new onset Chest pain Troponins negative, monitor on tele diffuse chest pain worsened with coughing BNP: 709 continue PO lasix daily; switched from IV lasix BID 02/06 echo (02/05): pending JARRETT Hypokalemia Cr 1.47 -> 1.52 (02/08) renal u/s (02/08): unremarkable continue PO lasix daily; switched from IV lasix BID 02/06 Spironolactone added 02/08 Continue to monitor renal function Monitor and replete electrolytes PRN Nephrology consulted 24hr protein electrophoresis urine collection (02/08) Hypertension continue amlodipine; increased to 10mg 02/06 Spironolactone added 02/08 no prior home antihypertensives h/o Sleep Apnea Patient reports h/o sleep apnea; never got CPAP for home Code: Full Dispo: Home, ~1 day Pending further improvement, echo results
--- NOTE | 2023-02-08 10:54 | P.PN ---
Subjective Date of Service: 02/08/23 Chief Complaint: Shortness of breath Patient still complaining of shortness of breath on exertion feeling a little better hypertensive renal failure states that he has a history of obstructive sleep apnea did not get a CPAP machine Review of Systems 10-point ROS is otherwise unremarkable General: Weakness Respiratory: Shortness of Breath Physical Examination - Vital Signs Temperature: 97.4 F Blood Pressure: 184/107 Pulse: 80 Respirations: 16 Pulse Ox (%): 96 - Physical Exam General: Alert, Oriented x3 HEENT: Atraumatic Neck: Supple Respiratory: Crackles/rales Cardiovascular: No edema, Regular rate/rhythm Assessment And Plan - Current Problems (Diagnosis) (1) CHF (congestive heart failure) Current Visit: Yes Status: Acute Plan: Patient has grade 1 diastolic dysfunction on echocardiogram continue with diuretics Qualifiers: Heart failure chronicity: unspecified (2) Interstitial pneumonitis Current Visit: Yes Status: Acute Plan: Possibly secondary to atypical pneumonia add doxycycline p.o. in addition to Augmentin and also steroids only has underlying chronic renal failure renal ultrasound report is pending started the patient to follow-up with me in the office (3) Sleep apnea Current Visit: Yes Status: Acute Plan: History of sleep apnea sleep study was done in 2018 did not use CPAP machine complains of excessive daytime somnolence loud snoring follow-up in my office will do repeat another sleep study and arrange for him to get a CPAP machine probably help his underlying diastolic dysfunction Physician Review: Patient Assessed, Agree with Above Assessment and Plan
--- NOTE | 2023-02-08 10:57 | RAD REPORT ---
EXAM DESCRIPTION: US - Renal Ultrasound-Complete - 02/08/2023 6:33 am CLINICAL HISTORY: Acute renal insufficiency COMPARISON: None FINDINGS: The right kidney measures 9 cm with a normal echotexture. The left kidney measures 10 cm with a normal echotexture. Hydronephrosis is not seen. No gross abnormality of bladder IMPRESSION: Unremarkable renal ultrasound.
[2023-02-08] MEDS: predniSONE 20 MG TAB PO SCH ×2 (11:38→21:14)
[2023-02-08] MEDS: HYDRALAZINE HCL 20 MG/ML VIAL IV PRN (21:14)
--- NOTE | 2023-02-08 22:25 | PN ---
Date of Progress Note: 02/08/2023 Chief Complaint: Acute kidney injury. Subjective: Patient has nonoliguric urine output. Baseline creatinine was 0.9 in May 2020. Urina lysis showed mild proteinuria, but no hematuria, no pyuria. [facility] work done which showed elevated BNP and the patient is undergoing workup to check hematur ia, obstructive uropathy, and to rule out rhabdomyolysis. Review of Systems: Denies chest pain, palpitation. Physical Examination: Lungs: Clear to auscultation bilaterally. Heart: S1, S2. Abdomen: Soft. Extremities: Slight edema. Impression: 1.Acute kidney injury secondary to prerenal state. Acute tubular necrosis from prolonged prerenal a zotemia. Serum creatinine level has not improved significantly. Continue to monitor urine output an d continue adequate hydration with IV fluids as needed. 2.Urinalysis showed mild proteinuria, which may go along with benign nephrosclerosis. BNP is elevat ed. Monitor fluid balance. Avoid nephrotoxic medication because of acute kidney injury. Acute kidn ey injury secondary to prerenal state with volume depletion. Ultrasound of the kidney will be evalua seema and workup is pending to check CPK to rule out rhabdomyolysis. Urine electrolytes, chemistries w ere ordered and urine proteinuria was also ordered. 3.The patient has history of COVID pneumonia back in 2020. He has history of sleep apnea and the pa tient will continue antibiotics as ordered by primary team. The patient is awaiting for TTE. 4.Hypokalemia, repletion as needed. Monitor magnesium level and renal panel. 5.Hypertension. Continue current medication. EB/MODL Voice ID: [id number] Report ID: [id number]
[2023-02-09 03:05] LABS: Magnesium 2.7 mg/dL (1.6-2.4); Potassium 4.1 mEq/L (3.5-5.1)
[2023-02-09] MEDS: BENZONATATE 100 MG CAP PO PRN (04:54)
--- NOTE | 2023-02-09 07:32 | ECHO ---
HEIGHT: 5 ft 3 in WEIGHT: 220 lb 0 oz DATE OF STUDY: 02/05/[address]: Kishor Kta NP 2-DIMENSIONAL: YES M.MODE: YES DOPPLER: YES COLOR FLOW: YES TDS: YES PORTABLE: YES DEFINITY: BUBBLE STUDY: DIAGNOSIS: CONGESTIVE HEART FAILURE CARDIAC HISTORY: CATHERIZATION: NO SURGERY: NO PROSTHETIC VALVE: NO PACEMAKER: NO MEASUREMENTS (cm) DIASTOLIC (NORMALS) SYSTOLIC (NORMALS) IVSd 1.4 (0.6-1.2) LA Diam 3.0 (1.9-4.0) LVEF 60% LVIDd 5.4 (3.5-5.7) LVIDs 3.8 (2.0-3.5) %FS 28% LVPWd 1.4 (0.6-1.2) Ao Diam 3.3 (2.0-3.7) 2 DIMENSIONAL ASSESSMENT: RIGHT ATRIUM: NORMAL LEFT ATRIUM: NORMAL RIGHT VENTRICLE: NORMAL LEFT VENTRICLE: LEFT VENTRICULAR HYPERTROPHY TRICUSPID VALVE: NORMAL MITRAL VALVE: NORMAL PULMONIC VALVE: NORMAL AORTIC VALVE: NORMAL PERICARDIAL EFFUSION: NONE AORTIC ROOT: NORMAL LEFT VENTRICULAR WALL MOTION: NORMAL DOPPLER/COLOR FLOW: SEE BELOW COMMENTS: 1. NORMAL LEFT VENTRICULAR EJECTION FRACTION 60-65% WITH NORMAL WALL MOTION 2. GRADE I DIASTOLIC DYSFUNCTION 3. MODERATE CONCENTRIC LEFT VENTRICULAR HYPERTROPHY 4. MILD TRICUSPID REGURGITATION TECHNOLOGIST: RUSS MATA
--- NOTE | 2023-02-09 08:36 | P.DS ---
Admission Date: 02/04/23 Discharge Date: 02/09/23 Disposition: ROUTINE DISCHARGE Reason for Admission: Shortness of breath Consultations: Nephrology - Dr. Mack, Dr. Ogden-Wally Pulmonology - Dr. Mitchell Brief History of Present Illness: 58 yo M, PMH: hypertension, sleep apnea, CKD Patient presents to ER with complaints of fever, cough, shortness of breath and chest pain which has been going on for the last few days. Patient states that he had a friend who was sick and he contracted from him. Started insidiously. Fever is intermittent associated with chills. Cough is productive with mucoid expectoration. Denies any hemoptysis. Patient also complains of shortness of breath with light activities and even at rest. Chest pain is diffuse, all over the chest,, worse with coughing spells. Associated with nausea but no vomiting. Denies any diarrhea.. He had a hard time sleeping lying down as it worsens his symptoms of shortness of breath and cough. Patient was assessed in the ER and had a work-up which was negative for influenza and COVID along with RSV but x-ray was suggestive of pneumonia/CHF. Hospital Course: Problem List: Bilateral Pneumonia Acute CHF, diastolic; new onset Chest pain JARRETT vs CKD, ~baseline Hypokalemia, improved Hypertension h/o untreated Sleep Apnea Patient presented with fever, productive cough, shortness of breath, chest pain. Troponins were negative. BNP mildly elevated (709). CXR/CT chest with findings concerning for bronchitis / bilateral pneumonia / pulm edema. Pulmonology was consulted. Patient was initially given empiric IV azithromycin / rocephin, along with nebs and had improvement of his symptoms. Patient continued to improve after deescalating antibiotics to PO augmentin. Blood cultures wi thout growth. Patient is to complete 7 more days of Augmentin on discharge. Cardiology was consulted to eval for possible new onset CHF. Echo obtained this hospitalization with 60% EF, grade 1 diastolic dysfunction, moderate left ventricular hypertrophy, mild TR. Patient responded well to diuresis with lasix. No further cardiac work up this hospitalization. Patient was feeling better, breathing more comfortably on room air, lower extremity edema improved, and was deemed stable for discharge home. Blood pressure was noted to be elevated throughout hospitalization. No prior home antihypertensives. Patient was given amlodipine, spironolactone, and lasix. Patient reports getting sleep study done and being told he had sleep apnea but did not use CPAP machine at home. Recommend follow up with pulmonology for another sleep study / arrange for CPAP machine. Recommend getting blood pressure cuff (arms are more accurate than wrist) and to check blood pressure daily around the same time each day, ~1 hour before taking antihypertensive medications. Advised to check BP again few hours after taking medication. Recommend to keep daily log of BP. Bring log to follow up appointment with PCP t o make further adjustments to doses / medications. During his hospitalization, Initially presented with elevated creatinine of 1.5 with unknown baseline. This was presumed JARRETT, but given stability through hospitalization and comorbidities, this may be his baseline / indicate chronic renal disease. Recommend repeat blood work in 1 week to monitor renal function / CBC. Medications: Augmentin x1 week Prednisone x3 days Amlodipine Spironolactone lasix Advised to establish care with PCP for follow up visits / monitoring / medication refills. Follow up: PCP 3-5 days, Bring blood pressure daily log to appointment Pulmonology 1-2 weeks Cardiology 1-2 [address] chest: mildly spiculated ill-defined confluent component lateral right middle lobe. Follow up with PCP for further discussion and consider follow up CT in ~3 months to confirm resolution and exclude neoplastic process Physical Exam: GEN: Alert, oriented, NAD HEENT: Normal conjunctiva, sclera anicteric CV: Regular rate and rhythm, trace BLE pedal edema Pulm: Nonlabored respirations on room air at rest, +cough ABD: Soft, nontender, nondistended Neuro: Normal speech, normal affect Vital Signs/Physical Exam: Temp Pulse Resp BP Pulse Ox 97.5 F 95 H 17 140/84 78 L 02/09/23 08:00 02/09/23 08:00 02/09/23 08:00 02/09/23 08:00 02/09/23 08:00 Laboratory Data at Discharge: WBC 8.30 thou/uL (4.3-10.9) 02/08/23 02:56 Hgb 14.6 g/dL (13.6-17.9) 02/08/23 02:56 Hct 42.6 % (39.6-49.0) 02/08/23 02:56 Plt Count 260 thou/uL (152-406) 02/08/23 02:56 PT 14.2 SECONDS (9.5-12.5) H 02/04/23 21:53 INR 1.29 02/04/23 21:53 Sodium 135 mEq/L (136-145) L 02/09/23 01:37 Potassium 4.1 mEq/L (3.5-5.1) D 02/09/23 01:37 BUN 27 mg/dL (7-18) H 02/09/23 01:37 Creatinine 1.54 mg/dL (0.70-1.30) H 02/09/23 01:37 Glucose 155 mg/dL (74-106) H 02/09/23 01:37 Magnesium 2.7 mg/dL (1.6-2.4) H 02/09/23 01:37 Total Bilirubin 0.3 mg/dL (0.2-1.0) 02/08/23 02:56 AST 31 U/L (15-37) 02/08/23 02:56 ALT 38 U/L (16-61) 02/08/23 02:56 Alkaline Phosphatase 70 U/L (45-117) 02/08/23 02:56 Lipase 36 U/L (13-75) 02/04/23 21:53 Home Medications: Amlodipine [Norvasc*] 10 mg PO DAILY 30 Days #30 tab 02/09/23 Amox/Clavulanate [Augmentin 875-125 Tab*] 875 mg PO BID 7 Days #14 tab 02/09/23 Furosemide [Lasix*] 40 mg PO DAILY 30 Days #30 tab 02/09/23 Spironolactone [Aldactone*] 12.5 mg PO DAILY 30 Days #30 tab 02/09/23 predniSONE [Prednisone*] 20 mg PO BID 3 Days #6 tab 02/09/23 New Medications: Spironolactone [Aldactone*] 12.5 mg PO DAILY 30 Days #30 tab Amox/Clavulanate [Augmentin 875-125 Tab*] 875 mg PO BID 7 Days #14 tab Furosemide [Lasix*] 40 mg PO DAILY 30 Days #30 tab Amlodipine [Norvasc*] 10 mg PO DAILY 30 Days #30 tab predniSONE [Prednisone*] 20 mg PO BID 3 Days #6 tab Physician Discharge Instructions: Patient presented with fever, productive cough, shortness of breath, chest pain. Troponins were negative. BNP mildly elevated (709). CXR/CT chest with findings concerning for bronchitis / bilateral pneumonia / pulm edema. Pulmonology was consulted. Patient was initially given empiric IV azithromycin / rocephin, along with nebs and had improvement of his symptoms. Patient continued to improve after deescalating antibiotics to PO augmentin. Blood cultures without growth. Patient is to complete 7 more days of Augmentin on discharge. Cardiology was consulted to loy for possible new onset CHF. Echo obtained this hospitalization with 60% EF, grade 1 diastolic dysfunction, moderate left ventricular hypertrophy, mild TR. Patient responded well to diuresis with lasix. No further cardiac work up this hospitalization. Patient was feeling better, breathing more comfortably on room air, lower extremity edema improved, and was deemed stable for discharge home. Blood pressure was noted to be elevated throughout hospitalization. No prior home antihypertensives. Patient was given amlodipine, spironolactone, and lasix. Patient reports getting sleep study done and being told he had sleep apnea but did not use CPAP machine at home. Recommend follow up with pulmonology for another sleep study / arrange for CPAP machine. Recommend getting blood pressure cuff (arms are more accurate than wrist) and to check blood pressure daily around the same time each day, ~1 hour before taking antihypertensive medications. Advised to check BP again few hours after taking medication. Recommend to keep daily log of BP. Bring log to follow up apoointment with PCP to make further adjustments to doses / medications. During his hospitalization, Initially presented with elevated creatinine of 1.5 with unknown baseline. This was presumed JARRETT, but given stability through hospitalization and comorbidities, this may be his baseline / indicate chronic renal disease. Recommend repeat blood work in 1 week to monitor renal function / CBC. Medications: Augmentin x1 week Prednisone x3 days Amlodipine Spironolactone lasix Advised to establish care with PCP for follow up visits / monitoring / medication refills. Follow up: PCP 3-5 days, Bring blood pressure daily log to appointment Pulmonology 1-2 weeks Cardiology 1-2 weeks [address] seen on [address] chest: mildly spiculated ill-defined confluent component lateral right middle lobe. Follow up with PCP for further discussion and consider follow up CT in ~3 months to confirm resolution and exclude neoplastic process Followup: Unknown,U [Primary Care Provider] - Time spent managing pt's care (in minutes): 45
[2023-02-09] MEDS: AMLODIPINE 10 MG TAB PO SCH (09:44)
[2023-02-09] MEDS: SPIRONOLACTONE 25 MG TABLET PO SCH (09:44)
[2023-02-09] MEDS: FUROSEMIDE 40 MG TABLET PO SCH (09:44)
[2023-02-09] MEDS: AMOX/K CLAV 875 MG TAB PO SCH (09:44)
[2023-02-09] MEDS: predniSONE 20 MG TAB PO SCH (09:46)
[2023-02-09 11:33] VITALS: BP 160/92; TEMP 97.8
[2023-02-09 12:59] VITALS: O2SAT 94
--- NOTE | 2023-02-10 03:08 | PN ---
Date of Progress Note: 02/09/2023 Chief Complaint: Acute kidney injury. History Of Present Illness: The patient has nonoliguric urine output. Baseline creatinine was 0.9 i n May 2020. Urinalysis showed mild proteinuria, but no hematuria and no pyuria. The patient on pr esentation to the hospital had lab work done, which showed elevated BNP and the patient is undergoing workup to check hematuria, obstructive uropathy, and to rule out rhabdomyolysis. Review of Systems: Denies chest pain, palpitation. Physical Examination: Lungs: Clear to auscultation bilaterally. Heart: S1, S2. Abdomen: Soft, benign. Extremities: Slight edema. Impression And Plan: 1.Acute kidney injury secondary to prerenal azotemia, acute tubular necrosis from prolonged prerenal azotemia. 2.Serum creatinine level has not improved significantly, although renal function is plateauing. Noreen ctrolytes are stable. The patient does not have uremic symptomatology. 3.Urinalysis showed mild proteinuria, which may go along with benign nephrosclerosis. BNP is elevat ed. Plan is to monitor fluid balance and use diuretic as needed. Acute kidney injury secondary to a cute tubular necrosis with nonoliguric urine output. The workup was ordered to rule out rhabdomyolysis. Urinalysis was done to screen for any evidence of abn ormal urinary sediment. EB/MODL Voice ID: [id number] Report ID: [id number]
[2023-02-10 15:05] LABS: Albumin, (SPE) 3.3 g/dL (3.8-4.8); Alpha-1-Globulins 0.5 g/dL (0.2-0.3); Alpha-2-Globulins 0.9 g/dL (0.5-0.9); Gamma Globulins 1.4 g/dL (0.8-1.7); INTERPRETATION REPORT
== END 2023-02-09 12:05 | disposition home or self-care (01) | DRG 177 ==
LOC: ER 21:40 → ERHOLD 23:44 → 2ND 02-05 17:03
PROVIDERS: ADMIT Family Medicine; ATTEND Hospitalist
DX: J15.8 Pneumonia due to other specified bacteria (principal); I50.31 Acute diastolic (congestive) heart failure; N17.9 Acute kidney failure, unspecified; I13.0 Hypertensive heart and chronic kidney disease with heart failure and stage 1 through stage 4 chronic kidney disease, or unspecified chronic kidney disease; N18.9 Chronic kidney disease, unspecified; E87.6 Hypokalemia; G47.30 Sleep apnea, unspecified; J40 Bronchitis, not specified as acute or chronic; J84.89 Other specified interstitial pulmonary diseases; Z11.52 Encounter for screening for COVID-19; Z28.310 Unvaccinated for COVID-19; Z79.52 Long term (current) use of systemic steroids; Z79.899 Other long term (current) drug therapy
CPT/HCPCS: 0241U; 36415; 71045; 71250; 76770; 80048; 80053; 80076; 81001; 82550; 83605; 83690; 83735; 83880; 84132; 84165; 84166; 84484; 85025; 85027; 85610; 86021; 87040; 93005; 93306; 94760; 96365; 96366; 96368; 96375; 99285; J0360; J0696; J1940; J2270; J3480; J7050; J7512; J7614; J7644; Q0169